=== PATIENT | female | born 1955 | race Caucasian/White ===

== ENCOUNTER 2016-12-29 20:52 | Inpatient (IN) | payer OTHER ==
[~2016-12-29] VITALS: Ht 160 cm; Wt 100.3 kg
[~2016-12-29 20:52] MED LIST: CALCTAB7 PO; CRG625 PO; DICY10CA55 PO; FAMO20TA12 PO; FLUO20CA36 PO; FLUT0.0529 NAE; FLUT220A INH; FLV1 PO; LCTL45 PO; LISI-461 PO; LSX40 PO; LVQ500 PO; MULTTAB58 PO; NCDT21 TD; OXYGEN; POTA10CA28 PO; PRED20TA2 PO; RISP3TAB3 PO; SPR25 PO; VNTHFA/IN INH; XFX550 PO
[2016-12-29] MEDS ORDERED: SODIUM CHLORIDE 0.9% 1000ML 1,000 ML IV STA (21:05)
[2016-12-29] MEDS ORDERED: PIPERACILLIN/TAZOBACTAM 4.5 GM/100ML D5W IV STA (21:05)
--- NOTE | 2016-12-29 21:38 | DIAGNOSTIC IMAGING REPORT ---
CHEST ONE VIEW PORTABLE CLINICAL HISTORY: Evaluate Fever/Sepsis dyspnea COMPARISON STUDY: 04/05/2016 FINDINGS: The bones soft tissues and hemidiaphragms are normal. The cardiomediastinal silhouette is normal. The lungs are clear. Prominence of the central pulmonary vasculature considered chronic.. IMPRESSION: No acute process. Electronically signed by: Dm Villarreal M.D. 12/29/2016 9:36 PM Dictated Date/Time: 12/29/2016 9:35 PM
[2016-12-29 21:43] LABS: BASO % 0.2 %; BASO ABS # 0.03 K/uL (0-0.2); COMPLETE YES; EOS % 0.4 %; HEMATOCRIT 37.7 % (37-47); IG% 0.5 %; LYMPH % 6.5 %; LYMPH ABS # 0.84 K/uL (1.2-3.4); MEAN CORPUSCULAR HEMOGLOBIN 33.6 pg (25-34); MEAN CORPUSCULAR HGB CONC 32.6 g/dl (32-36); MEAN PLATELET VOLUME 10.4 fL (7.4-10.4); MONO % 9.8 %; NEUT % 82.6 %; PLATELET COUNT 185 K/uL (130-400); RED BLOOD COUNT 3.66 M/uL (4.2-5.4)
[2016-12-29 21:57] LABS: INR 1.2 (0.9-1.1); PROTHROMBIN TIME (PATIENT) 12.9 SECONDS (9.0-12.0)
[2016-12-29] MEDS ORDERED: RISP4TAB2 PO (21:58)
[2016-12-29] MEDS ORDERED: PRZ/40 PO (21:58)
[2016-12-29] MEDS ORDERED: ATOR-26 PO (21:58)
[2016-12-29] MEDS ORDERED: ASPI81TA28 PO (22:00)
[2016-12-29] MEDS ORDERED: IMD/2 PO (22:00)
[2016-12-29] MEDS ORDERED: MULT-506 PO (22:00)
[2016-12-29] MEDS ORDERED: CALC-20 PO (22:00)
[2016-12-29 22:02] LABS: ALT/SGPT 118 U/L (12-78); BLOOD UREA NITROGEN 13 mg/dl (7-18); CALCIUM 8.2 mg/dl (8.5-10.1); CARBON DIOXIDE 29 mmol/L (21-32); CHLORIDE 98 mmol/L (98-107); CREATININE 0.66 mg/dl (0.60-1.20); GLUCOSE 170 mg/dl (70-99); POTASSIUM 3.9 mmol/L (3.5-5.1); SODIUM 138 mmol/L (136-145)
[2016-12-29 22:17] LABS: ALKALINE PHOSPHATASE 1075 U/L (45-117); AST/SGOT 329 U/L (15-37); CKMB/CK RATIO 1.5 (0-3.0)
--- NOTE | 2016-12-29 22:19 | DIAGNOSTIC IMAGING REPORT ---
HEAD CT NONCONTRAST CT DOSE: 537.48 mGy.cm HISTORY: Mental status change Evaluate Fever/Sepsis TECHNIQUE: Multiaxial CT images of the head were performed without the use of intravenous contrast. Comparison: 01/15/2015 Findings: The paranasal sinuses and mastoid air cells are clear. Subtle areas of scattered chronic small vessel change. No evidence for acute intracranial hemorrhage. No evidence for midline shift. Impression: Chronic small vessel change. No acute intracranial abnormality. Electronically signed by: Dm Villarreal M.D. 12/29/2016 10:17 PM Dictated Date/Time: 12/29/2016 10:15 PM
[2016-12-29] MEDS ORDERED: MULTI-VITAMIN INFUSION INJ 10 ML, FoLIC ACID INJ 1 MG, THIAMINE HCL INJ 100 MG in SODIU... IV STA (22:43)
[2016-12-29 22:44] LABS: URINE APPEARANCE CLEAR (CLEAR); URINE COLOR DK; URINE EPITHELIAL CELL AUTO >30 /lpf (0-5); URINE NITRITE POS (NEG); URINE SPECIFIC GRAVITY 1.025 (1.000-1.030); UROBILINOGEN NEG (NEG)
[2016-12-29 22:47] LABS: MANUAL MICROSCOPIC REQUIRED? NO; REVIEW REQ? YES; URINE BILIRUBIN NEG (NEG)
[2016-12-29 22:48] LABS: ZZURINE CULT IF INDIC CATH NO
[2016-12-29 22:48] LABS: VEN BLD GAS O2 SATURATION 79.5 %; VEN BLOOD GAS BASE EXCESS 4.7 mmol/L
[2016-12-29 22:57] LABS: URINE MUCUS PRESENT (NONE PRSENT)
[2016-12-29 23:07] LABS: BENZODIAZEPINE, URINE NEG (NEG); COCAINE,URINE NEG (NEG); PHENCYCLIDINE, URINE NEG (NEG)
[2016-12-29] MEDS ORDERED: LORAZEPAM 2 MG/ML 1 ML VIAL IV STA (23:21)
--- NOTE | 2016-12-29 23:21 | EMERGENCY ROOM VISIT NOTE ---
History Report prepared by Maryam: Linnea Mustafa Under the Supervision of: Dr. Juan Lepe D.O. First contact with patient: 21:01 Chief Complaint: BILATERAL LEG WEAKNESS Stated Complaint: BILAT LEG WEAKNESS, UNABLE TO AMBULATE History of Present Illness The patient is a 61 year old female who presents to the Emergency Room with complaints of worsening bilateral leg weakness for the past month. She notes that recently she has been unable to bear weight on her legs even when using her walker. She has difficulty ambulating. The patient was brought via EMS due to the fact she was not able to move around her house after a fall occurring this afternoon. Her is her main caregiver. The patient has not left her house in over a year. She also has a erythema to her abdomen and bilateral legs. Source of History: patient Onset: past month Position: leg (bilateral) Timing: worsening Associated Symptoms: + rash (erythema to abdomen and legs), + weakness Note: The patient has difficulty ambulating. Review of Systems See HPI for pertinent positives & negatives. A total of 10 systems reviewed and were otherwise negative. Past Medical & Surgical Medical Problems: (1) Alcohol abuse (2) Anxiety and depression (3) COPD (chronic obstructive pulmonary disease) (4) Dyslipidemia (5) High cholesterol (6) Osteoporosis (7) Schizoaffective disorder (8) Schizophrenia (9) Systolic CHF (10) Tobacco use disorder Surgical Problems: (1) Hx of colonoscopy with polypectomy (2) Hx of tonsillectomy Family History Cancer Heart disease FATHER (severe [place] age 40; lived to be 70; had several bypasses) Kidney disease Kidney stones Social History Smoking Status: Former Smoker Alcohol Use: heavy Drug Use: none Marital Status: Housing Status: lives with significant other Occupation Status: other Current/Historical Medications Scheduled Aspirin (Aspirin Ec), 81 MG PO DAILY Atorvastatin (Lipitor), 80 MG PO DAILY Calcium Carbonate-Vitamin D (Calcium 600 + D), 1 TAB PO DAILY Fluoxetine Hcl (Prozac), 40 MG PO DAILY Multivitamin (Multivitamin), 1 TAB PO DAILY Risperidone (Risperdal), 4 MG PO HS Scheduled PRN Loperamide Hcl (Imodium), 2 MG PO UD PRN for Diarrhea Allergies Coded Allergies: No Known Allergies (Unverified , nkda, 04/01/16) Physical Exam Vital Signs Date Time Temp Pulse Resp B/P Pulse Ox O2 Delivery O2 Flow Rate FiO2 12/29/16 22:47 95 Nasal Cannula 2.0 12/29/16 22:43 113 19 174/96 93 Room Air 12/29/16 22:30 37.4 12/29/16 21:53 123 12/29/16 20:54 36.4 115 20 156/72 92 Room Air Physical Exam CONSTITUTIONAL/VITAL SIGNS: Reviewed / noted above. GENERAL: Non-toxic in appearance. INTEGUMENTARY: Warm, dry, and [place]. HEAD: Normocephalic. EYES: without scleral icterus or trauma. ENT/OROPHARYNX: Smell of ketones on the breath. Dry mucous membranes. LYMPHADENOPATHY/NECK: Is supple without lymphadenopathy or meningismus. RESPIRATORY: Coarse breath sounds. CARDIOVASCULAR: Regular rate and rhythm. GI/ABDOMEN: Erythema to lower abdomen with increased warm. Abdomen is distended. Normal bowel sounds. EXTREMITIES: Lower extremity edema. Erythema to bilateral anterior legs with increased warmth. BACK: No CVA tenderness. NEUROLOGICAL: Intact without focal deficits. PSYCHIATRIC: normal affect. MUSCULOSKELETAL: Normally developed with good muscle tone. Medical Decision & Procedures ER Provider Diagnostic Interpretation: X ray results and stated below per my interpretation and radiologist interpretation. Other radiology results and stated below per my review and radiologist interpretation: HEAD CT NONCONTRAST CT DOSE: 537.48 mGy.cm HISTORY: Mental status change Evaluate Fever/Sepsis TECHNIQUE: Multiaxial CT images of the head were performed without the use of intravenous contrast. Comparison: 01/15/2015 Findings: The paranasal sinuses and mastoid air cells are clear. Subtle areas of scattered chronic small vessel change. No evidence for acute intracranial hemorrhage. No evidence for midline shift. Impression: Chronic small vessel change. No acute intracranial abnormality. Electronically signed by: Dm Villarreal M.D. 12/29/2016 10:17 PM Dictated Date/Time: 12/29/2016 10:15 PM CHEST ONE VIEW PORTABLE CLINICAL HISTORY: Evaluate Fever/Sepsis dyspnea COMPARISON STUDY: 04/05/2016 FINDINGS: The bones soft tissues and hemidiaphragms are normal. The cardiomediastinal silhouette is normal. The lungs are clear. Prominence of the central pulmonary vasculature considered chronic.. IMPRESSION: No acute process. Electronically signed by: Dm Villarreal M.D. 12/29/2016 9:36 PM Dictated Date/Time: 12/29/2016 9:35 PM Laboratory Results 12/29/16 21:29 Red Blood Count 3.66, Mean Corpuscular Volume 103.0, Mean Corpuscular Hemoglobin 33.6, Mean Corpuscular Hemoglobin Concent 32.6, Mean Platelet Volume 10.4, Neutrophils (%) (Auto) 82.6, Lymphocytes (%) (Auto) 6.5, Monocytes (%) ( Auto) 9.8, Eosinophils (%) (Auto) 0.4, Basophils (%) (Auto) 0.2, Neutrophils # ( Auto) 10.64, Lymphocytes # (Auto) 0.84, Monocytes # (Auto) 1.27, Eosinophils # ( Auto) 0.05, Basophils # (Auto) 0.03 12/29/16 21:29 Test 12/29/16 21:20 12/29/16 21:27 12/29/16 21:29 12/29/16 21:45 Influenza Type A Antigen Neg for Influ A (NEG) Influenza Type B Antigen Neg for Influ B (NEG) Bedside Glucose 172 mg/dl (70-90) White Blood Count 12.90 K/uL (4.8-10.8) Red Blood Count 3.66 M/uL (4.2-5.4) Hemoglobin 12.3 g/dL (12.0-16.0) Hematocrit 37.7 % (37-47) Mean Corpuscular Volume 103.0 fL (80-100) Mean Corpuscular Hemoglobin 33.6 pg (25-34) Mean Corpuscular Hemoglobin Concent 32.6 g/dl (32-36) Platelet Count 185 K/uL (130-400) Mean Platelet Volume 10.4 fL (7.4-10.4) Neutrophils (%) (Auto) 82.6 % Lymphocytes (%) (Auto) 6.5 % Monocytes (%) (Auto) 9.8 % Eosinophils (%) (Auto) 0.4 % Basophils (%) (Auto) 0.2 % Neutrophils # (Auto) 10.64 K/uL (1.4-6.5) Lymphocytes # (Auto) 0.84 K/uL (1.2-3.4) Monocytes # (Auto) 1.27 K/uL (0.11-0.59) Eosinophils # (Auto) 0.05 K/uL (0-0.5) Basophils # (Auto) 0.03 K/uL (0-0.2) RDW Standard Deviation 65.4 fL (36.4-46.3) RDW Coefficient of Variation 18.1 % (11.5-14.5) Immature Granulocyte % (Auto) 0.5 % Immature Granulocyte # (Auto) 0.07 K/uL (0.00-0.02) Nucleated RBC Absolute Count (auto) 0.09 K/uL (0-0) Nucleated Red Blood Cells % 0.7 % Prothrombin Time 12.9 SECONDS (9.0-12.0) Prothromb Time International Ratio 1.2 (0.9-1.1) Activated Partial Thromboplast Time 26.7 SECONDS (21.0-31.0) Partial Thromboplastin Ratio 1.0 Anion Gap 11.0 mmol/L (3-11) Est Creatinine Clear Calc Drug Dose 102.1 ml/min Estimated GFR () 109.0 Estimated GFR (Non- 94.0 BUN/Creatinine Ratio 20.0 (10-20) Lactic Acid Level 1.9 mmol/L (0.4-2.0) Calcium Level 8.2 mg/dl (8.5-10.1) Total Bilirubin 2.2 mg/dl (0.2-1) Direct Bilirubin 1.7 mg/dl (0-0.2) Aspartate Amino Transf (AST/SGOT) 329 U/L (15-37) Alanine Aminotransferase (ALT/SGPT) 118 U/L (12-78) Alkaline Phosphatase 1075 U/L (45-117) Ammonia 45.0 umol/L (11-32) Total Creatine Kinase 273 U/L (26-192) Creatine Kinase MB 4.1 ng/ml (0.5-3.6) Creatine Kinase MB Ratio 1.5 (0-3.0) Troponin I < 0.015 ng/ml (0-0.045) Total Protein 6.1 gm/dl (6.4-8.2) Albumin 2.2 gm/dl (3.4-5.0) Lipase 321 U/L (73-393) Thyroid Stimulating Hormone (TSH) 20.900 uIu/ml (0.300-4.500) Acetaminophen Level ug/ml (10-30) Ethyl Alcohol mg/dL < 3.0 mg/dl (0-3) Test 12/29/16 22:30 12/29/16 22:35 Urine Color DK Urine Appearance CLEAR (CLEAR) Urine pH 6.0 (4.5-7.5) Urine Specific [place] 1.025 (1.000-1.030) Urine Protein 2+ (NEG) Urine Glucose (UA) NEG (NEG) Urine Ketones 1+ (NEG) Urine Occult Blood 3+ (NEG) Urine Nitrite POS (NEG) Urine Bilirubin NEG (NEG) Urine Urobilinogen NEG (NEG) Urine Leukocyte Esterase TRACE (NEG) Urine WBC (Auto) 5-10 /hpf (0-5) Urine RBC (Auto) 0-4 /hpf (0-4) Urine Hyaline Casts (Auto) 5-10 /lpf (0-5) Urine Epithelial Cells (Auto) >30 /lpf (0-5) Urine Bacteria (Auto) NEG (NEG) Urine Renal Epithelial Cells /lpf (0-5) Urine Mucus PRESENT (NONE PRSENT) Venous Blood pH 7.49 (7.36-7.41) Venous Blood Partial Pressure CO2 38 mmHg (38.0-50.0) Venous Blood Partial Pressure O2 44 mmHg Venous Blood HCO3 28 mmol/L Venous Blood Oxygen Saturation 79.5 % Venous Blood Base Excess 4.7 mmol/L Laboratory results as stated above per my review. Medications Administered Medications (Trade) Dose Ordered Sig/Antonio Route Start Time Stop Time Status Last Admin Dose Admin Sodium Chloride (Nss 1000ml) 1,000 ml @ 999 mls/hr Q1H1M STAT IV 12/29/16 21:05 12/29/16 22:05 DC 12/29/16 22:46 999 MLS/HR Piperacillin Sod/ Tazobactam Sod (Zosyn Iv) 4.5 gm NOW STAT IV 12/29/16 21:05 12/29/16 21:08 DC 12/29/16 22:46 4.5 GM ECG Indication: weakness Rate (beats per minute): 120 Rhythm: sinus tachycardia Findings: no acute ischemic change, no ectopy ED Course 2101: Previous medical records were reviewed. The patient was evaluated in room B7. A complete history and physical examination was performed. 2104: Zosyn IV 4.5 gm IV, Sodium Chloride 1,000 ml @ 999 mls/hr IV. 2243: Multivitamins 10 ml/ Folic Acid 1 mg/ Thiamine HCl 100 mg/ Sodium Chloride 1,011.2ml @ 999 mls/hr IV. 225: Discussed the patient's case with Dr. Stephanie Dobbins. The patient will be evaluated for further treatment and disposition. Medical Decision The patient is a 61 year old female who presents to the ED with complaints of generalized weakness. The patient lives at home with her . The patient has not been able to get out of bed for the past several days per EMS. The patient is a known alcoholic. She is somewhat of a poor historian. The patient 's exam findings suggest erythema and warmth to the lower extremities as well as the anterior lower abdomen. This is concerning for cellulitis. The patient also reports that she thinks that her neighbors would like to kill her. She states that she hears a voice message as pure. She thinks that this voice is causing her abdomen to swell. The patient denies any chest pains or shortness of breath. Her white blood cell count is 12.9. Glucose is 170. Ammonia level is 45. Bilirubin is 2.2. AST and ALT is slightly elevated. Flu swab was negative. Lactate is 1.9. Albumin is slightly low at 2.2. Urine suggest infection. Alcohol level was 0. TSH is elevated at 20. INR is 1.2. A VBG did not show any significant abnormality. Tox screen is negative. The patient reports that she drinks about 1 glass of alcohol a day. Her significant other suggest otherwise but does not give any specific detail on how much she drinks. The patient states that her last drink was this afternoon some time. She was given Ativan IV. She was given a banana bag IV. She was also given IV antibiotics. She will be seen by the hospitalist for further inpatient care. Differential diagnosis: Etiologies such as metabolic, infection, hypoglycemia, electrolyte abnormalities , cardiac sources, intracerebral event, toxicologic, neurologic, as well as others were entertained. Consults Time Called: 2245 Consulting Physician: Dr. Stephanie Dobbins Returned Call: [phone] Discussed the patient's case. The patient will be evaluated for further treatment and disposition. Impression Primary Impression: UTI (urinary tract infection) Additional Impressions: Cellulitis, abdominal wall Alcohol withdrawal Alcoholic cirrhosis of liver Scribe Attestation The scribe's documentation has been prepared under my direction and personally reviewed by me in its entirety. I confirm that the note above accurately reflects all work, treatment, procedures, and medical decision making performed by me. Departure Information Dispostion Being Evaluated By Hospitalist Referrals Sultana Mcginnis M.D. (PCP) Problem Qualifiers
[2016-12-30] VITALS (8 sets, daily range): BP systolic 106–163; BP diastolic 66–84; PULSE 105–115; TEMP 37–37.7; O2SAT 81–96; Ht 160 cm; Wt 100.3 kg
[2016-12-30] MEDS ORDERED: FUROSEMIDE 40 MG/4 ML VIAL ONE (02:28)
[2016-12-30] MEDS ORDERED: FUROSEMIDE INJ 40 MG in SYRINGE 0 ML IV ONE ×2 (02:30→15:45)
[2016-12-30] MEDS ORDERED: DAPTOmycin IV 625 MG in SODIUM CHLORIDE 0.9% 50ML 50 ML IV STA (02:33)
--- NOTE | 2016-12-30 05:48 | History and Physical ---
History & Physical Date & Time of Service: Dec 30, 2016 at 05:48 Chief Complaint: weakness, confusion . Primary Care Physician: Sultana Mcginnis M.D. History of Present Illness Source: patient, clinic records, hospital records 61 YO female followed by Dr. Sultana Mcginnis. History of systolic CHF, cirrhosis (steatohepatitis, possible alcohol abuse), schizophrenia, and other problems noted below. Apparently she is not very mobile and needs her husbands assistance with ambulation and transfers. Patient reportedly has not been out of her home for several months. Brought to ED because of progressive generalized weakness that had been worsening gradually over several weeks. Patient offers no complaints. She states that she feels OK and denies fever, chest pain, cough, SOB, nausea, vomiting, rectal bleeding, urinary symptoms, or other problems. Records indicate concerns about excessive alcohol consumption. Patient states that she doesn't drink very much, just a few drinks a week. . Past Medical/Surgical History Chronic Medical Problems: (1) Alcohol abuse Status: Chronic (2) Anxiety and depression Status: Chronic (3) COPD (chronic obstructive pulmonary disease) Status: Chronic (4) Dyslipidemia Status: Chronic (5) High cholesterol Status: Chronic (6) Osteoporosis Status: Chronic (7) Schizoaffective disorder Status: Chronic (8) Schizophrenia Status: Chronic (9) Systolic CHF Permanent Comment: EF 30-35% on echo 01/12/2015 Status: Chronic (10) Tobacco use disorder Status: Chronic Surgical Problems: (1) Hx of colonoscopy with polypectomy Permanent Comment: 07/15/11 2 polyps--adenomatous tissue Status: Chronic (2) Hx of tonsillectomy Status: Chronic Family History Cancer Heart disease FATHER (severe [place] age 40; lived to be 70; had several bypasses) Kidney disease Kidney stones Social History Smoking Status: Former Smoker Alcohol Use: exact consumption habits unclear Drug Use: none Marital Status: Housing status: lives with significant other Occupational Status: other Immunizations History of Influenza Vaccine: Yes History of Pneumococcal: Yes Multi-Drug Resistant Organisms History of MDRO: No Allergies Coded Allergies: No Known Allergies (Unverified , nkda, 04/01/16) Home Medications Scheduled Aspirin (Aspirin Ec), 81 MG PO DAILY Atorvastatin (Lipitor), 80 MG PO DAILY Calcium Carbonate-Vitamin D (Calcium 600 + D), 1 TAB PO DAILY Fluoxetine Hcl (Prozac), 40 MG PO DAILY Multivitamin (Multivitamin), 1 TAB PO DAILY Risperidone (Risperdal), 4 MG PO HS Scheduled PRN Loperamide Hcl (Imodium), 2 MG PO UD PRN for Diarrhea Review of Systems 10 systems reviewed; pertinent positives and negatives noted above in HPI. However, responses of questionable validity due to patient's condition. . Physical Exam Vital Signs Date Time Temp Pulse Resp B/P Pulse Ox O2 Delivery O2 Flow Rate FiO2 12/30/16 03:00 37.2 115 18 163/82 93 Nasal Cannula 3.0 12/30/16 02:37 93 Nasal Cannula 3.0 12/30/16 02:36 121 26 162/74 91 Nasal Cannula 2.0 12/30/16 01:24 176/84 12/30/16 01:22 117 23 95 Nasal Cannula 12/30/16 01:06 118 12/30/16 00:52 118 20 90 Room Air 12/30/16 00:22 118 20 93 Nasal Cannula 2.0 12/30/16 00:18 115 19 137/106 94 Nasal Cannula 2.0 12/30/16 00:16 137/106 12/29/16 23:52 117 22 95 12/29/16 23:22 112 23 96 12/29/16 22:58 187/106 12/29/16 22:52 118 20 96 12/29/16 22:47 95 Nasal Cannula 2.0 12/29/16 22:43 113 19 174/96 93 Room Air 12/29/16 22:41 174/96 12/29/16 22:30 37.4 12/29/16 21:53 123 12/29/16 21:52 117 20 91 12/29/16 21:31 162/104 12/29/16 20:54 36.4 115 20 156/72 92 Room Air General Appearance: WD/WN, + mild distress, + obese Head: normocephalic, atraumatic Eyes: PERRL, EOMI, + abnormal sclerae exam (icteric), + pertinent finding ( exophthalmus bilat) ENT: normal ENT inspection Neck: supple, trachea midline, + pertinent finding (exam limited due to body habitus) Respiratory/Chest: no respiratory distress, + crackles, + rhonchi, + wheezing Cardiovascular: regular rate, rhythm, + systolic murmur (II/ systolic murmur at base), + pertinent finding (JVD assessement limited due to body habitus; auscultation limited; 3-4+ lower extr edema bilat) Abdomen/GI: + pertinent finding (obese, distended, nontender; no palpable masses or organomegaly (exam very limited)) Extremities/Musculoskelatal: + swelling (3-4+ lower extremity edema) Neurologic/Psych: + pertinent finding (somewhat confused (had to look at watch to recall date); moderate asterixis) Skin: warm/dry, + pertinent finding (erythema and warmth lower abdominal wall, LLL prox and dist, RLL dist; spider angiomata chest) Lymphatic: no adenopathy (exam limited) Diagnostics Laboratory Results Results Past 24 Hours Test 12/29/16 21:20 12/29/16 21:27 12/29/16 21:29 12/29/16 21:45 Range/Units Influenza Type A Antigen Neg for Influ A NEG Influenza Type B Antigen Neg for Influ B NEG Bedside Glucose 172 70-90 mg/dl White Blood Count 12.90 4.8-10.8 K/uL Red Blood Count 3.66 4.2-5.4 M/uL Hemoglobin 12.3 12.0-16.0 g/dL Hematocrit 37.7 37-47 % Mean Corpuscular Volume 103.0 80-100 fL Mean Corpuscular Hemoglobin 33.6 25-34 pg Mean Corpuscular Hemoglobin Concent 32.6 32-36 g/dl Platelet Count 185 130-400 K/uL Mean Platelet Volume 10.4 7.4-10.4 fL Neutrophils (%) (Auto) 82.6 % Lymphocytes (%) (Auto) 6.5 % Monocytes (%) (Auto) 9.8 % Eosinophils (%) (Auto) 0.4 % Basophils (%) (Auto) 0.2 % Neutrophils # (Auto) 10.64 1.4-6.5 K/uL Lymphocytes # (Auto) 0.84 1.2-3.4 K/uL Monocytes # (Auto) 1.27 0.11-0.59 K/uL Eosinophils # (Auto) 0.05 0-0.5 K/uL Basophils # (Auto) 0.03 0-0.2 K/uL RDW Standard Deviation 65.4 36.4-46.3 fL RDW Coefficient of Variation 18.1 11.5-14.5 % Immature Granulocyte % (Auto) 0.5 % Immature Granulocyte # (Auto) 0.07 0.00-0.02 K/uL Nucleated RBC Absolute Count (auto) 0.09 0-0 K/uL Nucleated Red Blood Cells % 0.7 % Prothrombin Time 12.9 9.0-12.0 SECONDS Prothromb Time International Ratio 1.2 0.9-1.1 Activated Partial Thromboplast Time 26.7 21.0-31.0 SECONDS Partial Thromboplastin Ratio 1.0 Sodium Level 138 136-145 mmol/L Potassium Level 3.9 3.5-5.1 mmol/L Chloride Level 98 98-107 mmol/L Carbon Dioxide Level 29 21-32 mmol/L Anion Gap 11.0 3-11 mmol/L Blood Urea Nitrogen 13 7-18 mg/dl Creatinine 0.66 0.60-1.20 mg/dl Est Creatinine Clear Calc Drug Dose 102.1 ml/min Estimated GFR () 109.0 Estimated GFR (Non- 94.0 BUN/Creatinine Ratio 20.0 10-20 Random Glucose 170 70-99 mg/dl Lactic Acid Level 1.9 0.4-2.0 mmol/L Calcium Level 8.2 8.5-10.1 mg/dl Total Bilirubin 2.2 0.2-1 mg/dl Direct Bilirubin 1.7 0-0.2 mg/dl Aspartate Amino Transf (AST/SGOT) 329 15-37 U/L Alanine Aminotransferase (ALT/SGPT) 118 12-78 U/L Alkaline Phosphatase 1075 45-117 U/L Ammonia 45.0 11-32 umol/L Total Creatine Kinase 273 26-192 U/L Creatine Kinase MB 4.1 0.5-3.6 ng/ml Creatine Kinase MB Ratio 1.5 0-3.0 Troponin I < 0.015 0-0.045 ng/ml Total Protein 6.1 6.4-8.2 gm/dl Albumin 2.2 3.4-5.0 gm/dl Lipase 321 73-393 U/L Thyroid Stimulating Hormone (TSH) 20.900 0.300-4.500 uIu/ml Acetaminophen Level 10-30 ug/ml Ethyl Alcohol mg/dL < 3.0 0-3 mg/dl Test 12/29/16 22:30 12/29/16 22:35 12/30/16 04:44 Range/Units Urine Color DK Urine Appearance CLEAR CLEAR Urine pH 6.0 4.5-7.5 Urine Specific [place] 1.025 1.000-1.030 Urine Protein 2+ NEG Urine Glucose (UA) NEG NEG Urine Ketones 1+ NEG Urine Occult Blood 3+ NEG Urine Nitrite POS NEG Urine Bilirubin NEG NEG Urine Urobilinogen NEG NEG Urine Leukocyte Esterase TRACE NEG Urine WBC (Auto) 5-10 0-5 /hpf Urine RBC (Auto) 0-4 0-4 /hpf Urine Hyaline Casts (Auto) 5-10 0-5 /lpf Urine Epithelial Cells (Auto) >30 0-5 /lpf Urine Bacteria (Auto) NEG NEG Urine Renal Epithelial Cells 0-5 /lpf Urine Mucus PRESENT NONE PRSENT Urine Opiates Screen NEG NEG Urine Methadone, Qualitative NEG NEG Urine Barbiturates NEG NEG Urine Phencyclidine (PCP) Level NEG NEG Ur Amphetamine/Methamphetamine NEG NEG MDMA (Ecstasy) Screen NEG NEG Urine Benzodiazepines Screen NEG NEG Urine Cocaine Metabolite NEG NEG Urine Marijuana (THC) NEG NEG Venous Blood pH 7.49 7.36-7.41 Venous Blood Partial Pressure CO2 38 38.0-50.0 mmHg Venous Blood Partial Pressure O2 44 mmHg Venous Blood HCO3 28 mmol/L Venous Blood Oxygen Saturation 79.5 % Venous Blood Base Excess 4.7 mmol/L Microbiology Results 12/29/16 Blood Culture, Received Pending 12/29/16 Blood Culture, Received Pending Diagnostic Radiology CHEST ONE VIEW PORTABLE FINDINGS: The bones soft tissues and hemidiaphragms are normal. The cardiomediastinal silhouette is normal. The lungs are clear. Prominence of the central pulmonary vasculature considered chronic.. IMPRESSION: No acute process. Electronically signed by: Dm Villarreal M.D. 12/29/2016 9:[address] NONCONTRAST Findings: T he paranasal sinuses and mastoid air cells are clear. Subtle areas of scattered chronic small vessel change. No evidence for acute intracranial hemorrhage. No evidence for midline shift. Impression: Chronic small vessel change. No acute intracranial abnormality. Electronically signed by: Dm Villarreal M.D. 12/29/2016 10:17 PM . EKG EKG performed at 21:[address] at 120 / minute, baseline artifact, lateral T-wave inversions. . Impression Assessment and Plan CONFUSION Head CT negative for bleed or other acute event. Probably due to hepatic encephalopathy, perhaps precipitated by cellulitis. Start lactulose. CIRRHOSIS / HEPATIC ENCEPHALOPATHY Suspected cirrhosis noted on CT 2014. History fatty liver- could be combination of obesity and alcohol use. LFT's as noted. Abdomen noted- check US. Start lactulose for hepatic encephalopathy. Consult GI. SUSPECTED ALCOHOL USE Patient may be under-reporting her alcohol consumption. Received IV thiamin + MVI in ED. Monitor for alcohol withdrawal. Need to be careful with benzodiazepines and / or gabapentin in light of underlying hepatic disease. CELLULITIS ABDOMEN / LOWER EXTREMITIES Erythema and warmth lower abdominal wall and lower extremities. Afebrile. WBC slightly elevated. Lactate < 2. Blood cultures obtained in ED. Rx with daptomycin and piperacillin / tazobactam. SYSTOLIC CHF Compensated radiographically on admission chest x-ray, but seemed to be congested after receiving 2 L IV fluids in ED. Furosemide 40 mg IV ordered. Check f/u chest x-ray in a.m. DYSLIPIDEMIA Hold statin in light of elevate LFT's. THYROID DISEASE Bilat exophthalmos noted on exam- ? chronicity. TSH 21. ? burned-out Grave's disease. Start levothyroxine 25 mcg daily. SCHIZOPHRENIA Continue usual meds. VTE PROPHYLAXIS High risk for VTE. SQ heparin with caution. CODE STATUS Patient reports no living will. Need to clarify code status with family when they are available. DISPOSITION Admit to Telemetry Unit. Discharge disposition to be determined. Medical follow-up with Dr. Sultana Mcginnis. . Advanced Directives Existing Advance Directive: No Existing Living Will: No Existing Power of [employer] Supervisor: No VTE Prophylaxis VTE Risk Assessment Done? Y/N: Yes Risk Level: Moderate Given or contraindicated: Unfractionated heparin SQ
[2016-12-30 06:20] LABS: HEMATOCRIT 31.7 % (37-47); MEAN CELL VOLUME 104.6 fL (80-100); MEAN CORPUSCULAR HGB CONC 32.5 g/dl (32-36); MEAN PLATELET VOLUME 10.2 fL (7.4-10.4); PLATELET COUNT 163 K/uL (130-400); RED BLOOD COUNT 3.03 M/uL (4.2-5.4); WHITE BLOOD COUNT 11.99 K/uL (4.8-10.8)
[2016-12-30] MEDS ORDERED: PIPERACILL/TAZOBAC CONSULT ACTIVE PRN (07:00)
[2016-12-30 07:04] LABS: BUN/CREATININE RATIO 17.1 (10-20); CALCIUM 7.8 mg/dl (8.5-10.1); CREATININE 0.78 mg/dl (0.60-1.20); MAGNESIUM 1.8 mg/dl (1.8-2.4); POTASSIUM 3.2 mmol/L (3.5-5.1)
--- NOTE | 2016-12-30 07:46 | DIAGNOSTIC IMAGING REPORT ---
CHEST ONE VIEW PORTABLE CLINICAL HISTORY: SOB dyspnea COMPARISON STUDY: 12/29/2016 FINDINGS: Mild stable cardiomegaly. Diaphragms smooth. Slight blunting left lateral calcific angle. Mild pulmonary vascular congestion. IMPRESSION: Interval mild pulmonary vascular congestion. Trace pleural fluid left base laterally. Electronically signed by: Dm Villarreal M.D. 12/30/2016 7:44 AM Dictated Date/Time: 12/30/2016 7:44 AM
[2016-12-30] MEDS ORDERED: POTASSIUM CHLORIDE 20 MEQ TABCR PO ONE (08:00)
[2016-12-30] MEDS: PIPERACILL/TAZOBAC IV 4.5 GM in DEXTROSE 5% 100ML 100 ML IV SCH ×3 (08:22→21:32)
--- NOTE | 2016-12-30 08:24 | DIAGNOSTIC IMAGING REPORT ---
ABDOMINAL ULTRASOUND COMPLETE HISTORY: Hepatic cirrhosis cirrhosis. COMPARISON: None. FINDINGS: Pancreas: The pancreas demonstrates a normal echotexture. Liver: Mild hepatomegaly at 25 cm maximum linear dimension. Cirrhotic echotexture. Gallbladder: No gallbladder wall thickening. No gallstones. CBD: 7 mm Kidneys: No hydronephrosis. Spleen: Mild splenomegaly at 12 cm. Trace perisplenic ascites Aorta: Normal in caliber. IVC: Patent. IMPRESSION: 1. Hepatic cirrhosis. 2. Mild hepatosplenomegaly. 3. Trace upper abdominal ascites Electronically signed by: Dm Villarreal M.D. 12/30/2016 8:22 AM Dictated Date/Time: 12/30/2016 8:20 AM
[2016-12-30] MEDS: FLUOXETINE HCL 20 MG CAP PO SCH (08:26)
[2016-12-30] MEDS: ASPIRIN 81 MG ECTAB PO SCH (08:26)
[2016-12-30] MEDS ORDERED: LACTULOSE SYRUP 30 GM/45 ML UDP PO SCH (09:00)
[2016-12-30] MEDS ORDERED: ATORVASTATIN 40 MG TAB PO SCH (09:00)
[2016-12-30] MEDS: HEPARIN SOD 5000 UNIT/0.5 ML CARP SQ SCH ×2 (09:30→21:32)
[2016-12-30] MEDS ORDERED: POTASSIUM CHLORIDE 20 MEQ TABCR PO SCH (11:00)
[2016-12-30] MEDS ORDERED: LEVALBUTEROL/IPRATROPIUM NEB INH SCH (15:30)
[2016-12-30] MEDS ORDERED: THIAMINE HCL 100 MG TAB PO ONE (15:45)
[2016-12-30 15:50] LABS: ALLEN TEST POS (POS); ARTERIAL BLD GAS O2 SATURATION 91.4 % (90-95); ARTERIAL BLOOD GAS BASE EXCESS 5.3 mEq/L (-9-1.8); ARTERIAL BLOOD GAS HCO3 30 mmol/L (19-24); ARTERIAL BLOOD GAS PO2 66 mm/Hg (80-95); ARTERIAL BLOOD GAS pH 7.47 (7.35-7.45)
[2016-12-30] MEDS ORDERED: PANTOprazole SOD 40 MG TAB PO ONE (16:00)
[2016-12-30] MEDS ORDERED: LACTULOSE 200GM/700ML WTR ENEMA PR SCH (16:15)
--- NOTE | 2016-12-30 16:37 | Gastrointestinal Consultation ---
Gastrointestinal Consultation Date of Consultation: Dec 30, 2016 Attending Physician: Zara Maxwell Consulting Physician: Andrea Ag Reason for Consultation: Cirrhosis History of Present Illness Patient is a 61 year old female who was brought into hospital as family noticed her to be progressively weak in last several weeks, and not been able to ambulate w/o assistance. She is currently laying in bed, responds to name called by opening eyes but no verbal responses nor following simple commands. Pupils reactive to light. I am unable to obtain ROS or history from pt given altered mental status. HPI data mostly from admission H&P and outpt clinic notes. Pt had been seen by our service in the past for elevated LFTs - suspected to have ETOH cirrhosis. Current ETOH consumption amt unclear though previously she admits to taking 4 small cups of hanh per week to sleep. Previous autoimmune, viral, hepatitis, hereditary liver disease serologies are all unremarkable. In 2014, her LFTs showed transaminases of AST >1500, ALT 500s, Alk phos 900s which gradually improve. She never followed up in GI clinic since 08/2015. Currently LFT showed Tbili 2.2, Dbili 1.7, AST 329, ALT 118, Alk phos 1075. Ammonia level 45, CK 273. TSH 20. Head CT unremarkable. She had negative flu screen. Utox so far negative. APAP level pending. Abd u/s showed cirrhotic appearing liver, w trace upper abd ascites, CBD 7mm, no gallstones or gallbladder wall thickening. CXR showed mild pulmonary vascular congestion. Past Medical/Surgical History Medical Problems: (1) Cellulitis of leg, right Status: Acute (2) Cellulitis, abdominal wall Status: Acute Past Medical History: See above Depression/Anxiety COPD Dyslipidemia OP Schizoaffective disorder Systolic CHF Past Surgical History: Tonsillectomy Family History Cancer Heart disease FATHER (severe PR age 40; lived to be 70; had several bypasses) Kidney disease Kidney stones Social History Smoking Status: Former Smoker Alcohol Use: heavy Drug Use: none Marital Status: Housing Status: lives with significant other Occupation Status: other Allergies Coded Allergies: No Known Allergies (Unverified , nkda, 04/01/16) Current Medications Home Meds and Scripts Medications Dose Route/Sig Max Daily Dose Days Date Category Dose Instructions Imodium (Loperamide HCl) 2 Mg Cap 2 Mg PO UD PRN 12/29/16 Reported TAKE PER PACKAGE DIRECTIONS Aspirin Ec (Aspirin) 81 Mg Tab 81 Mg PO DAILY 12/29/16 Reported Calcium 600 + D (Calcium Carbonate-Vitamin D) 1 Tab Tab 1 Tab PO DAILY 12/29/16 Reported Multivitamin (Multivitamins) Tab 1 Tab PO DAILY 12/29/16 Reported Prozac (Fluoxetine Hcl) 40 Mg Cap 40 Mg PO DAILY 12/29/16 Reported Lipitor (Atorvastatin Calcium) 80 Mg Tab 80 Mg PO DAILY 12/29/16 Reported Risperdal (Risperidone) 4 Mg Tab 4 Mg PO HS 12/29/16 Reported Review of Systems Constitutional: + see HPI (Unable to obtain ROS given pt's AMS) Physical Exam Date Time Temp Pulse Resp B/P Pulse Ox O2 Delivery O2 Flow Rate FiO2 12/30/16 12:00 Nasal Cannula 3.0 12/30/16 11:32 37.6 106 22 106/66 93 Nasal Cannula 3.0 12/30/16 08:00 Nasal Cannula 3.0 12/30/16 07:00 37.2 113 20 112/73 92 Nasal Cannula 3.0 12/30/16 03:00 37.2 115 18 163/82 93 Nasal Cannula 3.0 12/30/16 02:37 93 Nasal Cannula 3.0 12/30/16 02:36 121 26 162/74 91 Nasal Cannula 2.0 12/30/16 01:24 176/84 12/30/16 01:22 117 23 95 Nasal Cannula 12/30/16 01:06 118 12/30/16 00:52 118 20 90 Room Air 12/30/16 00:22 118 20 93 Nasal Cannula 2.0 12/30/16 00:18 115 19 137/106 94 Nasal Cannula 2.0 12/30/16 00:16 137/106 12/29/16 23:52 117 22 95 12/29/16 23:22 112 23 96 12/29/16 22:58 187/106 12/29/16 22:52 118 20 96 12/29/16 22:47 95 Nasal Cannula 2.0 12/29/16 22:43 113 19 174/96 93 Room Air 12/29/16 22:41 174/96 12/29/16 22:30 37.4 12/29/16 21:53 123 12/29/16 21:52 117 20 91 12/29/16 21:31 162/104 12/29/16 20:54 36.4 115 20 156/72 92 Room Air General Appearance: + obese Respiratory/Chest: + crackles, + rhonchi Cardiovascular: regular rate, rhythm, no gallop, no murmur Abdomen: + abnormal bowel sounds (hypoactive), + distended Neurologic/Psych: + disoriented (resposive only by opening eyes slightly when name called. not following any commands) Skin: normal color, no jaundice, no rash Laboratory Results Last 24 Hours Test 12/29/16 21:20 12/29/16 21:27 12/29/16 21:29 12/29/16 21:45 Influenza Type A Antigen Neg for Influ A Influenza Type B Antigen Neg for Influ B Bedside Glucose 172 mg/dl White Blood Count 12.90 K/uL Red Blood Count 3.66 M/uL Hemoglobin 12.3 g/dL Hematocrit 37.7 % Mean Corpuscular Volume 103.0 fL Mean Corpuscular Hemoglobin 33.6 pg Mean Corpuscular Hemoglobin Concent 32.6 g/dl Platelet Count 185 K/uL Mean Platelet Volume 10.4 fL Neutrophils (%) (Auto) 82.6 % Lymphocytes (%) (Auto) 6.5 % Monocytes (%) (Auto) 9.8 % Eosinophils (%) (Auto) 0.4 % Basophils (%) (Auto) 0.2 % Neutrophils # (Auto) 10.64 K/uL Lymphocytes # (Auto) 0.84 K/uL Monocytes # (Auto) 1.27 K/uL Eosinophils # (Auto) 0.05 K/uL Basophils # (Auto) 0.03 K/uL RDW Standard Deviation 65.4 fL RDW Coefficient of Variation 18.1 % Immature Granulocyte % (Auto) 0.5 % Immature Granulocyte # (Auto) 0.07 K/uL Nucleated RBC Absolute Count (auto) 0.09 K/uL Nucleated Red Blood Cells % 0.7 % Prothrombin Time 12.9 SECONDS Prothromb Time International Ratio 1.2 Activated Partial Thromboplast Time 26.7 SECONDS Partial Thromboplastin Ratio 1.0 Sodium Level 138 mmol/L Potassium Level 3.9 mmol/L Chloride Level 98 mmol/L Carbon Dioxide Level 29 mmol/L Anion Gap 11.0 mmol/L Blood Urea Nitrogen 13 mg/dl Creatinine 0.66 mg/dl Est Creatinine Clear Calc Drug Dose 102.1 ml/min Estimated GFR () 109.0 Estimated GFR (Non- 94.0 BUN/Creatinine Ratio 20.0 Random Glucose 170 mg/dl Lactic Acid Level 1.9 mmol/L Calcium Level 8.2 mg/dl Total Bilirubin 2.2 mg/dl Direct Bilirubin 1.7 mg/dl Aspartate Amino Transf (AST/SGOT) 329 U/L Alanine Aminotransferase (ALT/SGPT) 118 U/L Alkaline Phosphatase 1075 U/L Ammonia 45.0 umol/L Total Creatine Kinase 273 U/L Creatine Kinase MB 4.1 ng/ml Creatine Kinase MB Ratio 1.5 Troponin I < 0.015 ng/ml Total Protein 6.1 gm/dl Albumin 2.2 gm/dl Lipase 321 U/L Thyroid Stimulating Hormone (TSH) 20.900 uIu/ml Acetaminophen Level ug/ml Ethyl Alcohol mg/dL < 3.0 mg/dl Test 12/29/16 22:30 12/29/16 22:35 12/30/16 06:00 12/30/16 15:20 Urine Color DK Urine Appearance CLEAR Urine pH 6.0 Urine Specific [place] 1.025 Urine Protein 2+ Urine Glucose (UA) NEG Urine Ketones 1+ Urine Occult Blood 3+ Urine Nitrite POS Urine Bilirubin NEG Urine Urobilinogen NEG Urine Leukocyte Esterase TRACE Urine WBC (Auto) 5-10 /hpf Urine RBC (Auto) 0-4 /hpf Urine Hyaline Casts (Auto) 5-10 /lpf Urine Epithelial Cells (Auto) >30 /lpf Urine Bacteria (Auto) NEG Urine Renal Epithelial Cells /lpf Urine Mucus PRESENT Urine Opiates Screen NEG Urine Methadone, Qualitative NEG Urine Barbiturates NEG Urine Phencyclidine (PCP) Level NEG Ur Amphetamine/Methamphetamine NEG MDMA (Ecstasy) Screen NEG Urine Benzodiazepines Screen NEG Urine Cocaine Metabolite NEG Urine Marijuana (THC) NEG Venous Blood pH 7.49 Venous Blood Partial Pressure CO2 38 mmHg Venous Blood Partial Pressure O2 44 mmHg Venous Blood HCO3 28 mmol/L Venous Blood Oxygen Saturation 79.5 % Venous Blood Base Excess 4.7 mmol/L White Blood Count 11.99 K/uL Red Blood Count 3.03 M/uL Hemoglobin 10.3 g/dL Hematocrit 31.7 % Mean Corpuscular Volume 104.6 fL Mean Corpuscular Hemoglobin 34.0 pg Mean Corpuscular Hemoglobin Concent 32.5 g/dl RDW Standard Deviation 68.1 fL RDW Coefficient of Variation 18.6 % Platelet Count 163 K/uL Mean Platelet Volume 10.2 fL Nucleated RBC Absolute Count (auto) 0.07 K/uL Nucleated Red Blood Cells % 0.6 % Sodium Level 141 mmol/L Potassium Level 3.2 mmol/L 3.5 mmol/L Chloride Level 100 mmol/L Carbon Dioxide Level 29 mmol/L Anion Gap 12.0 mmol/L Blood Urea Nitrogen 13 mg/dl Creatinine 0.78 mg/dl Est Creatinine Clear Calc Drug Dose 86.3 ml/min Estimated GFR () 93.8 Estimated GFR (Non- 80.9 BUN/Creatinine Ratio 17.1 Random Glucose 129 mg/dl Calcium Level 7.8 mg/dl Magnesium Level 1.8 mg/dl Test 12/30/16 15:40 12/30/16 16:03 Arterial Blood pH 7.47 Arterial Blood Partial Pressure CO2 41 mmHg Arterial Blood Partial Pressure O2 66 mm/Hg Arterial Blood HCO3 30 mmol/L Arterial Blood Oxygen Saturation 91.4 % Arterial Blood Base Excess 5.3 mEq/L Arterial Blood Gas Delivery 93% Ramakrishna Test POS Impression Patient is a 61 year old female w hx of suspected ETOH cirrhosis, admitted for progressive weakness. Labs showed some leukocytosis, LFTs elevated: Tbili 2, AST 300s, ALT 118, Alk phos 1079. She is currently only responding to name called by opening eyes, not following commands. Head CT unremarkable, ammonia level 45. Plan - Blood cx pending, would obtain Urine culture - Continue Lactulose 30g BID; but add Lactulose enema q8hrs as suspect given pt' s AMS she may not be able to take PO meds - F/U APAP level - Obtain KUB for abd distension - Consider MRCP given elevated alk phos and tbili to r/o biliary obstruction ( though less likely given only mild CBD dilation of 7mm and no signs of gallstones). - Will continue to follow; eventually she needs close GI follow up once discharged for EGD to r/o varices, diuretic and hepatic encephalopathy med management, HCC screens [id number], Hep A and B vaccinations if not immune. I have seen, examined and agree with the plan as outlined by ENOCH Scruggs as above. -exam reveals soft abd -MS has improved after initiation of bipap, continue po lactulose
[2016-12-30] MEDS ORDERED: OPTIRAY 320 IV PRN (17:30)
[2016-12-30] MEDS ORDERED: NURSING VERBAL MED ORDER ONE (19:00)
[2016-12-30] MEDS: LACTULOSE ENEMA COMPOUND PO SCH (19:26)
[2016-12-30] MEDS: LACTULOSE SYRUP 200 GM, WATER, STERILE IRRIG 700 ML, BARCODE IDENTIFIER 1 EA PR SCH ×2 (19:26)
[2016-12-30] MEDS: LACTULOSE SYRUP 30 GM/45 ML UDP PO SCH (20:43)
[2016-12-30] MEDS: RISPERIDONE 2 MG TAB PO SCH (20:43)
[2016-12-30] MEDS ORDERED: LEVALBUTEROL 1.25MG/0.5ML NEB INH SCH (21:00)
[2016-12-30] MEDS ORDERED: IPRATROPIUM BROMIDE NEB SOLN 0.02% 2.5 ML VIAL INH SCH (21:00)
--- NOTE | 2016-12-30 21:20 | Progress Note ---
Medicine Progress Note Date & Time of Visit: Dec 30, 2016 at 21:05. Subjective Patient seen and examined. Lethargic. Denies pain. Objective Last 8 Hrs Date Time Temp Pulse Resp B/P Pulse Ox O2 Delivery O2 Flow Rate FiO2 12/30/16 20:29 37.0 112 20 149/84 90 Nasal Cannula 3.0 12/30/16 19:38 113 20 85 Room Air 12/30/16 18:13 115 96 50 12/30/16 16:36 105 93 Nasal Cannula 3.0 12/30/16 16:35 37.7 106 20 118/71 81 Room Air 12/30/16 16:00 Nasal Cannula 3.0 Physical Exam: General-oriented x3; lethargic Eyes-apparent exophthalmos; muddy sclera Neck-no stridor; trachea midline Lungs-rhonchi throughout Heart-tachycardic but regular rhythm Abdomen-soft; NT; distended; tympanic; nBS Extremities-2+ pitting edema bilateral LE Neuro-no asterixis but hand tremors Laboratory Results: Last 24 Hours Test 12/29/16 21:20 12/29/16 21:27 12/29/16 21:29 12/29/16 21:45 Influenza Type A Antigen Neg for Influ A Influenza Type B Antigen Neg for Influ B Bedside Glucose 172 mg/dl White Blood Count 12.90 K/uL Red Blood Count 3.66 M/uL Hemoglobin 12.3 g/dL Hematocrit 37.7 % Mean Corpuscular Volume 103.0 fL Mean Corpuscular Hemoglobin 33.6 pg Mean Corpuscular Hemoglobin Concent 32.6 g/dl Platelet Count 185 K/uL Mean Platelet Volume 10.4 fL Neutrophils (%) (Auto) 82.6 % Lymphocytes (%) (Auto) 6.5 % Monocytes (%) (Auto) 9.8 % Eosinophils (%) (Auto) 0.4 % Basophils (%) (Auto) 0.2 % Neutrophils # (Auto) 10.64 K/uL Lymphocytes # (Auto) 0.84 K/uL Monocytes # (Auto) 1.27 K/uL Eosinophils # (Auto) 0.05 K/uL Basophils # (Auto) 0.03 K/uL RDW Standard Deviation 65.4 fL RDW Coefficient of Variation 18.1 % Immature Granulocyte % (Auto) 0.5 % Immature Granulocyte # (Auto) 0.07 K/uL Nucleated RBC Absolute Count (auto) 0.09 K/uL Nucleated Red Blood Cells % 0.7 % Prothrombin Time 12.9 SECONDS Prothromb Time International Ratio 1.2 Activated Partial Thromboplast Time 26.7 SECONDS Partial Thromboplastin Ratio 1.0 Sodium Level 138 mmol/L Potassium Level 3.9 mmol/L Chloride Level 98 mmol/L Carbon Dioxide Level 29 mmol/L Anion Gap 11.0 mmol/L Blood Urea Nitrogen 13 mg/dl Creatinine 0.66 mg/dl Est Creatinine Clear Calc Drug Dose 102.1 ml/min Estimated GFR () 109.0 Estimated GFR (Non- 94.0 BUN/Creatinine Ratio 20.0 Random Glucose 170 mg/dl Lactic Acid Level 1.9 mmol/L Calcium Level 8.2 mg/dl Total Bilirubin 2.2 mg/dl Direct Bilirubin 1.7 mg/dl Aspartate Amino Transf (AST/SGOT) 329 U/L Alanine Aminotransferase (ALT/SGPT) 118 U/L Alkaline Phosphatase 1075 U/L Ammonia 45.0 umol/L Total Creatine Kinase 273 U/L Creatine Kinase MB 4.1 ng/ml Creatine Kinase MB Ratio 1.5 Troponin I < 0.015 ng/ml Total Protein 6.1 gm/dl Albumin 2.2 gm/dl Lipase 321 U/L Thyroid Stimulating Hormone (TSH) 20.900 uIu/ml Acetaminophen Level ug/ml Ethyl Alcohol mg/dL < 3.0 mg/dl Test 12/29/16 22:30 12/29/16 22:35 12/30/16 06:00 12/30/16 15:20 Urine Color DK Urine Appearance CLEAR Urine pH 6.0 Urine Specific [place] 1.025 Urine Protein 2+ Urine Glucose (UA) NEG Urine Ketones 1+ Urine Occult Blood 3+ Urine Nitrite POS Urine Bilirubin NEG Urine Urobilinogen NEG Urine Leukocyte Esterase TRACE Urine WBC (Auto) 5-10 /hpf Urine RBC (Auto) 0-4 /hpf Urine Hyaline Casts (Auto) 5-10 /lpf Urine Epithelial Cells (Auto) >30 /lpf Urine Bacteria (Auto) NEG Urine Renal Epithelial Cells /lpf Urine Mucus PRESENT Urine Opiates Screen NEG Urine Methadone, Qualitative NEG Urine Barbiturates NEG Urine Phencyclidine (PCP) Level NEG Ur Amphetamine/Methamphetamine NEG MDMA (Ecstasy) Screen NEG Urine Benzodiazepines Screen NEG Urine Cocaine Metabolite NEG Urine Marijuana (THC) NEG Venous Blood pH 7.49 Venous Blood Partial Pressure CO2 38 mmHg Venous Blood Partial Pressure O2 44 mmHg Venous Blood HCO3 28 mmol/L Venous Blood Oxygen Saturation 79.5 % Venous Blood Base Excess 4.7 mmol/L White Blood Count 11.99 K/uL Red Blood Count 3.03 M/uL Hemoglobin 10.3 g/dL Hematocrit 31.7 % Mean Corpuscular Volume 104.6 fL Mean Corpuscular Hemoglobin 34.0 pg Mean Corpuscular Hemoglobin Concent 32.5 g/dl RDW Standard Deviation 68.1 fL RDW Coefficient of Variation 18.6 % Platelet Count 163 K/uL Mean Platelet Volume 10.2 fL Nucleated RBC Absolute Count (auto) 0.07 K/uL Nucleated Red Blood Cells % 0.6 % Sodium Level 141 mmol/L Potassium Level 3.2 mmol/L 3.5 mmol/L Chloride Level 100 mmol/L Carbon Dioxide Level 29 mmol/L Anion Gap 12.0 mmol/L Blood Urea Nitrogen 13 mg/dl Creatinine 0.78 mg/dl Est Creatinine Clear Calc Drug Dose 86.3 ml/min Estimated GFR () 93.8 Estimated GFR (Non- 80.9 BUN/Creatinine Ratio 17.1 Random Glucose 129 mg/dl Calcium Level 7.8 mg/dl Magnesium Level 1.8 mg/dl Test 12/30/16 15:40 12/30/16 16:03 Arterial Blood pH 7.47 Arterial Blood Partial Pressure CO2 41 mmHg Arterial Blood Partial Pressure O2 66 mm/Hg Arterial Blood HCO3 30 mmol/L Arterial Blood Oxygen Saturation 91.4 % Arterial Blood Base Excess 5.3 mEq/L Arterial Blood Gas Delivery 93% Ramakrishna Test POS Acetaminophen Level 4 ug/ml Date/Time Source Procedure Growth Status 12/29/16 21:45 Blood Blood Culture Pending Received 12/29/16 21:29 Blood Blood Culture Pending Received 12/30/16 19:15 Urine,Catheterized Urine Culture Pending Received Assessment & Plan CONFUSION Head CT negative for bleed or other acute event. Probably due to hepatic encephalopathy. Started lactulose PO and enema. CIRRHOSIS / HEPATIC ENCEPHALOPATHY Suspected cirrhosis noted on CT 2014. History fatty liver- could be combination of obesity and alcohol use. Transaminitis and elevated alkaline phosphatase. Abdominal ultrasound with small ascites Started lactulose for hepatic encephalopathy. Consulted GI. ALCOHOL USE Patient's notes daily alcohol use. Continue MVI, thiamine and folic acid. Monitor for alcohol withdrawal. Need to be careful with benzodiazepines and / or gabapentin in light of underlying hepatic disease. POSSIBLE CELLULITIS ABDOMEN / LOWER EXTREMITIES [place] discoloration of lower abdomen. Low grade temperature. WBC slightly elevated. Lactate < 2. Blood cultures pending. Continue daptomycin and piperacillin / tazobactam for now, but lower clinical suspicion of cellulitis. SYSTOLIC CHF Appears to be decompensated after IVF's received in ED. Continue diuresis with IV Lasix. TTE from 03/2016 with EF of 35%. Patient had been discharged on Lasix 40mg BID and Spironolactone 12.5mg daily ( not taking) from 03/2016 admission. Patient had also been discharged on Carvedilol 6.25mg BID and Lisinopril 5mg PO daily (not taking) from 03/2016 admission. DYSLIPIDEMIA Hold statin in light of transaminitis. THYROID DISEASE Bilat exophthalmos noted on exam- ? chronicity. TSH 21. ? burned-out Grave's disease. Started levothyroxine 25 mcg daily. SCHIZOPHRENIA Continue fluoxetine and risperidone. VTE PROPHYLAXIS High risk for VTE. SQ heparin with caution. CODE STATUS Full code per discussion with . DISPOSITION Medical follow-up with Dr. Sultana Mcginnis. Consultants: Gastroenterology Procedures: CT head Chronic small vessel change. No acute intracranial abnormality. Abdominal ultrasound 1. Hepatic cirrhosis. 2. Mild hepatosplenomegaly. 3. Trace upper abdominal ascites Current Inpatient Medications: Current Inpatient Medications Medications (Trade) Dose Ordered Sig/Antonio Route Start Time Stop Time Status Last Admin Dose Admin Heparin Sodium (Porcine) 5000 unit 5,000 unit Q12 SQ 12/30/16 09:00 01/29/17 08:59 12/30/16 09:30 5,000 UNIT Daptomycin/Sodium Chloride (Cubicin IV/Nss 50ml) 62.5 ml @ 120 mls/hr Q24H IV 12/31/16 04:30 01/08/17 05:02 Aspirin (Ecotrin Tab) 81 mg DAILY PO 12/30/16 09:00 01/29/17 08:59 12/30/16 08:26 81 MG Fluoxetine HCl (Prozac Cap) 40 mg DAILY PO 12/30/16 09:00 01/29/17 08:59 12/30/16 08:26 40 MG Risperidone 4 mg 4 mg HS PO 12/30/16 21:00 01/29/17 20:59 12/30/16 20:43 4 MG Piperacillin Sod/ Tazobactam Sod/ Dextrose (Zosyn Iv/D5 100ml) 120 ml @ 25 mls/hr Q8H IV 12/30/16 06:00 01/09/17 05:59 12/30/16 14:12 25 MLS/HR Piperacillin Sod/ Tazobactam Sod (Consult) 1 ea UD PRN N/A 12/30/16 07:00 01/29/17 06:59 Thiamine HCl (Vitamin B-1 Tab) 100 mg QAM PO 12/31/16 09:00 01/30/17 08:59 Folic Acid (Folvite Tab) 1 mg QAM PO 12/31/16 09:00 01/30/17 08:59 Pantoprazole Sodium (Protonix Tab) 40 mg QAM PO 12/31/16 09:00 01/30/17 08:59 Levothyroxine Sodium (Synthroid Tab) 25 mcg DAILYBB PO 12/31/16 06:00 01/30/17 05:59 Ipratropium [place] (Atrovent 0.02% 0.5MG/2.5ML Neb) 0.5 mg Q6R INH 12/30/16 21:00 01/29/17 20:59 12/30/16 19:38 0.5 MG Levalbuterol 1.25 mg Q6R INH 12/30/16 21:00 01/29/17 20:59 12/30/16 19:38 1.25 MG Lactulose/Sterile Water/Barcode (Chronulac Syrup/ Sterile Water Irrigation Bottle) Q8H [place] 12/30/16 18:00 01/29/17 17:59 Miscellaneous (Unit Dose Compound) 1 ea Q8H PO 12/30/16 18:00 01/29/17 17:59 Ioversol (Optiray 320) 100 ml UD PRN IV 12/30/16 17:30 01/03/17 17:29 Lactulose (Chronulac Syrup) 30 gm TID PO 12/30/16 21:00 01/29/17 20:59 12/30/16 20:43 30 GM
--- NOTE | 2016-12-30 21:58 | DIAGNOSTIC IMAGING REPORT ---
KUB CLINICAL HISTORY: abd distension COMPARISON STUDY: No previous studies for comparison. FINDINGS: The examination was performed in a portable fashion. The study is limited from a technical standpoint. There is no pathologic bowel dilatation. IMPRESSION: No pathologic bowel dilatation. Electronically signed by: Cm Hall M.D. 12/30/2016 9:57 PM Dictated Date/Time: 12/30/2016 9:56 PM
[2016-12-31] VITALS (11 sets, daily range): BP systolic 125–153; BP diastolic 62–79; PULSE 96–114; TEMP 36.8–37.1; O2SAT 89–97
[2016-12-31] MEDS ORDERED: LEVALBUTEROL 0.63MG/3 ML NEB INH PRN (00:30)
[2016-12-31 01:21] LABS: CREATININE 0.86 mg/dl (0.60-1.20)
[2016-12-31 01:22] LABS: BUN/CREATININE RATIO 13.1 (10-20); CALCIUM 7.6 mg/dl (8.5-10.1); POTASSIUM 3.1 mmol/L (3.5-5.1)
[2016-12-31] MEDS: LACTULOSE ENEMA COMPOUND PO SCH ×3 (02:00→18:00)
[2016-12-31] MEDS: LACTULOSE SYRUP 200 GM, WATER, STERILE IRRIG 700 ML, BARCODE IDENTIFIER 1 EA PR SCH ×6 (02:00→18:00)
[2016-12-31] MEDS ORDERED: POTASSIUM CHLORIDE 20 MEQ TABCR PO ONE (02:30)
[2016-12-31] MEDS: DAPTOmycin IV 625 MG in SODIUM CHLORIDE 0.9% 50ML 50 ML IV SCH (04:44)
[2016-12-31] MEDS: LEVOTHYROXINE 25 MCG TAB PO SCH (04:45)
[2016-12-31 04:53] LABS: HEMATOCRIT 31.3 % (37-47); MEAN CELL VOLUME 104.7 fL (80-100); MEAN CORPUSCULAR HEMOGLOBIN 33.4 pg (25-34); MEAN CORPUSCULAR HGB CONC 31.9 g/dl (32-36); MEAN PLATELET VOLUME 10.3 fL (7.4-10.4); PLATELET COUNT 138 K/uL (130-400); RED BLOOD COUNT 2.99 M/uL (4.2-5.4); WHITE BLOOD COUNT 11.56 K/uL (4.8-10.8)
[2016-12-31 05:10] LABS: BUN/CREATININE RATIO 15.2 (10-20); CALCIUM 7.7 mg/dl (8.5-10.1); CREATININE 0.74 mg/dl (0.60-1.20); POTASSIUM 3.3 mmol/L (3.5-5.1)
[2016-12-31 05:15] LABS: ALB/GLOB RATIO 0.6 (0.9-2)
[2016-12-31] MEDS: PIPERACILL/TAZOBAC IV 4.5 GM in DEXTROSE 5% 100ML 100 ML IV SCH ×3 (05:37→22:15)
--- NOTE | 2016-12-31 06:48 | Clinical Documentation Query ---
CLINICAL DOCUMENTATION QUERY Dr. TENA, In your clinical opinion is this patient being managed for: ( x ) Acute hepatic encephalopathy ( ) Other explanation of clinical findings (Please Explain) ( ) Unable to determine (Please Define) ( ) Need to Discuss ( ) Not Agree The medical record reflects the following clinical findings, treatment, and risk factors. Clinical Indicators: 61 yo female presenting with confusion from hepatic encephalopathy. No further documentation to indicate that pt has a history of chronic encephalopathy. Treatment: lactulose po tid Risk Factors:alcoholic cirrhosis, continued alcohol intake Please clarify and document your clinical opinion in the progress notes and discharge summary. Terms such as "probable", "suspected", "likely", "questionable", "possible", or "still to be ruled out" are acceptable. IF IN AGREEMENT, YOU MUST DOCUMENT ABOVE DIAGNOSTIC STATEMENT IN DAILY PROGRESS NOTES AND DISCHARGE SUMMARY. This document is not part of the patient's record. Thank You, Amparo Hull, RN [phone]
--- NOTE | 2016-12-31 06:57 | DIAGNOSTIC IMAGING REPORT ---
CHEST ONE VIEW PORTABLE CLINICAL HISTORY: hypoxia dyspnea COMPARISON STUDY: 12/30/2016 FINDINGS: Moderate persistent prominence of pulmonary vasculature. Heart is top limits normal terms of size. Diaphragms remain smooth. IMPRESSION: Pulmonary venous congestion. No change from the prior date. Electronically signed by: Dm Villarreal M.D. 12/31/2016 6:56 AM Dictated Date/Time: 12/31/2016 6:55 AM
[2016-12-31] MEDS: LEVALBUTEROL 1.25MG/0.5ML NEB INH SCH ×4 (07:28→19:36)
[2016-12-31] MEDS: IPRATROPIUM BROMIDE NEB SOLN 0.02% 2.5 ML VIAL INH SCH ×4 (07:28→19:36)
[2016-12-31] MEDS: MULTIVITAMIN TAB PO SCH (09:00)
[2016-12-31] MEDS: FUROSEMIDE INJ 40 MG in SYRINGE 0 ML IV SCH ×2 (09:00→20:17)
[2016-12-31] MEDS: LACTULOSE SYRUP 30 GM/45 ML UDP PO SCH ×3 (09:00→20:17)
[2016-12-31] MEDS: THIAMINE HCL 100 MG TAB PO SCH (09:00)
[2016-12-31] MEDS: FLUOXETINE HCL 20 MG CAP PO SCH (09:00)
[2016-12-31] MEDS: PANTOprazole SOD 40 MG TAB PO SCH (09:00)
[2016-12-31] MEDS: ASPIRIN 81 MG ECTAB PO SCH (09:00)
[2016-12-31] MEDS: HEPARIN SOD 5000 UNIT/0.5 ML CARP SQ SCH ×2 (09:30→21:47)
--- NOTE | 2016-12-31 11:12 | Gastroenterology Progress Note ---
Progress Note Date of Service: Dec 31, 2016 Subjective Pt evaluation today including: conversation w/ patient, physical exam, chart review, lab review, review of studies, review of inpatient medication list Pt more awake, able to converse. She admits being forgetful at times recently at home and feeling weak. Some SOB but improved breathing per pt, denies any CP , abd pain, n/v. Having BMs w lactulose PO. Review of Systems Constitutional: + fever (mild temp 37.7 overnight), No chills Respiratory: + cough, No shortness of breath Cardiac: No chest pain Abdomen: No nausea, No pain, No vomiting Psych: + substance abuse (3 "small cups of Francoise every night") Medications Current Inpatient Medications Medications (Trade) Dose Ordered Sig/Antonio Route Start Time Stop Time Status Last Admin Dose Admin Heparin Sodium (Porcine) 5000 unit 5,000 unit Q12 SQ 12/30/16 09:00 01/29/17 08:59 12/30/16 21:32 5,000 UNIT Daptomycin/Sodium Chloride (Cubicin IV/Nss 50ml) 62.5 ml @ 120 mls/hr Q24H IV 12/31/16 04:30 01/08/17 05:02 12/31/16 04:44 120 MLS/HR Aspirin (Ecotrin Tab) 81 mg DAILY PO 12/30/16 09:00 01/29/17 08:59 12/30/16 08:26 81 MG Fluoxetine HCl (Prozac Cap) 40 mg DAILY PO 12/30/16 09:00 01/29/17 08:59 12/30/16 08:26 40 MG Risperidone 4 mg 4 mg HS PO 12/30/16 21:00 01/29/17 20:59 12/30/16 20:43 4 MG Piperacillin Sod/ Tazobactam Sod/ Dextrose (Zosyn Iv/D5 100ml) 120 ml @ 25 mls/hr Q8H IV 12/30/16 06:00 01/09/17 05:59 12/31/16 05:37 25 MLS/HR Piperacillin Sod/ Tazobactam Sod (Consult) 1 ea UD PRN N/A 12/30/16 07:00 01/29/17 06:59 Thiamine HCl (Vitamin B-1 Tab) 100 mg QAM PO 12/31/16 09:00 01/30/17 08:59 Folic Acid (Folvite Tab) 1 mg QAM PO 12/31/16 09:00 01/30/17 08:59 Pantoprazole Sodium (Protonix Tab) 40 mg QAM PO 12/31/16 09:00 01/30/17 08:59 Levothyroxine Sodium (Synthroid Tab) 25 mcg DAILYBB PO 12/31/16 06:00 01/30/17 05:59 12/31/16 04:45 25 MCG Miscellaneous (Unit Dose Compound) 1 ea Q8H PO 12/30/16 18:00 01/29/17 17:59 Ioversol (Optiray 320) 100 ml UD PRN IV 12/30/16 17:30 01/03/17 17:29 Lactulose (Chronulac Syrup) 30 gm TID PO 12/30/16 21:00 01/29/17 20:59 12/30/16 20:43 30 GM Multivitamins 1 tab 1 tab QAM PO 12/31/16 09:00 01/30/17 08:59 Furosemide/Syringe (Lasix Inj/ Syringe) 4 ml @ 4 mls/min BID IV 12/31/16 09:00 01/30/17 08:59 Ipratropium [place] (Atrovent 0.02% 0.5MG/2.5ML Neb) 0.5 mg QIDR INH 12/31/16 08:00 01/30/17 07:59 12/31/16 07:28 0.5 MG Levalbuterol (Xopenex 1.25MG/ 0.5ML Neb) 1.25 mg QIDR INH 12/31/16 08:00 01/30/17 07:59 12/31/16 07:28 1.25 MG Levalbuterol 0.63 mg Q2H PRN INH 12/31/16 00:30 01/30/17 00:29 12/31/16 00:38 0.63 MG Lactulose/Sterile Water/Barcode (Chronulac Syrup/ Sterile Water Irrigation Bottle) Q8H CO 12/31/16 10:00 01/30/17 09:59 Objective Vital Signs Date Time Temp Pulse Resp B/P Pulse Ox O2 Delivery O2 Flow Rate FiO2 12/31/16 08:00 Nasal Cannula 4.0 12/31/16 07:31 37.1 96 20 125/73 89 2.0 12/31/16 07:28 99 20 93 Nasal Cannula 3.0 12/31/16 04:00 Nasal Cannula 3.0 12/31/16 04:00 36.8 98 22 126/77 93 Nasal Cannula 3.0 12/31/16 00:38 111 24 97 Nasal Cannula 4.0 12/31/16 00:00 37.0 102 18 133/79 94 Nasal Cannula 4.0 12/31/16 00:00 Nasal Cannula 4.0 12/30/16 20:29 37.0 112 20 149/84 90 Nasal Cannula 3.0 12/30/16 20:00 Nasal Cannula 4.0 12/30/16 19:38 113 20 85 Room Air 12/30/16 18:13 115 96 50 12/30/16 16:36 105 93 Nasal Cannula 3.0 12/30/16 16:35 37.7 106 20 118/71 81 Room Air 12/30/16 16:00 Nasal Cannula 3.0 12/30/16 12:00 Nasal Cannula 3.0 12/30/16 11:32 37.6 106 22 106/66 93 Nasal Cannula 3.0 Physical Exam General Appearance: + mild distress, + obese Eyes: normal inspection, PERRL, EOMI Neck: supple, thyroid normal, trachea midline Respiratory/Chest: no respiratory distress, no accessory muscle use, + crackles , + rhonchi Cardiovascular: regular rate, rhythm, no gallop, no murmur Abdomen: non tender, soft, + abnormal bowel sounds (hypoactive ) Extremities: + swelling (+1 pitting edema on bilateral LE) Neurologic/Psych: alert, oriented x 3, + depressed affect Skin: + pertinent finding (spider angiomatas on upper chest area) Laboratory Results Last 24 Hours Test 12/30/16 15:20 12/30/16 15:40 12/30/16 16:03 12/31/16 00:48 Potassium Level 3.5 mmol/L 3.1 mmol/L Arterial Blood pH 7.47 Arterial Blood Partial Pressure CO2 41 mmHg Arterial Blood Partial Pressure O2 66 mm/Hg Arterial Blood HCO3 30 mmol/L Arterial Blood Oxygen Saturation 91.4 % Arterial Blood Base Excess 5.3 mEq/L Arterial Blood Gas Delivery 93% Ramakrishna Test POS Acetaminophen Level 4 ug/ml Sodium Level 141 mmol/L Chloride Level 99 mmol/L Carbon Dioxide Level 31 mmol/L Anion Gap 11.0 mmol/L Blood Urea Nitrogen 11 mg/dl Creatinine 0.86 mg/dl Est Creatinine Clear Calc Drug Dose 78.2 ml/min Estimated GFR () 83.3 Estimated GFR (Non- 71.9 BUN/Creatinine Ratio 13.1 Random Glucose 114 mg/dl Calcium Level 7.6 mg/dl Test 12/31/16 04:40 White Blood Count 11.56 K/uL Red Blood Count 2.99 M/uL Hemoglobin 10.0 g/dL Hematocrit 31.3 % Mean Corpuscular Volume 104.7 fL Mean Corpuscular Hemoglobin 33.4 pg Mean Corpuscular Hemoglobin Concent 31.9 g/dl RDW Standard Deviation 68.9 fL RDW Coefficient of Variation 18.5 % Platelet Count 138 K/uL Mean Platelet Volume 10.3 fL Sodium Level 141 mmol/L Potassium Level 3.3 mmol/L Chloride Level 100 mmol/L Carbon Dioxide Level 32 mmol/L Anion Gap 9.0 mmol/L Blood Urea Nitrogen 11 mg/dl Creatinine 0.74 mg/dl Est Creatinine Clear Calc Drug Dose 90.9 ml/min Estimated GFR () 99.9 Estimated GFR (Non- 86.2 BUN/Creatinine Ratio 15.2 Random Glucose 104 mg/dl Calcium Level 7.7 mg/dl Total Bilirubin 1.2 mg/dl Aspartate Amino Transf (AST/SGOT) 205 U/L Alanine Aminotransferase (ALT/SGPT) 86 U/L Alkaline Phosphatase 825 U/L Total Protein 5.1 gm/dl Albumin 1.9 gm/dl Globulin 3.2 gm/dl Albumin/Globulin Ratio 0.6 Assessment and Plan Impression Patient is a 61 year old female w hx of suspected ETOH cirrhosis, admitted for progressive weakness. Labs showed some leukocytosis, LFTs elevated: Tbili 2, AST 300s, ALT 118, Alk phos 1079. She is currently only responding to name called by opening eyes, not following commands. Head CT unremarkable, ammonia level 45. More alert, oriented x 3 now after BiPAP use yesterday. Labs reviewed, WBC decreasing, LFTs improving, MELD 9 . She denies any abd pain, n/v. Having BMs w Lactulose PO Plan - Blood cx negative; F/U urine culture. - Continue Lactulose 30g TID. - Discussed strict ETOH cessation; offered counseling but pt refused at this time. - Advance diet as tolerated to 2g Na diet. - Continue current diuretics; will eventually change to Spironolactone 100mg daily and Lasix 40mg daily. - Will consider non emergent MRCP given elevated alk phos and tbili to r/o biliary obstruction (though less likely given only mild CBD dilation of 7mm and no signs of gallstones). - Will continue to follow; eventually she needs close GI follow up once discharged for EGD to r/o varices, diuretic and hepatic encephalopathy med management, HCC screens [id number], Hep A and B vaccinations if not immune. I have seen , examined and agree with the plan as outlined by ENOCH as above. -exam reveals soft abd
[2016-12-31] MEDS ORDERED: CHLORDIAZEPOXIDE 25 MG CAP PO SCH (12:30)
--- NOTE | 2016-12-31 12:54 | Progress Note ---
Internal Med Progress Note Date of Service: Dec 31, 2016. Provider Documentation: SUBJECTIVE: Patient is seen and examined at bedside. She is more alert, awake per family at bedside. Denies any chest pain, SOB. States having 2 BMs today. "I want to be able to get up and walk". OBJECTIVE: Vital Signs-as noted below Physical Exam: General Appearance:Moderately built and nourished, no apparent distress Head: normocephalic, Atraumatic Eyes: normal inspection, EOMI, PERRLA, +Exophthalmos Neck: supple, no JVD, Trachea midline Respiratory/Chest: Minimal Ronchi heard, No accessory muscle use Cardiovascular: S1, S2, NSR, Tachycardia, No murmur Abdomen/GI:Soft, Non tender, distended, Bowel sounds present Extremities/Musculoskelatal:normal inspection, 2+ edema b/l Neurologic/Psych:AAOX3, grossly no focal neurological deficits Skin: normal color, warm Lab data as noted below. ASSESSMENT & PLAN: ALTERED MENTAL STATUS: Likely secondary to hepatic encephalopathy Head CT: negative for acute pathology Continue lactulose PO and enema More alert, awake currently CIRRHOSIS / HEPATIC ENCEPHALOPATHY Suspected cirrhosis noted on CT 2014. H/O fatty liver- could be combination of obesity and alcohol use. Transaminitis and elevated alkaline phosphatase. Abdominal ultrasound with small ascites Continue lactulose GI on board Continue current diuretics: Will need to change to Spironolactone 100mg daily and Lasix 40mg daily prior to DC May need non emergent MRCP: per GI Needs outpatient:EGD, HCC screens every 6months HYPOKALEMIA: Will replace and monitor ALCOHOL USE DISORDER: Patient's notes daily alcohol use Continue MVI, thiamine and folic acid. Monitor for alcohol withdrawal. Will start Librium protocol per liver disease Patient not interested in alcohol rehab placement POSSIBLE CELLULITIS ABDOMEN / LOWER EXTREMITIES [place] discoloration of lower abdomen, non tender on exam Low grade temperature. WBC improving Blood cultures: no growth to date Continue daptomycin and piperacillin / tazobactam for now, but lower clinical suspicion. SYSTOLIC CHF Appears to be decompensated after IVF's received in ED. Continue diuresis with IV Lasix. TTE from 03/2016 with EF of 35%. Patient was discharged on Lasix 40mg BID and Spironolactone 12.5mg daily (not taking) from 03/2016 admission. Patient was discharged on Carvedilol 6.25mg BID and Lisinopril 5mg PO daily ( not taking) from 03/2016 admission. DYSLIPIDEMIA Hold statin as patient has transaminitis. THYROID DISEASE Bilat exophthalmos noted on exam- ? chronicity. TSH 20.9 ? burned-out Grave's disease. levothyroxine 25 mcg daily stated Needs repeat Thyroid function tests as outpatient SCHIZOPHRENIA Continue fluoxetine and risperidone. VTE PROPHYLAXIS High risk for VTE. SQ heparin GENERALIZED WEAKNESS: PT/OT CODE STATUS Full code per discussion with . DISPOSITION Medical follow-up with Dr. Sultana Mcginnis. Consultants: Gastroenterology Procedures: CT head Chronic small vessel change. No acute intracranial abnormality. Abdominal ultrasound 1. Hepatic cirrhosis. 2. Mild hepatosplenomegaly. 3. Trace upper abdominal ascites Vital Signs: Date Time Temp Pulse Resp B/P Pulse Ox O2 Delivery O2 Flow Rate FiO2 12/31/16 11:33 37.0 114 24 131/76 92 3.0 12/31/16 11:15 108 20 92 Nasal Cannula 3.0 12/31/16 08:00 Nasal Cannula 4.0 12/31/16 07:31 37.1 96 20 125/73 89 2.0 12/31/16 07:28 99 20 93 Nasal Cannula 3.0 12/31/16 04:00 Nasal Cannula 3.0 12/31/16 04:00 36.8 98 22 126/77 93 Nasal Cannula 3.0 12/31/16 00:38 111 24 97 Nasal Cannula 4.0 12/31/16 00:00 37.0 102 18 133/79 94 Nasal Cannula 4.0 12/31/16 00:00 Nasal Cannula 4.0 12/30/16 20:29 37.0 112 20 149/84 90 Nasal Cannula 3.0 12/30/16 20:00 Nasal Cannula 4.0 12/30/16 19:38 113 20 85 Room Air 12/30/16 18:13 115 96 50 12/30/16 16:36 105 93 Nasal Cannula 3.0 12/30/16 16:35 37.7 106 20 118/71 81 Room Air 12/30/16 16:00 Nasal Cannula 3.0 Lab Results: Results Past 24 Hours Test 12/30/16 15:20 12/30/16 15:40 12/30/16 16:03 12/31/16 00:48 Range/Units Potassium Level 3.5 3.1 3.5-5.1 mmol/L Arterial Blood pH 7.47 7.35-7.45 Arterial Blood Partial Pressure CO2 41 35-46 mmHg Arterial Blood Partial Pressure O2 66 80-95 mm/Hg Arterial Blood HCO3 30 19-24 mmol/L Arterial Blood Oxygen Saturation 91.4 90-95 % Arterial Blood Base Excess 5.3 -9-1.8 mEq/L Arterial Blood Gas Delivery 93% Ramakrishna Test POS POS Acetaminophen Level 4 10-30 ug/ml Sodium Level 141 136-145 mmol/L Chloride Level 99 98-107 mmol/L Carbon Dioxide Level 31 21-32 mmol/L Anion Gap 11.0 3-11 mmol/L Blood Urea Nitrogen 11 7-18 mg/dl Creatinine 0.86 0.60-1.20 mg/dl Est Creatinine Clear Calc Drug Dose 78.2 ml/min Estimated GFR () 83.3 Estimated GFR (Non- 71.9 BUN/Creatinine Ratio 13.1 10-20 Random Glucose 114 70-99 mg/dl Calcium Level 7.6 8.5-10.1 mg/dl Test 12/31/16 04:40 Range/Units White Blood Count 11.56 4.8-10.8 K/uL Red Blood Count 2.99 4.2-5.4 M/uL Hemoglobin 10.0 12.0-16.0 g/dL Hematocrit 31.3 37-47 % Mean Corpuscular Volume 104.7 80-100 fL Mean Corpuscular Hemoglobin 33.4 25-34 pg Mean Corpuscular Hemoglobin Concent 31.9 32-36 g/dl RDW Standard Deviation 68.9 36.4-46.3 fL RDW Coefficient of Variation 18.5 11.5-14.5 % Platelet Count 138 130-400 K/uL Mean Platelet Volume 10.3 7.4-10.4 fL Sodium Level 141 136-145 mmol/L Potassium Level 3.3 3.5-5.1 mmol/L Chloride Level 100 98-107 mmol/L Carbon Dioxide Level 32 21-32 mmol/L Anion Gap 9.0 3-11 mmol/L Blood Urea Nitrogen 11 7-18 mg/dl Creatinine 0.74 0.60-1.20 mg/dl Est Creatinine Clear Calc Drug Dose 90.9 ml/min Estimated GFR () 99.9 Estimated GFR (Non- 86.2 BUN/Creatinine Ratio 15.2 10-20 Random Glucose 104 70-99 mg/dl Calcium Level 7.7 8.5-10.1 mg/dl Total Bilirubin 1.2 0.2-1 mg/dl Aspartate Amino Transf (AST/SGOT) 205 15-37 U/L Alanine Aminotransferase (ALT/SGPT) 86 12-78 U/L Alkaline Phosphatase 825 45-117 U/L Total Protein 5.1 6.4-8.2 gm/dl Albumin 1.9 3.4-5.0 gm/dl Globulin 3.2 2.5-4.0 gm/dl Albumin/Globulin Ratio 0.6 0.9-2 Microbiology Results 12/30/16 Urine Culture - Preliminary, Resulted NO GROWTH - LESS THAN 1,000 COLONIES/...
[2016-12-31] MEDS ORDERED: POTASSIUM CHLORIDE 10 MEQ TABCR PO ONE (13:30)
[2016-12-31] MEDS: CHLORDIAZEPOXIDE 25MG 1ST DOSE PO SCH ×2 (15:43→20:16)
[2016-12-31] MEDS: RISPERIDONE 2 MG TAB PO SCH (20:17)
[2017-01-01] VITALS (10 sets, daily range): BP systolic 108–132; BP diastolic 66–79; PULSE 88–96; TEMP 36.7–37; O2SAT 93–96
[2017-01-01] MEDS: LACTULOSE ENEMA COMPOUND PO SCH ×3 (02:00→18:00)
[2017-01-01] MEDS: LACTULOSE SYRUP 200 GM, WATER, STERILE IRRIG 700 ML, BARCODE IDENTIFIER 1 EA PR SCH ×6 (02:00→18:00)
[2017-01-01] MEDS: CHLORDIAZEPOXIDE 25MG 1ST DOSE PO SCH ×2 (02:28→08:11)
[2017-01-01] MEDS: DAPTOmycin IV 625 MG in SODIUM CHLORIDE 0.9% 50ML 50 ML IV SCH (04:20)
--- NOTE | 2017-01-01 04:57 | Clinical Documentation Query ---
CLINICAL DOCUMENTATION QUERY In your clinical opinion is this patient being managed for: ( X ) Acute hepatic encephalopathy ( ) Other explanation of clinical findings (Please Explain) ( ) Unable to determine (Please Define) ( ) Need to Discuss ( ) Not Agree The medical record reflects the following clinical findings, treatment, and risk factors. Clinical Indicators:61 yo female presenting with confusion from hepatic encephalopathy. No further documentation to indicate that pt has a history of chronic encephalopathy. Treatment: lactulose po tid Risk Factors:alcoholic cirrhosis, continued alcohol intake Please clarify and document your clinical opinion in the progress notes and discharge summary. Terms such as "probable", "suspected", "likely", "questionable", "possible", or "still to be ruled out" are acceptable. IF IN AGREEMENT, YOU MUST DOCUMENT ABOVE DIAGNOSTIC STATEMENT IN DAILY PROGRESS NOTES AND DISCHARGE SUMMARY. This document is not part of the patient's record. Thank You, Amparo Hull RN [phone]
[2017-01-01] MEDS: LEVOTHYROXINE 25 MCG TAB PO SCH (05:07)
[2017-01-01] MEDS: PIPERACILL/TAZOBAC IV 4.5 GM in DEXTROSE 5% 100ML 100 ML IV SCH (05:07)
[2017-01-01] MEDS: IPRATROPIUM BROMIDE NEB SOLN 0.02% 2.5 ML VIAL INH SCH ×4 (06:10→19:35)
[2017-01-01] MEDS: LEVALBUTEROL 1.25MG/0.5ML NEB INH SCH ×4 (06:10→19:35)
[2017-01-01] MEDS ORDERED: LEVALBUTEROL/IPRATROPIUM NEB INH PRN (06:15)
[2017-01-01] MEDS: FUROSEMIDE INJ 40 MG in SYRINGE 0 ML IV SCH ×3 (06:15→21:36)
--- NOTE | 2017-01-01 07:13 | DIAGNOSTIC IMAGING REPORT ---
CHEST ONE VIEW PORTABLE CLINICAL HISTORY: sob dyspnea COMPARISON STUDY: 12/31/2016 FINDINGS: Mild stable cardia megaly. Diaphragms are smooth. Lungs are considered clear. IMPRESSION: Lungs remain clear. No acute process. Electronically signed by: Dm Villarreal M.D. 01/01/2017 7:12 AM Dictated Date/Time: 01/01/2017 7:11 AM
[2017-01-01 07:24] LABS: ARTERIAL BLD GAS O2 SATURATION 88.9 % (90-95); ARTERIAL BLOOD GAS BASE EXCESS 8.8 mEq/L (-9-1.8); ARTERIAL BLOOD GAS HCO3 33 mmol/L (19-24); ARTERIAL BLOOD GAS PO2 57 mm/Hg (80-95); ARTERIAL BLOOD GAS pH 7.49 (7.35-7.45); BASO % 0.4 %; BASO ABS # 0.05 K/uL (0-0.2); COMPLETE YES; EOS % 1.4 %; HEMATOCRIT 32.3 % (37-47); IG% 0.4 %; LYMPH % 10.9 %; LYMPH ABS # 1.25 K/uL (1.2-3.4); MEAN CELL VOLUME 104.9 fL (80-100); MEAN CORPUSCULAR HEMOGLOBIN 34.1 pg (25-34); MEAN CORPUSCULAR HGB CONC 32.5 g/dl (32-36); MEAN PLATELET VOLUME 10.5 fL (7.4-10.4); MONO % 9.1 %; NEUT % 77.8 %; PLATELET COUNT 129 K/uL (130-400); RED BLOOD COUNT 3.08 M/uL (4.2-5.4); WHITE BLOOD COUNT 11.46 K/uL (4.8-10.8)
[2017-01-01 07:25] LABS: ALLEN TEST POSITIVE (POS); O2 ADMINISTRATION 3 LITERS
[2017-01-01] MEDS ORDERED: IPRATROPIUM BROMIDE NEB SOLN 0.02% 2.5 ML VIAL INH PRN (07:30)
[2017-01-01 08:00] LABS: CALCIUM 7.5 mg/dl (8.5-10.1); CREATININE 0.69 mg/dl (0.60-1.20); POTASSIUM 2.6 mmol/L (3.5-5.1)
[2017-01-01] MEDS: THIAMINE HCL 100 MG TAB PO SCH (08:57)
[2017-01-01] MEDS: MULTIVITAMIN TAB PO SCH (08:57)
[2017-01-01] MEDS: ASPIRIN 81 MG ECTAB PO SCH (08:58)
[2017-01-01] MEDS: PANTOprazole SOD 40 MG TAB PO SCH (08:58)
[2017-01-01] MEDS: LACTULOSE SYRUP 30 GM/45 ML UDP PO SCH ×3 (08:59→21:36)
[2017-01-01] MEDS: FLUOXETINE HCL 20 MG CAP PO SCH (08:59)
[2017-01-01] MEDS: HEPARIN SOD 5000 UNIT/0.5 ML CARP SQ SCH ×2 (09:00→21:37)
--- NOTE | 2017-01-01 13:52 | Gastroenterology Progress Note ---
Progress Note Date of Service: Jan 01, 2017 Subjective Pt evaluation today including: conversation w/ patient, physical exam, chart review, lab review, review of studies, review of inpatient medication list Ms Tomlinson is a 61 yr old female admitted on 12/29/16 for weakness, confusion. She has ETOH cirrhosis and was continuing to drink until time of admission. Blood and urine cx negative. Liver US on 12/30/16: Hepatic cirrhosis. Mild hepatosplenomegaly. Trace upper abdominal ascites PT increasingly alert with improved respiratory status. Oriented to day of the month, year. Able to tell me her name, follow commands. Still some mild confusion (unable to tell me the day of the week). Review of Systems Constitutional: No fever ENT: No hearing loss Respiratory: No cough Cardiac: No chest pain Abdomen: No GI bleeding, No constipation, No diarrhea, No nausea, No pain, No vomiting Female : No dysuria Neuro: No memory loss Psych: No depression symptoms Heme: No abnormal bleeding/bruising Endo: No fatigue Skin: No itch, No rash Medications Current Inpatient Medications Medications (Trade) Dose Ordered Sig/Antonio Route Start Time Stop Time Status Last Admin Dose Admin Heparin Sodium (Porcine) 5000 unit 5,000 unit Q12 SQ 12/30/16 09:00 01/29/17 08:59 01/01/17 09:00 5,000 UNIT Daptomycin/Sodium Chloride (Cubicin IV/Nss 50ml) 62.5 ml @ 120 mls/hr Q24H IV 12/31/16 04:30 01/08/17 05:02 01/01/17 04:20 120 MLS/HR Aspirin (Ecotrin Tab) 81 mg DAILY PO 12/30/16 09:00 01/29/17 08:59 01/01/17 08:58 81 MG Fluoxetine HCl (Prozac Cap) 40 mg DAILY PO 12/30/16 09:00 01/29/17 08:59 01/01/17 08:59 40 MG Risperidone 4 mg 4 mg HS PO 12/30/16 21:00 01/29/17 20:59 12/31/16 20:17 4 MG Piperacillin Sod/ Tazobactam Sod/ Dextrose (Zosyn Iv/D5 100ml) 120 ml @ 25 mls/hr Q8H IV 12/30/16 06:00 01/09/17 05:59 01/01/17 05:07 25 MLS/HR Piperacillin Sod/ Tazobactam Sod (Consult) 1 ea UD PRN N/A 12/30/16 07:00 01/29/17 06:59 Thiamine HCl (Vitamin B-1 Tab) 100 mg QAM PO 12/31/16 09:00 01/30/17 08:59 01/01/17 08:57 100 MG Folic Acid (Folvite Tab) 1 mg QAM PO 12/31/16 09:00 01/30/17 08:59 01/01/17 08:59 1 MG Pantoprazole Sodium (Protonix Tab) 40 mg QAM PO 12/31/16 09:00 01/30/17 08:59 01/01/17 08:58 40 MG Levothyroxine Sodium (Synthroid Tab) 25 mcg DAILYBB PO 12/31/16 06:00 01/30/17 05:59 01/01/17 05:07 25 MCG Miscellaneous (Unit Dose Compound) 1 ea Q8H PO 12/30/16 18:00 01/29/17 17:59 Ioversol (Optiray 320) 100 ml UD PRN IV 12/30/16 17:30 01/03/17 17:29 Lactulose (Chronulac Syrup) 30 gm TID PO 12/30/16 21:00 01/29/17 20:59 01/01/17 08:59 30 GM Multivitamins 1 tab 1 tab QAM PO 12/31/16 09:00 01/30/17 08:59 01/01/17 08:57 1 TAB Furosemide/Syringe (Lasix Inj/ Syringe) 4 ml @ 4 mls/min BID IV 12/31/16 09:00 01/30/17 08:59 01/01/17 06:15 4 MLS/MIN Ipratropium [place] (Atrovent 0.02% 0.5MG/2.5ML Neb) 0.5 mg QIDR INH 12/31/16 08:00 01/30/17 07:59 01/01/17 06:10 0.5 MG Levalbuterol (Xopenex 1.25MG/ 0.5ML Neb) 1.25 mg QIDR INH 12/31/16 08:00 01/30/17 07:59 01/01/17 06:10 1.25 MG Levalbuterol 0.63 mg Q2H PRN INH 12/31/16 00:30 01/30/17 00:29 12/31/16 00:38 0.63 MG Lactulose/Sterile Water/Barcode (Chronulac Syrup/ Sterile Water Irrigation Bottle) Q8H [place] 12/31/16 10:00 01/30/17 09:59 Chlordiazepoxide (Librium Cap) 25 mg Q8H PO 01/01/17 14:00 01/02/17 06:01 Chlordiazepoxide (Librium Cap) 10 mg Q8H PO 01/02/17 14:00 01/03/17 06:01 Chlordiazepoxide (Librium Cap) 5 mg Q12H PO 01/02/17 18:00 01/03/17 06:01 Ipratropium [place] (Atrovent 0.02% 0.5MG/2.5ML Neb) 0.5 mg Q4H PRN INH 01/01/17 07:30 01/31/17 07:29 Levalbuterol (Xopenex 1.25MG/ 0.5ML Neb) 1.25 mg Q4H PRN INH 01/01/17 07:30 01/31/17 07:29 Objective Vital Signs Date Time Temp Pulse Resp B/P Pulse Ox O2 Delivery O2 Flow Rate FiO2 01/01/17 12:15 37.0 95 16 132/79 93 Nasal Cannula 3.0 01/01/17 08:02 93 Nasal Cannula 3.0 01/01/17 07:55 37.0 95 18 115/75 93 Nasal Cannula 3.0 01/01/17 06:11 92 20 94 Nasal Cannula 3.0 01/01/17 04:20 Nasal Cannula 3.0 01/01/17 04:00 36.7 88 20 108/66 94 Nasal Cannula 3.0 01/01/17 00:00 Nasal Cannula 3.0 01/01/17 00:00 36.7 90 20 109/67 94 Nasal Cannula 3.0 12/31/16 20:20 37.1 99 22 129/72 93 Nasal Cannula 3.0 12/31/16 20:00 Nasal Cannula 3.0 12/31/16 19:36 97 20 95 Nasal Cannula 3.0 12/31/16 16:00 Nasal Cannula 4.0 12/31/16 15:28 37.1 113 20 153/62 91 3.0 12/31/16 15:09 101 20 94 Nasal Cannula 3.0 Physical Exam General Appearance: no apparent distress Neck: no adenopathy, no JVD Respiratory/Chest: lungs clear Cardiovascular: regular rate, rhythm, no JVD, no murmur Abdomen: soft, + tenderness (Liver border tender and palpable about 2 fingers widths below the right costal border. ) Extremities: non-tender, + pedal edema (trace bilateral lower leg edema, non pitting) Neurologic/Psych: alert, normal mood/affect Skin: normal color, + pertinent finding (red palms; spider angiomata on the chest) Laboratory Results Last 24 Hours Test 01/01/17 07:10 White Blood Count 11.46 K/uL Red Blood Count 3.08 M/uL Hemoglobin 10.5 g/dL Hematocrit 32.3 % Mean Corpuscular Volume 104.9 fL Mean Corpuscular Hemoglobin 34.1 pg Mean Corpuscular Hemoglobin Concent 32.5 g/dl Platelet Count 129 K/uL Mean Platelet Volume 10.5 fL Neutrophils (%) (Auto) 77.8 % Lymphocytes (%) (Auto) 10.9 % Monocytes (%) (Auto) 9.1 % Eosinophils (%) (Auto) 1.4 % Basophils (%) (Auto) 0.4 % Neutrophils # (Auto) 8.91 K/uL Lymphocytes # (Auto) 1.25 K/uL Monocytes # (Auto) 1.04 K/uL Eosinophils # (Auto) 0.16 K/uL Basophils # (Auto) 0.05 K/uL RDW Standard Deviation 69.2 fL RDW Coefficient of Variation 18.6 % Immature Granulocyte % (Auto) 0.4 % Immature Granulocyte # (Auto) 0.05 K/uL Nucleated RBC Absolute Count (auto) 0.03 K/uL Nucleated Red Blood Cells % 0.3 % Arterial Blood pH 7.49 Arterial Blood Partial Pressure CO2 44 mmHg Arterial Blood Partial Pressure O2 57 mm/Hg Arterial Blood HCO3 33 mmol/L Arterial Blood Oxygen Saturation 88.9 % Arterial Blood Base Excess 8.8 mEq/L Arterial Blood Gas Delivery 3 LITERS Ramakrishna Test POSITIVE Sodium Level 140 mmol/L Potassium Level 2.6 mmol/L Chloride Level 98 mmol/L Carbon Dioxide Level 32 mmol/L Anion Gap 10.0 mmol/L Blood Urea Nitrogen 9 mg/dl Creatinine 0.69 mg/dl Est Creatinine Clear Calc Drug Dose 98.0 ml/min Estimated GFR () 107.4 Estimated GFR (Non- 92.6 BUN/Creatinine Ratio 13.0 Random Glucose 99 mg/dl Calcium Level 7.5 mg/dl Ammonia 45.0 umol/L Assessment and Plan Ms. Tomlinson is a 61 yr old female with ETOH cirrhosis. Confusion on admission consistent with either effect of alcohol or hepatic encephalopathy. Mental status much improved. Edema/ascites also decreasing on Lasix. Plan: 1. Eventually, after optimization of renal status: Lasix 40mg daily, Spironolactone 100mg daily. 2. Continue [id number] TID. 3. Add Xifaxin 550mg BID. 4. Low salt diet. 5. Consider non emergent MRCP given elevated alk phos and tbili to r/o biliary obstruction, though unlikely with no pain and US w/o obstruction. 6. After a period of sobriety, recommend: OP EGD, Q 6month screening for HCC and other issues related to cirrhosis. Would like to follow in GI clinic to minimize complications of cirrhosis. Counselled regarding need for complete sobriety. I have seen , examined and agree with the plan as outlined by ENOCH Arora as above. -exam reveals soft abd -Mild slow mentation-will start xifaxin to see if helps clear mentation
[2017-01-01] MEDS ORDERED: POTASSIUM CHLORIDE 20 MEQ TABCR PO ONE ×2 (14:30→15:15)
[2017-01-01] MEDS ORDERED: POTASSIUM CHLORIDE 10 MEQ TABCR PO ONE (14:45)
--- NOTE | 2017-01-01 15:05 | Progress Note ---
Internal Med Progress Note Date of Service: Jan 01, 2017. Provider Documentation: SUBJECTIVE: Patient is seen and examined at bedside. Family at bedside. Patient is alert, awake and oriented while encounter but intermittent confusion per staff. States she had 2 BMs today. Denies any chest pain, SOB. Patient had and her family has poor understanding of her condition. OBJECTIVE: Vital Signs-as noted below Physical Exam: General Appearance:Moderately built and nourished, no apparent distress Head: normocephalic, Atraumatic Eyes: normal inspection, EOMI, PERRLA, +Exophthalmos Neck: supple, no JVD, Trachea midline Respiratory/Chest: Coarse breath sounds. No accessory muscle use Cardiovascular: S1, S2, NSR, Tachycardia, No murmur Abdomen/GI:Soft, Non tender, distended, Bowel sounds present Extremities/Musculoskelatal:normal inspection, 2+ edema b/l Neurologic/Psych:AAOX3, grossly no focal neurological deficits Skin: normal color, warm Lab data as noted below. ASSESSMENT & PLAN: ALTERED MENTAL STATUS: Likely secondary to hepatic encephalopathy Head CT: negative for acute pathology Continue lactulose PO and enema More alert, awake currently CIRRHOSIS / ACUTE HEPATIC ENCEPHALOPATHY Suspected cirrhosis noted on CT 2014. H/O fatty liver- could be combination of obesity and alcohol use. Transaminitis and elevated alkaline phosphatase. Abdominal ultrasound with small ascites Continue lactulose, Rifaximin being planned to be added by GI GI on board Continue current diuretics: Will need to change to Spironolactone 100mg daily and Lasix 40mg daily prior to DC May need non emergent MRCP: per GI Needs outpatient:EGD, HCC screens every 6months HYPOKALEMIA: Secondary to diuretics Will replace and monitor Check Magnesium levels ALCOHOL USE DISORDER: Patient's notes daily alcohol use Continue MVI, thiamine and folic acid Monitor for alcohol withdrawal. Continue Librium protocol per liver disease Patient not interested in alcohol rehab placement POSSIBLE CELLULITIS ABDOMEN / LOWER EXTREMITIES-Less likely [place] discoloration of lower abdomen, non tender on exam-Resolved WBC stable Blood cultures: no growth to date S/P daptomycin and piperacillin / tazobactam Will DC antibiotics SYSTOLIC CHF Appears to be decompensated after IVF's received in ED. Continue diuresis with IV Lasix. TTE from 03/2016 with EF of 35%. Patient was discharged on Lasix 40mg BID and Spironolactone 12.5mg daily (not taking) from 03/2016 admission. Patient was discharged on Carvedilol 6.25mg BID and Lisinopril 5mg PO daily ( not taking) from 03/2016 admission. ? compliance CHRONIC HYPOXIC RESPIRATORY FAILURE: CHRONIC COPD Continue oxygen support CXR: No acute process DYSLIPIDEMIA Hold statin as patient has transaminitis. THYROID DISEASE Bilat exophthalmos noted on exam- ? chronicity. TSH 20.9 ? burned-out Grave's disease. levothyroxine 25 mcg daily stated Needs repeat Thyroid function tests as outpatient SCHIZOPHRENIA Continue fluoxetine and risperidone. VTE PROPHYLAXIS High risk for VTE. SQ heparin GENERALIZED WEAKNESS: PT/OT CODE STATUS Full code per discussion with . DISPOSITION Medical follow-up with Dr. Sultana Mcginnis. Consultants: Gastroenterology Procedures: CT head Chronic small vessel change. No acute intracranial abnormality. Abdominal ultrasound 1. Hepatic cirrhosis. 2. Mild hepatosplenomegaly. 3. Trace upper abdominal ascites CXR: No acute process Vital Signs: Date Time Temp Pulse Resp B/P Pulse Ox O2 Delivery O2 Flow Rate FiO2 01/01/17 12:15 37.0 95 16 132/79 93 Nasal Cannula 3.0 01/01/17 08:02 93 Nasal Cannula 3.0 01/01/17 07:55 37.0 95 18 115/75 93 Nasal Cannula 3.0 01/01/17 06:11 92 20 94 Nasal Cannula 3.0 01/01/17 04:20 Nasal Cannula 3.0 01/01/17 04:00 36.7 88 20 108/66 94 Nasal Cannula 3.0 01/01/17 00:00 Nasal Cannula 3.0 01/01/17 00:00 36.7 90 20 109/67 94 Nasal Cannula 3.0 12/31/16 20:20 37.1 99 22 129/72 93 Nasal Cannula 3.0 12/31/16 20:00 Nasal Cannula 3.0 12/31/16 19:36 97 20 95 Nasal Cannula 3.0 12/31/16 16:00 Nasal Cannula 4.0 12/31/16 15:28 37.1 113 20 153/62 91 3.0 12/31/16 15:09 101 20 94 Nasal Cannula 3.0 Lab Results: Results Past 24 Hours Test 01/01/17 07:10 Range/Units White Blood Count 11.46 4.8-10.8 K/uL Red Blood Count 3.08 4.2-5.4 M/uL Hemoglobin 10.5 12.0-16.0 g/dL Hematocrit 32.3 37-47 % Mean Corpuscular Volume 104.9 80-100 fL Mean Corpuscular Hemoglobin 34.1 25-34 pg Mean Corpuscular Hemoglobin Concent 32.5 32-36 g/dl Platelet Count 129 130-400 K/uL Mean Platelet Volume 10.5 7.4-10.4 fL Neutrophils (%) (Auto) 77.8 % Lymphocytes (%) (Auto) 10.9 % Monocytes (%) (Auto) 9.1 % Eosinophils (%) (Auto) 1.4 % Basophils (%) (Auto) 0.4 % Neutrophils # (Auto) 8.91 1.4-6.5 K/uL Lymphocytes # (Auto) 1.25 1.2-3.4 K/uL Monocytes # (Auto) 1.04 0.11-0.59 K/uL Eosinophils # (Auto) 0.16 0-0.5 K/uL Basophils # (Auto) 0.05 0-0.2 K/uL RDW Standard Deviation 69.2 36.4-46.3 fL RDW Coefficient of Variation 18.6 11.5-14.5 % Immature Granulocyte % (Auto) 0.4 % Immature Granulocyte # (Auto) 0.05 0.00-0.02 K/uL Nucleated RBC Absolute Count (auto) 0.03 0-0 K/uL Nucleated Red Blood Cells % 0.3 % Arterial Blood pH 7.49 7.35-7.45 Arterial Blood Partial Pressure CO2 44 35-46 mmHg Arterial Blood Partial Pressure O2 57 80-95 mm/Hg Arterial Blood HCO3 33 19-24 mmol/L Arterial Blood Oxygen Saturation 88.9 90-95 % Arterial Blood Base Excess 8.8 -9-1.8 mEq/L Arterial Blood Gas Delivery 3 LITERS Ramakrishna Test POSITIVE POS Sodium Level 140 136-145 mmol/L Potassium Level 2.6 3.5-5.1 mmol/L Chloride Level 98 98-107 mmol/L Carbon Dioxide Level 32 21-32 mmol/L Anion Gap 10.0 3-11 mmol/L Blood Urea Nitrogen 9 7-18 mg/dl Creatinine 0.69 0.60-1.20 mg/dl Est Creatinine Clear Calc Drug Dose 98.0 ml/min Estimated GFR () 107.4 Estimated GFR (Non- 92.6 BUN/Creatinine Ratio 13.0 10-20 Random Glucose 99 70-99 mg/dl Calcium Level 7.5 8.5-10.1 mg/dl Ammonia 45.0 11-32 umol/L
[2017-01-01] MEDS: CHLORDIAZEPOXIDE 25MG Q8H DOSE PO SCH ×2 (15:49→22:12)
[2017-01-01] MEDS: RISPERIDONE 2 MG TAB PO SCH (21:36)
[2017-01-01] MEDS: RIFAXIMIN TAB 550 MG TAB PO SCH (23:57)
[2017-01-02] VITALS (11 sets, daily range): BP systolic 108–132; BP diastolic 68–77; PULSE 80–101; TEMP 36.6–37.2; O2SAT 91–96
[2017-01-02] MEDS: LACTULOSE SYRUP 200 GM, WATER, STERILE IRRIG 700 ML, BARCODE IDENTIFIER 1 EA PR SCH ×4 (02:00→09:34)
[2017-01-02] MEDS: LACTULOSE ENEMA COMPOUND PO SCH ×2 (02:00→09:34)
[2017-01-02] MEDS: CHLORDIAZEPOXIDE 25MG Q8H DOSE PO SCH (06:22)
[2017-01-02] MEDS: LEVOTHYROXINE 25 MCG TAB PO SCH (06:23)
[2017-01-02 07:07] LABS: BASO % 0.4 %; BASO ABS # 0.04 K/uL (0-0.2); COMPLETE YES; EOS % 1.4 %; HEMATOCRIT 32.7 % (37-47); IG% 0.6 %; LYMPH % 11.3 %; LYMPH ABS # 1.19 K/uL (1.2-3.4); MEAN CELL VOLUME 105.1 fL (80-100); MEAN CORPUSCULAR HEMOGLOBIN 34.1 pg (25-34); MEAN CORPUSCULAR HGB CONC 32.4 g/dl (32-36); MEAN PLATELET VOLUME 10.3 fL (7.4-10.4); MONO % 11.9 %; NEUT % 74.4 %; PLATELET COUNT 127 K/uL (130-400); RED BLOOD COUNT 3.11 M/uL (4.2-5.4); WHITE BLOOD COUNT 10.49 K/uL (4.8-10.8)
[2017-01-02] MEDS: LEVALBUTEROL 1.25MG/0.5ML NEB INH SCH (07:29)
[2017-01-02] MEDS: IPRATROPIUM BROMIDE NEB SOLN 0.02% 2.5 ML VIAL INH SCH (07:29)
[2017-01-02 07:43] LABS: BUN/CREATININE RATIO 14.4 (10-20); CALCIUM 7.6 mg/dl (8.5-10.1); CREATININE 0.64 mg/dl (0.60-1.20); MAGNESIUM 1.6 mg/dl (1.8-2.4); POTASSIUM 2.7 mmol/L (3.5-5.1)
[2017-01-02] MEDS: FLUOXETINE HCL 20 MG CAP PO SCH (08:06)
[2017-01-02] MEDS: PANTOprazole SOD 40 MG TAB PO SCH (08:06)
[2017-01-02] MEDS: FUROSEMIDE INJ 40 MG in SYRINGE 0 ML IV SCH (08:06)
[2017-01-02] MEDS: POTASSIUM CHLORIDE 20 MEQ TABCR PO SCH ×2 (08:07→22:06)
[2017-01-02] MEDS: MULTIVITAMIN TAB PO SCH (08:07)
[2017-01-02] MEDS: RIFAXIMIN TAB 550 MG TAB PO SCH ×2 (08:07→22:05)
[2017-01-02] MEDS: ASPIRIN 81 MG ECTAB PO SCH (08:08)
[2017-01-02] MEDS: THIAMINE HCL 100 MG TAB PO SCH (08:08)
[2017-01-02] MEDS: HEPARIN SOD 5000 UNIT/0.5 ML CARP SQ SCH ×2 (08:15→22:08)
[2017-01-02] MEDS: LACTULOSE SYRUP 30 GM/45 ML UDP PO SCH ×3 (08:17→22:02)
[2017-01-02] MEDS: POTASSIUM CHLORIDE INJ 10 MEQ in SODIUM CHLORIDE 0.9% 100ML 100 ML IV SCH ×4 (08:18→11:33)
[2017-01-02] MEDS: MAGNESIUM SULFATE 1GM / D5W 1 GM in PREMIXED IN D5W 100 ML IV SCH ×2 (08:19→09:32)
--- NOTE | 2017-01-02 09:10 | Progress Note ---
Internal Med Progress Note Date of Service: Jan 02, 2017. Provider Documentation: SUBJECTIVE: Patient is seen and examined at bedside. She seemed to be much more alert, awake and oriented. States cough and SOB is improving. Denies any abd pain, chest pain. Patient had 1 BM this morning. OBJECTIVE: Vital Signs-as noted below Physical Exam: General Appearance:Moderately built and nourished, no apparent distress Head: normocephalic, Atraumatic Eyes: normal inspection, EOMI, PERRLA, +Exophthalmos Neck: supple, no JVD, Trachea midline Respiratory/Chest: Coarse breath sounds. No accessory muscle use Cardiovascular: S1, S2, NSR, Tachycardia, No murmur Abdomen/GI:Soft, Non tender, distended, Bowel sounds present Extremities/Musculoskelatal:normal inspection, 2+ edema b/l Neurologic/Psych:AAOX3, grossly no focal neurological deficits Skin: normal color, warm Lab data as noted below. ASSESSMENT & PLAN: ALTERED MENTAL STATUS: Likely secondary to hepatic encephalopathy Head CT: negative for acute pathology Continue lactulose PO, Rifaximin Improving CIRRHOSIS / ACUTE HEPATIC ENCEPHALOPATHY Suspected cirrhosis noted on CT 2014. H/O fatty liver- could be combination of obesity and alcohol use. Transaminitis and elevated alkaline phosphatase. Abdominal ultrasound with small ascites Continue lactulose, Rifaximin GI on board Continue current diuretics: Will need to change to Spironolactone 100mg daily and Lasix 40mg daily prior to DC May need non emergent MRCP: per GI Needs outpatient:EGD, HCC screens every 6months HYPOKALEMIA/HYPOMAGNESEMIA: Secondary to diuretics Will replace and monitor ALCOHOL USE DISORDER: Patient's notes daily alcohol use Continue MVI, thiamine and folic acid Monitor for alcohol withdrawal. Continue Librium protocol per liver disease Patient not interested in alcohol rehab placement POSSIBLE CELLULITIS ABDOMEN / LOWER EXTREMITIES-Less likely [place] discoloration of lower abdomen, non tender on exam-Resolved Blood cultures: no growth to date S/P daptomycin and piperacillin / tazobactam Afebrile, WBC:wnl SYSTOLIC CHF Appears to be decompensated after IVF's received in ED. Continue diuresis with IV Lasix, I/Os, Daily weight, Fluid restriction Carvedilol and Lisinopril added TTE from 03/2016 with EF of 35%. Patient was discharged on Lasix 40mg BID and Spironolactone 12.5mg daily (not taking) from 03/2016 admission. Patient was discharged on Carvedilol 6.25mg BID and Lisinopril 5mg PO daily ( not taking) from 03/2016 admission. ? compliance CHRONIC HYPOXIC RESPIRATORY FAILURE: CHRONIC COPD Continue oxygen support CXR: No acute process DYSLIPIDEMIA Hold statin as patient has transaminitis. THYROID DISEASE Bilat exophthalmos noted on exam- ? chronicity. TSH 20.9 ? burned-out Grave's disease. Continue levothyroxine 25 mcg daily Needs repeat Thyroid function tests as outpatient SCHIZOPHRENIA Continue fluoxetine and risperidone Medication dose adjusted secondary to lethargy VTE PROPHYLAXIS High risk for VTE. SQ heparin GENERALIZED WEAKNESS: PT/OT May need placement CODE STATUS Full code DISPOSITION Medical follow-up with Dr. Sultana Mcginnis. Gastroenterology Consultants: Gastroenterology Procedures: CT head Chronic small vessel change. No acute intracranial abnormality. Abdominal ultrasound 1. Hepatic cirrhosis. 2. Mild hepatosplenomegaly. 3. Trace upper abdominal ascites CXR: No acute process Vital Signs: Date Time Temp Pulse Resp B/P Pulse Ox O2 Delivery O2 Flow Rate FiO2 01/02/17 07:42 37.2 101 20 109/77 96 3.0 01/02/17 07:30 94 20 96 Nasal Cannula 3.0 01/02/17 05:00 Nasal Cannula 3.0 01/02/17 03:52 36.8 94 18 132/77 92 Nasal Cannula 3.0 01/02/17 00:01 36.7 96 20 121/73 93 Nasal Cannula 3.0 01/02/17 00:00 Nasal Cannula 3.0 01/01/17 20:00 37.0 92 22 126/75 96 Nasal Cannula 3.0 01/01/17 20:00 Nasal Cannula 3.0 01/01/17 19:35 96 20 96 Nasal Cannula 3.0 01/01/17 16:00 Nasal Cannula 3.0 01/01/17 15:33 92 20 95 Nasal Cannula 3.0 01/01/17 15:08 36.8 94 19 109/68 93 Nasal Cannula 4.0 01/01/17 12:15 37.0 95 16 132/79 93 Nasal Cannula 3.0 01/01/17 12:00 Nasal Cannula 3.0 Lab Results: Results Past 24 Hours Test 01/02/17 06:55 Range/Units White Blood Count 10.49 4.8-10.8 K/uL Red Blood Count 3.11 4.2-5.4 M/uL Hemoglobin 10.6 12.0-16.0 g/dL Hematocrit 32.7 37-47 % Mean Corpuscular Volume 105.1 80-100 fL Mean Corpuscular Hemoglobin 34.1 25-34 pg Mean Corpuscular Hemoglobin Concent 32.4 32-36 g/dl Platelet Count 127 130-400 K/uL Mean Platelet Volume 10.3 7.4-10.4 fL Neutrophils (%) (Auto) 74.4 % Lymphocytes (%) (Auto) 11.3 % Monocytes (%) (Auto) 11.9 % Eosinophils (%) (Auto) 1.4 % Basophils (%) (Auto) 0.4 % Neutrophils # (Auto) 7.80 1.4-6.5 K/uL Lymphocytes # (Auto) 1.19 1.2-3.4 K/uL Monocytes # (Auto) 1.25 0.11-0.59 K/uL Eosinophils # (Auto) 0.15 0-0.5 K/uL Basophils # (Auto) 0.04 0-0.2 K/uL RDW Standard Deviation 70.4 36.4-46.3 fL RDW Coefficient of Variation 18.6 11.5-14.5 % Immature Granulocyte % (Auto) 0.6 % Immature Granulocyte # (Auto) 0.06 0.00-0.02 K/uL Sodium Level 140 136-145 mmol/L Potassium Level 2.7 3.5-5.1 mmol/L Chloride Level 98 98-107 mmol/L Carbon Dioxide Level 32 21-32 mmol/L Anion Gap 10.0 3-11 mmol/L Blood Urea Nitrogen 9 7-18 mg/dl Creatinine 0.64 0.60-1.20 mg/dl Est Creatinine Clear Calc Drug Dose 105.7 ml/min Estimated GFR () 110.1 Estimated GFR (Non- 95.0 BUN/Creatinine Ratio 14.4 10-20 Random Glucose 91 70-99 mg/dl Calcium Level 7.6 8.5-10.1 mg/dl Magnesium Level 1.6 1.8-2.4 mg/dl
[2017-01-02] MEDS: CARVEDILOL 6.25 MG TAB PO SCH ×2 (09:33→22:05)
--- NOTE | 2017-01-02 10:55 | Gastroenterology Progress Note ---
Progress Note Date of Service: Jan 02, 2017 Subjective Pt evaluation today including: conversation w/ patient, physical exam, chart review, lab review, review of studies, review of inpatient medication list Ms Tomlinson is a 61 yr old female admitted on 12/29/16 for weakness, confusion. She has ETOH cirrhosis and was continuing to drink until time of admission. Blood and urine cx negative. Liver US on 12/30/16: Hepatic cirrhosis. Mild hepatosplenomegaly. Trace upper abdominal ascites Today, still slow affect and with mild hand tremors but when asked today's date , she is able to read her watch, telling me the date and time of day. Now sitting up in a chair, more alert than yesterday. Review of Systems Constitutional: + weakness (improving), No fever Respiratory: No cough Cardiac: No chest pain Abdomen: No GI bleeding, No constipation, No diarrhea, No nausea, No pain, No vomiting Female : No dysuria Neuro: No memory loss Psych: No depression symptoms Heme: No abnormal bleeding/bruising Endo: No fatigue Medications Current Inpatient Medications Medications (Trade) Dose Ordered Sig/Antonio Route Start Time Stop Time Status Last Admin Dose Admin Heparin Sodium (Porcine) (Heparin Sq 5000 Unit/0.5ml) 5,000 unit Q12 SQ 12/30/16 09:00 01/29/17 08:59 01/02/17 08:15 5,000 UNIT Aspirin (Ecotrin Tab) 81 mg DAILY PO 12/30/16 09:00 01/29/17 08:59 01/02/17 08:08 81 MG Thiamine HCl (Vitamin B-1 Tab) 100 mg QAM PO 12/31/16 09:00 01/30/17 08:59 01/02/17 08:08 100 MG Folic Acid (Folvite Tab) 1 mg QAM PO 12/31/16 09:00 01/30/17 08:59 01/02/17 08:08 1 MG Pantoprazole Sodium (Protonix Tab) 40 mg QAM PO 12/31/16 09:00 01/30/17 08:59 01/02/17 08:06 40 MG Levothyroxine Sodium (Synthroid Tab) 25 mcg DAILYBB PO 12/31/16 06:00 01/30/17 05:59 01/02/17 06:23 25 MCG Miscellaneous (Unit Dose Compound) 1 ea Q8H PO 12/30/16 18:00 01/29/17 17:59 Ioversol (Optiray 320) 100 ml UD PRN IV 12/30/16 17:30 01/03/17 17:29 Lactulose (Chronulac Syrup) 30 gm TID PO 12/30/16 21:00 01/29/17 20:59 01/01/17 21:36 30 GM Multivitamins 1 tab QAM PO 12/31/16 09:00 01/30/17 08:59 01/02/17 08:07 1 TAB Lactulose/Sterile Water/Barcode (Chronulac Syrup/ Sterile Water Irrigation Bottle) Q8H MT 12/31/16 10:00 01/30/17 09:59 Chlordiazepoxide (Librium Cap) 10 mg Q8H PO 01/02/17 14:00 01/03/17 06:01 Chlordiazepoxide (Librium Cap) 5 mg Q12H PO 01/02/17 18:00 01/03/17 06:01 Ipratropium [place] (Atrovent 0.02% 0.5MG/2.5ML Neb) 0.5 mg Q4H PRN INH 01/01/17 07:30 01/31/17 07:29 Levalbuterol (Xopenex 1.25MG/ 0.5ML Neb) 1.25 mg Q4H PRN INH 01/01/17 07:30 01/31/17 07:29 Potassium Chloride (Klor-Con Tab) 20 meq BID PO 01/02/17 09:00 02/01/17 08:59 01/02/17 08:07 20 MEQ Rifaximin 550 mg 550 mg BID PO 01/01/17 21:00 01/31/17 20:59 01/02/17 08:07 550 MG Potassium Chloride/Sodium Chloride (KCl Inj/Nss 100ml) 105 ml @ 100 mls/hr Q1H IV 01/02/17 08:00 01/02/17 11:59 01/02/17 09:31 100 MLS/HR Risperidone (Risperdal Tab) 3 mg HS PO 01/02/17 21:00 02/01/17 20:59 Fluoxetine HCl (Prozac Cap) 20 mg DAILY PO 01/03/17 09:00 02/02/17 08:59 Lisinopril (Zestril Tab) 5 mg QAM PO 01/03/17 09:00 02/02/17 08:59 Carvedilol 6.25 mg 6.25 mg BID PO 01/02/17 09:00 02/01/17 08:59 01/02/17 09:33 6.25 MG Furosemide/Syringe (Lasix Inj/ Syringe) 4 ml @ 4 mls/min DAILY IV 01/03/17 09:00 02/02/17 08:59 Objective Vital Signs Date Time Temp Pulse Resp B/P Pulse Ox O2 Delivery O2 Flow Rate FiO2 01/02/17 08:00 Nasal Cannula 3.0 01/02/17 07:42 37.2 101 20 109/77 96 3.0 01/02/17 07:30 94 20 96 Nasal Cannula 3.0 01/02/17 05:00 Nasal Cannula 3.0 01/02/17 03:52 36.8 94 18 132/77 92 Nasal Cannula 3.0 01/02/17 00:01 36.7 96 20 121/73 93 Nasal Cannula 3.0 01/02/17 00:00 Nasal Cannula 3.0 01/01/17 20:00 37.0 92 22 126/75 96 Nasal Cannula 3.0 01/01/17 20:00 Nasal Cannula 3.0 01/01/17 19:35 96 20 96 Nasal Cannula 3.0 01/01/17 16:00 Nasal Cannula 3.0 01/01/17 15:33 92 20 95 Nasal Cannula 3.0 01/01/17 15:08 36.8 94 19 109/68 93 Nasal Cannula 4.0 01/01/17 12:15 37.0 95 16 132/79 93 Nasal Cannula 3.0 01/01/17 12:00 Nasal Cannula 3.0 Physical Exam General Appearance: no apparent distress ENT: pharynx normal Neck: no adenopathy, no JVD Respiratory/Chest: lungs clear Cardiovascular: regular rate, rhythm, no murmur Abdomen: non tender, soft, + pertinent finding (mild to moderate ascites) Neurologic/Psych: alert, normal mood/affect, oriented x 3 Skin: no jaundice Laboratory Results Last 24 Hours Test 01/02/17 06:55 White Blood Count 10.49 K/uL Red Blood Count 3.11 M/uL Hemoglobin 10.6 g/dL Hematocrit 32.7 % Mean Corpuscular Volume 105.1 fL Mean Corpuscular Hemoglobin 34.1 pg Mean Corpuscular Hemoglobin Concent 32.4 g/dl Platelet Count 127 K/uL Mean Platelet Volume 10.3 fL Neutrophils (%) (Auto) 74.4 % Lymphocytes (%) (Auto) 11.3 % Monocytes (%) (Auto) 11.9 % Eosinophils (%) (Auto) 1.4 % Basophils (%) (Auto) 0.4 % Neutrophils # (Auto) 7.80 K/uL Lymphocytes # (Auto) 1.19 K/uL Monocytes # (Auto) 1.25 K/uL Eosinophils # (Auto) 0.15 K/uL Basophils # (Auto) 0.04 K/uL RDW Standard Deviation 70.4 fL RDW Coefficient of Variation 18.6 % Immature Granulocyte % (Auto) 0.6 % Immature Granulocyte # (Auto) 0.06 K/uL Sodium Level 140 mmol/L Potassium Level 2.7 mmol/L Chloride Level 98 mmol/L Carbon Dioxide Level 32 mmol/L Anion Gap 10.0 mmol/L Blood Urea Nitrogen 9 mg/dl Creatinine 0.64 mg/dl Est Creatinine Clear Calc Drug Dose 105.7 ml/min Estimated GFR () 110.1 Estimated GFR (Non- 95.0 BUN/Creatinine Ratio 14.4 Random Glucose 91 mg/dl Calcium Level 7.6 mg/dl Magnesium Level 1.6 mg/dl Assessment and Plan Ms. Tomlinson is a 61 yr old female with ETOH cirrhosis. Confusion on admission consistent with either effect of alcohol or hepatic encephalopathy. Mental status much improved. Edema/ascites also decreasing on Lasix. Now with hypokalemia. Plan: 1. Would ask primary services to replace potassium . 2. Would add Spironolactone 100mg daily. 3. Continue [id number] TID and Xifaxin 550mg BID. 4. Low salt diet. 5. Consider non emergent MRCP given elevated alk phos and tbili to r/o biliary obstruction, though unlikely with no pain and US w/o obstruction. 6. After a period of sobriety, recommend: OP EGD, Q 6month screening for HCC and other issues related to cirrhosis. Would like to follow in GI clinic to minimize complications of cirrhosis. Counselled regarding need for complete sobriety. I have seen , examined and agree with the plan as outlined by ENOCH Arora as above. -exam reveals soft abd -mental status clear
[2017-01-02] MEDS: CHLORDIAZEPOXIDE 10MG Q8H DOSE PO SCH ×3 (14:44→17:58)
[2017-01-02] MEDS: CHLORDIAZEPOXIDE 5MG Q12H DOSE PO SCH (18:02)
[2017-01-02] MEDS: RISPERIDONE 3 MG TAB PO SCH (22:04)
[2017-01-03] VITALS (15 sets, daily range): BP systolic 98–114; BP diastolic 57–74; PULSE 74–86; TEMP 36.5–37; O2SAT 72–97
[2017-01-03 00:53] LABS: BUN/CREATININE RATIO 16.8 (10-20); CALCIUM 7.4 mg/dl (8.5-10.1); CREATININE 0.59 mg/dl (0.60-1.20); MAGNESIUM 2.1 mg/dl (1.8-2.4); POTASSIUM 3.1 mmol/L (3.5-5.1)
[2017-01-03] MEDS ORDERED: POTASSIUM CHLORIDE 10 MEQ TABCR PO STA (01:52)
[2017-01-03] MEDS: LEVOTHYROXINE 25 MCG TAB PO SCH (05:58)
[2017-01-03] MEDS: CHLORDIAZEPOXIDE 5MG Q12H DOSE PO SCH (06:00)
[2017-01-03] MEDS: CHLORDIAZEPOXIDE 10MG Q8H DOSE PO SCH (06:00)
[2017-01-03] MEDS: MULTIVITAMIN TAB PO SCH (08:01)
[2017-01-03] MEDS: CARVEDILOL 6.25 MG TAB PO SCH ×2 (08:01→20:01)
[2017-01-03] MEDS: PANTOprazole SOD 40 MG TAB PO SCH (08:01)
[2017-01-03] MEDS: FLUOXETINE HCL 20 MG CAP PO SCH (08:01)
[2017-01-03] MEDS: SPIRONOLACTONE 100 MG TAB PO SCH (08:01)
[2017-01-03] MEDS: THIAMINE HCL 100 MG TAB PO SCH (08:01)
[2017-01-03] MEDS: RIFAXIMIN TAB 550 MG TAB PO SCH ×2 (08:02→20:01)
[2017-01-03] MEDS: LISINOPRIL 5 MG TAB PO SCH (08:02)
[2017-01-03] MEDS: FUROSEMIDE INJ 40 MG in SYRINGE 0 ML IV SCH (08:02)
[2017-01-03] MEDS: ASPIRIN 81 MG ECTAB PO SCH (08:02)
[2017-01-03] MEDS: LACTULOSE SYRUP 30 GM/45 ML UDP PO SCH ×3 (08:03→20:01)
[2017-01-03] MEDS: POTASSIUM CHLORIDE 20 MEQ TABCR PO SCH ×2 (08:03→20:01)
[2017-01-03] MEDS: HEPARIN SOD 5000 UNIT/0.5 ML CARP SQ SCH ×2 (08:06→19:58)
[2017-01-03 08:21] LABS: BASO % 0.5 %; BASO ABS # 0.05 K/uL (0-0.2); COMPLETE YES; EOS % 1.8 %; HEMATOCRIT 36.6 % (37-47); IG% 0.5 %; LYMPH % 10.5 %; LYMPH ABS # 1.12 K/uL (1.2-3.4); MEAN CELL VOLUME 108.3 fL (80-100); MEAN CORPUSCULAR HEMOGLOBIN 34.3 pg (25-34); MEAN CORPUSCULAR HGB CONC 31.7 g/dl (32-36); MEAN PLATELET VOLUME 10.9 fL (7.4-10.4); MONO % 12.1 %; NEUT % 74.6 %; PLATELET COUNT 150 K/uL (130-400); RED BLOOD COUNT 3.38 M/uL (4.2-5.4)
[2017-01-03 08:47] LABS: CALCIUM 7.6 mg/dl (8.5-10.1); CREATININE 0.6 mg/dl (0.60-1.20); POTASSIUM 3.3 mmol/L (3.5-5.1)
--- NOTE | 2017-01-03 09:27 | Progress Note ---
Internal Med Progress Note Date of Service: Jan 03, 2017. Provider Documentation: SUBJECTIVE: Patient is seen and examined at bedside. Mental status improved. Intermittently lethargic per staff. She is eager to go home. Denies chest pain. Ammonia level slightly elevated. Still requiring 3.5 L NC to maintain sats above 92% OBJECTIVE: Vital Signs-as noted below Physical Exam: General Appearance:Moderately built and nourished, no apparent distress Head: normocephalic, Atraumatic Eyes: normal inspection, EOMI, PERRLA, +Exophthalmos Neck: supple, no JVD, Trachea midline Respiratory/Chest: B/L ronchi, Coarse breath sounds. Cardiovascular: S1, S2, NSR, No murmur Abdomen/GI:Soft, Non tender, distended, Bowel sounds present Extremities/Musculoskelatal:normal inspection, 1-2+ edema b/l Neurologic/Psych:AAOX3, grossly no focal neurological deficits Skin: normal color, warm Lab data as noted below. ASSESSMENT & PLAN: ALTERED MENTAL STATUS: Likely secondary to hepatic encephalopathy Head CT: negative for acute pathology Continue lactulose PO, Rifaximin Improving CIRRHOSIS / ACUTE HEPATIC ENCEPHALOPATHY Suspected cirrhosis noted on CT 2014. H/O fatty liver- could be combination of obesity and alcohol use. Transaminitis and elevated alkaline phosphatase. Abdominal ultrasound with small ascites Continue lactulose, Rifaximin GI on board Continue current diuretics: Will need to change to Spironolactone 100mg daily and Lasix 40mg daily prior to DC May need non emergent MRCP: per GI Needs outpatient:EGD, HCC screens every 6months HYPOKALEMIA/HYPOMAGNESEMIA: Secondary to diuretics Continue potassium supplements Also on spironolactone Hypomagnesemia resolved ALCOHOL USE DISORDER: Patient's notes daily alcohol use Continue MVI, thiamine and folic acid Monitor for alcohol withdrawal. Continue Librium protocol per liver disease Patient not interested in alcohol rehab placement POSSIBLE CELLULITIS ABDOMEN / LOWER EXTREMITIES-Less likely [place] discoloration of lower abdomen, non tender on exam-Resolved Blood cultures: no growth to date S/P daptomycin and piperacillin / tazobactam Afebrile, WBC:wnl SYSTOLIC CHF Appears to be decompensated after IVF's received in ED. Continue diuresis with IV Lasix, I/Os, Daily weight, Fluid restriction Will change to PO lasix tomorrow Continue Carvedilol and Lisinopril TTE from 03/2016 with EF of 35%. Patient was discharged on Lasix 40mg BID and Spironolactone 12.5mg daily (not taking) from 03/2016 admission. Patient was discharged on Carvedilol 6.25mg BID and Lisinopril 5mg PO daily ( not taking) from 03/2016 admission. ? compliance CHRONIC HYPOXIC RESPIRATORY FAILURE: CHRONIC COPD B/L ronchi heard on exam Continue oxygen support CXR: No acute process Continue duonebs Will consult pulmonary DYSLIPIDEMIA Hold statin as patient has transaminitis. THYROID DISEASE Bilat exophthalmos noted on exam- ? chronicity. TSH 20.9 ? burned-out Grave's disease. Continue levothyroxine 25 mcg daily Needs repeat Thyroid function tests as outpatient SCHIZOPHRENIA Continue fluoxetine and risperidone Medication dose adjusted secondary to lethargy VTE PROPHYLAXIS High risk for VTE. SQ heparin GENERALIZED WEAKNESS: PT/OT May need placement CODE STATUS Full code DISPOSITION Medical follow-up with Dr. Sultana Mcginnis. Gastroenterology Consultants: Gastroenterology Procedures: CT head Chronic small vessel change. No acute intracranial abnormality. Abdominal ultrasound 1. Hepatic cirrhosis. 2. Mild hepatosplenomegaly. 3. Trace upper abdominal ascites CXR: No acute process Vital Signs: Date Time Temp Pulse Resp B/P Pulse Ox O2 Delivery O2 Flow Rate FiO2 01/03/17 07:00 36.5 84 22 107/58 92 Nasal Cannula 3.5 01/03/17 04:00 95 Nasal Cannula 3.5 01/03/17 03:42 36.6 86 22 112/74 92 Nasal Cannula 3.5 01/02/17 23:59 95 Nasal Cannula 3.5 01/02/17 23:22 36.9 80 22 114/68 95 Nasal Cannula 3.5 01/02/17 20:00 96 Room Air 01/02/17 20:00 96 Room Air 01/02/17 19:48 36.9 86 19 124/72 94 Nasal Cannula 4.0 01/02/17 16:00 96 Room Air 01/02/17 15:45 36.9 85 20 123/77 96 Nasal Cannula 4.0 01/02/17 12:00 Nasal Cannula 3.0 01/02/17 11:23 36.6 100 20 108/69 91 3.0 Lab Results: Results Past 24 Hours Test 01/03/17 00:05 01/03/17 08:03 Range/Units Sodium Level 141 141 136-145 mmol/L Potassium Level 3.1 3.3 3.5-5.1 mmol/L Chloride Level 100 100 98-107 mmol/L Carbon Dioxide Level 34 32 21-32 mmol/L Anion Gap 7.0 9.0 3-11 mmol/L Blood Urea Nitrogen 10 10 7-18 mg/dl Creatinine 0.59 0.60 0.60-1.20 mg/dl Est Creatinine Clear Calc Drug Dose 114.7 110.7 ml/min Estimated GFR () 113.1 112.4 Estimated GFR (Non- 97.5 97.0 BUN/Creatinine Ratio 16.8 16.0 10-20 Random Glucose 92 112 70-99 mg/dl Calcium Level 7.4 7.6 8.5-10.1 mg/dl Magnesium Level 2.1 2.0 1.8-2.4 mg/dl White Blood Count 10.70 4.8-10.8 K/uL Red Blood Count 3.38 4.2-5.4 M/uL Hemoglobin 11.6 12.0-16.0 g/dL Hematocrit 36.6 37-47 % Mean Corpuscular Volume 108.3 80-100 fL Mean Corpuscular Hemoglobin 34.3 25-34 pg Mean Corpuscular Hemoglobin Concent 31.7 32-36 g/dl Platelet Count 150 130-400 K/uL Mean Platelet Volume 10.9 7.4-10.4 fL Neutrophils (%) (Auto) 74.6 % Lymphocytes (%) (Auto) 10.5 % Monocytes (%) (Auto) 12.1 % Eosinophils (%) (Auto) 1.8 % Basophils (%) (Auto) 0.5 % Neutrophils # (Auto) 8.00 1.4-6.5 K/uL Lymphocytes # (Auto) 1.12 1.2-3.4 K/uL Monocytes # (Auto) 1.29 0.11-0.59 K/uL Eosinophils # (Auto) 0.19 0-0.5 K/uL Basophils # (Auto) 0.05 0-0.2 K/uL RDW Standard Deviation 70.7 36.4-46.3 fL RDW Coefficient of Variation 18.0 11.5-14.5 % Immature Granulocyte % (Auto) 0.5 % Immature Granulocyte # (Auto) 0.05 0.00-0.02 K/uL Ammonia 62.0 11-32 umol/L
[2017-01-03] MEDS: IPRATROPIUM BROMIDE NEB SOLN 0.02% 2.5 ML VIAL INH SCH ×4 (11:14→23:04)
[2017-01-03] MEDS: LEVALBUTEROL 1.25MG/0.5ML NEB INH PRN ×4 (11:15→23:04)
[2017-01-03] MEDS: RISPERIDONE 3 MG TAB PO SCH (20:01)
[2017-01-03 23:00] LABS: BUN/CREATININE RATIO 15.3 (10-20); CALCIUM 7.9 mg/dl (8.5-10.1); CREATININE 0.65 mg/dl (0.60-1.20); POTASSIUM 3.4 mmol/L (3.5-5.1)
[2017-01-04] VITALS (14 sets, daily range): BP systolic 101–115; BP diastolic 59–70; PULSE 72–92; TEMP 36.4–37; O2SAT 88–97
[2017-01-04] MEDS ORDERED: POTASSIUM CHLORIDE 10 MEQ TABCR PO STA (00:04)
[2017-01-04] MEDS: IPRATROPIUM BROMIDE NEB SOLN 0.02% 2.5 ML VIAL INH SCH ×6 (03:26→23:15)
[2017-01-04] MEDS: LEVALBUTEROL 1.25MG/0.5ML NEB INH PRN ×6 (03:26→23:15)
[2017-01-04] MEDS: LEVOTHYROXINE 25 MCG TAB PO SCH (05:18)
[2017-01-04 07:30] LABS: BASO % 0.6 %; BASO ABS # 0.06 K/uL (0-0.2); COMPLETE YES; EOS % 1.5 %; HEMATOCRIT 33.1 % (37-47); IG% 0.3 %; LYMPH % 12.8 %; MEAN CELL VOLUME 105.8 fL (80-100); MEAN CORPUSCULAR HEMOGLOBIN 33.9 pg (25-34); MEAN PLATELET VOLUME 10.8 fL (7.4-10.4); MONO % 11.7 %; NEUT % 73.1 %; PLATELET COUNT 164 K/uL (130-400); RED BLOOD COUNT 3.13 M/uL (4.2-5.4); WHITE BLOOD COUNT 9.39 K/uL (4.8-10.8)
[2017-01-04 08:12] LABS: BUN/CREATININE RATIO 16.6 (10-20); CREATININE 0.58 mg/dl (0.60-1.20); POTASSIUM 3.6 mmol/L (3.5-5.1)
[2017-01-04] MEDS: CARVEDILOL 6.25 MG TAB PO SCH ×2 (10:16→20:03)
[2017-01-04] MEDS: FUROSEMIDE INJ 40 MG in SYRINGE 0 ML IV SCH (10:16)
[2017-01-04] MEDS: LACTULOSE SYRUP 30 GM/45 ML UDP PO SCH ×4 (10:19→20:05)
[2017-01-04] MEDS: PANTOprazole SOD 40 MG TAB PO SCH (10:19)
[2017-01-04] MEDS: FLUOXETINE HCL 20 MG CAP PO SCH (10:19)
[2017-01-04] MEDS: THIAMINE HCL 100 MG TAB PO SCH (10:20)
[2017-01-04] MEDS: ASPIRIN 81 MG ECTAB PO SCH (10:20)
[2017-01-04] MEDS: MULTIVITAMIN TAB PO SCH (10:20)
[2017-01-04] MEDS: SPIRONOLACTONE 100 MG TAB PO SCH (10:20)
[2017-01-04] MEDS: RIFAXIMIN TAB 550 MG TAB PO SCH ×2 (10:21→20:03)
[2017-01-04] MEDS: POTASSIUM CHLORIDE 20 MEQ TABCR PO SCH ×2 (10:21→20:04)
[2017-01-04] MEDS: LISINOPRIL 5 MG TAB PO SCH (10:22)
[2017-01-04] MEDS: HEPARIN SOD 5000 UNIT/0.5 ML CARP SQ SCH ×2 (10:23→20:14)
--- NOTE | 2017-01-04 12:09 | Pulmonary Consultation ---
History General Date of Service: Jan 04, 2017. Stated Complaint: Cellulitis, Abd. Wall; Encephalopathy, Hepatic HPI The patient is a 61 year old female who presents to [facility] with complaints of Cellulitis, Abd. Wall; Encephalopathy, Hepatic. The patient's primary care provider is Sultana Mcginnis M.D.. 61y/o female admitted to [facility] on 12/30/16 for progressive failure to thrive. She has a significant PmHx: systolic CHF( EF=30%) , cirrhosis (steatohepatitis vs. possible alcohol abuse) and history of COPD . Patient has been treated for liver disease and initiated on lactulose for altered mental status but often refuses. She's continued to be altered and requiring oxygen support for hypoxemia. The patient is altered during our interview and all the reports have been obtained through EMS at this time. Workup to date: ABG 1.(12/30/16) 7.47/% delivery 2.(01/01/17) 7.49/44/57/333Lnc A-a: 118-with age expected: 14 VB.(12/29/16) 7.49/38/44 TSH: 20.9 UA (12/29/16) positive for signs of infection CXR: 01/01/17 compared to 12/31/16 -hilar fullness with vascular congestion , donte-bronchial cuffing - no infiltrate CT head non-contrast: chronic small vessel changes with on acute changes Serum BicarbonateL -rising 2935--31 Historian: EMS Review of Systems Patient obtunded and unable to obtain review of systems Past Medical History Past Medical History: (1) Alcohol abuse (2) Anxiety and depression (3) COPD ( (4) Dyslipidemia (5) High cholesterol (6) Osteoporosis (7) Schizoaffective disorder (8) Schizophrenia (9) Systolic CHF (EF 30-35% on echo 01/12/2015) - Nuclear Stress Study (01/17/15): suggesting basilar and lateral ischemia (10) Tobacco use disorder Past Surgical History: (1) Colonoscopy with polypectomy 07/15/11 2 polyps--adenomatous tissue (2) Tonsillectomy Family History Cancer Heart disease FATHER (severe HI age 40; lived to be 70; had several bypasses) Kidney disease Kidney stones Cancer Heart disease FATHER (severe HI age 40; lived to be 70; had several bypasses) Kidney disease Kidney stones Social History Smoking Status: Former Smoker Alcohol Use: exact consumption habits unclear Drug Use: none Marital Status: Housing status: lives with significant other Occupational Status: other Hx Tobacco Use In Past Year?: Yes (..) Smoking Status: Former Smoker Marital status: Housing status: lives with significant other Occupational Status: other Immunizations History of Influenza Vaccine: Yes History of Pneumococcal: Yes History of MDRO History of MDRO: No Allergies Coded Allergies: No Known Allergies (Unverified , nkda, 04/01/16) Current Medications Reported Home Medications Medications Dose Route/Sig Max Daily Dose Days Date Category Dose Instructions Imodium (Loperamide HCl) 2 Mg Cap 2 Mg PO UD PRN 12/29/16 Reported TAKE PER PACKAGE DIRECTIONS Aspirin Ec (Aspirin) 81 Mg Tab 81 Mg PO DAILY 12/29/16 Reported Calcium 600 + D (Calcium Carbonate-Vitamin D) 1 Tab Tab 1 Tab PO DAILY 12/29/16 Reported Multivitamin (Multivitamins) Tab 1 Tab PO DAILY 12/29/16 Reported Prozac (Fluoxetine Hcl) 40 Mg Cap 40 Mg PO DAILY 12/29/16 Reported Lipitor (Atorvastatin Calcium) 80 Mg Tab 80 Mg PO DAILY 12/29/16 Reported Risperdal (Risperidone) 4 Mg Tab 4 Mg PO HS 12/29/16 Reported Physical Physical Exam Vital Signs: Date Time Temp Pulse Resp B/P Pulse Ox O2 Delivery O2 Flow Rate FiO2 01/04/17 11:26 36.4 92 20 115/70 91 3.0 01/04/17 11:04 85 16 95 Nasal Cannula 3.0 01/04/17 08:00 Nasal Cannula 3.0 01/04/17 07:50 37.0 83 18 102/59 90 3.0 01/04/17 06:59 83 16 94 Nasal Cannula 3.0 01/04/17 04:00 97 Nasal Cannula 3.0 01/04/17 03:52 36.9 72 16 102/62 97 3.0 01/04/17 03:26 76 16 93 Nasal Cannula 4.0 01/04/17 00:01 93 Nasal Cannula 4.0 01/03/17 23:04 74 16 93 Nasal Cannula 4.0 01/03/17 22:59 37.0 82 20 114/71 93 4.0 01/03/17 20:00 97 Nasal Cannula 3.0 01/03/17 19:13 78 16 97 Nasal Cannula 4.0 01/03/17 19:10 36.6 77 20 105/67 92 Nasal Cannula 4.0 01/03/17 16:00 94 Nasal Cannula 3.5 01/03/17 15:43 77 20 90 Nasal Cannula 3.0 01/03/17 15:20 36.7 75 20 98/67 93 Nasal Cannula 3.0 01/03/17 12:00 94 Nasal Cannula 3.5 General Appearance: other (obtunded but arousable) Head: NORMOCEPHALIC Eyes: PERRLA, NO DISCHARGE, EOMI (mildly yellow sclera bilaterally), other ENT: NORMAL EAR EXAM, NORMAL NASAL EXAM, NORMAL MOUTH EXAM, NORMAL THROAT EXAM Neck: NORMAL RANGE OF MOTION, NO TENDERNESS, TRACHEA MIDLINE, NO STRIDOR Respiratory: BREATH SOUNDS NORMAL, CLEAR TO AUSCULTATION, CLEAR TO PERCUSSION, other (anterior thoracic wall notable spider angioma) Cardiovasular: REGULAR RATE/RHYTHM, NORMAL S1S2, NO M/G/R, NO MURMUR, NO GALLOP Abdomen: other (distended with fluid shift notable spider angioma) Genitourinary - Female: EXTERNAL GENITALIA NORMAL Back: NORMAL INSPECTION, NO MIDLINE TENDERNESS, NO CVA TENDERNESS, NO PARAVERTEBRAL TTP Upper Extremities: NO EDEMA, NO DEFORMITY, NORMAL ROM Lower Extremities: edema Edema: Bilateral LE (1+) Pulses: carotid (R) (2+), carotid (L) (2+), dorsalis pedis (R) (2+), dorsalis pedis (L) (2+) Neuro: other (arousable but not orientated to person place or time) Reflexes: biceps (R) (3+), bicpes (L) (3+) Babinski Testing: right (equivocal), left (equivocal) Psychiatric: other (altered) Diagnostics Labs Results Past 24 Hours Test 01/03/17 22:28 01/04/17 07:11 Range/Units Sodium Level 142 142 136-145 mmol/L Potassium Level 3.4 3.6 3.5-5.1 mmol/L Chloride Level 101 103 98-107 mmol/L Carbon Dioxide Level 35 31 21-32 mmol/L Anion Gap 6.0 8.0 3-11 mmol/L Blood Urea Nitrogen 10 10 7-18 mg/dl Creatinine 0.65 0.58 0.60-1.20 mg/dl Est Creatinine Clear Calc Drug Dose 102.2 113.0 ml/min Estimated GFR () 109.5 113.7 Estimated GFR (Non- 94.5 98.1 BUN/Creatinine Ratio 15.3 16.6 10-20 Random Glucose 96 83 70-99 mg/dl Calcium Level 7.9 8.0 8.5-10.1 mg/dl White Blood Count 9.39 4.8-10.8 K/uL Red Blood Count 3.13 4.2-5.4 M/uL Hemoglobin 10.6 12.0-16.0 g/dL Hematocrit 33.1 37-47 % Mean Corpuscular Volume 105.8 80-100 fL Mean Corpuscular Hemoglobin 33.9 25-34 pg Mean Corpuscular Hemoglobin Concent 32.0 32-36 g/dl Platelet Count 164 130-400 K/uL Mean Platelet Volume 10.8 7.4-10.4 fL Neutrophils (%) (Auto) 73.1 % Lymphocytes (%) (Auto) 12.8 % Monocytes (%) (Auto) 11.7 % Eosinophils (%) (Auto) 1.5 % Basophils (%) (Auto) 0.6 % Neutrophils # (Auto) 6.86 1.4-6.5 K/uL Lymphocytes # (Auto) 1.20 1.2-3.4 K/uL Monocytes # (Auto) 1.10 0.11-0.59 K/uL Eosinophils # (Auto) 0.14 0-0.5 K/uL Basophils # (Auto) 0.06 0-0.2 K/uL RDW Standard Deviation 68.3 36.4-46.3 fL RDW Coefficient of Variation 17.9 11.5-14.5 % Immature Granulocyte % (Auto) 0.3 % Immature Granulocyte # (Auto) 0.03 0.00-0.02 K/uL Nucleated RBC Absolute Count (auto) 0.02 0-0 K/uL Nucleated Red Blood Cells % 0.2 % Diagnostic Radiology CXR: 01/01/17 compared to 12/31/16 -hilar fullness with vascular congestion , donte-bronchial cuffing - no infiltrate CT head non-contrast: chronic small vessel changes with on acute changes EKG Sinus tachycardia, nonspecific ST abnormalities Impression Assessment and Plan 61-year-old female admitted for failure to thrive with altered mental status now prolonged hypoxemia: #1 Hypoxemia: Patient's a gradient is 118 notably refractory to oxygen supplementation. Her clinical history as well as physical exam and presentation are consistent with hepatopulmonary syndrome. As this is a diagnosis of exclusion I suggest we obtain a echocardiogram/bubble study for further evaluation. #2 COPD: I cannot find in the chart to define history of COPD reportedly ABGs show severe CO2 retention. At this time I would not initiate any treatment specifically for COPD. #3 obtunded: Would monitor closely and place patient on aspiration precautions
[2017-01-04] MEDS ORDERED: PERFLUTREN LIPID MICROSPHERE (DEFINITY) IV ONE (13:49)
--- NOTE | 2017-01-04 16:58 | Progress Note ---
Internal Med Progress Note Date of Service: Jan 04, 2017. Provider Documentation: SUBJECTIVE: Patient is seen and examined at bedside. Lethargic today. Refusing lactulose per staff. Denies chest pain, SOB or any other complaints. OBJECTIVE: Vital Signs-as noted below Physical Exam: General Appearance:Moderately built and nourished, no apparent distress Head: normocephalic, Atraumatic Eyes: normal inspection, EOMI, PERRLA, +Exophthalmos Neck: supple, no JVD, Trachea midline Respiratory/Chest: B/L rhonchi, Coarse breath sounds. Cardiovascular: S1, S2, NSR, No murmur Abdomen/GI:Soft, Non tender, distended, Bowel sounds present Extremities/Musculoskelatal:normal inspection, 1-2+ edema b/l Neurologic/Psych:AAOX3, grossly no focal neurological deficits Skin: normal color, warm Lab data as noted below. ASSESSMENT & PLAN: ALTERED MENTAL STATUS: Likely secondary to hepatic encephalopathy Head CT: negative for acute pathology Continue lactulose PO, Rifaximin More lethargic today, refusing lactulose Neuro check CIRRHOSIS / ACUTE HEPATIC ENCEPHALOPATHY Suspected cirrhosis noted on CT 2014. H/O fatty liver- could be combination of obesity and alcohol use. Transaminitis and elevated alkaline phosphatase. Abdominal ultrasound with small ascites Continue lactulose, Rifaximin GI on board Continue current diuretics: Spironolactone 100mg daily and Lasix 40mg daily May need non emergent MRCP: per GI Needs outpatient:EGD, HCC screens every 6months Recheck ammonia levels in AM ACUTE ON CHRONIC HYPOXIC RESPIRATORY FAILURE: R/O Hepatopulmonary syndrome h/o COPD Refractory to oxygen support CXR: No acute process Continue duonebs Will get ECHO/Bubble study Appreciate pulmonary input ABG: consistent with CO2 retention Aspiration precautions HYPOKALEMIA/HYPOMAGNESEMIA: Secondary to diuretics Continue potassium supplements Also on spironolactone Continue to monitor ALCOHOL USE DISORDER: Patient's notes daily alcohol use Continue MVI, thiamine and folic acid Monitor for alcohol withdrawal. S/P Librium protocol per liver disease Patient not interested in alcohol rehab placement POSSIBLE CELLULITIS ABDOMEN / LOWER EXTREMITIES-Less likely Tyrone discoloration of lower abdomen, non tender on exam-Resolved Blood cultures: no growth to date S/P daptomycin and piperacillin / tazobactam Afebrile, WBC:wnl: off antibiotics SYSTOLIC CHF Appears to be decompensated after IVF's received in ED. Continue diuresis with IV Lasix, I/Os, Daily weight, Fluid restriction Continue Carvedilol and Lisinopril TTE from 03/2016 with EF of 35%. Patient was discharged on Lasix 40mg BID and Spironolactone 12.5mg daily (not taking) from 03/2016 admission. Patient was discharged on Carvedilol 6.25mg BID and Lisinopril 5mg PO daily ( not taking) from 03/2016 admission. ? compliance DYSLIPIDEMIA Hold statin as patient has transaminitis. THYROID DISEASE Bilat exophthalmos noted on exam- ? chronicity. TSH 20.9 ? burned-out Grave's disease. Continue levothyroxine 25 mcg daily Needs repeat Thyroid function tests as outpatient SCHIZOPHRENIA Continue fluoxetine and risperidone Medication dose adjusted secondary to lethargy VTE PROPHYLAXIS High risk for VTE. SQ heparin GENERALIZED WEAKNESS: PT/OT May need placement CODE STATUS Full code DISPOSITION Medical follow-up with Dr. Sultana Mcginnis. Gastroenterology Consultants: Gastroenterology Procedures: CT head Chronic small vessel change. No acute intracranial abnormality. Abdominal ultrasound 1. Hepatic cirrhosis. 2. Mild hepatosplenomegaly. 3. Trace upper abdominal ascites CXR: No acute process Vital Signs: Date Time Temp Pulse Resp B/P Pulse Ox O2 Delivery O2 Flow Rate FiO2 01/04/17 16:00 Nasal Cannula 3.0 01/04/17 15:19 81 20 94 Nasal Cannula 3.0 01/04/17 15:15 36.8 82 18 105/66 92 Nasal Cannula 3.0 01/04/17 12:00 Nasal Cannula 3.0 01/04/17 11:26 36.4 92 20 115/70 91 3.0 01/04/17 11:04 85 16 95 Nasal Cannula 3.0 01/04/17 08:00 Nasal Cannula 3.0 01/04/17 07:50 37.0 83 18 102/59 90 3.0 01/04/17 06:59 83 16 94 Nasal Cannula 3.0 01/04/17 04:00 97 Nasal Cannula 3.0 01/04/17 03:52 36.9 72 16 102/62 97 3.0 01/04/17 03:26 76 16 93 Nasal Cannula 4.0 01/04/17 00:01 93 Nasal Cannula 4.0 01/03/17 23:04 74 16 93 Nasal Cannula 4.0 01/03/17 22:59 37.0 82 20 114/71 93 4.0 01/03/17 20:00 97 Nasal Cannula 3.0 01/03/17 19:13 78 16 97 Nasal Cannula 4.0 01/03/17 19:10 36.6 77 20 105/67 92 Nasal Cannula 4.0 Lab Results: Results Past 24 Hours Test 01/03/17 22:28 01/04/17 07:11 Range/Units Sodium Level 142 142 136-145 mmol/L Potassium Level 3.4 3.6 3.5-5.1 mmol/L Chloride Level 101 103 98-107 mmol/L Carbon Dioxide Level 35 31 21-32 mmol/L Anion Gap 6.0 8.0 3-11 mmol/L Blood Urea Nitrogen 10 10 7-18 mg/dl Creatinine 0.65 0.58 0.60-1.20 mg/dl Est Creatinine Clear Calc Drug Dose 102.2 113.0 ml/min Estimated GFR () 109.5 113.7 Estimated GFR (Non- 94.5 98.1 BUN/Creatinine Ratio 15.3 16.6 10-20 Random Glucose 96 83 70-99 mg/dl Calcium Level 7.9 8.0 8.5-10.1 mg/dl White Blood Count 9.39 4.8-10.8 K/uL Red Blood Count 3.13 4.2-5.4 M/uL Hemoglobin 10.6 12.0-16.0 g/dL Hematocrit 33.1 37-47 % Mean Corpuscular Volume 105.8 80-100 fL Mean Corpuscular Hemoglobin 33.9 25-34 pg Mean Corpuscular Hemoglobin Concent 32.0 32-36 g/dl Platelet Count 164 130-400 K/uL Mean Platelet Volume 10.8 7.4-10.4 fL Neutrophils (%) (Auto) 73.1 % Lymphocytes (%) (Auto) 12.8 % Monocytes (%) (Auto) 11.7 % Eosinophils (%) (Auto) 1.5 % Basophils (%) (Auto) 0.6 % Neutrophils # (Auto) 6.86 1.4-6.5 K/uL Lymphocytes # (Auto) 1.20 1.2-3.4 K/uL Monocytes # (Auto) 1.10 0.11-0.59 K/uL Eosinophils # (Auto) 0.14 0-0.5 K/uL Basophils # (Auto) 0.06 0-0.2 K/uL RDW Standard Deviation 68.3 36.4-46.3 fL RDW Coefficient of Variation 17.9 11.5-14.5 % Immature Granulocyte % (Auto) 0.3 % Immature Granulocyte # (Auto) 0.03 0.00-0.02 K/uL Nucleated RBC Absolute Count (auto) 0.02 0-0 K/uL Nucleated Red Blood Cells % 0.2 %
[2017-01-04] MEDS: RISPERIDONE 3 MG TAB PO SCH (20:03)
[2017-01-05] VITALS (14 sets, daily range): BP systolic 99–110; BP diastolic 64–67; PULSE 78–90; TEMP 36.4–37; O2SAT 88–99
[2017-01-05] MEDS: LEVALBUTEROL 1.25MG/0.5ML NEB INH PRN ×6 (03:37→22:58)
[2017-01-05] MEDS: IPRATROPIUM BROMIDE NEB SOLN 0.02% 2.5 ML VIAL INH SCH ×6 (03:37→22:58)
[2017-01-05] MEDS: LEVOTHYROXINE 25 MCG TAB PO SCH (06:08)
[2017-01-05 07:51] LABS: BUN/CREATININE RATIO 13.3 (10-20); CREATININE 0.55 mg/dl (0.60-1.20); POTASSIUM 3.9 mmol/L (3.5-5.1)
[2017-01-05] MEDS: SPIRONOLACTONE 100 MG TAB PO SCH (07:54)
[2017-01-05] MEDS: LACTULOSE SYRUP 30 GM/45 ML UDP PO SCH ×3 (07:55→22:00)
[2017-01-05] MEDS: ASPIRIN 81 MG ECTAB PO SCH (07:56)
[2017-01-05] MEDS: CARVEDILOL 6.25 MG TAB PO SCH ×2 (07:56→21:16)
[2017-01-05] MEDS: POTASSIUM CHLORIDE 20 MEQ TABCR PO SCH ×2 (07:57→21:16)
[2017-01-05] MEDS: MULTIVITAMIN TAB PO SCH (07:57)
[2017-01-05] MEDS: FUROSEMIDE 40 MG TAB PO SCH (07:57)
[2017-01-05] MEDS: THIAMINE HCL 100 MG TAB PO SCH (07:58)
[2017-01-05] MEDS: PANTOprazole SOD 40 MG TAB PO SCH (07:58)
[2017-01-05] MEDS: FLUOXETINE HCL 20 MG CAP PO SCH (07:58)
[2017-01-05] MEDS: RIFAXIMIN TAB 550 MG TAB PO SCH ×2 (07:58→21:15)
[2017-01-05] MEDS: LISINOPRIL 5 MG TAB PO SCH (07:59)
[2017-01-05] MEDS: HEPARIN SOD 5000 UNIT/0.5 ML CARP SQ SCH ×2 (08:01→21:30)
--- NOTE | 2017-01-05 09:36 | ECHOCARDIOGRAM REPORT ---
*NOTICE TO RECEIVING [employer] This information is strictly Confidential and protected under [place] law. [place] law prohibits you from making any further disclosure of this information unless further disclosure is expressly permitted by the written consent of the person to whom it pertains or is authorized by law. A general authorization for the release of medical or other information is not sufficient for this purpose. Hospital accepts no responsibility if the information is made available to any other person, INCLUDING THE PATIENT. Interpretation Summary * Conclusions -- * Normal LV chamber size with moderate concentric LVH. * Normal LV systolic function, EF 50-55%. * Borderline global hypokinesis. * Grade II diastolic dysfunction. * The right ventricular cavity size is normal (basal dimension <4.2 cm in right ventricular apical 4-chamber view). Reduced RV systolic function by TAPSE. * Aortic valve sclerosis mild, without significant aortic valvular stenosis. * Trace tricuspid regurgitation. * PASP of 33 mmHg assuming a RA pressure of 3 mmHg. Procedure Details * A complete two-dimensional transthoracic echocardiogram was performed (2D, M-mode, Doppler and color flow Doppler). * The study was technically difficult. * A contrast injection of Definity was performed to improve assessment of LV function. * Contrast was injected into an intravenous site in the right arm. * One vial of Definity ultrasound contrast was diluted in normal saline to a total volume of 10 ml. A total of '2' ml of solution was administered during imaging. * Lot # [id number] of Definity utilized for procedure. * Expiration date DEC 18. * The attending nurse who injected the contrast agent was PHANI BOWMAN, RN. Left Ventricle * The left ventricle is normal in size. * There is moderate concentric left ventricular hypertrophy. * Ejection Fraction = 50-55%. * Left ventricular systolic function is normal. * No segmental left ventricular wall motion abnormalities are noted. * The left ventricular wall motion is normal. Right Ventricle * The right ventricular cavity size is normal (basal dimension <4.2 cm in right ventricular apical 4-chamber view). * The right ventricular systolic function is reduced as assessed by tricuspid annular plane systolic excursion (TAPSE) (TAPSE <1.6 cm). Atria * The left atrial size is normal. * Right atrial size is normal. * No ASD detected; PFO is not assessed. Mitral Valve * The mitral valve is normal in structure and function. Tricuspid Valve * The tricuspid valve anatomy is normal. * There is no tricuspid stenosis. * There is trace tricuspid regurgitation. Aortic Valve * The aortic valve is trileaflet. * Aortic valve sclerosis mild, without significant aortic valvular stenosis. * There is no significant aortic regurgitation. Pulmonic Valve * The pulmonary valve is not well seen, but the Doppler examination is normal without significant regurgitation or stenosis. Great Vessels * The aortic root is normal size. Pericardium/Pleural * There is no pericardial effusion. Left Ventricular Diastolic Function * Diastolic dysfunction, Grade II (pseudonormalization pattern). MMode 2D Measurements and Calculations IVSd 1.4 cm IVSs 1.8 cm LVIDd 5.5 cm LVIDs 3.7 cm LVPWd 1.3 cm LVPWs 1.6 cm IVS/LVPW 1.1 FS 33.1 % EDV(Teich) 145.5 ml ESV(Teich) 56.6 ml EF(Teich) 61.1 % EDV(cubed) 163.6 ml ESV(cubed) 48.9 ml EF(cubed) 70.1 % % IVS thick 28.9 % % LVPW thick 27.5 % LV mass(C)d 311.7 grams LV mass(C)dI 153.6 grams/m\S\2 LV mass(C)s 254.0 grams LV mass(C)sI 125.2 grams/m\S\2 SV(Teich) 89.0 ml SI(Teich) 43.9 ml/m\S\2 SV(cubed) 114.7 ml SI(cubed) 56.5 ml/m\S\2 Ao root diam 3.8 cm Ao root area 11.1 cm\S\2 LA dimension 3.4 cm LA/Ao 0.90 LVOT diam 1.9 cm LVOT area 2.9 cm\S\2 LVAd ap4 33.6 cm\S\2 LVLd ap4 8.1 cm EDV(MOD-sp4) 114.2 ml EDV(sp4-el) 118.5 ml LVAs ap4 19.8 cm\S\2 LVLs ap4 6.3 cm ESV(MOD-sp4) 50.7 ml ESV(sp4-el) 52.6 ml EF(MOD-sp4) 55.6 % EF(sp4-el) 55.6 % LVAd ap2 35.0 cm\S\2 LVLd ap2 8.1 cm EDV(MOD-sp2) 125.4 ml EDV(sp2-el) 129.3 ml LVAs ap2 17.1 cm\S\2 LVLs ap2 5.8 cm ESV(MOD-sp2) 46.6 ml ESV(sp2-el) 43.0 ml EF(MOD-sp2) 62.9 % EF(sp2-el) 66.7 % LVLd %diff -0.52 % EDV(MOD-bp) 120.6 ml LVLs %diff -9.20 % ESV(MOD-bp) 49.9 ml EF(MOD-bp) 58.6 % SV(MOD-sp4) 63.5 ml SI(MOD-sp4) 31.3 ml/m\S\2 SV(MOD-sp2) 78.8 ml SI(MOD-sp2) 38.8 ml/m\S\2 SV(MOD-bp) 70.7 ml SI(MOD-bp) 34.8 ml/m\S\2 SV(sp4-el) 65.9 ml SI(sp4-el) 32.5 ml/m\S\2 SV(sp2-el) 86.3 ml SI(sp2-el) 42.5 ml/m\S\2 Doppler Measurements and Calculations MV E max mague 103.4 cm/sec MV A max mague 85.9 cm/sec MV E/A 1.2 MV P1/2t max mague 117.7 cm/sec MV P1/2t 67.1 msec MVA(P1/2t) 3.3 cm\S\2 MV dec slope 513.8 cm/sec\S\2 MV dec time 0.17 sec Ao V2 max 146.0 cm/sec Ao max PG 8.5 mmHg Ao max PG (full) 5.7 mmHg SHAHLA(V,A) 1.7 cm\S\2 SHAHLA(V,D) 1.7 cm\S\2 AI dec slope 101.2 cm/sec\S\2 LV V1 max PG 2.8 mmHg LV V1 max 84.3 cm/sec PA V2 max 100.0 cm/sec PA max PG 4.0 mmHg TR max mague 275.4 cm/sec
--- NOTE | 2017-01-05 13:27 | Progress Note ---
Internal Med Progress Note Date of Service: Jan 05, 2017. Provider Documentation: SUBJECTIVE: Patient is seen and examined at bedside. More alert, awake today but still slow to respond. Had one BM today. Denies chest pain, SOB or any other complaints. OBJECTIVE: Vital Signs-as noted below Physical Exam: General Appearance:Moderately built and nourished, no apparent distress Head: normocephalic, Atraumatic Eyes: normal inspection, EOMI, PERRLA, +Exophthalmos Neck: supple, no JVD, Trachea midline Respiratory/Chest: B/L creps, Coarse breath sounds. Cardiovascular: S1, S2, NSR, No murmur Abdomen/GI:Soft, Non tender, distended, Bowel sounds present Extremities/Musculoskelatal:normal inspection, 1-2+ edema b/l Neurologic/Psych:AAOX3, grossly no focal neurological deficits Skin: normal color, warm Lab data as noted below. ASSESSMENT & PLAN: ALTERED MENTAL STATUS: Likely secondary to hepatic encephalopathy Head CT: negative for acute pathology Continue lactulose PO, Rifaximin More alert, awake today but still slow to respond. Continue Neuro check CIRRHOSIS / ACUTE HEPATIC ENCEPHALOPATHY Suspected cirrhosis noted on CT 2014. H/O fatty liver- could be combination of obesity and alcohol use. Transaminitis and elevated alkaline phosphatase. Abdominal ultrasound with small ascites Continue lactulose, Rifaximin GI on board Continue current diuretics: Spironolactone 100mg daily and Lasix 40mg daily May need non emergent MRCP: per GI Needs outpatient:EGD, HCC screens every 6months ammonia levels:53 today ACUTE ON CHRONIC HYPOXIC RESPIRATORY FAILURE: H/O COPD Refractory to oxygen support CXR: No acute process Continue jason ECHO/Bubble study to r/o hepatopulmonary syndrome: Grade II diastolic dysfunction, EF:50-55%, PASP:33mmHg Bubble study not performed. Will repeat ECHO with bubble study. Appreciate pulmonary input ABG: consistent with CO2 retention Aspiration precautions HYPOKALEMIA/HYPOMAGNESEMIA: Secondary to diuretics Continue potassium supplements Also on spironolactone Continue to monitor ALCOHOL USE DISORDER: Patient's notes daily alcohol use Continue MVI, thiamine and folic acid Monitor for alcohol withdrawal. S/P Librium protocol per liver disease Patient not interested in alcohol rehab placement POSSIBLE CELLULITIS ABDOMEN / LOWER EXTREMITIES-Less likely [place] discoloration of lower abdomen, non tender on exam-Resolved Blood cultures: no growth to date S/P daptomycin and piperacillin / tazobactam Afebrile, WBC:wnl: off antibiotics SYSTOLIC CHF Appears to be decompensated after IVF's received in ED. Continue diuresis with IV Lasix, I/Os, Daily weight, Fluid restriction Continue Carvedilol and Lisinopril TTE from 03/2016 with EF of 35%: now at 50-55% Patient was discharged on Lasix 40mg BID and Spironolactone 12.5mg daily (not taking) from 03/2016 admission. Patient was discharged on Carvedilol 6.25mg BID and Lisinopril 5mg PO daily ( not taking) from 03/2016 admission. ? compliance DYSLIPIDEMIA Hold statin as patient has transaminitis. THYROID DISEASE Bilat exophthalmos noted on exam- ? chronicity. TSH 20.9 ? burned-out Grave's disease. Continue levothyroxine 25 mcg daily Needs repeat Thyroid function tests as outpatient SCHIZOPHRENIA Continue fluoxetine and risperidone Medication dose adjusted secondary to lethargy VTE PROPHYLAXIS High risk for VTE. SQ heparin GENERALIZED WEAKNESS: PT/OT May need placement CODE STATUS Full code DISPOSITION Medical follow-up with Dr. Sultana Mcginnis. Gastroenterology Consultants: Gastroenterology Procedures: CT head Chronic small vessel change. No acute intracranial abnormality. Abdominal ultrasound 1. Hepatic cirrhosis. 2. Mild hepatosplenomegaly. 3. Trace upper abdominal ascites CXR: No acute process ECHO: Interpretation Summary * Conclusions -- * Normal LV chamber size with moderate concentric LVH. * Normal LV systolic function, EF 50-55%. * Borderline global hypokinesis. * Grade II diastolic dysfunction. * The right ventricular cavity size is normal (basal dimension <4.2 cm in right ventricular apical 4-chamber view). Reduced RV systolic function by TAPSE. * Aortic valve sclerosis mild, without significant aortic valvular stenosis. * Trace tricuspid regurgitation. * PASP of 33 mmHg assuming a RA pressure of 3 mmHg. Vital Signs: Date Time Temp Pulse Resp B/P Pulse Ox O2 Delivery O2 Flow Rate FiO2 01/05/17 12:00 95 Nasal Cannula 3.0 01/05/17 11:26 36.6 83 18 99/64 99 3.0 01/05/17 11:05 90 16 96 Nasal Cannula 3.0 01/05/17 08:00 95 Nasal Cannula 3.0 01/05/17 07:17 36.8 85 20 110/66 88 Nasal Cannula 2.0 01/05/17 07:00 83 16 88 Nasal Cannula 2.0 01/05/17 05:00 37.0 90 18 102/64 93 2.0 01/05/17 04:00 Nasal Cannula 3.0 01/05/17 03:37 79 16 88 Room Air 01/05/17 00:00 Nasal Cannula 3.0 01/04/17 23:15 78 18 94 Nasal Cannula 2.0 01/04/17 23:12 36.7 77 18 101/64 96 Nasal Cannula 2.0 01/04/17 20:00 Nasal Cannula 3.0 01/04/17 19:15 36.9 85 18 105/67 90 Nasal Cannula 2.0 01/04/17 18:50 87 20 88 Room Air 01/04/17 16:00 Nasal Cannula 3.0 01/04/17 15:19 81 20 94 Nasal Cannula 3.0 01/04/17 15:15 36.8 82 18 105/66 92 Nasal Cannula 3.0 Lab Results: Results Past 24 Hours Test 01/05/17 06:52 Range/Units Sodium Level 141 136-145 mmol/L Potassium Level 3.9 3.5-5.1 mmol/L Chloride Level 103 98-107 mmol/L Carbon Dioxide Level 31 21-32 mmol/L Anion Gap 7.0 3-11 mmol/L Blood Urea Nitrogen 7 7-18 mg/dl Creatinine 0.55 0.60-1.20 mg/dl Est Creatinine Clear Calc Drug Dose 119.0 ml/min Estimated GFR () 115.7 Estimated GFR (Non- 99.8 BUN/Creatinine Ratio 13.3 10-20 Random Glucose 97 70-99 mg/dl Calcium Level 8.0 8.5-10.1 mg/dl Ammonia 53.0 11-32 umol/L
[2017-01-05] MEDS: RISPERIDONE 3 MG TAB PO SCH (21:15)
[2017-01-06] VITALS (15 sets, daily range): BP systolic 94–126; BP diastolic 58–77; PULSE 72–87; TEMP 36.5–36.7; O2SAT 80–96
[2017-01-06] MEDS: IPRATROPIUM BROMIDE NEB SOLN 0.02% 2.5 ML VIAL INH SCH ×6 (04:04→23:12)
[2017-01-06] MEDS: LEVALBUTEROL 1.25MG/0.5ML NEB INH PRN ×5 (04:04→18:24)
[2017-01-06] MEDS: LEVOTHYROXINE 25 MCG TAB PO SCH ×2 (06:25→06:26)
[2017-01-06 07:03] LABS: CALCIUM 8.3 mg/dl (8.5-10.1); CREATININE 0.61 mg/dl (0.60-1.20); POTASSIUM 4.4 mmol/L (3.5-5.1)
[2017-01-06] MEDS: ASPIRIN 81 MG ECTAB PO SCH (08:27)
[2017-01-06] MEDS: THIAMINE HCL 100 MG TAB PO SCH (08:31)
[2017-01-06] MEDS: PANTOprazole SOD 40 MG TAB PO SCH (08:31)
[2017-01-06] MEDS: FUROSEMIDE 40 MG TAB PO SCH (08:31)
[2017-01-06] MEDS: MULTIVITAMIN TAB PO SCH (08:32)
[2017-01-06] MEDS: FLUOXETINE HCL 20 MG CAP PO SCH (08:32)
[2017-01-06] MEDS: SPIRONOLACTONE 100 MG TAB PO SCH (08:32)
[2017-01-06] MEDS: CARVEDILOL 6.25 MG TAB PO SCH ×2 (08:33→19:25)
[2017-01-06] MEDS: POTASSIUM CHLORIDE 20 MEQ TABCR PO SCH (08:33)
[2017-01-06] MEDS: RIFAXIMIN TAB 550 MG TAB PO SCH ×2 (08:33→19:26)
--- NOTE | 2017-01-06 08:50 | ECHOCARDIOGRAM REPORT ---
*NOTICE TO RECEIVING DEMOCRAT AGENCY This information is strictly Confidential and protected under [place] law. [place] law prohibits you from making any further disclosure of this information unless further disclosure is expressly permitted by the written consent of the person to whom it pertains or is authorized by law. A general authorization for the release of medical or other information is not sufficient for this purpose. Hospital accepts no responsibility if the information is made available to any other person, INCLUDING THE PATIENT. Interpretation Summary * Name: VENESSA SEAMAN Study Date: 01/05/2017 04:43 PM BP: 99/64 mmHg * Patient Location: C.2T\S\E222\S\1 HR: 95 * : 1955 (M/d/yyyy) Gender: Female Height: 63 in * Age: 61 yrs Ethnicity: [place] Weight: 223 lb * Ordering Physician: Cristian Francois * Referring Physician: Self, Referred * Performed By: Catie Be [facility] * * Reason For Study: R/O HEPATOPULMONARY SYNDROME * BSA: 2.0 m2 * -- Conclusions -- * The interatrial septum is intact with no evidence for an atrial septal defect. * Injection of contrast documented no interatrial shunt. Procedure Details * A saline contrast injection was performed to assess for cardiac shunting. * The injection was performed through an intravenous line in the right arm. * The attending nurse who injected the saline contrast was PHANI HUBBARD RN. * A total of 20 cc of agitated saline was given. Atria * The interatrial septum is intact with no evidence for an atrial septal defect. * Injection of contrast documented no interatrial shunt.
[2017-01-06] MEDS: LACTULOSE SYRUP 30 GM/45 ML UDP PO SCH ×3 (09:00→19:24)
[2017-01-06] MEDS: LISINOPRIL 5 MG TAB PO SCH (09:14)
[2017-01-06] MEDS: HEPARIN SOD 5000 UNIT/0.5 ML CARP SQ SCH ×2 (09:18→21:02)
--- NOTE | 2017-01-06 11:51 | Progress Note ---
Internal Med Progress Note Date of Service: Jan 06, 2017. Provider Documentation: SUBJECTIVE: Patient is seen and examined at bedside. Refuses lactulose and states being tired of having multiple BMs. Offers no new complaints. Couldn't work with PT today OBJECTIVE: Vital Signs-as noted below Physical Exam: General Appearance:Moderately built and nourished, no apparent distress Head: normocephalic, Atraumatic Eyes: normal inspection, EOMI, PERRLA, +Exophthalmos Neck: supple, no JVD, Trachea midline Respiratory/Chest: B/L creps, Coarse breath sounds. Cardiovascular: S1, S2, NSR, No murmur Abdomen/GI:Soft, Non tender, distended, Bowel sounds present Extremities/Musculoskelatal:normal inspection, 1-2+ edema b/l Neurologic/Psych:AAOX3, grossly no focal neurological deficits Skin: normal color, warm Lab data as noted below. ASSESSMENT & PLAN: ALTERED MENTAL STATUS: secondary to hepatic encephalopathy Head CT: negative for acute pathology Continue lactulose PO, Rifaximin Still slow to respond Refuses lactulose today CIRRHOSIS / ACUTE HEPATIC ENCEPHALOPATHY Suspected cirrhosis noted on CT 2014. H/O fatty liver- could be combination of obesity and alcohol use. Transaminitis and elevated alkaline phosphatase. Abdominal ultrasound with small ascites Continue lactulose, Rifaximin GI on board Continue current diuretics: Spironolactone 100mg daily and Lasix 40mg daily May need non emergent MRCP: per GI Needs outpatient:EGD, HCC screens every 6months ammonia levels:53 on 01/05/17 ACUTE ON CHRONIC HYPOXIC RESPIRATORY FAILURE: H/O COPD Refractory to oxygen support CXR: No acute process Continue cristinabs ECHO/Bubble study to r/o hepatopulmonary syndrome: Grade II diastolic dysfunction, EF:50-55%, PASP:33mmHg Bubble study not performed on previous ECHO ECHO with bubble study:pending Appreciate pulmonary input ABG: consistent with CO2 retention Aspiration precautions HYPOKALEMIA/HYPOMAGNESEMIA: Secondary to diuretics Continue potassium supplements Also on spironolactone Continue to monitor ALCOHOL USE DISORDER: Patient's notes daily alcohol use Continue MVI, thiamine and folic acid Monitor for alcohol withdrawal. S/P Librium protocol per liver disease Patient not interested in alcohol rehab placement POSSIBLE CELLULITIS ABDOMEN / LOWER EXTREMITIES-Less likely [place] discoloration of lower abdomen, non tender on exam-Resolved Blood cultures: no growth to date S/P daptomycin and piperacillin / tazobactam Afebrile, WBC:wnl: off antibiotics SYSTOLIC CHF Appears to be decompensated after IVF's received in ED. Continue diuresis with lasix, I/Os, Daily weight, Fluid restriction Continue Carvedilol and Lisinopril TTE from 03/2016 with EF of 35%: now at 50-55% Patient was discharged on Lasix 40mg BID and Spironolactone 12.5mg daily (not taking) from 03/2016 admission. Patient was discharged on Carvedilol 6.25mg BID and Lisinopril 5mg PO daily ( not taking) from 03/2016 admission. ? compliance DYSLIPIDEMIA Hold statin as patient has transaminitis. THYROID DISEASE Bilat exophthalmos noted on exam- ? chronicity. TSH 20.9 ? burned-out Grave's disease. Continue levothyroxine 25 mcg daily Needs repeat Thyroid function tests as outpatient SCHIZOPHRENIA Continue fluoxetine and risperidone Medication dose adjusted secondary to lethargy VTE PROPHYLAXIS High risk for VTE. SQ heparin GENERALIZED WEAKNESS: PT/OT May need placement CODE STATUS Full code DISPOSITION Will transfer to medical floor Medical follow-up with Dr. Sultana Mcginnis. Gastroenterology Consultants: Gastroenterology Procedures: CT head Chronic small vessel change. No acute intracranial abnormality. Abdominal ultrasound 1. Hepatic cirrhosis. 2. Mild hepatosplenomegaly. 3. Trace upper abdominal ascites CXR: No acute process ECHO: Interpretation Summary * Conclusions -- * Normal LV chamber size with moderate concentric LVH. * Normal LV systolic function, EF 50-55%. * Borderline global hypokinesis. * Grade II diastolic dysfunction. * The right ventricular cavity size is normal (basal dimension <4.2 cm in right ventricular apical 4-chamber view). Reduced RV systolic function by TAPSE. * Aortic valve sclerosis mild, without significant aortic valvular stenosis. * Trace tricuspid regurgitation. * PASP of 33 mmHg assuming a RA pressure of 3 mmHg. Vital Signs: Date Time Temp Pulse Resp B/P Pulse Ox O2 Delivery O2 Flow Rate FiO2 01/06/17 11:21 77 16 93 Nasal Cannula 3.0 01/06/17 08:30 78 101/63 01/06/17 07:32 36.5 75 18 94/58 91 Nasal Cannula 3.0 01/06/17 07:15 75 16 96 Nasal Cannula 3.0 01/06/17 04:04 79 16 95 Nasal Cannula 3.0 01/06/17 04:00 36.7 78 22 124/76 92 Nasal Cannula 3.0 01/06/17 04:00 Nasal Cannula 3.0 01/06/17 00:01 Nasal Cannula 3.0 01/06/17 00:00 36.6 75 20 122/77 93 Nasal Cannula 3.0 01/05/17 22:59 81 16 94 Nasal Cannula 3.0 01/05/17 20:00 Nasal Cannula 3.0 01/05/17 19:15 36.5 78 20 104/67 93 Nasal Cannula 3.0 01/05/17 18:51 79 16 94 Nasal Cannula 3.0 01/05/17 16:18 36.4 81 16 100/64 93 3.0 01/05/17 16:00 95 Nasal Cannula 3.0 01/05/17 15:25 81 16 94 Nasal Cannula 3.0 01/05/17 12:00 95 Nasal Cannula 3.0 Lab Results: Results Past 24 Hours Test 01/06/17 06:18 Range/Units Sodium Level 142 136-145 mmol/L Potassium Level 4.4 3.5-5.1 mmol/L Chloride Level 104 98-107 mmol/L Carbon Dioxide Level 31 21-32 mmol/L Anion Gap 7.0 3-11 mmol/L Blood Urea Nitrogen 7 7-18 mg/dl Creatinine 0.61 0.60-1.20 mg/dl Est Creatinine Clear Calc Drug Dose 106.6 ml/min Estimated GFR () 111.8 Estimated GFR (Non- 96.5 BUN/Creatinine Ratio 12.0 10-20 Random Glucose 93 70-99 mg/dl Calcium Level 8.3 8.5-10.1 mg/dl
[2017-01-06] MEDS: RISPERIDONE 3 MG TAB PO SCH (21:02)
[2017-01-07] VITALS (10 sets, daily range): BP systolic 90–114; BP diastolic 59–70; PULSE 79–92; TEMP 36.4–36.7; O2SAT 80–97
[2017-01-07] MEDS: IPRATROPIUM BROMIDE NEB SOLN 0.02% 2.5 ML VIAL INH SCH ×4 (03:50→16:00)
[2017-01-07] MEDS: LEVOTHYROXINE 25 MCG TAB PO SCH (06:10)
[2017-01-07] MEDS: LACTULOSE SYRUP 30 GM/45 ML UDP PO SCH ×2 (08:00→19:43)
[2017-01-07] MEDS: THIAMINE HCL 100 MG TAB PO SCH (08:03)
[2017-01-07] MEDS: ASPIRIN 81 MG ECTAB PO SCH (08:03)
[2017-01-07] MEDS: MULTIVITAMIN TAB PO SCH (08:03)
[2017-01-07] MEDS: LISINOPRIL 5 MG TAB PO SCH (08:03)
[2017-01-07] MEDS: SPIRONOLACTONE 100 MG TAB PO SCH (08:04)
[2017-01-07] MEDS: POTASSIUM CHLORIDE 10 MEQ TABCR PO SCH (08:04)
[2017-01-07] MEDS: FLUOXETINE HCL 20 MG CAP PO SCH (08:04)
[2017-01-07] MEDS: CARVEDILOL 6.25 MG TAB PO SCH ×2 (08:04→19:43)
[2017-01-07] MEDS: PANTOprazole SOD 40 MG TAB PO SCH (08:04)
[2017-01-07] MEDS: RIFAXIMIN TAB 550 MG TAB PO SCH ×2 (08:05→19:43)
[2017-01-07] MEDS: FUROSEMIDE 40 MG TAB PO SCH (08:05)
[2017-01-07] MEDS: HEPARIN SOD 5000 UNIT/0.5 ML CARP SQ SCH ×2 (08:10→19:46)
[2017-01-07] MEDS ORDERED: POTASSIUM CHLORIDE 20 MEQ TABCR PO SCH (09:00)
--- NOTE | 2017-01-07 18:53 | Progress Note ---
Medicine Progress Note Date & Time of Visit: Jan 07, 2017 at 18:43. Subjective Patient seen and examined. Adamantly refusing to take lactulose. States that it gives her diarrhea and that is making her weak. Refusing to go to rehab. Only wants to return home. Minimizes alcohol intake. Objective Last 8 Hrs Date Time Temp Pulse Resp B/P Pulse Ox O2 Delivery O2 Flow Rate FiO2 01/07/17 16:39 80 Room Air 01/07/17 16:39 92 Nasal Cannula 3.0 01/07/17 16:00 Nasal Cannula 3.0 01/07/17 15:41 36.4 84 20 109/68 94 Room Air 01/07/17 15:18 82 16 94 Nasal Cannula 2.0 01/07/17 12:03 82 16 91 Nasal Cannula 2.0 01/07/17 11:59 36.4 81 18 90/59 92 Nasal Cannula 3.0 Physical Exam: General-oriented x3; lethargic Eyes-apparent exophthalmos; muddy sclera Neck-no stridor; trachea midline Lungs-grossly CTA bilaterally Heart-RRR Abdomen-soft; NT; distended; tympanic; nBS Extremities-trace edema bilateral LE Neuro-no asterixis Assessment & Plan CIRRHOSIS / HEPATIC ENCEPHALOPATHY Head CT negative for bleed or other acute event. Suspected cirrhosis noted on CT 2014. History fatty liver- could be combination of obesity and alcohol use. Transaminitis and elevated alkaline phosphatase. Abdominal ultrasound with small ascites Consulted GI. Continue rifaximin. Refusing lactulose. Started on Lasix and spironolactone. ALCOHOL USE Patient's noted daily alcohol use. Continue MVI, thiamine and folic acid. Received Librium per protocol. ACUTE ON CHRONIC HYPOXIC RESPIRATORY FAILURE: H/O COPD Refractory to oxygen support CXR: No acute process Continue duonebs PRN ECHO/Bubble study to r/o hepatopulmonary syndrome: Grade II diastolic dysfunction, EF:50-55%, PASP:33mmHg; no e/o shunting Pulmonary consulted Aspiration precautions POSSIBLE CELLULITIS ABDOMEN / LOWER EXTREMITIES [place] discoloration of lower abdomen on admission. Blood cultures negative. Received daptomycin and piperacillin / tazobactam. SYSTOLIC CHF Appeared to be decompensated after IVF's received in ED. Continue diuresis with Lasix and spironolactone. TTE from 03/2016 with EF of 35%. Restarted on Carvedilol and Lisinopril. Repeat TTE with improved EF and no e/o shunting. DYSLIPIDEMIA Hold statin in light of transaminitis. THYROID DISEASE Bilat exophthalmos noted on exam- ? chronicity. TSH 21 on admission. ? burned-out Grave's disease. Started levothyroxine 25 mcg daily. SCHIZOPHRENIA Continue fluoxetine and risperidone. VTE PROPHYLAXIS High risk for VTE. SQ heparin with caution. CODE STATUS Full code per discussion with . DISPOSITION Medical follow-up with Dr. Sultana Mcginnis. Consultants: Gastroenterology Pulmonary Procedures: CT head Chronic small vessel change. No acute intracranial abnormality. Abdominal ultrasound 1. Hepatic cirrhosis. 2. Mild hepatosplenomegaly. 3. Trace upper abdominal ascites TTE * Normal LV chamber size with moderate concentric LVH. * Normal LV systolic function, EF 50-55%. * Borderline global hypokinesis. * Grade II diastolic dysfunction. * The right ventricular cavity size is normal (basal dimension <4.2 cm in right ventricular apical 4-chamber view). Reduced RV systolic function by TAPSE. * Aortic valve sclerosis mild, without significant aortic valvular stenosis. * Trace tricuspid regurgitation. * PASP of 33 mmHg assuming a RA pressure of 3 mmHg. * The interatrial septum is intact with no evidence for an atrial septal defect. * Injection of contrast documented no interatrial shunt. Current Inpatient Medications: Current Inpatient Medications Medications (Trade) Dose Ordered Sig/Antonio Route Start Time Stop Time Status Last Admin Dose Admin Heparin Sodium (Porcine) (Heparin Sq 5000 Unit/0.5ml) 5,000 unit Q12 SQ 12/30/16 09:00 01/29/17 08:59 01/07/17 08:10 5,000 UNIT Aspirin (Ecotrin Tab) 81 mg DAILY PO 12/30/16 09:00 01/29/17 08:59 01/07/17 08:03 81 MG Thiamine HCl (Vitamin B-1 Tab) 100 mg QAM PO 12/31/16 09:00 01/30/17 08:59 01/07/17 08:03 100 MG Folic Acid (Folvite Tab) 1 mg QAM PO 12/31/16 09:00 01/30/17 08:59 01/07/17 08:04 1 MG Pantoprazole Sodium (Protonix Tab) 40 mg QAM PO 12/31/16 09:00 01/30/17 08:59 01/07/17 08:04 40 MG Levothyroxine Sodium (Synthroid Tab) 25 mcg DAILYBB PO 12/31/16 06:00 01/30/17 05:59 01/07/17 06:10 25 MCG Multivitamins (Multivitamin Tab) 1 tab QAM PO 12/31/16 09:00 01/30/17 08:59 01/07/17 08:03 1 TAB Levalbuterol (Xopenex 1.25MG/ 0.5ML Neb) 1.25 mg Q4H PRN INH 01/01/17 07:30 01/31/17 07:29 01/06/17 18:24 1.25 MG Rifaximin (Xifaxan Tab) 550 mg BID PO 01/01/17 21:00 01/31/17 20:59 01/07/17 08:05 550 MG Risperidone (Risperdal Tab) 3 mg HS PO 01/02/17 21:00 02/01/17 20:59 01/06/17 21:02 3 MG Fluoxetine HCl (Prozac Cap) 20 mg DAILY PO 01/03/17 09:00 02/02/17 08:59 01/07/17 08:04 20 MG Lisinopril (Zestril Tab) 5 mg QAM PO 01/03/17 09:00 02/02/17 08:59 01/07/17 08:03 5 MG Carvedilol (Coreg Tab) 6.25 mg BID PO 01/02/17 09:00 02/01/17 08:59 01/07/17 08:04 6.25 MG Spironolactone (Aldactone Tab) 100 mg QAM PO 01/03/17 09:00 02/02/17 08:59 01/07/17 08:04 100 MG Ipratropium [place] (Atrovent 0.02% 0.5MG/2.5ML Neb) 0.5 mg Q4R INH 01/03/17 12:00 02/02/17 11:59 01/07/17 12:03 0.5 MG Furosemide (Lasix Tab) 40 mg QAM PO 01/05/17 09:00 02/04/17 08:59 01/07/17 08:05 40 MG Potassium Chloride (Klor-Con M10) 10 meq DAILY PO 01/07/17 08:00 02/06/17 08:59 01/07/17 08:04 10 MEQ Lactulose (Chronulac Syrup) 30 gm BID PO 01/07/17 20:00 02/06/17 19:59
[2017-01-07] MEDS: RISPERIDONE 3 MG TAB PO SCH (19:44)
[2017-01-07] MEDS: IPRATROPIUM BROMIDE HFA INHALER INH SCH (23:47)
[2017-01-08] MEDS: IPRATROPIUM BROMIDE HFA INHALER INH SCH ×6 (05:39→23:48)
[2017-01-08] MEDS: LEVOTHYROXINE 25 MCG TAB PO SCH (05:45)
[2017-01-08 06:32] LABS: HEMATOCRIT 34.5 % (37-47); MEAN CELL VOLUME 107.8 fL (80-100); MEAN CORPUSCULAR HEMOGLOBIN 33.8 pg (25-34); MEAN CORPUSCULAR HGB CONC 31.3 g/dl (32-36); MEAN PLATELET VOLUME 10.7 fL (7.4-10.4); PLATELET COUNT 229 K/uL (130-400); WHITE BLOOD COUNT 10.44 K/uL (4.8-10.8)
[2017-01-08 06:57] LABS: BUN/CREATININE RATIO 14.6 (10-20); CALCIUM 8.6 mg/dl (8.5-10.1); CREATININE 0.65 mg/dl (0.60-1.20); POTASSIUM 4.3 mmol/L (3.5-5.1)
[2017-01-08 07:00] LABS: ALB/GLOB RATIO 0.6 (0.9-2)
[2017-01-08 08:01] VITALS: BP 117/71; PULSE 80; TEMP 36.5; O2SAT 95
[2017-01-08] MEDS: SPIRONOLACTONE 100 MG TAB PO SCH (08:31)
[2017-01-08] MEDS: LISINOPRIL 5 MG TAB PO SCH (08:31)
[2017-01-08] MEDS: FUROSEMIDE 40 MG TAB PO SCH (08:31)
[2017-01-08] MEDS: FLUOXETINE HCL 20 MG CAP PO SCH (08:31)
[2017-01-08] MEDS: THIAMINE HCL 100 MG TAB PO SCH (08:31)
[2017-01-08] MEDS: CARVEDILOL 6.25 MG TAB PO SCH ×2 (08:31→20:14)
[2017-01-08] MEDS: PANTOprazole SOD 40 MG TAB PO SCH (08:31)
[2017-01-08] MEDS: LACTULOSE SYRUP 30 GM/45 ML UDP PO SCH ×2 (08:32→20:00)
[2017-01-08] MEDS: POTASSIUM CHLORIDE 10 MEQ TABCR PO SCH (08:32)
[2017-01-08] MEDS: ASPIRIN 81 MG ECTAB PO SCH (08:32)
[2017-01-08] MEDS: RIFAXIMIN TAB 550 MG TAB PO SCH ×2 (08:32→20:14)
[2017-01-08] MEDS: MULTIVITAMIN TAB PO SCH (08:32)
[2017-01-08] MEDS: HEPARIN SOD 5000 UNIT/0.5 ML CARP SQ SCH ×2 (08:37→20:12)
[2017-01-08 14:27] VITALS: BP 101/68; PULSE 77; TEMP 36.8; O2SAT 91
[2017-01-08 16:05] VITALS: O2SAT 91
--- NOTE | 2017-01-08 17:58 | Progress Note ---
Medicine Progress Note Date & Time of Visit: Jan 08, 2017 at 17:53. Subjective Patient seen and examined. present at bedside. Admits to buying alcohol. States that she drinks 2L per day. Admits that she smokes $300 worth of cigarettes per week. Objective Last 8 Hrs Date Time Temp Pulse Resp B/P Pulse Ox O2 Delivery O2 Flow Rate FiO2 01/08/17 14:27 36.8 77 22 101/68 91 Physical Exam: General-sleeping but arousable Eyes-apparent exophthalmos; muddy sclera Neck-no stridor; trachea midline Lungs-grossly CTA bilaterally; no wheezes/crackles Heart-RRR Abdomen-soft; NT; distended; nBS Extremities-trace edema bilateral LE Laboratory Results: Last 24 Hours Test 01/08/17 06:16 White Blood Count 10.44 K/uL Red Blood Count 3.20 M/uL Hemoglobin 10.8 g/dL Hematocrit 34.5 % Mean Corpuscular Volume 107.8 fL Mean Corpuscular Hemoglobin 33.8 pg Mean Corpuscular Hemoglobin Concent 31.3 g/dl RDW Standard Deviation 68.1 fL RDW Coefficient of Variation 17.4 % Platelet Count 229 K/uL Mean Platelet Volume 10.7 fL Sodium Level 143 mmol/L Potassium Level 4.3 mmol/L Chloride Level 104 mmol/L Carbon Dioxide Level 32 mmol/L Anion Gap 7.0 mmol/L Blood Urea Nitrogen 10 mg/dl Creatinine 0.65 mg/dl Est Creatinine Clear Calc Drug Dose 100.1 ml/min Estimated GFR () 109.5 Estimated GFR (Non- 94.5 BUN/Creatinine Ratio 14.6 Random Glucose 83 mg/dl Calcium Level 8.6 mg/dl Total Bilirubin 0.6 mg/dl Aspartate Amino Transf (AST/SGOT) 76 U/L Alanine Aminotransferase (ALT/SGPT) 31 U/L Alkaline Phosphatase 391 U/L Total Protein 5.2 gm/dl Albumin 1.9 gm/dl Globulin 3.3 gm/dl Albumin/Globulin Ratio 0.6 Assessment & Plan CIRRHOSIS / HEPATIC ENCEPHALOPATHY Head CT negative for bleed or other acute event. Suspected cirrhosis noted on CT 2014. History fatty liver- could be combination of obesity and alcohol use. Transaminitis and elevated alkaline phosphatase have improved since admission. Abdominal ultrasound with small ascites Consulted GI. Continue rifaximin. Refusing lactulose. Started on Lasix and spironolactone. ALCOHOL USE Patient's notes daily alcohol use. Continue MVI, thiamine and folic acid. Received Librium per protocol. ACUTE ON CHRONIC HYPOXIC RESPIRATORY FAILURE: H/O COPD CXR: No acute process Continue duonebs PRN ECHO/Bubble study to r/o hepatopulmonary syndrome: Grade II diastolic dysfunction, EF:50-55%, PASP:33mmHg; no e/o shunting Pulmonary consulted Aspiration precautions Continue supplemental oxygen POSSIBLE CELLULITIS ABDOMEN / LOWER EXTREMITIES [place] discoloration of lower abdomen on admission. Blood cultures negative. Received daptomycin and piperacillin / tazobactam. SYSTOLIC CHF Appeared to be decompensated after IVF's received in ED. Continue Lasix and spironolactone. TTE from 03/2016 with EF of 35%. Restarted on Carvedilol and Lisinopril. Repeat TTE with improved EF and no e/o shunting. DYSLIPIDEMIA Hold statin in light of transaminitis and ongoing alcohol use at home. THYROID DISEASE Bilat exophthalmos noted on exam- ? chronicity. TSH 21 on admission. ? burned-out Grave's disease. Started levothyroxine 25 mcg daily. Repeat TSH in one month. SCHIZOPHRENIA Continue fluoxetine and risperidone. VTE PROPHYLAXIS High risk for VTE. SQ heparin. CODE STATUS Full code per discussion with . DISPOSITION Medical follow-up with Dr. Sultana Mcginnis. [facility] Consultants: Gastroenterology Pulmonary Procedures: CT head Chronic small vessel change. No acute intracranial abnormality. Abdominal ultrasound 1. Hepatic cirrhosis. 2. Mild hepatosplenomegaly. 3. Trace upper abdominal ascites TTE * Normal LV chamber size with moderate concentric LVH. * Normal LV systolic function, EF 50-55%. * Borderline global hypokinesis. * Grade II diastolic dysfunction. * The right ventricular cavity size is normal (basal dimension <4.2 cm in right ventricular apical 4-chamber view). Reduced RV systolic function by TAPSE. * Aortic valve sclerosis mild, without significant aortic valvular stenosis. * Trace tricuspid regurgitation. * PASP of 33 mmHg assuming a RA pressure of 3 mmHg. * The interatrial septum is intact with no evidence for an atrial septal defect. * Injection of contrast documented no interatrial shunt. Current Inpatient Medications: Current Inpatient Medications Medications (Trade) Dose Ordered Sig/Antonio Route Start Time Stop Time Status Last Admin Dose Admin Heparin Sodium (Porcine) (Heparin Sq 5000 Unit/0.5ml) 5,000 unit Q12 SQ 12/30/16 09:00 01/29/17 08:59 01/08/17 08:37 5,000 UNIT Aspirin (Ecotrin Tab) 81 mg DAILY PO 12/30/16 09:00 01/29/17 08:59 01/08/17 08:32 81 MG Thiamine HCl (Vitamin B-1 Tab) 100 mg QAM PO 12/31/16 09:00 01/30/17 08:59 01/08/17 08:31 100 MG Folic Acid (Folvite Tab) 1 mg QAM PO 12/31/16 09:00 01/30/17 08:59 01/08/17 08:32 1 MG Pantoprazole Sodium (Protonix Tab) 40 mg QAM PO 12/31/16 09:00 01/30/17 08:59 01/08/17 08:31 40 MG Levothyroxine Sodium (Synthroid Tab) 25 mcg DAILYBB PO 12/31/16 06:00 01/30/17 05:59 01/08/17 05:45 25 MCG Multivitamins (Multivitamin Tab) 1 tab QAM PO 12/31/16 09:00 01/30/17 08:59 01/08/17 08:32 1 TAB Rifaximin (Xifaxan Tab) 550 mg BID PO 01/01/17 21:00 01/31/17 20:59 01/08/17 08:32 550 MG Risperidone (Risperdal Tab) 3 mg HS PO 01/02/17 21:00 02/01/17 20:59 01/07/17 19:44 3 MG Fluoxetine HCl (Prozac Cap) 20 mg DAILY PO 01/03/17 09:00 02/02/17 08:59 01/08/17 08:31 20 MG Lisinopril (Zestril Tab) 5 mg QAM PO 01/03/17 09:00 02/02/17 08:59 01/08/17 08:31 5 MG Carvedilol (Coreg Tab) 6.25 mg BID PO 01/02/17 09:00 02/01/17 08:59 01/08/17 08:31 6.25 MG Spironolactone (Aldactone Tab) 100 mg QAM PO 01/03/17 09:00 02/02/17 08:59 01/08/17 08:31 100 MG Furosemide (Lasix Tab) 40 mg QAM PO 01/05/17 09:00 02/04/17 08:59 01/08/17 08:31 40 MG Potassium Chloride (Klor-Con M10) 10 meq DAILY PO 01/07/17 08:00 02/06/17 08:59 01/08/17 08:32 10 MEQ Lactulose (Chronulac Syrup) 30 gm BID PO 01/07/17 20:00 02/06/17 19:59 Ipratropium [place] (Atrovent Hfa Inhaler) 2 puffs Q4 INH 01/08/17 00:00 02/07/17 00:00 01/08/17 16:44 2 PUFFS
[2017-01-08 20:11] VITALS: BP 101/67; PULSE 78
[2017-01-08] MEDS: RISPERIDONE 3 MG TAB PO SCH (20:14)
[2017-01-09 00:14] VITALS: BP 129/74; PULSE 78; TEMP 36.6; O2SAT 94
[2017-01-09] MEDS: IPRATROPIUM BROMIDE HFA INHALER INH SCH ×3 (04:27→12:00)
[2017-01-09] MEDS: LEVOTHYROXINE 25 MCG TAB PO SCH (05:42)
[2017-01-09 07:32] VITALS: BP 112/59; PULSE 78; TEMP 36.9; O2SAT 94
[2017-01-09] MEDS: LACTULOSE SYRUP 30 GM/45 ML UDP PO SCH (09:02)
[2017-01-09] MEDS: SPIRONOLACTONE 100 MG TAB PO SCH (09:04)
[2017-01-09] MEDS: CARVEDILOL 6.25 MG TAB PO SCH (09:05)
[2017-01-09] MEDS: ASPIRIN 81 MG ECTAB PO SCH (09:05)
[2017-01-09] MEDS: POTASSIUM CHLORIDE 10 MEQ TABCR PO SCH (09:06)
[2017-01-09] MEDS: MULTIVITAMIN TAB PO SCH (09:06)
[2017-01-09] MEDS: FUROSEMIDE 40 MG TAB PO SCH (09:06)
[2017-01-09] MEDS: RIFAXIMIN TAB 550 MG TAB PO SCH (09:07)
[2017-01-09] MEDS: FLUOXETINE HCL 20 MG CAP PO SCH (09:07)
[2017-01-09] MEDS: THIAMINE HCL 100 MG TAB PO SCH (09:07)
[2017-01-09] MEDS: PANTOprazole SOD 40 MG TAB PO SCH (09:07)
[2017-01-09] MEDS: LISINOPRIL 5 MG TAB PO SCH (09:08)
[2017-01-09] MEDS: HEPARIN SOD 5000 UNIT/0.5 ML CARP SQ SCH (09:37)
[2017-01-09] MEDS ORDERED: LCTL45 PO (11:16)
[2017-01-09] MEDS ORDERED: HPRIS5M SQ (11:16)
[2017-01-09] MEDS ORDERED: THM100 PO (11:16)
[2017-01-09] MEDS ORDERED: CRG625 PO (11:16)
[2017-01-09] MEDS ORDERED: XFX550 PO (11:16)
[2017-01-09] MEDS ORDERED: RSP3 PO (11:16)
[2017-01-09] MEDS ORDERED: SYN25 PO (11:16)
[2017-01-09] MEDS ORDERED: FLV1 PO (11:16)
[2017-01-09] MEDS ORDERED: LSX40 PO (11:16)
[2017-01-09] MEDS ORDERED: FLUO20CA36 PO (11:16)
[2017-01-09] MEDS ORDERED: PRT40 PO (11:16)
[2017-01-09] MEDS ORDERED: ATRIN INH (11:16)
[2017-01-09] MEDS ORDERED: POTA10CA28 PO (11:16)
[2017-01-09] MEDS ORDERED: LSN5 PO (11:16)
[2017-01-09] MEDS ORDERED: SPRN100 PO (11:16)
[2017-01-09] MEDS ORDERED: OXGN (11:17)
--- NOTE | 2017-01-09 11:22 | Discharge Instructions ---
Discharge Instructions Admission Reason for Admission: Cellulitis, Abd. Wall; Encephalopathy, Hepatic Discharge Discharge Diagnosis / Problem: Hepatic encephalopathy. Alcoholic cirrhosis. Discharge Goals Goal(s): Improve function, Increase independence, Improve disease control Activity Recommendations Activity Limitations: resume your previous activity . Instructions / Follow-Up Instructions / Follow-Up Please follow up with Family Medicine Dr. Sultana Mcginnis within one week of discharge from [facility]. Please follow up with Gastroenterology Grace Hughes within 1-2 weeks of discharge from [facility]. Current Hospital Diet Patient's current hospital diet: Low Sodium Diet (2gm Na), AHA Diet (Heart Healthy) Discharge Diet Recommended Diet: AHA Diet (Heart Healthy), Low Sodium Diet (2gm Na) Fluid Restriction: 1500 ml (6 cups) Pending Studies Studies pending at discharge: no Medical Emergencies . Who to Call and When: Medical Emergencies: If at any time you feel your situation is an emergency, please call 911 immediately. . Non-Emergent Contact Non-Emergency issues call your: Primary Care Provider . . "Provider Documentation" section prepared by Zara Maddox. VTE Core Measure Inpt VTE Proph given/why not?: Unfractionated heparin SQ
[2017-01-09 13:48] VITALS: BP 112/59; PULSE 78; TEMP 36.9; O2SAT 94
[2017-01-09] MEDS ORDERED: HEPARIN SOD 5000 UNIT/0.5 ML CARP SQ SCH (14:00)
--- NOTE | 2017-01-09 18:59 | Discharge Summary ---
Discharge Summary Admission Date: Dec 30, 2016 at 02:27 Discharge Date: Jan 09, 2017 Discharge Disposition: Rehab Principal Diagnosis: Hepatic encephalopathy Secondary Diagnoses/Problems: Alcoholic cirrhosis Procedures: CT head Chronic small vessel change. No acute intracranial abnormality. Abdominal ultrasound 1. Hepatic cirrhosis. 2. Mild hepatosplenomegaly. 3. Trace upper abdominal ascites TTE * Normal LV chamber size with moderate concentric LVH. * Normal LV systolic function, EF 50-55%. * Borderline global hypokinesis. * Grade II diastolic dysfunction. * The right ventricular cavity size is normal (basal dimension <4.2 cm in right ventricular apical 4-chamber view). Reduced RV systolic function by TAPSE. * Aortic valve sclerosis mild, without significant aortic valvular stenosis. * Trace tricuspid regurgitation. * PASP of 33 mmHg assuming a RA pressure of 3 mmHg. * The interatrial septum is intact with no evidence for an atrial septal defect. * Injection of contrast documented no interatrial shunt. Consultations: Gastroenterology Pulmonary Medication Reconciliation New Medications: Oxygen (Oxygen) Gas 2-3 LITERS NA CONTINOUS for 30 Days Carvedilol (Carvedilol) 6.25 Mg Tab 6.25 MG PO BID for 30 Days, TAB Fluoxetine HCl (Fluoxetine HCl) 20 Mg Cap 20 MG PO DAILY for 30 Days, CAP Folic Acid (Folic Acid) 1 Mg Tab 1 MG PO QAM for 30 Days, TAB Furosemide (Furosemide) 40 Mg Tab 40 MG PO QAM for 30 Days, TAB Heparin Sod (Porcine) (Heparin Sodium) 5,000 Unit/0.5 Ml Inj 5000 UNIT SQ Q8 for 30 Days Ipratropium [place] (Atrovent Hfa) 200 Puffs/3400 Mcg Aers 2 PUFFS INH Q4 PRN for SOB/Wheezing for 30 Days Lactulose (Lactulose) 30 Gm/45 Ml Syrp 30 GM PO BID for 30 Days Levothyroxine Sodium (Synthroid) 25 Mcg Tab 25 MCG PO DAILYBB for 30 Days, TAB Lisinopril (Lisinopril) 5 Mg Tab 5 MG PO QAM for 30 Days, TAB Pantoprazole (Pantoprazole Sodium) 40 Mg Tab 40 MG PO QAM for 30 Days, TAB Potassium Chloride (Micro-K Ext Rel) 10 Meq Capcr 10 MEQ PO DAILY for 30 Days Rifaximin (Xifaxan) 550 Mg Tab 550 MG PO BID for 30 Days, TAB Risperidone (Risperidone) 3 Mg Tab 3 MG PO HS for 30 Days, TAB Spironolactone (Spironolactone) 100 Mg Tab 100 MG PO QAM for 30 Days, TAB Thiamine HCl (Vitamin B-1) 100 Mg Tab 100 MG PO QAM for 30 Days, TAB Continued Medications: Aspirin (Aspirin Ec) 81 Mg Tab 81 MG PO DAILY Calcium Carbonate-Vitamin D (Calcium 600 + D) 1 Tab Tab 1 TAB PO DAILY Multivitamin (Multivitamin) Tab 1 TAB PO DAILY, TAB Discontinued Medications: Atorvastatin (Lipitor) 80 Mg Tab 80 MG PO DAILY Fluoxetine Hcl (Prozac) 40 Mg Cap 40 MG PO DAILY Loperamide Hcl (Imodium) 2 Mg Cap 2 MG PO UD PRN for Diarrhea, CAP TAKE PER PACKAGE DIRECTIONS Risperidone (Risperdal) 4 Mg Tab 4 MG PO HS Admission Information HPI (per Admitting provider): 61 YO female followed by Dr. Sultana Mcginnis. History of systolic CHF, cirrhosis (steatohepatitis, possible alcohol abuse), schizophrenia, and other problems noted below. Apparently she is not very mobile and needs her husbands assistance with ambulation and transfers. Patient reportedly has not been out of her home for several months. Brought to ED because of progressive generalized weakness that had been worsening gradually over several weeks. Patient offers no complaints. She states that she feels OK and denies fever, chest pain, cough, SOB, nausea, vomiting, rectal bleeding, urinary symptoms, or other problems. Records indicate concerns about excessive alcohol consumption. Patient states that she doesn't drink very much, just a few drinks a week. . Physical Exam (per Admitting): General Appearance: WD/WN, + mild distress, + obese Head: normocephalic, atraumatic Eyes: PERRL, EOMI, + abnormal sclerae exam (icteric), + pertinent finding ( exophthalmus bilat) ENT: normal ENT inspection Neck: supple, trachea midline, + pertinent finding (exam limited due to body habitus) Respiratory/Chest: no respiratory distress, + crackles, + rhonchi, + wheezing Cardiovascular: regular rate, rhythm, + systolic murmur (II/ systolic murmur at base), + pertinent finding (JVD assessement limited due to body habitus; auscultation limited; 3-4+ lower extr edema bilat) Abdomen/GI: + pertinent finding (obese, distended, nontender; no palpable masses or organomegaly (exam very limited)) Extremities/Musculoskelatal: + swelling (3-4+ lower extremity edema) Neurologic/Psych: + pertinent finding (somewhat confused (had to look at watch to recall date); moderate asterixis) Skin: warm/dry, + pertinent finding (erythema and warmth lower abdominal wall, LLL prox and dist, RLL dist; spider angiomata chest) Lymphatic: no adenopathy (exam limited) Hospital Course CIRRHOSIS / HEPATIC ENCEPHALOPATHY Head CT negative for bleed or other acute event. Transaminitis and elevated alkaline phosphatase have improved since admission. Abdominal ultrasound with small ascites Consulted GI. Continue rifaximin. Refusing lactulose. Continue Lasix and spironolactone. ALCOHOL USE Patient's notes daily alcohol use, about 2L per day. Continue MVI, thiamine and folic acid. Received Librium per protocol. No e/o withdrawal. ACUTE ON CHRONIC HYPOXIC RESPIRATORY FAILURE: H/O COPD CXR: No acute process Continue duonebs PRN ECHO/Bubble study to r/o hepatopulmonary syndrome: Grade II diastolic dysfunction, EF:50-55%, PASP:33mmHg; no e/o shunting Pulmonary consulted Aspiration precautions Continue supplemental oxygen notes that patient smokes ~6packs of cigarettes per day POSSIBLE CELLULITIS ABDOMEN / LOWER EXTREMITIES [place] discoloration of lower abdomen on admission. Blood cultures negative. Received daptomycin and piperacillin / tazobactam. SYSTOLIC CHF Appeared to be decompensated after IVF's received in ED. Resolved with diuresis Continue Lasix and spironolactone. TTE from 03/2016 with EF of 35%. Continue Carvedilol and Lisinopril. Repeat TTE this hospitalization with improved EF and no e/o shunting. DYSLIPIDEMIA Hold statin in light of transaminitis and ongoing alcohol use at home. THYROID DISEASE Bilat exophthalmos noted on exam- ? chronicity. TSH 21 on admission. ? burned-out Grave's disease. Started levothyroxine 25 mcg daily. Repeat TSH in one month. SCHIZOPHRENIA Continue fluoxetine and risperidone (dose changed this hospitalization). VTE PROPHYLAXIS High risk for VTE. SQ heparin. CODE STATUS Full code per discussion with . Stable for discharge to [facility]. PE on discharge: General- awake; alert; NAD Eyes- EOMI; muddy sclera Neck- no stridor; trachea midline Lungs- CTA bilaterally; no wheezes/crackles Heart- RRR; no m/r/g Abdomen- soft; distended; nBS; NT Back- no gross abnormalities Extremities- 1+ pitting edema of bilateral LE; no deformity Neuro- no gross focal deficits; able to ambulate independently with walker Skin- no appreciable rash or bruise . Total time spent on discharge = This includes examination of the patient, discharge planning, medication reconciliation, and communication with other providers. Discharge Instructions Discharge Instructions Admission Reason for Admission: Cellulitis, Abd. Wall; Encephalopathy, Hepatic Discharge Discharge Diagnosis / Problem: Hepatic encephalopathy. Alcoholic cirrhosis. Discharge Goals Goal(s): Improve function, Increase independence, Improve disease control Activity Recommendations Activity Limitations: resume your previous activity . Instructions / Follow-Up Instructions / Follow-Up Please follow up with Family Medicine Dr. Sultana Mcginnis within one week of discharge from [facility]. Please follow up with Gastroenterology Grace Hughes within 1-2 weeks of discharge from [facility]. Current Hospital Diet Patient's current hospital diet: Low Sodium Diet (2gm Na), AHA Diet (Heart Healthy) Discharge Diet Recommended Diet: AHA Diet (Heart Healthy), Low Sodium Diet (2gm Na) Fluid Restriction: 1500 ml (6 cups) Pending Studies Studies pending at discharge: no Medical Emergencies . Who to Call and When: Medical Emergencies: If at any time you feel your situation is an emergency, please call 911 immediately. . Non-Emergent Contact Non-Emergency issues call your: Primary Care Provider . . "Provider Documentation" section prepared by Zara Maddox. VTE Core Measure Inpt VTE Proph given/why not?: Unfractionated heparin SQ Additional Copies To Sultana Mcginnis M.D.
[2017-07-18] MEDS ORDERED: LSX40 PO (11:29)
[2017-07-18] MEDS ORDERED: THM100 PO (11:29)
[2017-07-18] MEDS ORDERED: SPRN100 PO (11:29)
[2017-07-18] MEDS ORDERED: MCRK20 PO (11:29)
[2017-07-18] MEDS ORDERED: FLV1 PO (11:29)
[2017-07-18] MEDS ORDERED: XFX550 PO (11:29)
== END 2017-01-09 15:00 | DRG 441 ==
LOC: ENRESERVTM → ENRESERVDT → EDBD 20:52 → C.EDB 20:53 → C.2T 12-30 02:27 → C.4E 01-06 15:32
PROVIDERS: ADMIT Hospitalist; ATTEND Internal Medicine
DX: K72.00 Acute and subacute hepatic failure without coma (principal); J96.21 Acute and chronic respiratory failure with hypoxia; I50.23 Acute on chronic systolic (congestive) heart failure; L03.311 Cellulitis of abdominal wall; L03.115 Cellulitis of right lower limb; L03.116 Cellulitis of left lower limb; J96.11 Chronic respiratory failure with hypoxia; F41.9 Anxiety disorder, unspecified; J44.9 Chronic obstructive pulmonary disease, unspecified; E78.5 Hyperlipidemia, unspecified; E78.00 Pure hypercholesterolemia, unspecified; M81.0 Age-related osteoporosis without current pathological fracture; Z90.49 Acquired absence of other specified parts of digestive tract; Z86.010 Personal history of colon polyps; Z87.891 Personal history of nicotine dependence; Z82.49 Family history of ischemic heart disease and other diseases of the circulatory system; Z80.9 Family history of malignant neoplasm, unspecified; Z84.1 Family history of disorders of kidney and ureter; Z79.82 Long term (current) use of aspirin; Z79.899 Other long term (current) drug therapy; E66.9 Obesity, unspecified; Z68.39 Body mass index [BMI] 39.0-39.9, adult; F25.9 Schizoaffective disorder, unspecified; D72.829 Elevated white blood cell count, unspecified; R62.7 Adult failure to thrive; H05.20 Unspecified exophthalmos; E87.6 Hypokalemia; E83.42 Hypomagnesemia; Z91.14 Patient's other noncompliance with medication regimen; K70.31 Alcoholic cirrhosis of liver with ascites; E05.00 Thyrotoxicosis with diffuse goiter without thyrotoxic crisis or storm; F10.10 Alcohol abuse, uncomplicated

== ENCOUNTER 2017-07-04 09:47 | Inpatient (IN) | payer OTHER ==
[2017-07-04] VITALS (10 sets, daily range): BP systolic 119–138; BP diastolic 64–65; PULSE 83–100; TEMP 36.8–37; O2SAT 88–99; Ht 162.6 cm; Wt 79.0 kg
[~2017-07-04] VITALS: Ht 162.6 cm; Wt 79.0 kg
[~2017-07-04 09:47] MED LIST changes: +ASPI81TA28 PO; +ATRIN INH; +CALC-20 PO; -CALCTAB7 PO; -DICY10CA55 PO; -FAMO20TA12 PO; -FLUT0.0529 NAE; -FLUT220A INH; +HPRIS5M SQ; -LISI-461 PO; +LSN5 PO; -LVQ500 PO; +MULT-506 PO; -MULTTAB58 PO; -NCDT21 TD; +OXGN; -OXYGEN; -PRED20TA2 PO; +PRT40 PO; -RISP3TAB3 PO; +RSP3 PO; -SPR25 PO; +SPRN100 PO; +SYN25 PO; +THM100 PO; -VNTHFA/IN INH
[2017-07-04] MEDS ORDERED: FLAX12003 PO (10:07)
[2017-07-04] MEDS ORDERED: MULT-506 PO (10:07)
[2017-07-04] MEDS ORDERED: FLUO40CA8 PO (10:07)
[2017-07-04] MEDS ORDERED: CALCTAB5 PO (10:07)
[2017-07-04] MEDS ORDERED: ATOR-26 PO (10:07)
[2017-07-04] MEDS ORDERED: RISP4TAB7 PO (10:07)
[2017-07-04] MEDS ORDERED: CEFTRIAXONE SOD INJ 1 GM ADDVIAL IV STA (10:13)
--- NOTE | 2017-07-04 10:54 | DIAGNOSTIC IMAGING REPORT ---
CHEST ONE VIEW PORTABLE CLINICAL HISTORY: Evaluate Fever/Sepsis dyspnea COMPARISON STUDY: 01/01/2017 FINDINGS: Chronic fullness right hilum. Cardiomediastinal silhouette is otherwise unremarkable. Diaphragms smooth. Lungs are clear. IMPRESSION: Negative chest. The above report was generated using voice recognition software. It may contain grammatical, syntax or spelling errors. Electronically signed by: Dm Villarreal M.D. 07/04/2017 10:53 AM Dictated Date/Time: 07/04/2017 10:52 AM
[2017-07-04 11:02] LABS: BASO % 0.4 %; BASO ABS # 0.03 K/uL (0-0.2); COMPLETE YES; EOS % 1.1 %; IG% 0.3 %; LYMPH % 13.5 %; LYMPH ABS # 1.01 K/uL (1.2-3.4); MEAN CELL VOLUME 87.6 fL (80-100); MEAN CORPUSCULAR HEMOGLOBIN 26.8 pg (25-34); MEAN CORPUSCULAR HGB CONC 30.6 g/dl (32-36); MEAN PLATELET VOLUME 8.9 fL (7.4-10.4); NEUT % 69.7 %; PLATELET COUNT 180 K/uL (130-400); RED BLOOD COUNT 3.54 M/uL (4.2-5.4); WHITE BLOOD COUNT 7.49 K/uL (4.8-10.8)
[2017-07-04 11:13] LABS: INR 1.2 (0.9-1.1); PARTIAL THROMBOPLASTIN RATIO 1.1; PROTHROMBIN TIME (PATIENT) 12.6 SECONDS (9.0-12.0)
[2017-07-04 11:19] LABS: ALT/SGPT 38 U/L (12-78); BLOOD UREA NITROGEN 8 mg/dl (7-18); BUN/CREATININE RATIO 11.5 (10-20); CALCIUM 7.9 mg/dl (8.5-10.1); CARBON DIOXIDE 32 mmol/L (21-32); CHLORIDE 97 mmol/L (98-107); CREATININE 0.65 mg/dl (0.60-1.20); GLUCOSE 112 mg/dl (70-99); MAGNESIUM 1.8 mg/dl (1.8-2.4); POTASSIUM 2.7 mmol/L (3.5-5.1); SODIUM 138 mmol/L (136-145)
[2017-07-04 11:23] LABS: URINE APPEARANCE CLOUDY (CLEAR); URINE COLOR DK YELLOW; URINE EPITHELIAL CELL AUTO >30 /lpf (0-5); URINE NITRITE POS (NEG); URINE PH 5.5 (4.5-7.5); URINE SPECIFIC GRAVITY 1.022 (1.000-1.030); UROBILINOGEN NEG (NEG); ZZURINE CULT IF INDIC CATH YES
[2017-07-04 11:25] LABS: MANUAL MICROSCOPIC REQUIRED? NO; REVIEW REQ? NO; URINE BILIRUBIN 1+ (NEG)
[2017-07-04 11:27] LABS: ALKALINE PHOSPHATASE 729 U/L (45-117); AST/SGOT 82 U/L (15-37); CKMB/CK RATIO 3.6 (0-3.0)
[2017-07-04 11:38] LABS: BENZODIAZEPINE, URINE NEG (NEG); COCAINE,URINE NEG (NEG); PHENCYCLIDINE, URINE NEG (NEG)
[2017-07-04] MEDS ORDERED: POTASSIUM CHLORIDE 10 MEQ TABCR PO STA (13:58)
[2017-07-04] MEDS ORDERED: FUROSEMIDE 40 MG/4 ML VIAL ONE (14:55)
[2017-07-04] MEDS ORDERED: FUROSEMIDE INJ 40 MG in SYRINGE 0 ML IV ONE (15:00)
[2017-07-04] MEDS ORDERED: THIAMINE HCL 100 MG TAB PO ONE (15:00)
[2017-07-04] MEDS ORDERED: ONDANSETRON INJ 2 MG/ML 2 ML VIAL IV PRN (15:00)
[2017-07-04] MEDS ORDERED: LORAZEPAM 2 MG/ML 1 ML VIAL IV PRN (15:00)
[2017-07-04] MEDS ORDERED: GABAPENTIN 600 MG TAB PO SCH (15:00)
[2017-07-04] MEDS: ALBUT/IPRATROP 3MG/0.5MG NEB 3 ML VIAL INH SCH ×3 (15:16→21:26)
--- NOTE | 2017-07-04 16:08 | Gastrointestinal Consultation ---
Gastrointestinal Consultation Date of Consultation: Jul 04, 2017 Attending Physician: Laurie KENDALL Consulting Physician: Paco Boateng Reason for Consultation: Cirrhosis, ascites History of Present Illness Patient is a 62 year old female who presents to the ER for generalized weakness and a fall this morning. She has hx of ETOH cirrhosis, reports continued intake of 3-4 drinks of [place] daily. Last drink was before admission to ED, ETOH level was 165 on admission. She also is non compliant of her medications, admits she hasn't been taking her diuretics for "quite a while". She is having SOB, severe abd distension, leg swelling. She does have clear sputum during coughing as well. VS stable but slight tachycardic HR 99, afebrile. CBC w/o leukocytosis, Hgb 9, UA concerning for UTI. CMP showed K 2.7, Cl 97, Lactic acid 3.4, LFTs: Tbili 0.6, AST 82, ALT 38, AP 729. TSH 7. Blood and urine culture pending. CXR clear. She hasn't been seen in GI clinic since last appt w pr 10/2015 Past Medical/Surgical History Medical Problems: (1) Cellulitis of leg, right Status: Acute (2) Cellulitis, abdominal wall Status: Acute Past Medical History: Schizoaffective disorder COPD Dyslipidemia Osteoporosis Colon polyps As above Past Surgical History: Tonsillectomy Family History Heart disease FATHER (severe [place] age 40; lived to be 70; had several bypasses) Social History Smoking Status: Former Smoker Alcohol Use: heavy Drug Use: none Marital Status: Housing Status: lives with significant other Occupation Status: other Allergies Coded Allergies: No Known Allergies (Unverified , nkda, 04/01/16) Current Medications Home Meds and Scripts Medications Dose Route/Sig Max Daily Dose Days Date Category Multivitamin (Multivitamins) Tab 1 Tab PO DAILY 07/04/17 Reported Caltrate 600 (Calcium Carbonate) Unknown Strength Tab 1 Tab PO DAILY 07/04/17 Reported Risperdal (Risperidone) 4 Mg Tab 4 Mg PO QPM 07/04/17 Reported Prozac (Fluoxetine HCl) 40 Mg Cap 40 Mg PO QAM 07/04/17 Reported Lipitor (Atorvastatin Calcium) 80 Mg Tab 80 Mg PO DAILY 07/04/17 Reported Review of Systems Constitutional: + weakness, No fever, No chills Respiratory: + cough, + sputum, + wheezing, + shortness of breath, + dyspnea at rest Cardiac: + edema, No chest pain Abdomen: + pain, No nausea, No vomiting, No diarrhea, No constipation Skin: + rash (lower legs ), No itch, No jaundice Physical Exam Date Time Temp Pulse Resp B/P (MAP) Pulse Ox O2 Delivery O2 Flow Rate FiO2 07/04/17 15:42 102 20 141/83 94 Nasal Cannula 2.0 07/04/17 14:19 103 17 119/71 91 Nasal Cannula 2.0 07/04/17 14:08 93 Nasal Cannula 2.0 07/04/17 13:34 130/78 07/04/17 13:32 96 15 93 Room Air 07/04/17 13:17 99 15 93 Room Air 07/04/17 13:06 98 07/04/17 13:02 100 19 93 Room Air 07/04/17 13:00 120/79 07/04/17 12:47 94 19 93 07/04/17 12:32 97 18 94 07/04/17 12:32 97 15 134/79 94 Room Air 07/04/17 12:17 97 22 92 07/04/17 12:02 97 13 94 07/04/17 12:00 134/79 07/04/17 11:47 95 16 93 07/04/17 11:32 100 21 93 07/04/17 11:17 97 18 94 07/04/17 11:04 107/74 07/04/17 11:04 98 18 107/74 94 Nasal Cannula 2.0 07/04/17 11:02 98 16 93 07/04/17 10:47 98 24 94 07/04/17 10:32 99 19 94 07/04/17 10:25 36.9 07/04/17 10:17 95 16 95 07/04/17 10:14 94 Nasal Cannula 2.0 07/04/17 10:09 36.6 99 16 155/69 94 Nasal Cannula 2.0 07/04/17 10:07 88 Room Air 07/04/17 10:02 97 17 94 07/04/17 10:00 114/68 07/04/17 09:59 97 07/04/17 09:55 115/69 General Appearance: + mild distress, + obese Eyes: normal inspection, PERRL, EOMI Neck: supple, no JVD, trachea midline Respiratory/Chest: + crackles, + rhonchi, + wheezing Cardiovascular: regular rate, rhythm, no gallop, no murmur Abdomen: normal bowel sounds, non tender, + distended Extremities: + swelling (+3 pitting edema on legs) Neurologic/Psych: oriented x 3, + depressed affect Skin: normal color, no jaundice, no rash Laboratory Results Last 24 Hours Test 07/04/17 10:28 07/04/17 10:55 07/04/17 11:02 07/04/17 15:44 White Blood Count 7.49 K/uL Red Blood Count 3.54 M/uL Hemoglobin 9.5 g/dL Hematocrit 31.0 % Mean Corpuscular Volume 87.6 fL Mean Corpuscular Hemoglobin 26.8 pg Mean Corpuscular Hemoglobin Concent 30.6 g/dl Platelet Count 180 K/uL Mean Platelet Volume 8.9 fL Neutrophils (%) (Auto) 69.7 % Lymphocytes (%) (Auto) 13.5 % Monocytes (%) (Auto) 15.0 % Eosinophils (%) (Auto) 1.1 % Basophils (%) (Auto) 0.4 % Neutrophils # (Auto) 5.23 K/uL Lymphocytes # (Auto) 1.01 K/uL Monocytes # (Auto) 1.12 K/uL Eosinophils # (Auto) 0.08 K/uL Basophils # (Auto) 0.03 K/uL RDW Standard Deviation 59.6 fL RDW Coefficient of Variation 18.6 % Immature Granulocyte % (Auto) 0.3 % Immature Granulocyte # (Auto) 0.02 K/uL Erythrocyte Sedimentation Rate 19 mm/hr Prothrombin Time 12.6 SECONDS Prothromb Time International Ratio 1.2 Activated Partial Thromboplast Time 29.5 SECONDS Partial Thromboplastin Ratio 1.1 Sodium Level 138 mmol/L Potassium Level 2.7 mmol/L Chloride Level 97 mmol/L Carbon Dioxide Level 32 mmol/L Anion Gap 9.0 mmol/L Blood Urea Nitrogen 8 mg/dl Creatinine 0.65 mg/dl Est Creatinine Clear Calc Drug Dose 105.5 ml/min Estimated GFR () 108.7 Estimated GFR (Non- 93.8 BUN/Creatinine Ratio 11.5 Random Glucose 112 mg/dl Lactic Acid Level 3.4 mmol/L Calcium Level 7.9 mg/dl Magnesium Level 1.8 mg/dl Total Bilirubin 0.6 mg/dl Direct Bilirubin 0.4 mg/dl Aspartate Amino Transf (AST/SGOT) 82 U/L Alanine Aminotransferase (ALT/SGPT) 38 U/L Alkaline Phosphatase 729 U/L Ammonia 30.0 umol/L Total Creatine Kinase 33 U/L Creatine Kinase MB 1.2 ng/ml Creatine Kinase MB Ratio 3.6 Troponin I < 0.015 ng/ml Total Protein 6.0 gm/dl Albumin 2.0 gm/dl Lipase 117 U/L Thyroid Stimulating Hormone (TSH) 7.060 uIu/ml Free Thyroxine 1.17 ng/dl Ethyl Alcohol mg/dL 165.0 mg/dl Urine Color DK YELLOW Urine Appearance CLOUDY Urine pH 5.5 Urine Specific [place] 1.022 Urine Protein 1+ Urine Glucose (UA) NEG Urine Ketones TRACE Urine Occult Blood NEG Urine Nitrite POS Urine Bilirubin 1+ Urine Urobilinogen NEG Urine Leukocyte Esterase TRACE Urine WBC (Auto) 1-5 /hpf Urine RBC (Auto) 0-4 /hpf Urine Hyaline Casts (Auto) 5-10 /lpf Urine Epithelial Cells (Auto) >30 /lpf Urine Bacteria (Auto) 4+ Urine Opiates Screen NEG Urine Methadone, Qualitative NEG Urine Barbiturates NEG Urine Phencyclidine (PCP) Level NEG Ur Amphetamine/Methamphetamine NEG MDMA (Ecstasy) Screen NEG Urine Benzodiazepines Screen NEG Urine Cocaine Metabolite NEG Urine Marijuana (THC) NEG Impression Patient is a 62 year old female w hx of ETOH cirrhosis w s/s of weakness and fall, appears to be SOB and having tense ascites on abd, edema on legs. Continues to drink ETOH, and also non compliant with meds. She hasn't been seen in GI clinic since 2014 though we've seen her during her previous admissions. Plan - DT protocol - Ammonia level 30, would hold off restart of Lactulose and Xifaxan at this time. - U/S paracentesis w cell ct, cx. - Restart diuretic Lasix 40mg daily, Spironolactone 100mg daily - Low salt diet. - Advised ETOH abstinence; would benefit from ETOH cessation program. Other outpt workup: - Need EGD for varices eval, repeat colonoscopy for hx of polyps - HCC screening [id number] - Hep A and B immunity checks I saw and evaluated the patient. She presented with worsening abdominal distention, lower 70 edema and shortness of breath. She has been seen during a prior evaluation is felt to have alcoholic liver disease resulting in cirrhosis. Of note she is intoxicated at the time of her admission today. Physical examination No obvious distress Significant abdominal distention and a fluid wave 2-3+ pitting edema Impression: Patient presenting with signs most consistent with alcoholic liver disease. I would suggest further evaluation with a large-volume paracentesis with pre-and post albumin. This can be ordered by the internal medicine service. Studies to consider would be albumin, protein, cell count, cytology, and differential Recommendations Consider a paracentesis with albumin prior to and post -- cell count + diff, culture, albumin, total protein, cytology Low-sodium diet Patient should cease alcohol use Consider addition of Lasix 40 mg per day and Aldactone 100 mg per day Daily CMP Please call with any questions or concerns over the weekend coverage to resume on Friday with Dr. Mathis -
--- NOTE | 2017-07-04 16:18 | EMERGENCY ROOM VISIT NOTE ---
History Report prepared by Maryam: Gissel Claudio Under the Supervision of: Dr. Juan Lepe D.O. First contact with patient: 10:07 Chief Complaint: SWELLING TO EXTREMITY Stated Complaint: EDEMA/RESPIRATORY History of Present Illness The patient is a 62 year old female who presents to the Emergency Room with complaints of worsening weakness starting PLASTICS PROCESS HAND. The patient presents to the ED by EMS. The patient was found by her on the floor of her room surrounded by hanh bottles. She had urinated on herself. She reports that she fell off her bed and was unable to get up. She is usually able to ambulate with a walker. She states that she was on the floor for about 20 minutes. The patient 's abdomen is swollen which she reports is chronic. She states that her cough is chronic. She is unsure why she has redness of her abdomen and legs. She admits to drinking daily and did drink today. She drinks around 4 glasses of hanh a day. She has a history of smoking. She has a history of breathing problems and is on oxygen which she only uses sometimes. She states that she is not taking her lactulose. Source of History: patient, nursing staff Onset: PLASTICS PROCESS HAND Position: other (global) Quality: other (weakness) Timing: worsening Associated Symptoms: + cough Note: Pt reports redness of legs and abdomen, swollen abdomen. Review of Systems See HPI for pertinent positives & negatives. A total of 10 systems reviewed and were otherwise negative. Past Medical & Surgical Medical Problems: (1) Alcohol abuse (2) Anxiety and depression (3) Cirrhosis (4) COPD (chronic obstructive pulmonary disease) (5) Dyslipidemia (6) High cholesterol (7) Osteoporosis (8) Schizoaffective disorder (9) Schizophrenia (10) Systolic CHF (11) Tobacco use disorder Surgical Problems: (1) Hx of colonoscopy with polypectomy (2) Hx of tonsillectomy Family History Cancer Heart disease FATHER (severe [place] age 40; lived to be 70; had several bypasses) Kidney disease Kidney stones Social History Smoking Status: Former Smoker Alcohol Use: heavy Drug Use: none Marital Status: Housing Status: lives with significant other Occupation Status: other Current/Historical Medications Scheduled Atorvastatin (Lipitor), 80 MG PO DAILY Calcium Carbonate (Caltrate 600), 1 TAB PO DAILY Fluoxetine (Prozac), 40 MG PO QAM Multivitamin (Multivitamin), 1 TAB PO DAILY Risperidone (Risperdal), 4 MG PO QPM Allergies Coded Allergies: No Known Allergies (Unverified , nkda, 04/01/16) Physical Exam Vital Signs Date Time Temp Pulse Resp B/P (MAP) Pulse Ox O2 Delivery O2 Flow Rate FiO2 07/04/17 14:19 103 17 119/71 91 Nasal Cannula 2.0 07/04/17 14:08 93 Nasal Cannula 2.0 07/04/17 13:34 130/78 07/04/17 13:32 96 15 93 Room Air 07/04/17 13:17 99 15 93 Room Air 07/04/17 13:06 98 07/04/17 13:02 100 19 93 Room Air 07/04/17 13:00 120/79 07/04/17 12:47 94 19 93 07/04/17 12:32 97 18 94 07/04/17 12:32 97 15 134/79 94 Room Air 07/04/17 12:17 97 22 92 07/04/17 12:02 97 13 94 07/04/17 12:00 134/79 07/04/17 11:47 95 16 93 07/04/17 11:32 100 21 93 07/04/17 11:17 97 18 94 07/04/17 11:04 107/74 07/04/17 11:04 98 18 107/74 94 Nasal Cannula 2.0 07/04/17 11:02 98 16 93 07/04/17 10:47 98 24 94 07/04/17 10:32 99 19 94 07/04/17 10:25 36.9 07/04/17 10:17 95 16 95 07/04/17 10:14 94 Nasal Cannula 2.0 07/04/17 10:09 36.6 99 16 155/69 94 Nasal Cannula 2.0 07/04/17 10:07 88 Room Air 07/04/17 10:02 97 17 94 07/04/17 10:00 114/68 07/04/17 09:59 97 07/04/17 09:55 115/69 Physical Exam CONSTITUTIONAL/VITAL SIGNS: Reviewed / noted above. GENERAL: Non-toxic in appearance. INTEGUMENTARY: Warm, dry, and [place]. HEAD: Normocephalic. EYES: without scleral icterus or trauma. ENT/OROPHARYNX: clear and moist. LYMPHADENOPATHY/NECK: Is supple without lymphadenopathy or meningismus. RESPIRATORY: Frequent cough which she reports is chronic. Slightly coarse with scattered wheezes bilaterally. CARDIOVASCULAR: Regular rate and rhythm. GI/ABDOMEN: Very large distended abdomen with superficial vasculature which she report is chronic, some erythema noted to the lower abdominal wall. EXTREMITIES: Lower extremity edema with erythema to the lower half of the bilateral lower legs. BACK: No CVA tenderness. NEUROLOGICAL: Intact without focal deficits. PSYCHIATRIC: normal affect. MUSCULOSKELETAL: Normally developed with good muscle tone. Medical Decision & Procedures ER Provider Diagnostic Interpretation: X ray results and stated below per my interpretation and radiology interpretation. CHEST ONE VIEW PORTABLE CLINICAL HISTORY: Evaluate Fever/Sepsis dyspnea COMPARISON STUDY: 01/01/2017 FINDINGS: Chronic fullness right hilum. Cardiomediastinal silhouette is otherwise unremarkable. Diaphragms smooth. Lungs are clear. IMPRESSION: Negative chest. The above report was generated using voice recognition software. It may contain grammatical, syntax or spelling errors. Electronically signed by: Dm Villarreal M.D. 07/04/2017 10:53 AM Dictated Date/Time: 07/04/2017 10:52 AM Laboratory Results 07/04/17 10:28 Red Blood Count 3.54, Mean Corpuscular Volume 87.6, Mean Corpuscular Hemoglobin 26.8, Mean Corpuscular Hemoglobin Concent 30.6, Mean Platelet Volume 8.9, Neutrophils (%) (Auto) 69.7, Lymphocytes (%) (Auto) 13.5, Monocytes (%) (Auto) 15.0, Eosinophils (%) (Auto) 1.1, Basophils (%) (Auto) 0.4, Neutrophils # (Auto ) 5.23, Lymphocytes # (Auto) 1.01, Monocytes # (Auto) 1.12, Eosinophils # (Auto ) 0.08, Basophils # (Auto) 0.03 07/04/17 10:28 Test 07/04/17 10:28 07/04/17 10:55 07/04/17 11:02 White Blood Count 7.49 K/uL (4.8-10.8) Red Blood Count 3.54 M/uL (4.2-5.4) Hemoglobin 9.5 g/dL (12.0-16.0) Hematocrit 31.0 % (37-47) Mean Corpuscular Volume 87.6 fL (80-100) Mean Corpuscular Hemoglobin 26.8 pg (25-34) Mean Corpuscular Hemoglobin Concent 30.6 g/dl (32-36) Platelet Count 180 K/uL (130-400) Mean Platelet Volume 8.9 fL (7.4-10.4) Neutrophils (%) (Auto) 69.7 % Lymphocytes (%) (Auto) 13.5 % Monocytes (%) (Auto) 15.0 % Eosinophils (%) (Auto) 1.1 % Basophils (%) (Auto) 0.4 % Neutrophils # (Auto) 5.23 K/uL (1.4-6.5) Lymphocytes # (Auto) 1.01 K/uL (1.2-3.4) Monocytes # (Auto) 1.12 K/uL (0.11-0.59) Eosinophils # (Auto) 0.08 K/uL (0-0.5) Basophils # (Auto) 0.03 K/uL (0-0.2) RDW Standard Deviation 59.6 fL (36.4-46.3) RDW Coefficient of Variation 18.6 % (11.5-14.5) Immature Granulocyte % (Auto) 0.3 % Immature Granulocyte # (Auto) 0.02 K/uL (0.00-0.02) Erythrocyte Sedimentation Rate 19 mm/hr (0-21) Prothrombin Time 12.6 SECONDS (9.0-12.0) Prothromb Time International Ratio 1.2 (0.9-1.1) Activated Partial Thromboplast Time 29.5 SECONDS (21.0-31.0) Partial Thromboplastin Ratio 1.1 Anion Gap 9.0 mmol/L (3-11) Est Creatinine Clear Calc Drug Dose 105.5 ml/min Estimated GFR () 108.7 Estimated GFR (Non- 93.8 BUN/Creatinine Ratio 11.5 (10-20) Calcium Level 7.9 mg/dl (8.5-10.1) Magnesium Level 1.8 mg/dl (1.8-2.4) Total Bilirubin 0.6 mg/dl (0.2-1) Direct Bilirubin 0.4 mg/dl (0-0.2) Aspartate Amino Transf (AST/SGOT) 82 U/L (15-37) Alanine Aminotransferase (ALT/SGPT) 38 U/L (12-78) Alkaline Phosphatase 729 U/L (45-117) Ammonia 30.0 umol/L (11-32) Total Creatine Kinase 33 U/L (26-192) Creatine Kinase MB 1.2 ng/ml (0.5-3.6) Creatine Kinase MB Ratio 3.6 (0-3.0) Troponin I < 0.015 ng/ml (0-0.045) Total Protein 6.0 gm/dl (6.4-8.2) Albumin 2.0 gm/dl (3.4-5.0) Lipase 117 U/L (73-393) Thyroid Stimulating Hormone (TSH) 7.060 uIu/ml (0.300-4.500) Free Thyroxine 1.17 ng/dl (0.80-1.60) Hepatitis C Antibody Screen NEG (NEG) Ethyl Alcohol mg/dL 165.0 mg/dl (0-3) Urine Color DK YELLOW Urine Appearance CLOUDY (CLEAR) Urine pH 5.5 (4.5-7.5) Urine Specific [place] 1.022 (1.000-1.030) Urine Protein 1+ (NEG) Urine Glucose (UA) NEG (NEG) Urine Ketones TRACE (NEG) Urine Occult Blood NEG (NEG) Urine Nitrite POS (NEG) Urine Bilirubin 1+ (NEG) Urine Urobilinogen NEG (NEG) Urine Leukocyte Esterase TRACE (NEG) Urine WBC (Auto) 1-5 /hpf (0-5) Urine RBC (Auto) 0-4 /hpf (0-4) Urine Hyaline Casts (Auto) 5-10 /lpf (0-5) Urine Epithelial Cells (Auto) >30 /lpf (0-5) Urine Bacteria (Auto) 4+ (NEG) Urine Opiates Screen NEG (NEG) Urine Methadone, Qualitative NEG (NEG) Urine Barbiturates NEG (NEG) Urine Phencyclidine (PCP) Level NEG (NEG) Ur Amphetamine/Methamphetamine NEG (NEG) MDMA (Ecstasy) Screen NEG (NEG) Urine Benzodiazepines Screen NEG (NEG) Urine Cocaine Metabolite NEG (NEG) Urine Marijuana (THC) NEG (NEG) Laboratory results as stated above per my review. Medications Administered Medications (Trade) Dose Ordered Sig/Antonio Route Start Time Stop Time Status Last Admin Dose Admin Ceftriaxone Sodium (Rocephin Inj) 1 gm NOW STAT IV 07/04/17 10:13 07/04/17 10:17 DC 07/04/17 11:04 1 GM Potassium Chloride (Klor-Con M10) 60 meq NOW STAT PO 07/04/17 13:58 07/04/17 13:59 DC 07/04/17 14:18 60 MEQ ECG Indication: weakness Rate (beats per minute): 97 Rhythm: normal sinus Findings: no ectopy, other (low voltage, no acute injury) ED Course 1009: Previous medical records were reviewed. The patient was evaluated in room A9B. A complete history and physical examination was performed. 1013: Rocephin Inj 1 gm IV. 1358: Potassium Chloride 60 meq PO. 1403: I discussed the patient's case [facility] The patient will be evaluated for further treatment and disposition. 1408: On reevaluation, the patient is stable. I discussed the results and findings with her. She verbalized agreement of the treatment plan. The patient will be evaluated for further management and care. Medical Decision Differential includes acute coronary syndrome, myocardial infarction, CVA, TIA, anemia, infection, pneumonia, UTI, pyelonephritis, poor nutrition, dehydration, electrolyte disturbance,hypoglycemia. This is a 62-year-old female who presents to the ED with a chief complaint of lower extremity edema as well as some shortness of breath. The patient apparently fell off her bed today and could not get up. She summoned EMS. EMS found her to be surrounded by some bottles of hanh. The patient is to drinking hanh regularly. The patient had oxygen saturations of 88% and is supposed to be wearing oxygen, although EMS stated that they did not believe she was using a. The patient on exam has scattered wheezes and some crackles, significant only distended abdomen as well as some erythema to the lower abdominal wall. There is also bilateral lower extremities edema and some erythema to the lower halves of the bilateral lower extremities. The patient states that her abdomen is normally distended as it is today. She was unsure of the erythema. An EKG shows a normal sinus rhythm. There is low voltage. Sedimentation rate was normal. Complete metabolic panel revealed a potassium of 2.7 and a calcium was 7.9. CBC was unremarkable. Urine is suggesting a UTI. The patient was treated with IV Rocephin. She was also given with by mouth potassium. Because of the patient's weakness, left-sided abnormality as well as infection, the patient be seen by the hospitalist for further inpatient evaluation and care. Medication Reconcilliation Current Medication List: was personally reviewed by me Blood Pressure Screening Patient's blood pressure: Normal blood pressure Blood pressure disposition: Did not require urgent referral Consults Time Called: 1357 Consulting Physician: Dr. Vogel [facility] hospitalist Returned Call: 1403 Discussed the patient's case. The patient will be evaluated for further treatment and disposition. Impression Primary Impression: UTI (urinary tract infection) Additional Impressions: Hypokalemia Alcohol intoxication Weakness Lower extremity cellulitis Scribe Attestation The scribe's documentation has been prepared under my direction and personally reviewed by me in its entirety. I confirm that the note above accurately reflects all work, treatment, procedures, and medical decision making performed by me. Departure Information Dispostion Being Evaluated By Hospitalist Referrals Sultana Mcginnis M.D. (PCP) Patient Instructions My [facility] Problem Qualifiers
--- NOTE | 2017-07-04 16:42 | History and Physical ---
History & Physical Date & Time of Service: Jul 04, 2017 at 15:17 Chief Complaint: Weakness, Fall Primary Care Physician: Sultana Mcginnis M.D. History of Present Illness 62 year old female who presents to the ER for generalized weakness and a fall this morning. Patient is a poor historian. She reports she started to feel weak yesterday to the point where she could barely walk. This morning while trying to get out of bed with help from her she fell to the ground and could not get up. EMS was then called. Patient drinks alcohol daily - she reports 3-4 drinks of [place] per day. Last drink was this morning. She is non compliant with most of her medicines. She reports she has been unable to leave the house to get refills. She reports worsening lower extremity edema and increasing abdominal distention. She reports the edema is mostly chronic but she is unsure when it started to get worse. Patient also has history of COPD and is to be wearing oxygen but is non compliant with that as well. She reports chronic intermittent shortness of breath which is unchanged. She has an occasional cough productive for clear sputum. She denies fever and chills. She reports urinary frequency but denies dysuria. She denies chest pain, lightheadedness, dizziness, or syncopal events. She reports chronic diarrhea which she takes over the counter antidiarrheals for. No abdominal pain, nausea, or vomiting. Upon arrival to the ER, patient was found to be hypoxic at 88% which improved with oxygen 2L via NC. K+ was found to be 2.7 which was replaced. U/A is suggestive of UTI and patient was given IV Rocephin. Lactic acid is 3.5. Past Medical/Surgical History Medical Problems: (1) Alcohol abuse Status: Chronic (2) Anxiety and depression Status: Chronic (3) Cirrhosis Permanent Comment: CT 11/28/15- suspected cirrhosis, underlying fatty liver Status: Chronic (4) COPD (chronic obstructive pulmonary disease) Status: Chronic (5) Dyslipidemia Status: Chronic (6) High cholesterol Status: Chronic (7) Osteoporosis Status: Chronic (8) Schizoaffective disorder Status: Chronic (9) Schizophrenia Status: Chronic (10) Systolic CHF Permanent Comment: EF 30-35% on echo 01/12/2015 EF 50-55% on echo 01/2017 ischemic vs alcoholic Status: Chronic (11) Tobacco use disorder Status: Chronic Surgical Problems: (1) Hx of colonoscopy with polypectomy Permanent Comment: 07/15/11 2 polyps--adenomatous tissue Status: Chronic (2) Hx of tonsillectomy Status: Chronic Family History Heart disease FATHER (severe HI age 40; lived to be 70; had several bypasses) Social History Smoking Status: Current Every Day Smoker Alcohol Use: heavy Marital Status: Immunizations History of Influenza Vaccine: Yes Influenza Vaccine Date: Aug 01, 2015 History of Pneumococcal: Yes Pneumococcal Date: Oct 11, 2015 Multi-Drug Resistant Organisms History of MDRO: No Allergies Coded Allergies: No Known Allergies (Unverified , nkda, 04/01/16) Home Medications Scheduled Atorvastatin (Lipitor), 80 MG PO DAILY Calcium Carbonate (Caltrate 600), 1 TAB PO DAILY Fluoxetine (Prozac), 40 MG PO QAM Multivitamin (Multivitamin), 1 TAB PO DAILY Risperidone (Risperdal), 4 MG PO QPM Review of Systems ROS per HPI, all other systems reviewed and negative Physical Exam Vital Signs Date Time Temp Pulse Resp B/P (MAP) Pulse Ox O2 Delivery O2 Flow Rate FiO2 07/04/17 14:19 103 17 119/71 91 Nasal Cannula 2.0 07/04/17 14:08 93 Nasal Cannula 2.0 07/04/17 13:34 130/78 07/04/17 13:32 96 15 93 Room Air 07/04/17 13:17 99 15 93 Room Air 07/04/17 13:06 98 07/04/17 13:02 100 19 93 Room Air 07/04/17 13:00 120/79 07/04/17 12:47 94 19 93 07/04/17 12:32 97 18 94 07/04/17 12:32 97 15 134/79 94 Room Air 07/04/17 12:17 97 22 92 07/04/17 12:02 97 13 94 07/04/17 12:00 134/79 07/04/17 11:47 95 16 93 07/04/17 11:32 100 21 93 07/04/17 11:17 97 18 94 07/04/17 11:04 107/74 07/04/17 11:04 98 18 107/74 94 Nasal Cannula 2.0 07/04/17 11:02 98 16 93 07/04/17 10:47 98 24 94 07/04/17 10:32 99 19 94 07/04/17 10:25 36.9 07/04/17 10:17 95 16 95 07/04/17 10:14 94 Nasal Cannula 2.0 07/04/17 10:09 36.6 99 16 155/69 94 Nasal Cannula 2.0 07/04/17 10:07 88 Room Air 07/04/17 10:02 97 17 94 07/04/17 10:00 114/68 07/04/17 09:59 97 07/04/17 09:55 115/69 General Appearance: no apparent distress Head: normocephalic Eyes: normal inspection ENT: hearing grossly normal Neck: supple, no JVD Respiratory/Chest: no respiratory distress, + rhonchi (BL), + wheezing ( expiratory thoughout all lung fitch) Cardiovascular: + tachycardia (HR in the low 100s, regular rhythm), + pertinent finding (+3 pitting edema BLLE) Abdomen/GI: normal bowel sounds, non tender, + distended (significantly, firm) Extremities/Musculoskelatal: normal inspection, no calf tenderness Neurologic/Psych: no motor/sensory deficits, alert, + pertinent finding (slow to respond; aware of place, month, and year, unsure of day of the week or President ) Skin: normal color, warm/dry Diagnostics Laboratory Results Results Past 24 Hours Test 07/04/17 10:28 07/04/17 10:55 07/04/17 11:02 07/04/17 14:52 Range/Units White Blood Count 7.49 4.8-10.8 K/uL Red Blood Count 3.54 4.2-5.4 M/uL Hemoglobin 9.5 12.0-16.0 g/dL Hematocrit 31.0 37-47 % Mean Corpuscular Volume 87.6 80-100 fL Mean Corpuscular Hemoglobin 26.8 25-34 pg Mean Corpuscular Hemoglobin Concent 30.6 32-36 g/dl Platelet Count 180 130-400 K/uL Mean Platelet Volume 8.9 7.4-10.4 fL Neutrophils (%) (Auto) 69.7 % Lymphocytes (%) (Auto) 13.5 % Monocytes (%) (Auto) 15.0 % Eosinophils (%) (Auto) 1.1 % Basophils (%) (Auto) 0.4 % Neutrophils # (Auto) 5.23 1.4-6.5 K/uL Lymphocytes # (Auto) 1.01 1.2-3.4 K/uL Monocytes # (Auto) 1.12 0.11-0.59 K/uL Eosinophils # (Auto) 0.08 0-0.5 K/uL Basophils # (Auto) 0.03 0-0.2 K/uL RDW Standard Deviation 59.6 36.4-46.3 fL RDW Coefficient of Variation 18.6 11.5-14.5 % Immature Granulocyte % (Auto) 0.3 % Immature Granulocyte # (Auto) 0.02 0.00-0.02 K/uL Erythrocyte Sedimentation Rate 19 0-21 mm/hr Prothrombin Time 12.6 9.0-12.0 SECONDS Prothromb Time International Ratio 1.2 0.9-1.1 Activated Partial Thromboplast Time 29.5 21.0-31.0 SECONDS Partial Thromboplastin Ratio 1.1 Sodium Level 138 136-145 mmol/L Potassium Level 2.7 3.5-5.1 mmol/L Chloride Level 97 98-107 mmol/L Carbon Dioxide Level 32 21-32 mmol/L Anion Gap 9.0 3-11 mmol/L Blood Urea Nitrogen 8 7-18 mg/dl Creatinine 0.65 0.60-1.20 mg/dl Est Creatinine Clear Calc Drug Dose 105.5 ml/min Estimated GFR () 108.7 Estimated GFR (Non- 93.8 BUN/Creatinine Ratio 11.5 10-20 Random Glucose 112 70-99 mg/dl Lactic Acid Level 3.4 0.4-2.0 mmol/L Calcium Level 7.9 8.5-10.1 mg/dl Magnesium Level 1.8 1.8-2.4 mg/dl Total Bilirubin 0.6 0.2-1 mg/dl Direct Bilirubin 0.4 0-0.2 mg/dl Aspartate Amino Transf (AST/SGOT) 82 15-37 U/L Alanine Aminotransferase (ALT/SGPT) 38 12-78 U/L Alkaline Phosphatase 729 45-117 U/L Ammonia 30.0 11-32 umol/L Total Creatine Kinase 33 26-192 U/L Creatine Kinase MB 1.2 0.5-3.6 ng/ml Creatine Kinase MB Ratio 3.6 0-3.0 Troponin I < 0.015 0-0.045 ng/ml Total Protein 6.0 6.4-8.2 gm/dl Albumin 2.0 3.4-5.0 gm/dl Lipase 117 73-393 U/L Thyroid Stimulating Hormone (TSH) 7.060 0.300-4.500 uIu/ml Ethyl Alcohol mg/dL 165.0 0-3 mg/dl Urine Color DK YELLOW Urine Appearance CLOUDY CLEAR Urine pH 5.5 4.5-7.5 Urine Specific [place] 1.022 1.000-1.030 Urine Protein 1+ NEG Urine Glucose (UA) NEG NEG Urine Ketones TRACE NEG Urine Occult Blood NEG NEG Urine Nitrite POS NEG Urine Bilirubin 1+ NEG Urine Urobilinogen NEG NEG Urine Leukocyte Esterase TRACE NEG Urine WBC (Auto) 1-5 0-5 /hpf Urine RBC (Auto) 0-4 0-4 /hpf Urine Hyaline Casts (Auto) 5-10 0-5 /lpf Urine Epithelial Cells (Auto) >30 0-5 /lpf Urine Bacteria (Auto) 4+ NEG Urine Opiates Screen NEG NEG Urine Methadone, Qualitative NEG NEG Urine Barbiturates NEG NEG Urine Phencyclidine (PCP) Level NEG NEG Ur Amphetamine/Methamphetamine NEG NEG MDMA (Ecstasy) Screen NEG NEG Urine Benzodiazepines Screen NEG NEG Urine Cocaine Metabolite NEG NEG Urine Marijuana (THC) NEG NEG Microbiology Results 07/04/17 Blood Culture, Received Pending 07/04/17 Blood Culture, Received Pending 07/04/17 Urine Culture, Received Pending Diagnostic Radiology CXR IMPRESSION: Negative chest. Impression Assessment and Plan GENERALIZED WEAKNESS, FALL - likely multifactorial due to problems discussed below VOLUME OVERLOAD HX OF CIRRHOSIS, SYSTOLIC CHF - admit to tele - patient presenting with generalized weakness and fall this morning while trying to get out of bed - patient with history of alcoholic cirrhosis and systolic CHF (ischemic vs. alcoholic) - has been non compliant with diuretics and outpatient follow up appointments - echo 01/2017 - EF 50-55% - check liver US and US for ascites - ammonia level WNL, t bili 0.6, ST 82, ALT 38, Alk Phos 729 - will start Lasix 40mg IV BID - update echo; has been non compliant with CHF medications, consider resumption of beta loni COPD EXACERBATION - patient was hypoxic on arrival at 88% on room air, however is to be wearing 4L of oxygen which she is non compliant with - likely due to volume overload, do not suspect infection (clear sputum, afebrile, no leukocytosis) - Prednisone 40mg PO daily - around the clock nebs - on Rocephin for urine coverage UTI - U/A suggestive of UTI and patient reports urinary frequency - do not suspect sepsis - s/p Rocephin in ED, will continue with - blood and urine cultures LACTIC ACIDOSIS - likely due to hypoxia - do not suspect sepsis - afebrile, normal WBC - unable t give IVF due to volume overload - lactic acid 3.4 -> 2.4; continue to monitor ALCOHOL ABUSE - 3-4 drinks of [place] / day - withdrawal protocol with Gabapentin initiated - PO multivitamin, folic acid, and thiamine HYPOKALEMIA - K+ 2.7, replace in ED - follow up K+ later today - Mg+ WNL DEPRESSION, ANXIETY, SCHIZOPHRENIA - continue fluoxetine and Risperdal HLD - continue statin DVT PROPHYLAXIS - SQ Lovenox CODE STATUS - Patient is a full code as per my discussion with her. DISPO - In my clinical judgment this beneficiary meets acute admission criteria, established by [facility], that includes being hospitalized through two midnights. - PT/OT consults placed; expect possible short term placement - noted ED nursing notes that patient was covered in feces and incontinent of urine with soaked brief upon arrival ATTENDING ADDENDUM: Agree with the above H&P; please refer to above for more detail. Patient is a poor historian, therefore information was obtained mostly from the medical records and personnel. Patient was brought to ER after falling at home and her was unable to pull her off the floor. She reports her legs feel weak and are sore. She reports having some back pain as well. She denies drinking excessively and says "I wasn't drunk when I fell" repeatedly. Her spouse was not at the bedside at the time of evaluation. Denies any CP, SOB, palpitations. Denies any urinary symptoms. Cardiac: RR, S1 and S2 auscultated Respiratory: + expiratory wheezes bilaterally GI: distended, protuberant abdomen, NT, +BS WEAKNESS/FALL: -patient has multiple reasons why she may have fallen, including electrolyte derangements, possible UTI, and alcohol use -patient to be observed in tele due to hypokalemia -PT/OT consult VOLUME OVERLOAD: Cirrhosis -diuresis as tolerated -US abdomen and paracentesis -GI consulted; patient has not followed up with her PCP or GI in years, has been largely noncompliant with meds and continues to drink alcohol and smoke heavily ALCOHOLISM: likely with alcoholic cirrhosis -DT precautions and withdrawal protocol ordered -last drink was this morning -blood alcohol 0.165 -continue with folate, thiamine, MV tabs COPD EXACERBATION: -does not use oxygen at home despite being advised to use it -will treat with nebs and steroids -on ceftriaxone for possible UTI Advanced Directives Existing Living Will: No Existing Power of [place] Round [place]: No VTE Prophylaxis VTE Risk Assessment Done? Y/N: Yes Risk Level: Moderate
--- NOTE | 2017-07-04 17:50 | DIAGNOSTIC IMAGING REPORT ---
ASCITES-ABDOMEN LIMITED ULTRASOUND CLINICAL HISTORY: abdominal distention COMPARISON STUDY: Abdominal ultrasound 12/30/2016. FINDINGS: Large amount of abdominal ascites. No dilated loops of small bowel. IMPRESSION: Large amount of ascites. Electronically signed by: Jmaal Bond M.D. 07/04/2017 5:49 PM Dictated Date/Time: 07/04/2017 5:48 PM
--- NOTE | 2017-07-04 17:52 | DIAGNOSTIC IMAGING REPORT ---
ABDOMINAL ULTRASOUND, RIGHT UPPER QUADRANT HISTORY: ascites. COMPARISON: Abdominal ultrasound 12/30/2016. FINDINGS: Pancreas: Obscured by overlying bowel gas. Liver: Enlarged measuring 24 cm in length. Nodular contour to the liver consistent with cirrhosis. No hepatic masses. The liver is echogenic. Gallbladder: No gallbladder wall thickening. No gallstones. CBD: 5 mm. Right kidney: No hydronephrosis. Miscellaneous: Small amount of ascites present. IMPRESSION: 1. Small amount of ascites status post paracentesis. 2. Cirrhotic and enlarged liver. 3. Normal gallbladder. No gallstones. Electronically signed by: Jamal Bond M.D. 07/04/2017 5:51 PM Dictated Date/Time: 07/04/2017 5:49 PM
[2017-07-04] MEDS: ALBUMIN HUMAN 25% 12.5 GM/50 ML VIAL IV SCH ×4 (17:57→20:44)
[2017-07-04] MEDS ORDERED: GABAPENTIN 1200MG LOADING DOSE PO SCH (18:00)
--- NOTE | 2017-07-04 18:28 | DIAGNOSTIC IMAGING REPORT ---
PARACENTESIS UNDER ULTRASOUND GUIDANCE CLINICAL HISTORY: ascites COMPARISON STUDY: No previous studies for comparison. FINDINGS: The risks, benefits, and alternatives to the procedure were discussed with the patient. Written informed consent was obtained. Following real-time ultrasound localization, the skin was prepped and draped. Following local anesthesia with Xylocaine, the sheath paracentesis needle was inserted and approximately 5 liters of straw-colored fluid was removed by vacuum suction. A right lower quadrant approach was utilized. 1 L the fluid was sent to the laboratory for analysis. The patient tolerated the procedure well and left the department in satisfactory condition. IMPRESSION: Successful ultrasound-guided paracentesis with removal of approximately 5 liters of ascitic fluid. Electronically signed by: Cm Hall M.D. 07/04/2017 6:27 PM Dictated Date/Time: 07/04/2017 6:26 PM
[2017-07-04 19:09] LABS: POTASSIUM 2.8 mmol/L (3.5-5.1)
[2017-07-04 19:16] LABS: PERIT FL WBC 69 /uL (0-300); PERITONEAL FLUID RBC < 3000 /uL
[2017-07-04] MEDS: RISPERIDONE 2 MG TAB PO SCH (20:23)
[2017-07-04] MEDS: ENOXAPARIN 40 MG/0.4 ML SYR SQ SCH (20:23)
[2017-07-04] MEDS ORDERED: ALBUT/IPRATROP 3MG/0.5MG NEB 3 ML VIAL INH PRN (21:00)
[2017-07-04 21:23] LABS: HEMATOCRIT 28.6 % (37-47)
[2017-07-04 21:25] LABS: ARTERIAL BLD GAS O2 SATURATION 83.1 % (90-95); ARTERIAL BLOOD GAS BASE EXCESS 9.1 mEq/L (-9-1.8); ARTERIAL BLOOD GAS HCO3 34 mmol/L (19-24); ARTERIAL BLOOD GAS PO2 49 mm/Hg (80-95); ARTERIAL BLOOD GAS pH 7.45 (7.35-7.45)
[2017-07-04 21:26] LABS: ALLEN TEST POS (POS); O2 ADMINISTRATION 25% FIO2
[2017-07-04 21:35] LABS: PARTIAL THROMBOPLASTIN RATIO 1.3
--- NOTE | 2017-07-04 21:42 | DIAGNOSTIC IMAGING REPORT ---
CHEST ONE VIEW PORTABLE HISTORY: Hypoxia. COMPARISON: Chest 07/04/2017. FINDINGS: No pneumothorax. No pleural effusions. The heart is stable in size. Old, healed left-sided rib fractures. Progressive patchy airspace opacities within the left lower lobe. IMPRESSION: Patchy airspace opacities within the left lower lobe. This likely represents a pneumonia possibly secondary to aspiration. Electronically signed by: Jamal Bond M.D. 07/04/2017 9:41 PM Dictated Date/Time: 07/04/2017 9:40 PM
[2017-07-04] MEDS: GABAPENTIN 600MG Q6H DOSE PO SCH (21:44)
[2017-07-04 21:48] LABS: BUN/CREATININE RATIO 12.8 (10-20); CALCIUM 7.7 mg/dl (8.5-10.1); CREATININE 0.6 mg/dl (0.60-1.20); MAGNESIUM 1.6 mg/dl (1.8-2.4); POTASSIUM 3.1 mmol/L (3.5-5.1)
[2017-07-04 21:54] LABS: ALB/GLOB RATIO 0.7 (0.9-2)
[2017-07-04] MEDS ORDERED: PIPERACILLIN/TAZOBACTAM 4.5 GM/100ML D5W IV STA (22:23)
[2017-07-04] MEDS ORDERED: ALBUT/IPRATROP 3MG/0.5MG NEB 3 ML VIAL INH STA (22:27)
[2017-07-04] MEDS ORDERED: PIPERACILL/TAZOBAC CONSULT ACTIVE PRN (22:30)
[2017-07-04] MEDS ORDERED: LACTULOSE 200GM/700ML WTR ENEMA PR ONE (22:30)
[2017-07-04] MEDS ORDERED: PIPERACILL/TAZOBAC IV 4.5 GM in DEXTROSE 5% 100ML IV ONE (22:30)
--- NOTE | 2017-07-04 22:39 | Progress Note ---
Internal Med Progress Note Date of Service: Jul 04, 2017. Provider Documentation: Made aware by RN of decreased responsiveness, hypoxemia. Patient received gabapentin and Risperdal earlier. Chest x-ray showed possible aspiration pneumonitis. Cough symptoms on admission as per history of present illness. AP Encephalopathy Multifactorial : COPD exacerbation, possible aspiration pneumonia Gabapentin contributory Baseline ABG BiPAP Nebs IV steroids for now Change ceftriaxone initiated for UTI to Zosyn to cover for aspiration pneumonia. May need pulmonary evaluation re: resp failure. Patient known to Dr. Harvey from previous admissions as per records. Hold gabapentin for sedation/confusion. Will relay to AM provider. Vital Signs: Date Time Temp Pulse Resp B/P (MAP) Pulse Ox O2 Delivery O2 Flow Rate FiO2 07/05/17 07:45 98 BiPAP 65 07/05/17 07:27 36.6 96 28 109/63 (78) 90 BiPAP 07/05/17 07:18 100 91 65 07/05/17 07:18 100 16 91 BiPAP/CPAP 65 07/05/17 06:30 100 90 65 07/05/17 05:15 99 85 40 07/05/17 04:00 92 BiPAP 55 07/05/17 03:55 36.7 73 20 126/65 (85) 94 BiPAP 07/05/17 02:20 76 92 40 07/05/17 00:00 37.0 88 20 105/61 (76) 94 CPAP 07/04/17 23:59 94 BiPAP 50 07/04/17 22:37 100 99 40 07/04/17 22:37 100 16 99 BiPAP/CPAP 50 07/04/17 21:33 96 50 07/04/17 21:28 100 16 96 BiPAP/CPAP 50 07/04/17 21:00 91 88 50 07/04/17 20:00 91 Oxymask 4.0 07/04/17 19:44 37.0 89 20 138/64 (88) 95 Room Air 07/04/17 16:15 Nasal Cannula 2.0 07/04/17 16:15 36.8 83 20 119/65 (83) 94 Nasal Cannula 2.0 07/04/17 15:42 102 20 141/83 94 Nasal Cannula 2.0 07/04/17 14:19 103 17 119/71 91 Nasal Cannula 2.0 07/04/17 14:08 93 Nasal Cannula 2.0 07/04/17 13:34 130/78 07/04/17 13:32 96 15 93 Room Air 07/04/17 13:17 99 15 93 Room Air 07/04/17 13:06 98 07/04/17 13:02 100 19 93 Room Air 07/04/17 13:00 120/79 07/04/17 12:47 94 19 93 07/04/17 12:32 97 18 94 07/04/17 12:32 97 15 134/79 94 Room Air 07/04/17 12:17 97 22 92 07/04/17 12:02 97 13 94 07/04/17 12:00 134/79 07/04/17 11:47 95 16 93 07/04/17 11:32 100 21 93 07/04/17 11:17 97 18 94 07/04/17 11:04 107/74 07/04/17 11:04 98 18 107/74 94 Nasal Cannula 2.0 07/04/17 11:02 98 16 93 07/04/17 10:47 98 24 94 07/04/17 10:32 99 19 94 07/04/17 10:25 36.9 07/04/17 10:17 95 16 95 07/04/17 10:14 94 Nasal Cannula 2.0 07/04/17 10:09 36.6 99 16 155/69 94 Nasal Cannula 2.0 07/04/17 10:07 88 Room Air 07/04/17 10:02 97 17 94 07/04/17 10:00 114/68 07/04/17 09:59 97 07/04/17 09:55 115/69 Lab Results: Results Past 24 Hours Test 07/04/17 10:28 07/04/17 10:55 07/04/17 11:02 07/04/17 15:44 Range/Units White Blood Count 7.49 4.8-10.8 K/uL Red Blood Count 3.54 4.2-5.4 M/uL Hemoglobin 9.5 12.0-16.0 g/dL Hematocrit 31.0 37-47 % Mean Corpuscular Volume 87.6 80-100 fL Mean Corpuscular Hemoglobin 26.8 25-34 pg Mean Corpuscular Hemoglobin Concent 30.6 32-36 g/dl Platelet Count 180 130-400 K/uL Mean Platelet Volume 8.9 7.4-10.4 fL Neutrophils (%) (Auto) 69.7 % Lymphocytes (%) (Auto) 13.5 % Monocytes (%) (Auto) 15.0 % Eosinophils (%) (Auto) 1.1 % Basophils (%) (Auto) 0.4 % Neutrophils # (Auto) 5.23 1.4-6.5 K/uL Lymphocytes # (Auto) 1.01 1.2-3.4 K/uL Monocytes # (Auto) 1.12 0.11-0.59 K/uL Eosinophils # (Auto) 0.08 0-0.5 K/uL Basophils # (Auto) 0.03 0-0.2 K/uL RDW Standard Deviation 59.6 36.4-46.3 fL RDW Coefficient of Variation 18.6 11.5-14.5 % Immature Granulocyte % (Auto) 0.3 % Immature Granulocyte # (Auto) 0.02 0.00-0.02 K/uL Erythrocyte Sedimentation Rate 19 0-21 mm/hr Prothrombin Time 12.6 9.0-12.0 SECONDS Prothromb Time International Ratio 1.2 0.9-1.1 Activated Partial Thromboplast Time 29.5 21.0-31.0 SECONDS Partial Thromboplastin Ratio 1.1 Sodium Level 138 136-145 mmol/L Potassium Level 2.7 3.5-5.1 mmol/L Chloride Level 97 98-107 mmol/L Carbon Dioxide Level 32 21-32 mmol/L Anion Gap 9.0 3-11 mmol/L Blood Urea Nitrogen 8 7-18 mg/dl Creatinine 0.65 0.60-1.20 mg/dl Est Creatinine Clear Calc Drug Dose 105.5 ml/min Estimated GFR () 108.7 Estimated GFR (Non- 93.8 BUN/Creatinine Ratio 11.5 10-20 Random Glucose 112 70-99 mg/dl Lactic Acid Level 3.4 2.4 0.4-2.0 mmol/L Calcium Level 7.9 8.5-10.1 mg/dl Magnesium Level 1.8 1.8-2.4 mg/dl Total Bilirubin 0.6 0.2-1 mg/dl Direct Bilirubin 0.4 0-0.2 mg/dl Aspartate Amino Transf (AST/SGOT) 82 15-37 U/L Alanine Aminotransferase (ALT/SGPT) 38 12-78 U/L Alkaline Phosphatase 729 45-117 U/L Ammonia 30.0 11-32 umol/L Total Creatine Kinase 33 26-192 U/L Creatine Kinase MB 1.2 0.5-3.6 ng/ml Creatine Kinase MB Ratio 3.6 0-3.0 Troponin I < 0.015 0-0.045 ng/ml Total Protein 6.0 6.4-8.2 gm/dl Albumin 2.0 3.4-5.0 gm/dl Lipase 117 73-393 U/L Thyroid Stimulating Hormone (TSH) 7.060 0.300-4.500 uIu/ml Free Thyroxine 1.17 0.80-1.60 ng/dl Hepatitis C Antibody Screen NEG NEG Ethyl Alcohol mg/dL 165.0 0-3 mg/dl Urine Color DK YELLOW Urine Appearance CLOUDY CLEAR Urine pH 5.5 4.5-7.5 Urine Specific [place] 1.022 1.000-1.030 Urine Protein 1+ NEG Urine Glucose (UA) NEG NEG Urine Ketones TRACE NEG Urine Occult Blood NEG NEG Urine Nitrite POS NEG Urine Bilirubin 1+ NEG Urine Urobilinogen NEG NEG Urine Leukocyte Esterase TRACE NEG Urine WBC (Auto) 1-5 0-5 /hpf Urine RBC (Auto) 0-4 0-4 /hpf Urine Hyaline Casts (Auto) 5-10 0-5 /lpf Urine Epithelial Cells (Auto) >30 0-5 /lpf Urine Bacteria (Auto) 4+ NEG Urine Opiates Screen NEG NEG Urine Methadone, Qualitative NEG NEG Urine Barbiturates NEG NEG Urine Phencyclidine (PCP) Level NEG NEG Ur Amphetamine/Methamphetamine NEG NEG MDMA (Ecstasy) Screen NEG NEG Urine Benzodiazepines Screen NEG NEG Urine Cocaine Metabolite NEG NEG Urine Marijuana (THC) NEG NEG Test 07/04/17 18:35 07/04/17 21:12 07/05/17 05:41 07/05/17 05:49 Range/Units Potassium Level 2.8 3.1 4.1 3.5-5.1 mmol/L Pro-B-Type Natriuretic Peptide 173 0-900 pg/ml Hemoglobin 8.8 9.4 12.0-16.0 g/dL Hematocrit 28.6 31.1 37-47 % Activated Partial Thromboplast Time 33.4 21.0-31.0 SECONDS Partial Thromboplastin Ratio 1.3 Arterial Blood pH 7.45 7.35-7.45 Arterial Blood Partial Pressure CO2 50 35-46 mmHg Arterial Blood Partial Pressure O2 49 80-95 mm/Hg Arterial Blood HCO3 34 19-24 mmol/L Arterial Blood Oxygen Saturation 83.1 90-95 % Arterial Blood Base Excess 9.1 -9-1.8 mEq/L Arterial Blood Gas Delivery 25% FIO2 Ramakrishna Test POS POS Sodium Level 139 139 136-145 mmol/L Chloride Level 97 100 98-107 mmol/L Carbon Dioxide Level 34 35 21-32 mmol/L Anion Gap 8.0 4.0 3-11 mmol/L Blood Urea Nitrogen 8 8 7-18 mg/dl Creatinine 0.60 0.68 0.60-1.20 mg/dl Est Creatinine Clear Calc Drug Dose 114.3 89.6 ml/min Estimated GFR () 111.6 107.1 Estimated GFR (Non- 96.3 92.4 BUN/Creatinine Ratio 12.8 12.4 10-20 Random Glucose 117 148 70-99 mg/dl Lactic Acid Level 2.7 2.2 0.4-2.0 mmol/L Calcium Level 7.7 7.8 8.5-10.1 mg/dl Magnesium Level 1.6 1.8-2.4 mg/dl Total Bilirubin 0.7 0.7 0.2-1 mg/dl Aspartate Amino Transf (AST/SGOT) 78 72 15-37 U/L Alanine Aminotransferase (ALT/SGPT) 34 34 12-78 U/L Alkaline Phosphatase 673 727 45-117 U/L Ammonia 39.0 39.0 11-32 umol/L Total Protein 5.9 5.6 6.4-8.2 gm/dl Albumin 2.4 2.3 3.4-5.0 gm/dl Globulin 3.5 3.3 2.5-4.0 gm/dl Albumin/Globulin Ratio 0.7 0.7 0.9-2 White Blood Count 4.82 4.8-10.8 K/uL Red Blood Count 3.50 4.2-5.4 M/uL Mean Corpuscular Volume 88.9 80-100 fL Mean Corpuscular Hemoglobin 26.9 25-34 pg Mean Corpuscular Hemoglobin Concent 30.2 32-36 g/dl RDW Standard Deviation 60.9 36.4-46.3 fL RDW Coefficient of Variation 18.9 11.5-14.5 % Platelet Count 151 130-400 K/uL Mean Platelet Volume 9.2 7.4-10.4 fL Test 07/05/17 05:59 07/05/17 07:41 Range/Units Arterial Blood pH 7.39 7.49 7.35-7.45 Arterial Blood Partial Pressure CO2 60 44 35-46 mmHg Arterial Blood Partial Pressure O2 57 53 80-95 mm/Hg Arterial Blood HCO3 35 32 19-24 mmol/L Arterial Blood Oxygen Saturation 86.0 86.0 90-95 % Arterial Blood Base Excess 9.1 7.9 -9-1.8 mEq/L Arterial Blood Gas Delivery 55% 65% Ramakrishna Test POS POS POS Microbiology Results 07/04/17 Blood Culture, Received Pending 07/04/17 Blood Culture, Received Pending 07/04/17 Urine Culture - Preliminary, Resulted Escherichia Coli
[2017-07-04] MEDS ORDERED: METHYLPREDNISOLONE IV 20 MG in SYRINGE 0 ML IV ONE (22:45)
[2017-07-04] MEDS ORDERED: LACTULOSE SYRUP 200 GM, WATER, STERILE IRRIG 700 ML, BARCODE IDENTIFIER 1 EA PR SCH ×2 (23:00)
[2017-07-04] MEDS: POTASSIUM CHLR 10 MEQ / WTR 10 MEQ in PREMIXED WATER 100 ML IV SCH (23:16)
[2017-07-05] VITALS (20 sets, daily range): BP systolic 97–126; BP diastolic 58–74; PULSE 73–100; TEMP 36.6–37.4; O2SAT 85–99
[2017-07-05] MEDS: POTASSIUM CHLR 10 MEQ / WTR 10 MEQ in PREMIXED WATER 100 ML IV SCH ×3 (00:26→02:24)
[2017-07-05] MEDS: PIPERACILL/TAZOBAC IV 4.5 GM in DEXTROSE 5% 100ML IV SCH ×3 (03:36→20:27)
[2017-07-05 06:10] LABS: HEMATOCRIT 31.1 % (37-47); MEAN CELL VOLUME 88.9 fL (80-100); MEAN CORPUSCULAR HEMOGLOBIN 26.9 pg (25-34); MEAN CORPUSCULAR HGB CONC 30.2 g/dl (32-36); MEAN PLATELET VOLUME 9.2 fL (7.4-10.4); PLATELET COUNT 151 K/uL (130-400); WHITE BLOOD COUNT 4.82 K/uL (4.8-10.8)
[2017-07-05 06:12] LABS: ARTERIAL BLOOD GAS BASE EXCESS 9.1 mEq/L (-9-1.8); ARTERIAL BLOOD GAS HCO3 35 mmol/L (19-24); ARTERIAL BLOOD GAS PO2 57 mm/Hg (80-95); ARTERIAL BLOOD GAS pH 7.39 (7.35-7.45)
[2017-07-05 06:14] LABS: ALLEN TEST POS (POS)
[2017-07-05] MEDS ORDERED: METHYLPREDNISOLONE IV 40 MG in SYRINGE 0 ML IV ONE (06:30)
[2017-07-05 06:47] LABS: ALB/GLOB RATIO 0.7 (0.9-2); BUN/CREATININE RATIO 12.4 (10-20); CALCIUM 7.8 mg/dl (8.5-10.1); CREATININE 0.68 mg/dl (0.60-1.20); POTASSIUM 4.1 mmol/L (3.5-5.1)
[2017-07-05] MEDS: IPRATROPIUM BROMIDE NEB SOLN 0.02% 2.5 ML VIAL INH SCH ×3 (07:17→19:05)
[2017-07-05] MEDS: LEVALBUTEROL 1.25MG/0.5ML NEB INH SCH ×3 (07:17→19:05)
[2017-07-05 07:56] LABS: ALLEN TEST POS (POS); ARTERIAL BLOOD GAS BASE EXCESS 7.9 mEq/L (-9-1.8); ARTERIAL BLOOD GAS HCO3 32 mmol/L (19-24); ARTERIAL BLOOD GAS PO2 53 mm/Hg (80-95); ARTERIAL BLOOD GAS pH 7.49 (7.35-7.45); O2 ADMINISTRATION 65%
[2017-07-05] MEDS: FLUOXETINE HCL 20 MG CAP PO SCH (08:08)
[2017-07-05] MEDS: SPIRONOLACTONE 100 MG TAB PO SCH (08:09)
[2017-07-05] MEDS: POTASSIUM CHLORIDE 20 MEQ TABCR PO SCH (08:16)
[2017-07-05] MEDS: CALCIUM 600MG + VIT D 400 IU TAB PO SCH (08:16)
[2017-07-05] MEDS: ATORVASTATIN 40 MG TAB PO SCH (08:17)
[2017-07-05] MEDS: MULTIVITAMIN TAB PO SCH (08:18)
[2017-07-05] MEDS: THIAMINE HCL 100 MG TAB PO SCH (08:18)
[2017-07-05] MEDS: FUROSEMIDE INJ 40 MG in SYRINGE 0 ML IV SCH ×2 (08:29→17:03)
--- NOTE | 2017-07-05 08:47 | Progress Note ---
Internal Med Progress Note Date of Service: Jul 05, 2017. Provider Documentation: SUBJECTIVE: Seen and examined at bedside. Currently on BiPAP Denies any chest pain, Abd pain, nausea. More alert, awake. Has intermittent cough OBJECTIVE: Vital Signs-as noted below Physical Exam: General Appearance:Moderately built and nourished, no apparent distress Head: normocephalic, Atraumatic Eyes: normal inspection, EOMI, PERRL Neck: supple, Trachea midline Respiratory/Chest: Decreased breath sounds, B/L ronchi Cardiovascular: S1, S2, +Tachycardia, No murmur Abdomen/GI:Soft, Non tender, +Distended, Bowel sounds present Extremities/Musculoskelatal:normal inspection, B/L 2+ LE edema Neurologic/Psych:grossly no focal neurological deficits Skin: normal color, warm Lab data as noted below. ASSESSMENT & PLAN: GENERALIZED WEAKNESS, FALL likely multifactorial due to comorbidities, alcohol abuse, Hypercapnia, Infection Denies head trauma, LOC PT/OT VOLUME OVERLOAD H/O CIRRHOSIS, SYSTOLIC CHF Non compliance to medications Patient presented with generalized weakness and fall while trying to get out of bed Last ECHO:01/2017 - EF 50-55% S/P paracentesis on 07/04: no signs of SBP Continue diuretics, lactulose GI consulted Monitor LFTs ACUTE ON CHRONIC HYPOXIC/HYPERCARBIC RESPIRATORY FAILURE H/O COPD: Unlikely COPD exacerbation:large AA gradient CHRONIC OXYGEN DEPENDENCY:4L of oxygen, Non compliance POSSIBLE ASPIRATION PNEUMONIA Likely contributors:Obesity Hypoventilation syndrome, DEBORAH Continue IV Zosyn, bronchodilators S/P IV Solu-Medrol. will discontinue per Pulmonary recommendations Oxygen support Appreciate Pulmonology input Bubble Study in no shunt. ruled out Hepatopulmonary syndrome Incentive Spirometry UTI UA suggestive of UTI and patient reports urinary frequency Continue IV Zosyn Follow up blood/urine cultures METABOLIC/TOXIC ENCEPHALOPATHY: Likely multifactorial alcohol abuse, hypercardia, infection Improving LACTIC ACIDOSIS Multifactorial: hypoxia, liver disease, ? infectious lactic acid 3.4 >>> 2.4>>>2.2 monitor ALCOHOL ABUSE 3-4 drinks of Francoise / day withdrawal protocol with Gabapentin Continue multivitamin, folic acid, thiamine supplements HYPOKALEMIA Resolved Mg:normal Monitor DEPRESSION, ANXIETY, SCHIZOPHRENIA continue fluoxetine and Risperdal HLD continue statin DVT Px: SQ Lovenox CODE STATUS full code DISPOSITION: Monitor in Tele director of medical staff services consulted Vital Signs: Date Time Temp Pulse Resp B/P (MAP) Pulse Ox O2 Delivery O2 Flow Rate FiO2 07/05/17 12:54 95 BiPAP 65 07/05/17 11:41 36.9 91 26 121/74 (90) 99 BiPAP 07/05/17 07:45 98 BiPAP 65 07/05/17 07:27 36.6 96 28 109/63 (78) 90 BiPAP 07/05/17 07:18 100 91 65 07/05/17 07:18 100 16 91 BiPAP/CPAP 65 07/05/17 06:30 100 90 65 07/05/17 05:15 99 85 40 07/05/17 04:00 92 BiPAP 55 07/05/17 03:55 36.7 73 20 126/65 (85) 94 BiPAP 07/05/17 02:20 76 92 40 07/05/17 00:00 37.0 88 20 105/61 (76) 94 CPAP 07/04/17 23:59 94 BiPAP 50 07/04/17 22:37 100 99 40 07/04/17 22:37 100 16 99 BiPAP/CPAP 50 07/04/17 21:33 96 50 07/04/17 21:28 100 16 96 BiPAP/CPAP 50 07/04/17 21:00 91 88 50 07/04/17 20:00 91 Oxymask 4.0 07/04/17 19:44 37.0 89 20 138/64 (88) 95 Room Air 07/04/17 16:15 Nasal Cannula 2.0 07/04/17 16:15 36.8 83 20 119/65 (83) 94 Nasal Cannula 2.0 07/04/17 15:42 102 20 141/83 94 Nasal Cannula 2.0 07/04/17 14:19 103 17 119/71 91 Nasal Cannula 2.0 07/04/17 14:08 93 Nasal Cannula 2.0 07/04/17 13:34 130/78 07/04/17 13:32 96 15 93 Room Air 07/04/17 13:17 99 15 93 Room Air Lab Results: Results Past 24 Hours Test 07/04/17 15:44 07/04/17 18:35 07/04/17 21:12 07/05/17 05:41 Range/Units Lactic Acid Level 2.4 2.7 0.4-2.0 mmol/L Potassium Level 2.8 3.1 4.1 3.5-5.1 mmol/L Pro-B-Type Natriuretic Peptide 173 0-900 pg/ml Hemoglobin 8.8 9.4 12.0-16.0 g/dL Hematocrit 28.6 31.1 37-47 % Activated Partial Thromboplast Time 33.4 21.0-31.0 SECONDS Partial Thromboplastin Ratio 1.3 Arterial Blood pH 7.45 7.35-7.45 Arterial Blood Partial Pressure CO2 50 35-46 mmHg Arterial Blood Partial Pressure O2 49 80-95 mm/Hg Arterial Blood HCO3 34 19-24 mmol/L Arterial Blood Oxygen Saturation 83.1 90-95 % Arterial Blood Base Excess 9.1 -9-1.8 mEq/L Arterial Blood Gas Delivery 25% FIO2 Ramakrishna Test POS POS Sodium Level 139 139 136-145 mmol/L Chloride Level 97 100 98-107 mmol/L Carbon Dioxide Level 34 35 21-32 mmol/L Anion Gap 8.0 4.0 3-11 mmol/L Blood Urea Nitrogen 8 8 7-18 mg/dl Creatinine 0.60 0.68 0.60-1.20 mg/dl Est Creatinine Clear Calc Drug Dose 114.3 89.6 ml/min Estimated GFR () 111.6 107.1 Estimated GFR (Non- 96.3 92.4 BUN/Creatinine Ratio 12.8 12.4 10-20 Random Glucose 117 148 70-99 mg/dl Calcium Level 7.7 7.8 8.5-10.1 mg/dl Magnesium Level 1.6 1.8-2.4 mg/dl Total Bilirubin 0.7 0.7 0.2-1 mg/dl Aspartate Amino Transf (AST/SGOT) 78 72 15-37 U/L Alanine Aminotransferase (ALT/SGPT) 34 34 12-78 U/L Alkaline Phosphatase 673 727 45-117 U/L Ammonia 39.0 39.0 11-32 umol/L Total Protein 5.9 5.6 6.4-8.2 gm/dl Albumin 2.4 2.3 3.4-5.0 gm/dl Globulin 3.5 3.3 2.5-4.0 gm/dl Albumin/Globulin Ratio 0.7 0.7 0.9-2 White Blood Count 4.82 4.8-10.8 K/uL Red Blood Count 3.50 4.2-5.4 M/uL Mean Corpuscular Volume 88.9 80-100 fL Mean Corpuscular Hemoglobin 26.9 25-34 pg Mean Corpuscular Hemoglobin Concent 30.2 32-36 g/dl RDW Standard Deviation 60.9 36.4-46.3 fL RDW Coefficient of Variation 18.9 11.5-14.5 % Platelet Count 151 130-400 K/uL Mean Platelet Volume 9.2 7.4-10.4 fL Test 07/05/17 05:49 07/05/17 05:59 07/05/17 07:41 Range/Units Lactic Acid Level 2.2 0.4-2.0 mmol/L Arterial Blood pH 7.39 7.49 7.35-7.45 Arterial Blood Partial Pressure CO2 60 44 35-46 mmHg Arterial Blood Partial Pressure O2 57 53 80-95 mm/Hg Arterial Blood HCO3 35 32 19-24 mmol/L Arterial Blood Oxygen Saturation 86.0 86.0 90-95 % Arterial Blood Base Excess 9.1 7.9 -9-1.8 mEq/L Arterial Blood Gas Delivery 55% 65% Ramakrishna Test POS POS POS
[2017-07-05] MEDS ORDERED: MULTIVITAMIN TAB PO SCH (09:00)
[2017-07-05] MEDS ORDERED: FUROSEMIDE 40 MG TAB PO SCH (09:00)
[2017-07-05] MEDS ORDERED: LEVALBUTEROL/IPRATROPIUM NEB INH SCH (09:00)
[2017-07-05] MEDS ORDERED: CEFTRIAXONE SOD INJ 1 GM in DEXTROSE 5% ADD-VANTAGE 50ML 50 ML IV SCH (10:00)
--- NOTE | 2017-07-05 10:23 | Pulmonary Consultation ---
History General Date of Service: Jul 05, 2017. Stated Complaint: Volume Overload HPI The patient is a 62 year old female who presents to [facility] with complaints of Volume Overload. The patient's primary care provider is Sultana Mcginnis M.D.. Ms. Tomlinson is a 62-year-old female with history of alcohol use and dependence complicated by a hepatic encephalopathy who was admitted on 07/04/2017 for acute alcoholic intoxication. Per EMR, she was she was found intoxicated by her incontinent of stool and urine. No witnessed seizures were noted. Patient was noted to have increased lower extremity swelling and edema and increased abdominal girth. She denies any increased shortness of breath, fevers , chills, cough or chest tightness. Patient does have a history of COPD on home oxygen also no official PFTs are on record. Upon arrival to the ER she was noted to be hypoxic at 88% on room air which improved on 2 L initially. Chest x-ray was done and showed no acute cardiopulmonary process. Abdominal ultrasound was done which showed a large amount of ascites. She underwent large volume paracentesis with removal of 5 L of fluid. Patient was admitted to medical floor for acute alcohol intoxication, hypokalemia. During the course of the night patient had increasing oxygen requirements after desaturating into the 80s. She was placed on oxygen mask with minimal improvement. She was admitted to be increasingly more lethargic and eventually switched over to BiPAP of 12.5% FiO2 of 55%. Initial ABG on BiPAP showed 7.39/60/57/35/86% on BiPAP 12/55%. FiO2 was increased to 65% and repeat ABG was 7.49/44/53/32/86%. Repeat chest x-ray shows patchy airspace opacity in the lower lobe suggestive of pneumonia. This morning she is more awake and speaking appropriately. Patient is seen on last admission January 2017 also for hypoxia. At that time she has an elevated AA gradient. She was thought to have hepatorenal syndrome however this was ruled out as patient did not have an chemist intern atrial shunt seen on bubble study. At the time of my evaluation, she denies any complaints. She would like to be taken off the BIPAP so that she can eat. Historian: other (chart review) Review of Systems Constitutional: reports: as stated in HPI Eyes: reports: as stated in HPI ENT: reports: as stated in HPI Cardiovascular: reports: as stated in HPI Respiratory: reports: as stated in HPI Gastrointestinal: reports: as stated in HPI Genitourinary - Female: reports: as stated in HPI Musculoskeletal: reports: as stated in HPI Integumentary: reports: as stated in HPI Neurologic: reports: as stated in HPI Psychiatric: reports: as stated in HPI Endocrine: as stated in HPI Hematologic / Lymphatic: as stated in HPI Allergic / Immunologic: as stated in HPI All Other Symptoms All Other Systems: Reviewed and Negative Past Medical History Past Medical History: She has past medical history of alcohol abuse and dependence, alcoholic cirrhosis, nonischemic cardiomyopathy chronic hypercapnia and hypoxia on long- term oxygen therapy, previous tobacco use disorder, dyslipidemia, osteoporosis, schizoaffective disorder with schizophrenia, systolic CHF with an EF 30-35% seen on echocardiography in March 2016. Bubble study was also done to evaluate for intra-atrial shunt and was negative. A nuclear stress test done on 2014 showed basilar and lateral ischemia Past Surgical History: She has past surgical history of colonoscopy with polypectomy in July 2011 which was adenomatous tissue and as well as tonsillectomy. Family History Heart disease FATHER (severe [place] age 40; lived to be 70; had several bypasses) Family history significant for heart disease. Her father had a [place] at age 40 lived to be 70 and had several bypass surgeries. She also has family history of kidney disease and kidney stones as well as cancer. Social History She is a former smoker. She is an active alcohol user. Denies any illicit drugs. Hx Tobacco Use In Past Year?: Yes (..) Smoking Status: Current Every Day Smoker Marital status: Immunizations History of Influenza Vaccine: Yes Influenza Vaccine Date: Aug 01, 2015 History of Pneumococcal: Yes Pneumococcal Date: Oct 11, 2015 History of MDRO History of MDRO: No Allergies Coded Allergies: No Known Allergies (Unverified , nkda, 04/01/16) Current Medications Reported Home Medications Medications Dose Route/Sig Max Daily Dose Days Date Category Multivitamin (Multivitamins) Tab 1 Tab PO DAILY 07/04/17 Reported Caltrate 600 (Calcium Carbonate) Unknown Strength Tab 1 Tab PO DAILY 07/04/17 Reported Risperdal (Risperidone) 4 Mg Tab 4 Mg PO QPM 07/04/17 Reported Prozac (Fluoxetine HCl) 40 Mg Cap 40 Mg PO QAM 07/04/17 Reported Lipitor (Atorvastatin Calcium) 80 Mg Tab 80 Mg PO DAILY 07/04/17 Reported Physical Physical Exam Vital Signs: Date Time Temp Pulse Resp B/P (MAP) Pulse Ox O2 Delivery O2 Flow Rate FiO2 07/05/17 07:45 98 BiPAP 65 07/05/17 07:27 36.6 96 28 109/63 (78) 90 BiPAP 07/05/17 07:18 100 91 65 07/05/17 07:18 100 16 91 BiPAP/CPAP 65 07/05/17 06:30 100 90 65 07/05/17 05:15 99 85 40 07/05/17 04:00 92 BiPAP 55 07/05/17 03:55 36.7 73 20 126/65 (85) 94 BiPAP 07/05/17 02:20 76 92 40 07/05/17 00:00 37.0 88 20 105/61 (76) 94 CPAP 07/04/17 23:59 94 BiPAP 50 07/04/17 22:37 100 99 40 07/04/17 22:37 100 16 99 BiPAP/CPAP 50 07/04/17 21:33 96 50 07/04/17 21:28 100 16 96 BiPAP/CPAP 50 07/04/17 21:00 91 88 50 07/04/17 20:00 91 Oxymask 4.0 07/04/17 19:44 37.0 89 20 138/64 (88) 95 Room Air 07/04/17 16:15 Nasal Cannula 2.0 07/04/17 16:15 36.8 83 20 119/65 (83) 94 Nasal Cannula 2.0 07/04/17 15:42 102 20 141/83 94 Nasal Cannula 2.0 07/04/17 14:19 103 17 119/71 91 Nasal Cannula 2.0 07/04/17 14:08 93 Nasal Cannula 2.0 07/04/17 13:34 130/78 07/04/17 13:32 96 15 93 Room Air 07/04/17 13:17 99 15 93 Room Air 07/04/17 13:06 98 07/04/17 13:02 100 19 93 Room Air 07/04/17 13:00 120/79 07/04/17 12:47 94 19 93 07/04/17 12:32 97 18 94 07/04/17 12:32 97 15 134/79 94 Room Air 07/04/17 12:17 97 22 92 07/04/17 12:02 97 13 94 07/04/17 12:00 134/79 07/04/17 11:47 95 16 93 07/04/17 11:32 100 21 93 07/04/17 11:17 97 18 94 07/04/17 11:04 107/74 07/04/17 11:04 98 18 107/74 94 Nasal Cannula 2.0 07/04/17 11:02 98 16 93 07/04/17 10:47 98 24 94 07/04/17 10:32 99 19 94 07/04/17 10:25 36.9 07/04/17 10:17 95 16 95 07/04/17 10:14 94 Nasal Cannula 2.0 07/04/17 10:09 36.6 99 16 155/69 94 Nasal Cannula 2.0 07/04/17 10:07 88 Room Air 07/04/17 10:02 97 17 94 General Appearance: Awake, alert and orientated x3, NAD, on BIPAP Head: NORMOCEPHALIC Eyes: PERRLA, NO DISCHARGE, EOMI (mildly yellow sclera bilaterally), other ENT: NORMAL EAR EXAM, NORMAL NASAL EXAM, NORMAL MOUTH EXAM, NORMAL THROAT EXAM Neck: NORMAL RANGE OF MOTION, NO TENDERNESS, TRACHEA MIDLINE, NO STRIDOR Respiratory: BREATH SOUNDS NORMAL, CLEAR TO AUSCULTATION, CLEAR TO PERCUSSION, other (anterior thoracic wall notable spider angioma) Cardiovasular: REGULAR RATE/RHYTHM, NORMAL S1S2, NO M/G/R, NO MURMUR, NO GALLOP Abdomen: other (distended with fluid shift notable spider angioma) Genitourinary - Female: EXTERNAL GENITALIA NORMAL Back: NORMAL INSPECTION, NO MIDLINE TENDERNESS, NO CVA TENDERNESS, NO PARAVERTEBRAL TTP Upper Extremities: NO EDEMA, NO DEFORMITY, NORMAL ROM, no cyanosis, no clubbing Lower Extremities: edema Edema: Bilateral LE (1+) Pulses: carotid (R) (2+), carotid (L) (2+), dorsalis pedis (R) (2+), dorsalis pedis (L) (2+) Neuro: other (arousable but not orientated to person place or time) Reflexes: biceps (R) (3+), bicpes (L) (3+) Babinski Testing: right (equivocal), left (equivocal) Psychiatric: other (altered) Diagnostics Labs Results Past 24 Hours Test 07/04/17 10:28 07/04/17 10:55 07/04/17 11:02 07/04/17 15:44 Range/Units White Blood Count 7.49 4.8-10.8 K/uL Red Blood Count 3.54 4.2-5.4 M/uL Hemoglobin 9.5 12.0-16.0 g/dL Hematocrit 31.0 37-47 % Mean Corpuscular Volume 87.6 80-100 fL Mean Corpuscular Hemoglobin 26.8 25-34 pg Mean Corpuscular Hemoglobin Concent 30.6 32-36 g/dl Platelet Count 180 130-400 K/uL Mean Platelet Volume 8.9 7.4-10.4 fL Neutrophils (%) (Auto) 69.7 % Lymphocytes (%) (Auto) 13.5 % Monocytes (%) (Auto) 15.0 % Eosinophils (%) (Auto) 1.1 % Basophils (%) (Auto) 0.4 % Neutrophils # (Auto) 5.23 1.4-6.5 K/uL Lymphocytes # (Auto) 1.01 1.2-3.4 K/uL Monocytes # (Auto) 1.12 0.11-0.59 K/uL Eosinophils # (Auto) 0.08 0-0.5 K/uL Basophils # (Auto) 0.03 0-0.2 K/uL RDW Standard Deviation 59.6 36.4-46.3 fL RDW Coefficient of Variation 18.6 11.5-14.5 % Immature Granulocyte % (Auto) 0.3 % Immature Granulocyte # (Auto) 0.02 0.00-0.02 K/uL Erythrocyte Sedimentation Rate 19 0-21 mm/hr Prothrombin Time 12.6 9.0-12.0 SECONDS Prothromb Time International Ratio 1.2 0.9-1.1 Activated Partial Thromboplast Time 29.5 21.0-31.0 SECONDS Partial Thromboplastin Ratio 1.1 Sodium Level 138 136-145 mmol/L Potassium Level 2.7 3.5-5.1 mmol/L Chloride Level 97 98-107 mmol/L Carbon Dioxide Level 32 21-32 mmol/L Anion Gap 9.0 3-11 mmol/L Blood Urea Nitrogen 8 7-18 mg/dl Creatinine 0.65 0.60-1.20 mg/dl Est Creatinine Clear Calc Drug Dose 105.5 ml/min Estimated GFR () 108.7 Estimated GFR (Non- 93.8 BUN/Creatinine Ratio 11.5 10-20 Random Glucose 112 70-99 mg/dl Lactic Acid Level 3.4 2.4 0.4-2.0 mmol/L Calcium Level 7.9 8.5-10.1 mg/dl Magnesium Level 1.8 1.8-2.4 mg/dl Total Bilirubin 0.6 0.2-1 mg/dl Direct Bilirubin 0.4 0-0.2 mg/dl Aspartate Amino Transf (AST/SGOT) 82 15-37 U/L Alanine Aminotransferase (ALT/SGPT) 38 12-78 U/L Alkaline Phosphatase 729 45-117 U/L Ammonia 30.0 11-32 umol/L Total Creatine Kinase 33 26-192 U/L Creatine Kinase MB 1.2 0.5-3.6 ng/ml Creatine Kinase MB Ratio 3.6 0-3.0 Troponin I < 0.015 0-0.045 ng/ml Total Protein 6.0 6.4-8.2 gm/dl Albumin 2.0 3.4-5.0 gm/dl Lipase 117 73-393 U/L Thyroid Stimulating Hormone (TSH) 7.060 0.300-4.500 uIu/ml Free Thyroxine 1.17 0.80-1.60 ng/dl Hepatitis C Antibody Screen NEG NEG Ethyl Alcohol mg/dL 165.0 0-3 mg/dl Urine Color DK YELLOW Urine Appearance CLOUDY CLEAR Urine pH 5.5 4.5-7.5 Urine Specific Thorp 1.022 1.000-1.030 Urine Protein 1+ NEG Urine Glucose (UA) NEG NEG Urine Ketones TRACE NEG Urine Occult Blood NEG NEG Urine Nitrite POS NEG Urine Bilirubin 1+ NEG Urine Urobilinogen NEG NEG Urine Leukocyte Esterase TRACE NEG Urine WBC (Auto) 1-5 0-5 /hpf Urine RBC (Auto) 0-4 0-4 /hpf Urine Hyaline Casts (Auto) 5-10 0-5 /lpf Urine Epithelial Cells (Auto) >30 0-5 /lpf Urine Bacteria (Auto) 4+ NEG Urine Opiates Screen NEG NEG Urine Methadone, Qualitative NEG NEG Urine Barbiturates NEG NEG Urine Phencyclidine (PCP) Level NEG NEG Ur Amphetamine/Methamphetamine NEG NEG MDMA (Ecstasy) Screen NEG NEG Urine Benzodiazepines Screen NEG NEG Urine Cocaine Metabolite NEG NEG Urine Marijuana (THC) NEG NEG Test 07/04/17 18:35 07/04/17 21:12 07/05/17 05:41 07/05/17 05:49 Range/Units Potassium Level 2.8 3.1 4.1 3.5-5.1 mmol/L Pro-B-Type Natriuretic Peptide 173 0-900 pg/ml Hemoglobin 8.8 9.4 12.0-16.0 g/dL Hematocrit 28.6 31.1 37-47 % Activated Partial Thromboplast Time 33.4 21.0-31.0 SECONDS Partial Thromboplastin Ratio 1.3 Arterial Blood pH 7.45 7.35-7.45 Arterial Blood Partial Pressure CO2 50 35-46 mmHg Arterial Blood Partial Pressure O2 49 80-95 mm/Hg Arterial Blood HCO3 34 19-24 mmol/L Arterial Blood Oxygen Saturation 83.1 90-95 % Arterial Blood Base Excess 9.1 -9-1.8 mEq/L Arterial Blood Gas Delivery 25% FIO2 Ramakrishna Test POS POS Sodium Level 139 139 136-145 mmol/L Chloride Level 97 100 98-107 mmol/L Carbon Dioxide Level 34 35 21-32 mmol/L Anion Gap 8.0 4.0 3-11 mmol/L Blood Urea Nitrogen 8 8 7-18 mg/dl Creatinine 0.60 0.68 0.60-1.20 mg/dl Est Creatinine Clear Calc Drug Dose 114.3 89.6 ml/min Estimated GFR () 111.6 107.1 Estimated GFR (Non- 96.3 92.4 BUN/Creatinine Ratio 12.8 12.4 10-20 Random Glucose 117 148 70-99 mg/dl Lactic Acid Level 2.7 2.2 0.4-2.0 mmol/L Calcium Level 7.7 7.8 8.5-10.1 mg/dl Magnesium Level 1.6 1.8-2.4 mg/dl Total Bilirubin 0.7 0.7 0.2-1 mg/dl Aspartate Amino Transf (AST/SGOT) 78 72 15-37 U/L Alanine Aminotransferase (ALT/SGPT) 34 34 12-78 U/L Alkaline Phosphatase 673 727 45-117 U/L Ammonia 39.0 39.0 11-32 umol/L Total Protein 5.9 5.6 6.4-8.2 gm/dl Albumin 2.4 2.3 3.4-5.0 gm/dl Globulin 3.5 3.3 2.5-4.0 gm/dl Albumin/Globulin Ratio 0.7 0.7 0.9-2 White Blood Count 4.82 4.8-10.8 K/uL Red Blood Count 3.50 4.2-5.4 M/uL Mean Corpuscular Volume 88.9 80-100 fL Mean Corpuscular Hemoglobin 26.9 25-34 pg Mean Corpuscular Hemoglobin Concent 30.2 32-36 g/dl RDW Standard Deviation 60.9 36.4-46.3 fL RDW Coefficient of Variation 18.9 11.5-14.5 % Platelet Count 151 130-400 K/uL Mean Platelet Volume 9.2 7.4-10.4 fL Test 07/05/17 05:59 07/05/17 07:41 Range/Units Arterial Blood pH 7.39 7.49 7.35-7.45 Arterial Blood Partial Pressure CO2 60 44 35-46 mmHg Arterial Blood Partial Pressure O2 57 53 80-95 mm/Hg Arterial Blood HCO3 35 32 19-24 mmol/L Arterial Blood Oxygen Saturation 86.0 86.0 90-95 % Arterial Blood Base Excess 9.1 7.9 -9-1.8 mEq/L Arterial Blood Gas Delivery 55% 65% Ramakrishna Test POS POS POS Microbiology Results 07/04/17 Blood Culture, Received Pending 07/04/17 Blood Culture, Received Pending 07/04/17 Urine Culture - Preliminary, Resulted Escherichia Coli Diagnostic Radiology Chest x-ray 07/04/2017 IMPRESSION: Patchy airspace opacities within the left lower lobe. This likely represents a pneumonia possibly secondary to aspiration. Liver ultrasound 07/04/2017 IMPRESSION: 1. Small amount of ascites status post paracentesis. 2. Cirrhotic and enlarged liver. 3. Normal gallbladder. No gallstones. TTE 04/01/2016 The left ventricle is normal in size. Left ventricular systolic function is moderately reduced. Ejection Fraction = 30-35%. The right ventricular systolic function is normal. No significant valvular pathology CT thorax 01/09/2015 No pulmonary emboli noted Moderate cardiomegaly is pericardial effusion Bilateral lower lobe opacity suggestive of atelectasis No focal areas of consolidation Impression Assessment and Plan Alcohol intoxication Metabolic encephalopathy Acute on chronic hypercapnic and hypoxic respiratory insufficiency Liver cirrhosis and ascites Patient appears to have acute respiratory decompensation. This appears to multifactorial in nature. She does have questionable history of COPD and is on long-term oxygen therapy however appears to be noncompliant. Upon arrival to ER she was hypoxic which responded slightly to supplemental oxygen however required BiPAP for increasing hypercapnia and hypoxia on ABG. Patient does still have a large AA gradient dyspneic despite oxygen therapy suggestive of a shunt. On previous admission patient did have a of ascites to rule out hepatorenal syndrome which was negative. Patient's distended abdomen most likely predisposes her to atelectasis and contributing to worsening hypoxia. She has some increased opacifications in the left lower lobe not seen on previous x-ray the chest suggestive of a possible pneumonic process. Her mental status waxes and wanes so she is at high risk for aspiration. She denies any changes in fever, chills, cough, exercise tolerance or sputum production. I doubt this is a pneumonia. She also has accompanying hypercapnia which is may suggest element of obstructive sleep apnea and obesity hypoventilation syndrome, which are worsened by sedatives and alcohol use. At the current time I recommend continue BiPAP. However, at current settings of 14/8. Titrate FiO2 as tolerated It's been seen in SaO2 between 88-92%. I do not feel this is a COPD exacerbation and would discontinue corticosteroids Continue with empiric antibiotics for now. Repeat CXR to evaluate for interval resolution. Continue with bronchodilators when necessary Avoid sedatives if at all possible as this does worsen hypercapnia. Monitor for alcohol withdrawal. Incentive spirometry. She should have full PFT done as an outpatient. I appreciate the consult and will continue to follow with you.
[2017-07-05] MEDS: GABAPENTIN 600MG Q8H DOSE PO SCH ×2 (12:30→21:18)
--- NOTE | 2017-07-05 12:30 | ECHOCARDIOGRAM REPORT ---
*NOTICE TO RECEIVING DEMOCRAT AGENCY This information is strictly Confidential and protected under [place] law. [place] law prohibits you from making any further disclosure of this information unless further disclosure is expressly permitted by the written consent of the person to whom it pertains or is authorized by law. A general authorization for the release of medical or other information is not sufficient for this purpose. Hospital accepts no responsibility if the information is made available to any other person, INCLUDING THE PATIENT. Interpretation Summary * Name: VENESSA SEAMAN Study Date: 07/05/2017 09:29 AM BP: 126/65 mmHg * Patient Location: C.2T\S\S238\S\1 HR: 95 * : 1955 (M/d/yyyy) Gender: Female Height: 64 in * Age: 62 yrs Ethnicity: CA Weight: 240 lb * Ordering Physician: Laurie Powell * Referring Physician: Self, Referred * Performed By: Rachel Gifford RCS * * Reason For Study: CHF * BSA: 2.1 m2 * Grossly normal valvular structure and function. * The study was technically limited. * -- Conclusions -- * The left ventricle is normal in size. * Ejection Fraction = 55-60%. * The right ventricular systolic function is normal. * The left atrial size is normal. * Right atrial size is normal. * Grossly normal valvular structure and function. * The study was technically limited. Procedure Details * A contrast injection of Definity was performed to improve assessment of LV function. * Contrast was injected into an intravenous site in the left arm. * One vial of Definity ultrasound contrast was diluted in normal saline to a total volume of 10 ml. A total of '4' ml of solution was administered during imaging. * Lot # [id number] of Definity utilized for procedure. * Expiration date . Left Ventricle * The left ventricle is normal in size. * There is normal left ventricular wall thickness. * Ejection Fraction = 55-60%. Right Ventricle * The right ventricle is grossly normal size. * The right ventricular systolic function is normal. Atria * The left atrial size is normal. * Right atrial size is normal. * There is no evidence of atrial septal defect, but resolution does not allow assessment for a patent foramen ovale. Mitral Valve * The mitral valve is grossly normal. * Significant mitral regurgitation is absent. Tricuspid Valve * The tricuspid valve is not well visualized. * Significant tricuspid regurgitation is absent. Aortic Valve * The aortic valve is tricuspid. The leaflet thickness if normal. There is no aortic stenosis, and no significant insufficiency. * No hemodynamically significant valvular aortic stenosis. * There is no significant aortic regurgitation. Pulmonic Valve * The pulmonic valve is not well visualized. Great Vessels * The aortic root and proximal ascending aorta are normal sized. Pericardium/Pleural * There is no pericardial effusion. MMode 2D Measurements and Calculations IVSd 0.87 cm LVIDd 5.5 cm LVIDs 3.8 cm LVPWd 1.0 cm IVS/LVPW 0.85 FS 31.5 % EDV(Teich) 146.5 ml ESV(Teich) 60.3 ml EF(Teich) 58.8 % EDV(cubed) 165.1 ml ESV(cubed) 53.1 ml EF(cubed) 67.8 % LV mass(C)d 196.8 grams LV mass(C)dI 93.1 grams/m\S\2 SV(Teich) 86.2 ml SI(Teich) 40.8 ml/m\S\2 SV(cubed) 112.0 ml SI(cubed) 53.0 ml/m\S\2 Ao root diam 2.4 cm Ao root area 4.5 cm\S\2 LVOT diam 2.0 cm LVOT area 3.1 cm\S\2 LVAd ap4 29.9 cm\S\2 LVLd ap4 8.7 cm EDV(MOD-sp4) 86.6 ml EDV(sp4-el) 87.5 ml LVAs ap4 20.2 cm\S\2 LVLs ap4 8.1 cm ESV(MOD-sp4) 40.4 ml ESV(sp4-el) 42.3 ml EF(MOD-sp4) 53.4 % EF(sp4-el) 51.6 % LVAd ap2 29.8 cm\S\2 LVLd ap2 8.1 cm EDV(MOD-sp2) 86.9 ml EDV(sp2-el) 93.5 ml LVAs ap2 16.8 cm\S\2 LVLs ap2 7.3 cm ESV(MOD-sp2) 31.3 ml ESV(sp2-el) 33.0 ml EF(MOD-sp2) 63.9 % EF(sp2-el) 64.8 % LVLd %diff -7.57 % EDV(MOD-bp) 87.1 ml LVLs %diff -12.21 % ESV(MOD-bp) 37.9 ml EF(MOD-bp) 56.5 % SV(MOD-sp4) 46.3 ml SI(MOD-sp4) 21.9 ml/m\S\2 SV(MOD-sp2) 55.5 ml SI(MOD-sp2) 26.3 ml/m\S\2 SV(MOD-bp) 49.2 ml SI(MOD-bp) 23.3 ml/m\S\2 SV(sp4-el) 45.2 ml SI(sp4-el) 21.4 ml/m\S\2 SV(sp2-el) 60.6 ml SI(sp2-el) 28.7 ml/m\S\2 Doppler Measurements and Calculations MV E max mague 117.5 cm/sec MV A max mague 121.0 cm/sec MV E/A 0.97 MV dec time 0.14 sec LV V1 max PG 4.0 mmHg LV V1 max 80.5 cm/sec
[2017-07-05] MEDS: RISPERIDONE 2 MG TAB PO SCH (21:00)
[2017-07-05] MEDS: ENOXAPARIN 40 MG/0.4 ML SYR SQ SCH (21:19)
[2017-07-05 21:22] LABS: ARTERIAL BLD GAS O2 SATURATION 90.5 % (90-95); ARTERIAL BLOOD GAS BASE EXCESS 10.3 mEq/L (-9-1.8); ARTERIAL BLOOD GAS HCO3 36 mmol/L (19-24); ARTERIAL BLOOD GAS PO2 68 mm/Hg (80-95); ARTERIAL BLOOD GAS pH 7.44 (7.35-7.45)
[2017-07-05 21:24] LABS: ALLEN TEST POS (POS); O2 ADMINISTRATION 65%
[2017-07-05] MEDS ORDERED: LACTULOSE 200GM/700ML WTR ENEMA PR ONE (22:00)
[2017-07-05] MEDS ORDERED: THIAMINE HCL INJ 100 MG in SYRINGE 9 ML IV ONE (22:30)
[2017-07-05] MEDS ORDERED: LACTULOSE SYRUP 200 GM, WATER, STERILE IRRIG 700 ML, BARCODE IDENTIFIER 1 EA PR ONE ×2 (22:30)
[2017-07-06] VITALS (16 sets, daily range): BP systolic 100–113; BP diastolic 60–72; PULSE 81–102; TEMP 36.7–37.4; O2SAT 92–95
[2017-07-06] MEDS: IPRATROPIUM BROMIDE NEB SOLN 0.02% 2.5 ML VIAL INH SCH ×3 (01:45→19:34)
[2017-07-06] MEDS: LEVALBUTEROL 1.25MG/0.5ML NEB INH SCH ×3 (01:45→19:34)
[2017-07-06] MEDS: PIPERACILL/TAZOBAC IV 4.5 GM in DEXTROSE 5% 100ML IV SCH ×3 (04:25→20:12)
[2017-07-06 06:04] LABS: BASO % 0.1 %; BASO ABS # 0.01 K/uL (0-0.2); EOS % 0.5 %; HEMATOCRIT 29.5 % (37-47); IG% 0.3 %; LYMPH % 15.2 %; LYMPH ABS # 1.12 K/uL (1.2-3.4); MEAN CELL VOLUME 88.6 fL (80-100); MEAN CORPUSCULAR HEMOGLOBIN 26.7 pg (25-34); MEAN CORPUSCULAR HGB CONC 30.2 g/dl (32-36); MEAN PLATELET VOLUME 9.1 fL (7.4-10.4); MONO % 13.7 %; NEUT % 70.2 %; PLATELET COUNT 150 K/uL (130-400); RED BLOOD COUNT 3.33 M/uL (4.2-5.4); WHITE BLOOD COUNT 7.37 K/uL (4.8-10.8)
[2017-07-06 06:06] LABS: ARTERIAL BLOOD GAS BASE EXCESS 10.8 mEq/L (-9-1.8); ARTERIAL BLOOD GAS HCO3 36 mmol/L (19-24); ARTERIAL BLOOD GAS PO2 58 mm/Hg (80-95); ARTERIAL BLOOD GAS pH 7.47 (7.35-7.45)
[2017-07-06 06:07] LABS: ALLEN TEST POS (POS); O2 ADMINISTRATION 65%
[2017-07-06 06:31] LABS: COMPLETE YES; STOMATOCYTE 1+
[2017-07-06 06:38] LABS: ALB/GLOB RATIO 0.6 (0.9-2); BUN/CREATININE RATIO 14.1 (10-20); CALCIUM 7.7 mg/dl (8.5-10.1); CREATININE 0.75 mg/dl (0.60-1.20); POTASSIUM 3.4 mmol/L (3.5-5.1)
[2017-07-06] MEDS: FUROSEMIDE INJ 40 MG in SYRINGE 0 ML IV SCH (07:40)
[2017-07-06] MEDS: FLUOXETINE HCL 20 MG CAP PO SCH (07:42)
[2017-07-06] MEDS: SPIRONOLACTONE 100 MG TAB PO SCH (07:44)
[2017-07-06] MEDS: GABAPENTIN 600MG Q8H DOSE PO SCH (07:44)
[2017-07-06] MEDS: POTASSIUM CHLORIDE 20 MEQ TABCR PO SCH (07:45)
[2017-07-06] MEDS: THIAMINE HCL 100 MG TAB PO SCH (07:46)
[2017-07-06] MEDS: MULTIVITAMIN TAB PO SCH (07:48)
[2017-07-06] MEDS: CALCIUM 600MG + VIT D 400 IU TAB PO SCH (07:49)
[2017-07-06] MEDS: ATORVASTATIN 40 MG TAB PO SCH (07:49)
[2017-07-06] MEDS ORDERED: METHYLPREDNISOLONE IV 40 MG in SYRINGE 0 ML IV SCH (09:00)
--- NOTE | 2017-07-06 09:29 | Pulmonology Progress Note ---
Pulmonary Progress Note Date of Service Jul 06, 2017. Attending Dr. Baer Subjective Patient seen examined overnight. She continues to have episodes of increased somnolence over night despite BIPAP. Ammonia and repeat ABG done. Patient more responsive this morning. She has no complaints at this time. Objective VS reviewed. Tmax 36.7, BP 107/69-108/64, P 81-96, RR 16-22, 93% on 6L NC, cummulative balance 680 ml-. General Appearance: Awake, alert and orientated x3, NAD Head: NORMOCEPHALIC Eyes: PERRLA, NO DISCHARGE, EOMI (mildly yellow sclera bilaterally), other ENT: NORMAL EAR EXAM, NORMAL NASAL EXAM, NORMAL MOUTH EXAM, NORMAL THROAT EXAM Neck: NORMAL RANGE OF MOTION, NO TENDERNESS, TRACHEA MIDLINE, NO STRIDOR Respiratory: BREATH SOUNDS NORMAL, CLEAR TO AUSCULTATION, CLEAR TO PERCUSSION, other (anterior thoracic wall notable spider angioma) Cardiovasular: REGULAR RATE/RHYTHM, NORMAL S1S2, NO M/G/R, NO MURMUR, NO GALLOP Abdomen: other (distended with fluid shift notable spider angioma) Genitourinary - Female: EXTERNAL GENITALIA NORMAL Back: NORMAL INSPECTION, NO MIDLINE TENDERNESS, NO CVA TENDERNESS, NO PARAVERTEBRAL TTP Upper Extremities: NO EDEMA, NO DEFORMITY, NORMAL ROM, no cyanosis, no clubbing Lower Extremities: edema Edema: Bilateral LE (1+) Pulses: carotid (R) (2+), carotid (L) (2+), dorsalis pedis (R) (2+), dorsalis pedis (L) (2+) Neuro: other (arousable but not orientated to person place or time) From a respiratory standpoint she is only on albuterol and xopenex. Laboratory data reviewed. Significant for K 3.4, CO2 38, Ammonia 43 WBC 7.3, Hemoglobin 8.9, Platelet 150, ABG 7.47/51/58/36/88% on BIPAP /, 65%. TTE 07/05/2017 EF 55-60%, improved from previous TTE done on March 2016. Normal RV systolic function RA and LA normal size. Assessment & Plan Alcohol intoxication Metabolic encephalopathy Acute on chronic hypercapnic and hypoxic respiratory insufficiency Liver cirrhosis and ascites Patient appears to have acute respiratory decompensation. This appears to multifactorial in nature. She does have questionable history of COPD and is on long-term oxygen therapy however appears to be noncompliant. Upon arrival to ER she was hypoxic which responded slightly to supplemental oxygen however required BiPAP for increasing hypercapnia and hypoxia on ABG. Patient does still have a large AA gradient dyspneic despite oxygen therapy suggestive of a shunt. On previous admission patient did have a of ascites to rule out hepatorenal syndrome which was negative. Patient's distended abdomen most likely predisposes her to atelectasis and contributing to worsening hypoxia. She has some increased opacifications in the left lower lobe not seen on previous x-ray the chest suggestive of a possible pneumonic process. Her mental status waxes and wanes so she is at high risk for aspiration. She denies any changes in fever, chills, cough, exercise tolerance or sputum production. I doubt this is a pneumonia. She also has accompanying hypercapnia which is may suggest element of obstructive sleep apnea and obesity hypoventilation syndrome, which are worsened by sedatives and alcohol use. At the current time I recommend continue BiPAP. However, I've increased EPAP to 8 and continued to IPAP of 18. Titrate FiO2 as tolerated It's been seen in SaO2 between 88-92%. I do not feel this is a COPD exacerbation and would discontinue corticosteroids Continue with empiric antibiotics for now. Repeat CXR to evaluate for interval resolution. Continue with bronchodilators when necessary Avoid sedatives if at all possible as this does worsen hypercapnia. Monitor for alcohol withdrawal. Incentive spirometry, flutter valve and chest PT. She should have full PFT done as an outpatient. Dr. Ribeiro will be taking over service tomorrow and will continue to follow with you. Data Medications: Current Inpatient Medications Medications (Trade) Dose Ordered Sig/Antonio Route Start Time Stop Time Status Last Admin Dose Admin Acetaminophen (Tylenol Tab) 650 mg Q4H PRN PO 07/04/17 15:00 08/03/17 14:59 Ondansetron HCl (Zofran Inj) 4 mg Q6H PRN IV 07/04/17 15:00 08/03/17 14:59 Enoxaparin Sodium (Lovenox Inj) 40 mg Q24H SQ 07/04/17 21:00 08/03/17 14:59 07/05/17 21:19 40 MG Thiamine HCl (Vitamin B-1 Tab) 100 mg DAILY PO 07/05/17 09:00 08/04/17 08:59 07/06/17 07:46 100 MG Lorazepam (Ativan Inj) 1 mg ONE PRN IV 07/04/17 15:00 Atorvastatin Calcium (Lipitor Tab) 80 mg DAILY PO 07/05/17 09:00 08/04/17 08:59 07/06/17 07:49 80 MG Fluoxetine HCl (Prozac Cap) 40 mg QAM PO 07/05/17 09:00 08/04/17 08:59 07/06/17 07:42 40 MG Risperidone (Risperdal Tab) 4 mg QPM PO 07/04/17 21:00 08/03/17 20:59 07/04/17 20:23 4 MG Calcium/Vitamin D (Caltrate Plus Tab) 1 tab DAILY PO 07/05/17 09:00 08/04/17 08:59 07/06/17 07:49 1 TAB Furosemide 40 mg/ Syringe 4 ml @ 4 mls/min BID17 IV 07/05/17 09:00 08/04/17 08:59 07/06/17 07:40 4 MLS/MIN Multivitamins (Multivitamin Tab) 1 tab DAILY PO 07/05/17 09:00 08/04/17 08:59 07/06/17 07:48 1 TAB Folic Acid (Folvite Tab) 1 mg QAM PO 07/04/17 16:00 08/03/17 15:59 07/06/17 07:47 1 MG Spironolactone (Aldactone Tab) 100 mg QAM PO 07/05/17 09:00 08/04/17 08:59 07/06/17 07:44 100 MG Gabapentin (Neurontin Tab) 600 mg Q12H PO 07/06/17 18:00 07/07/17 06:01 Gabapentin (Neurontin Tab) 600 mg Q24H PO 07/08/17 06:00 07/08/17 06:01 Albuterol/ Ipratropium (Duoneb) 3 ml Q2H PRN INH 07/04/17 21:00 08/03/17 20:59 Piperacillin Sod/ Tazobactam Sod (Consult) 1 ea UD PRN N/A 07/04/17 22:30 08/03/17 22:29 Piperacillin Sod/ Tazobactam Sod 4.5 gm/Dextrose 120 ml @ 30 mls/hr Q8H IV 07/05/17 04:00 07/12/17 03:59 07/06/17 04:25 30 MLS/HR Potassium Chloride (Klor-Con Tab) 20 meq QAM PO 07/05/17 09:00 08/04/17 08:59 07/06/17 07:45 20 MEQ Ipratropium [place] (Atrovent 0.02% 0.5MG/2.5ML Neb) 0.5 mg Q6R INH 07/05/17 09:00 08/04/17 08:59 07/06/17 07:10 0.5 MG Levalbuterol (Xopenex 1.25MG/ 0.5ML Neb) 1.25 mg Q6R INH 07/05/17 09:00 08/04/17 08:59 07/06/17 07:10 1.25 MG Vital Signs: Date Time Temp Pulse Resp B/P (MAP) Pulse Ox O2 Delivery O2 Flow Rate FiO2 07/06/17 07:30 Nasal Cannula 6.0 07/06/17 07:15 36.7 82 22 107/69 (82) 93 BiPAP 07/06/17 07:10 83 18 93 BiPAP/CPAP 65 07/06/17 07:10 83 93 65 07/06/17 05:44 81 93 65 07/06/17 04:00 92 BiPAP 65 07/06/17 03:37 36.7 96 20 108/64 (79) 93 BiPAP 07/06/17 01:45 88 16 92 BiPAP/CPAP 65 07/06/17 01:40 88 92 65 07/05/17 23:59 92 BiPAP 65 07/05/17 23:28 36.6 90 20 102/66 (78) 94 BiPAP 07/05/17 22:18 91 94 65 07/05/17 20:00 92 BiPAP 65 07/05/17 19:24 36.7 88 20 106/67 (80) 95 BiPAP 07/05/17 19:05 89 91 65 07/05/17 19:05 91 20 93 BiPAP/CPAP 65 07/05/17 16:00 93 Nasal Cannula 6.0 07/05/17 15:21 37.4 91 18 97/58 (71) 88 6.0 07/05/17 13:59 91 16 93 Nasal Cannula 6.0 07/05/17 12:54 95 BiPAP 65 07/05/17 11:41 36.9 91 26 121/74 (90) 99 BiPAP Laboratory Results: Last 24 Hours Test 07/05/17 16:00 07/05/17 21:11 07/06/17 05:49 07/06/17 05:51 Lactic Acid Level 2.6 mmol/L 1.1 mmol/L Arterial Blood pH 7.44 7.47 Arterial Blood Partial Pressure CO2 54 mmHg 51 mmHg Arterial Blood Partial Pressure O2 68 mm/Hg 58 mm/Hg Arterial Blood HCO3 36 mmol/L 36 mmol/L Arterial Blood Oxygen Saturation 90.5 % 88.0 % Arterial Blood Base Excess 10.3 mEq/L 10.8 mEq/L Arterial Blood Gas Delivery 65% 65% Ramakrishna Test POS POS Ammonia 46.0 umol/L 43.0 umol/L White Blood Count 7.37 K/uL Red Blood Count 3.33 M/uL Hemoglobin 8.9 g/dL Hematocrit 29.5 % Mean Corpuscular Volume 88.6 fL Mean Corpuscular Hemoglobin 26.7 pg Mean Corpuscular Hemoglobin Concent 30.2 g/dl Platelet Count 150 K/uL Mean Platelet Volume 9.1 fL Neutrophils (%) (Auto) 70.2 % Lymphocytes (%) (Auto) 15.2 % Monocytes (%) (Auto) 13.7 % Eosinophils (%) (Auto) 0.5 % Basophils (%) (Auto) 0.1 % Neutrophils # (Auto) 5.17 K/uL Lymphocytes # (Auto) 1.12 K/uL Monocytes # (Auto) 1.01 K/uL Eosinophils # (Auto) 0.04 K/uL Basophils # (Auto) 0.01 K/uL RDW Standard Deviation 59.9 fL RDW Coefficient of Variation 18.8 % Immature Granulocyte % (Auto) 0.3 % Immature Granulocyte # (Auto) 0.02 K/uL Stomatocytes 1+ Sodium Level 141 mmol/L Potassium Level 3.4 mmol/L Chloride Level 100 mmol/L Carbon Dioxide Level 38 mmol/L Anion Gap 3.0 mmol/L Blood Urea Nitrogen 11 mg/dl Creatinine 0.75 mg/dl Est Creatinine Clear Calc Drug Dose 81.1 ml/min Estimated GFR () 97.6 Estimated GFR (Non- 84.2 BUN/Creatinine Ratio 14.1 Random Glucose 88 mg/dl Calcium Level 7.7 mg/dl Total Bilirubin 0.7 mg/dl Aspartate Amino Transf (AST/SGOT) 56 U/L Alanine Aminotransferase (ALT/SGPT) 31 U/L Alkaline Phosphatase 625 U/L Total Protein 5.3 gm/dl Albumin 2.0 gm/dl Globulin 3.3 gm/dl Albumin/Globulin Ratio 0.6
--- NOTE | 2017-07-06 11:14 | Progress Note ---
Internal Med Progress Note Date of Service: Jul 06, 2017. Provider Documentation: SUBJECTIVE: Seen and examined at bedside. Currently on BiPAP States feeling better today Has intermittent cough and some pleuritic pain with cough Denies any Abd pain, nausea. More alert, awake today OBJECTIVE: Vital Signs-as noted below Physical Exam: General Appearance:Moderately built and nourished, no apparent distress Head: normocephalic, Atraumatic Eyes: normal inspection, EOMI, PERRL Neck: supple, Trachea midline Respiratory/Chest: Decreased breath sounds, CTA Cardiovascular: S1, S2, +Tachycardia, No murmur Abdomen/GI:Soft, Non tender, +Distended, Bowel sounds present Extremities/Musculoskelatal:normal inspection, B/L 2+ LE edema Neurologic/Psych:grossly no focal neurological deficits Skin: normal color, warm Lab data as noted below. ASSESSMENT & PLAN: ACUTE ON CHRONIC HYPOXIC/HYPERCARBIC RESPIRATORY FAILURE H/O COPD: Unlikely COPD exacerbation:large AA gradient CHRONIC OXYGEN DEPENDENCY:4L of oxygen, Non compliance POSSIBLE ASPIRATION PNEUMONIA Likely contributors:Obesity Hypoventilation syndrome, DEBORAH Continue IV Zosyn, bronchodilators S/P IV Solu-Medrol discontinued per Pulmonary recommendations Oxygen support Appreciate Pulmonology input Bubble Study in no shunt. ruled out Hepatopulmonary syndrome Incentive Spirometry GENERALIZED WEAKNESS, FALL likely multifactorial due to comorbidities, alcohol abuse, Hypercapnia, Infection Denies head trauma, LOC PT/OT VOLUME OVERLOAD H/O CIRRHOSIS, SYSTOLIC CHF Non compliance to medications Patient presented with generalized weakness and fall while trying to get out of bed Last ECHO:01/2017 - EF 50-55% S/P paracentesis on 07/04: no signs of SBP Continue diuretics, lactulose Appreciate GI Input Monitor LFTs Needs Outpatient work up: EGD for varices eval, repeat colonoscopy for hx of polyps HCC screening every months Monitoring for Hep A and B immunity UTI UA suggestive of UTI and patient reports urinary frequency Continue IV Zosyn Urine culture:E.coli Blood culture: No growth to date METABOLIC/TOXIC ENCEPHALOPATHY: Likely multifactorial alcohol abuse, hypercardia, infection Improving LACTIC ACIDOSIS Multifactorial: hypoxia, liver disease, ? infectious lactic acid 3.4 >>> 2.4>>>2.2>>1.1 monitor ALCOHOL ABUSE 3-4 drinks of Francoise / day withdrawal protocol with Gabapentin Continue multivitamin, folic acid, thiamine supplements HYPOKALEMIA Secondary to diuretics Replace and Monitor Check Mag levels AM DEPRESSION, ANXIETY, SCHIZOPHRENIA continue fluoxetine and Risperdal HLD continue statin DVT Px: SQ Lovenox CODE STATUS full code DISPOSITION: Monitor in Tele child and family services worker consulted PROCEDURES: ECHO: * The left ventricle is normal in size. * Ejection Fraction = 55-60%. * The right ventricular systolic function is normal. * The left atrial size is normal. * Right atrial size is normal. * Grossly normal valvular structure and function. * The study was technically limited. Vital Signs: Date Time Temp Pulse Resp B/P (MAP) Pulse Ox O2 Delivery O2 Flow Rate FiO2 07/06/17 07:30 Nasal Cannula 6.0 07/06/17 07:15 36.7 82 22 107/69 (82) 93 BiPAP 07/06/17 07:10 83 18 93 BiPAP/CPAP 65 07/06/17 07:10 83 93 65 07/06/17 05:44 81 93 65 07/06/17 04:00 92 BiPAP 65 07/06/17 03:37 36.7 96 20 108/64 (79) 93 BiPAP 07/06/17 01:45 88 16 92 BiPAP/CPAP 65 07/06/17 01:40 88 92 65 07/05/17 23:59 92 BiPAP 65 07/05/17 23:28 36.6 90 20 102/66 (78) 94 BiPAP 07/05/17 22:18 91 94 65 07/05/17 20:00 92 BiPAP 65 07/05/17 19:24 36.7 88 20 106/67 (80) 95 BiPAP 07/05/17 19:05 89 91 65 07/05/17 19:05 91 20 93 BiPAP/CPAP 65 07/05/17 16:00 93 Nasal Cannula 6.0 07/05/17 15:21 37.4 91 18 97/58 (71) 88 6.0 07/05/17 13:59 91 16 93 Nasal Cannula 6.0 07/05/17 12:54 95 BiPAP 65 07/05/17 11:41 36.9 91 26 121/74 (90) 99 BiPAP Lab Results: Results Past 24 Hours Test 07/05/17 16:00 07/05/17 21:11 07/06/17 05:49 07/06/17 05:51 Range/Units Lactic Acid Level 2.6 1.1 0.4-2.0 mmol/L Arterial Blood pH 7.44 7.47 7.35-7.45 Arterial Blood Partial Pressure CO2 54 51 35-46 mmHg Arterial Blood Partial Pressure O2 68 58 80-95 mm/Hg Arterial Blood HCO3 36 36 19-24 mmol/L Arterial Blood Oxygen Saturation 90.5 88.0 90-95 % Arterial Blood Base Excess 10.3 10.8 -9-1.8 mEq/L Arterial Blood Gas Delivery 65% 65% Ramakrishna Test POS POS POS Ammonia 46.0 43.0 11-32 umol/L White Blood Count 7.37 4.8-10.8 K/uL Red Blood Count 3.33 4.2-5.4 M/uL Hemoglobin 8.9 12.0-16.0 g/dL Hematocrit 29.5 37-47 % Mean Corpuscular Volume 88.6 80-100 fL Mean Corpuscular Hemoglobin 26.7 25-34 pg Mean Corpuscular Hemoglobin Concent 30.2 32-36 g/dl Platelet Count 150 130-400 K/uL Mean Platelet Volume 9.1 7.4-10.4 fL Neutrophils (%) (Auto) 70.2 % Lymphocytes (%) (Auto) 15.2 % Monocytes (%) (Auto) 13.7 % Eosinophils (%) (Auto) 0.5 % Basophils (%) (Auto) 0.1 % Neutrophils # (Auto) 5.17 1.4-6.5 K/uL Lymphocytes # (Auto) 1.12 1.2-3.4 K/uL Monocytes # (Auto) 1.01 0.11-0.59 K/uL Eosinophils # (Auto) 0.04 0-0.5 K/uL Basophils # (Auto) 0.01 0-0.2 K/uL RDW Standard Deviation 59.9 36.4-46.3 fL RDW Coefficient of Variation 18.8 11.5-14.5 % Immature Granulocyte % (Auto) 0.3 % Immature Granulocyte # (Auto) 0.02 0.00-0.02 K/uL Stomatocytes 1+ Sodium Level 141 136-145 mmol/L Potassium Level 3.4 3.5-5.1 mmol/L Chloride Level 100 98-107 mmol/L Carbon Dioxide Level 38 21-32 mmol/L Anion Gap 3.0 3-11 mmol/L Blood Urea Nitrogen 11 7-18 mg/dl Creatinine 0.75 0.60-1.20 mg/dl Est Creatinine Clear Calc Drug Dose 81.1 ml/min Estimated GFR () 97.6 Estimated GFR (Non- 84.2 BUN/Creatinine Ratio 14.1 10-20 Random Glucose 88 70-99 mg/dl Calcium Level 7.7 8.5-10.1 mg/dl Total Bilirubin 0.7 0.2-1 mg/dl Aspartate Amino Transf (AST/SGOT) 56 15-37 U/L Alanine Aminotransferase (ALT/SGPT) 31 12-78 U/L Alkaline Phosphatase 625 45-117 U/L Total Protein 5.3 6.4-8.2 gm/dl Albumin 2.0 3.4-5.0 gm/dl Globulin 3.3 2.5-4.0 gm/dl Albumin/Globulin Ratio 0.6 0.9-2
[2017-07-06] MEDS ORDERED: LACTULOSE SYRUP 20 GM/30 ML UDC PO SCH (11:15)
[2017-07-06] MEDS: LACTULOSE SYRUP 30 GM/45 ML UDP PO SCH ×2 (16:24→21:17)
[2017-07-06] MEDS: GABAPENTIN 600MG Q12H DOSE PO SCH (16:25)
[2017-07-06] MEDS: ENOXAPARIN 40 MG/0.4 ML SYR SQ SCH (21:17)
[2017-07-06] MEDS: RISPERIDONE 2 MG TAB PO SCH (21:17)
[2017-07-07] VITALS (19 sets, daily range): BP systolic 88–118; BP diastolic 54–72; PULSE 72–99; TEMP 36.5–37.3; O2SAT 90–97
[2017-07-07] MEDS: IPRATROPIUM BROMIDE NEB SOLN 0.02% 2.5 ML VIAL INH SCH ×4 (01:45→19:28)
[2017-07-07] MEDS: LEVALBUTEROL 1.25MG/0.5ML NEB INH SCH ×4 (01:46→19:28)
[2017-07-07] MEDS: PIPERACILL/TAZOBAC IV 4.5 GM in DEXTROSE 5% 100ML IV SCH ×2 (04:32→11:42)
[2017-07-07] MEDS: GABAPENTIN 600MG Q12H DOSE PO SCH (06:02)
[2017-07-07] MEDS: ACETAMINOPHEN 325 MG TAB PO PRN (06:03)
[2017-07-07 07:05] LABS: HEMATOCRIT 29.9 % (37-47); MEAN CELL VOLUME 88.7 fL (80-100); MEAN CORPUSCULAR HEMOGLOBIN 26.4 pg (25-34); MEAN CORPUSCULAR HGB CONC 29.8 g/dl (32-36); MEAN PLATELET VOLUME 9.5 fL (7.4-10.4); PLATELET COUNT 144 K/uL (130-400); RED BLOOD COUNT 3.37 M/uL (4.2-5.4); WHITE BLOOD COUNT 6.87 K/uL (4.8-10.8)
[2017-07-07 07:32] LABS: BUN/CREATININE RATIO 13.1 (10-20); CALCIUM 7.9 mg/dl (8.5-10.1); CREATININE 0.85 mg/dl (0.60-1.20); MAGNESIUM 1.4 mg/dl (1.8-2.4); POTASSIUM 3.5 mmol/L (3.5-5.1)
[2017-07-07 07:35] LABS: ALB/GLOB RATIO 0.5 (0.9-2)
--- NOTE | 2017-07-07 08:29 | Clinical Documentation Query ---
CLINICAL DOCUMENTATION QUERY 62-y/o alcoholic female presents s/p fall with weakness. Patient is noted to be volume overloaded and IV diuretic were prescribed. In your clinical opinion is this patient being managed for: ( X ) Acute diastolic (preserved EF) CHF in setting of obesity hypoventilation syndrome, DEBORAH, alcohol intoxication, & possible aspiration pneumonia treated with IV Lasix ( ) Other explanation of clinical findings (Please Explain) ( ) Unable to determine (Please Define) ( ) Need to Discuss ( ) Not Agree The medical record reflects the following clinical findings, treatment, and risk factors. Clinical Indicators: As above. "Volume overloaded" per progress notes. +3 edema to B/L LE. Echo showed EF of 55-60%. Treatment: Telemetry, I/O's, daily weights, IV Lasix, Risk Factors: Age, alcohol consumption with other [employer] depressant medications, Please clarify and document your clinical opinion in the progress notes and discharge summary. Terms such as "probable", "suspected", "likely", "questionable", "possible", or "still to be ruled out" are acceptable. IF IN AGREEMENT, YOU MUST DOCUMENT ABOVE DIAGNOSTIC STATEMENT IN DAILY PROGRESS NOTES AND DISCHARGE SUMMARY. This document is not part of the patient's record. Thank You, Abelino Nelson, RN [phone]
[2017-07-07] MEDS ORDERED: FUROSEMIDE INJ 40 MG in SYRINGE 0 ML IV SCH (09:00)
--- NOTE | 2017-07-07 09:06 | Progress Note ---
Internal Med Progress Note Date of Service: Jul 07, 2017. Provider Documentation: SUBJECTIVE: Seen and examined at bedside. Currently on BiPAP "I am resting". Still has confusion Denies cough, chest pain Denies any Abd pain, nausea. OBJECTIVE: Vital Signs-as noted below Physical Exam: General Appearance:Moderately built and nourished, no apparent distress Head: normocephalic, Atraumatic Eyes: normal inspection, EOMI, PERRL Neck: supple, Trachea midline Respiratory/Chest: Decreased breath sounds, coarse breath sounds Cardiovascular: S1, S2, No murmur Abdomen/GI:Soft, Non tender, +Distended, Bowel sounds present Extremities/Musculoskelatal:normal inspection, B/L 1+ LE edema Neurologic/Psych:grossly no focal neurological deficits Skin: normal color, warm Lab data as noted below. ASSESSMENT & PLAN: ACUTE ON CHRONIC HYPOXIC/HYPERCARBIC RESPIRATORY FAILURE H/O COPD: Unlikely COPD exacerbation:large AA gradient CHRONIC OXYGEN DEPENDENCY:4L of oxygen, Non compliance POSSIBLE ASPIRATION PNEUMONIA Likely contributors:Obesity Hypoventilation syndrome, DEBORAH S/P IV Zosyn Day # 3>>. will switch to Augmentin Bronchodilators discontinued Oxygen support: on BiPAP Appreciate Pulmonology input Bubble Study in no shunt. ruled out Hepatopulmonary syndrome Incentive Spirometry Needs PFTs as outpatient GENERALIZED WEAKNESS, FALL likely multifactorial due to comorbidities, alcohol abuse, Hypercapnia, Infection Denies head trauma, LOC PT/OT VOLUME OVERLOAD H/O CIRRHOSIS, ACUTE ON CHRONIC DIASTOLIC CHF Non compliance to medications Patient presented with generalized weakness and fall while trying to get out of bed Last ECHO:01/2017 - EF 50-55% S/P paracentesis on 07/04: no signs of SBP Continue Lasix, Aldactone, lactulose, rifaximin Appreciate GI Input Monitor LFTs Needs Outpatient work up: EGD for varices eval, repeat colonoscopy for hx of polyps HCC screening every months Monitoring for Hep A and B immunity UTI UA suggestive of UTI and patient reports urinary frequency S/P IV Zosyn for 3 days Urine culture:E.coli Blood culture: No growth to date METABOLIC/TOXIC ENCEPHALOPATHY: Likely multifactorial alcohol abuse, hypercardia, infection, elevated ammonia Continue Lactulose, rifaximin LACTIC ACIDOSIS Multifactorial: hypoxia, liver disease, ? infectious lactic acid 3.4 >>> 2.4>>>2.2>>1.1 monitor ALCOHOL ABUSE 3-4 drinks of Francoise / day withdrawal protocol with Gabapentin Continue multivitamin, folic acid, thiamine supplements HYPOKALEMIA/HYPOMAGNESEMIA Secondary to diuretics Replace and Monitor DEPRESSION, ANXIETY, SCHIZOPHRENIA continue fluoxetine and Risperdal HLD continue statin DVT Px: SQ Lovenox CODE STATUS full code DISPOSITION: Monitor in [employer] tech consulted PROCEDURES: ECHO: * The left ventricle is normal in size. * Ejection Fraction = 55-60%. * The right ventricular systolic function is normal. * The left atrial size is normal. * Right atrial size is normal. * Grossly normal valvular structure and function. * The study was technically limited. Vital Signs: Date Time Temp Pulse Resp B/P (MAP) Pulse Ox O2 Delivery O2 Flow Rate FiO2 07/07/17 11:33 36.5 96 20 104/62 (76) 94 BiPAP 07/07/17 08:00 90 BiPAP 07/07/17 07:48 37.3 85 18 88/54 (65) 90 BiPAP 07/07/17 06:59 85 90 65 07/07/17 06:58 85 14 90 BiPAP/CPAP 65 07/07/17 04:39 36.9 90 20 107/66 (80) 91 BiPAP 07/07/17 04:00 95 BiPAP 65 07/07/17 01:46 90 91 65 07/07/17 01:46 90 16 91 BiPAP/CPAP 65 07/06/17 23:59 95 BiPAP 65 07/06/17 23:50 37.3 92 18 101/66 (78) 94 BiPAP 07/06/17 20:23 37.3 102 23 113/72 (86) 94 BiPAP 07/06/17 20:00 95 BiPAP 65 07/06/17 19:34 92 94 65 07/06/17 19:34 92 26 94 BiPAP/CPAP 65 07/06/17 15:44 37.4 91 23 100/60 (73) 94 BiPAP 07/06/17 15:30 95 BiPAP 65 07/06/17 14:16 93 92 65 Lab Results: Results Past 24 Hours Test 07/06/17 16:13 07/06/17 20:38 07/07/17 06:45 07/07/17 06:50 Range/Units Bedside Glucose 122 124 139 70-90 mg/dl White Blood Count 6.87 4.8-10.8 K/uL Red Blood Count 3.37 4.2-5.4 M/uL Hemoglobin 8.9 12.0-16.0 g/dL Hematocrit 29.9 37-47 % Mean Corpuscular Volume 88.7 80-100 fL Mean Corpuscular Hemoglobin 26.4 25-34 pg Mean Corpuscular Hemoglobin Concent 29.8 32-36 g/dl RDW Standard Deviation 60.9 36.4-46.3 fL RDW Coefficient of Variation 18.8 11.5-14.5 % Platelet Count 144 130-400 K/uL Mean Platelet Volume 9.5 7.4-10.4 fL Sodium Level 142 136-145 mmol/L Potassium Level 3.5 3.5-5.1 mmol/L Chloride Level 101 98-107 mmol/L Carbon Dioxide Level 38 21-32 mmol/L Anion Gap 3.0 3-11 mmol/L Blood Urea Nitrogen 11 7-18 mg/dl Creatinine 0.85 0.60-1.20 mg/dl Est Creatinine Clear Calc Drug Dose 71.4 ml/min Estimated GFR () 83.9 Estimated GFR (Non- 72.4 BUN/Creatinine Ratio 13.1 10-20 Random Glucose 111 70-99 mg/dl Calcium Level 7.9 8.5-10.1 mg/dl Magnesium Level 1.4 1.8-2.4 mg/dl Total Bilirubin 0.6 0.2-1 mg/dl Aspartate Amino Transf (AST/SGOT) 66 15-37 U/L Alanine Aminotransferase (ALT/SGPT) 29 12-78 U/L Alkaline Phosphatase 528 45-117 U/L Ammonia 34.0 11-32 umol/L Total Protein 5.1 6.4-8.2 gm/dl Albumin 1.8 3.4-5.0 gm/dl Globulin 3.3 2.5-4.0 gm/dl Albumin/Globulin Ratio 0.5 0.9-2 Microbiology Results 07/06/17 C.difficile Toxin B Gene (PCR) - Final, Complete No C. difficile toxin B gene detected 07/06/17 Shiga Toxin Test, Received Pending 07/06/17 Stool Culture, Received Pending
--- NOTE | 2017-07-07 09:22 | Gastroenterology Progress Note ---
Progress Note Date of Service: Jul 07, 2017 Subjective Pt evaluation today including: conversation w/ patient, conversation w/ family , physical exam, chart review, lab review Pt was seen and evaluated. No acute events overnight. Paracentesis without evidence of SBP. She was noted to have some confusion over the weekend --> ammonia checked --> elevated and started on lactulose. Mentation was slightly improved, however, still confused at times. She tells me she is very embarrassed at how much fluid is on her body. She does not want to take the lactulose again due to the severe diarrhea and abdominal cramping it caused. No fever, chills, CP, abdominal pain. Review of Systems Constitutional: No fever, No chills Respiratory: No cough Cardiac: No chest pain Abdomen: + diarrhea, No pain, No nausea, No vomiting, No constipation Medications Current Inpatient Medications Medications (Trade) Dose Ordered Sig/Antonio Route Start Time Stop Time Status Last Admin Dose Admin Acetaminophen (Tylenol Tab) 650 mg Q4H PRN PO 07/04/17 15:00 08/03/17 14:59 07/07/17 06:03 650 MG Ondansetron HCl (Zofran Inj) 4 mg Q6H PRN IV 07/04/17 15:00 08/03/17 14:59 Enoxaparin Sodium (Lovenox Inj) 40 mg Q24H SQ 07/04/17 21:00 08/03/17 14:59 07/06/17 21:17 40 MG Thiamine HCl (Vitamin B-1 Tab) 100 mg DAILY PO 07/05/17 09:00 08/04/17 08:59 07/06/17 07:46 100 MG Lorazepam (Ativan Inj) 1 mg ONE PRN IV 07/04/17 15:00 Atorvastatin Calcium (Lipitor Tab) 80 mg DAILY PO 07/05/17 09:00 08/04/17 08:59 07/06/17 07:49 80 MG Fluoxetine HCl (Prozac Cap) 40 mg QAM PO 07/05/17 09:00 08/04/17 08:59 07/06/17 07:42 40 MG Risperidone (Risperdal Tab) 4 mg QPM PO 07/04/17 21:00 08/03/17 20:59 07/06/17 21:17 4 MG Calcium/Vitamin D (Caltrate Plus Tab) 1 tab DAILY PO 07/05/17 09:00 08/04/17 08:59 07/06/17 07:49 1 TAB Multivitamins (Multivitamin Tab) 1 tab DAILY PO 07/05/17 09:00 08/04/17 08:59 07/06/17 07:48 1 TAB Folic Acid (Folvite Tab) 1 mg QAM PO 07/04/17 16:00 08/03/17 15:59 07/06/17 07:47 1 MG Spironolactone (Aldactone Tab) 100 mg QAM PO 07/05/17 09:00 08/04/17 08:59 07/06/17 07:44 100 MG Gabapentin (Neurontin Tab) 600 mg Q24H PO 07/08/17 06:00 07/08/17 06:01 Albuterol/ Ipratropium (Duoneb) 3 ml Q2H PRN INH 07/04/17 21:00 08/03/17 20:59 Piperacillin Sod/ Tazobactam Sod (Consult) 1 ea UD PRN N/A 07/04/17 22:30 08/03/17 22:29 Piperacillin Sod/ Tazobactam Sod 4.5 gm/Dextrose 120 ml @ 30 mls/hr Q8H IV 07/05/17 04:00 07/12/17 03:59 07/07/17 04:32 30 MLS/HR Potassium Chloride (Klor-Con Tab) 20 meq QAM PO 07/05/17 09:00 08/04/17 08:59 07/06/17 07:45 20 MEQ Ipratropium [place] (Atrovent 0.02% 0.5MG/2.5ML Neb) 0.5 mg Q6R INH 07/05/17 09:00 08/04/17 08:59 07/07/17 06:56 0.5 MG Levalbuterol (Xopenex 1.25MG/ 0.5ML Neb) 1.25 mg Q6R INH 07/05/17 09:00 08/04/17 08:59 07/07/17 06:56 1.25 MG Lactulose (Chronulac Syrup) 30 gm BID PO 07/06/17 11:30 08/05/17 11:29 07/06/17 21:17 30 GM Magnesium Sulfate 1 gm/Prmx 100 ml @ 100 mls/hr Q1H IV 07/07/17 08:15 07/07/17 10:14 Furosemide (Lasix Tab) 40 mg QAM PO 07/08/17 09:00 08/07/17 08:59 Objective Vital Signs Date Time Temp Pulse Resp B/P (MAP) Pulse Ox O2 Delivery O2 Flow Rate FiO2 07/07/17 07:48 37.3 85 18 88/54 (65) 90 BiPAP 07/07/17 06:59 85 90 65 07/07/17 06:58 85 14 90 BiPAP/CPAP 65 07/07/17 04:39 36.9 90 20 107/66 (80) 91 BiPAP 07/07/17 04:00 95 BiPAP 65 07/07/17 01:46 90 91 65 07/07/17 01:46 90 16 91 BiPAP/CPAP 65 07/06/17 23:59 95 BiPAP 65 07/06/17 23:50 37.3 92 18 101/66 (78) 94 BiPAP 07/06/17 20:23 37.3 102 23 113/72 (86) 94 BiPAP 07/06/17 20:00 95 BiPAP 65 07/06/17 19:34 92 94 65 07/06/17 19:34 92 26 94 BiPAP/CPAP 65 07/06/17 15:44 37.4 91 23 100/60 (73) 94 BiPAP 07/06/17 15:30 95 BiPAP 65 07/06/17 14:16 93 92 65 07/06/17 11:30 93 BiPAP 6.0 Physical Exam General Appearance: + mild distress (pt appears uncomfortbale wearing bipap in bed) Eyes: PERRL Neck: supple Respiratory/Chest: normal breath sounds Cardiovascular: regular rate, rhythm Abdomen: normal bowel sounds, non tender, soft, + distended Neurologic/Psych: alert, normal mood/affect, + pertinent finding (not oriented to time) Skin: normal color Laboratory Results Last 24 Hours Test 07/06/17 16:13 07/06/17 20:38 07/07/17 06:45 07/07/17 06:50 Bedside Glucose 122 mg/dl 124 mg/dl 139 mg/dl White Blood Count 6.87 K/uL Red Blood Count 3.37 M/uL Hemoglobin 8.9 g/dL Hematocrit 29.9 % Mean Corpuscular Volume 88.7 fL Mean Corpuscular Hemoglobin 26.4 pg Mean Corpuscular Hemoglobin Concent 29.8 g/dl RDW Standard Deviation 60.9 fL RDW Coefficient of Variation 18.8 % Platelet Count 144 K/uL Mean Platelet Volume 9.5 fL Sodium Level 142 mmol/L Potassium Level 3.5 mmol/L Chloride Level 101 mmol/L Carbon Dioxide Level 38 mmol/L Anion Gap 3.0 mmol/L Blood Urea Nitrogen 11 mg/dl Creatinine 0.85 mg/dl Est Creatinine Clear Calc Drug Dose 71.4 ml/min Estimated GFR () 83.9 Estimated GFR (Non- 72.4 BUN/Creatinine Ratio 13.1 Random Glucose 111 mg/dl Calcium Level 7.9 mg/dl Magnesium Level 1.4 mg/dl Total Bilirubin 0.6 mg/dl Aspartate Amino Transf (AST/SGOT) 66 U/L Alanine Aminotransferase (ALT/SGPT) 29 U/L Alkaline Phosphatase 528 U/L Ammonia 34.0 umol/L Total Protein 5.1 gm/dl Albumin 1.8 gm/dl Globulin 3.3 gm/dl Albumin/Globulin Ratio 0.5 Assessment and Plan Patient is a 62 year old female w hx of ETOH cirrhosis w s/s of weakness and fall, appears to be SOB and having tense ascites on abd, edema on legs. Continues to drink ETOH, and also non compliant with meds. She hasn't been seen in GI clinic since 2014 though we've seen her during her previous admissions. AMS over weekend with elevated ammonia and lactulose was started. She did not tolerate this medication well. On exam this AM she is alert to person and place , not time. - DT protocol - Elevated ammonia - decreased lactulose to once daily, D/C lactulose if not tolerated - Xifaxan 550 BID - Lasix 40mg daily, Spironolactone 100mg daily - Low salt diet - Advised ETOH abstinence; would benefit from ETOH cessation program. - Daily CMP - Paracentesis w/ 25G 25% before and after Other outpt workup: - Need EGD for varices eval, repeat colonoscopy for hx of polyps - HCC screening [id number] - Hep A and B immunity checks ATTESTATION: I have performed a history and physical examination of this patient and reviewed the electronic record. Specifically, on physical examination she remains modestly confused. I have discussed the case with ENOCH Weaver. The above note reflects my findings, conclusions, and recommendations. Perfecto Mathis MD
[2017-07-07] MEDS: ATORVASTATIN 40 MG TAB PO SCH (09:42)
[2017-07-07] MEDS: SPIRONOLACTONE 100 MG TAB PO SCH (09:44)
[2017-07-07] MEDS: CALCIUM 600MG + VIT D 400 IU TAB PO SCH (09:44)
[2017-07-07] MEDS: THIAMINE HCL 100 MG TAB PO SCH (09:44)
[2017-07-07] MEDS: MULTIVITAMIN TAB PO SCH (09:44)
[2017-07-07] MEDS: POTASSIUM CHLORIDE 20 MEQ TABCR PO SCH (09:45)
[2017-07-07] MEDS: FLUOXETINE HCL 20 MG CAP PO SCH (09:45)
[2017-07-07] MEDS: MAGNESIUM SULFATE 1GM / D5W 1 GM in PREMIXED IN D5W 100 ML IV SCH ×2 (09:46→10:57)
[2017-07-07] MEDS: RIFAXIMIN TAB 550 MG TAB PO SCH ×2 (10:57→21:30)
[2017-07-07] MEDS ORDERED: METHYLPREDNISOLONE IV 40 MG in SYRINGE 0 ML IV ONE (11:15)
--- NOTE | 2017-07-07 11:57 | PULMONARY PROGRESS NOTE ---
DATE: 07/07/2017 TIME: 10:35 a.m. SUBJECTIVE: The patient denies shortness of breath. She is not, however, a good historian. She has had BiPAP on the entire time today except for eating. Nursing reports that even on 6 liters nasal cannula, in just a few minutes, her saturations are down into the 70s. She has been very congested in the chest. She states she is coughing up a little phlegm, but nursing has not seen any. She denies any chest pains. Her was with her during this evaluation. He states that she has not seen her primary physician for over a year because she has been too weak to get out. He states that she has been smoking about 2 packs per day based upon what she has been buying for her. He also brought up the issue of her drinking hanh. He does not believe she has any respiratory medicines at home. He has never seen her use an inhaler, although the patient mentions an inhaler. He is not aware of any nebulizer. She does have oxygen at home, suggesting the hypoxia has been chronic. OBJECTIVE: GENERAL: The patient has a BiPAP in place. VITAL SIGNS: Temperature is slightly elevated at 37.3. I could not examine the nasal passages or oropharynx due to the BiPAP being in place. The patient's heart rate is 99 per minute. The rhythm is regular and appears to be normal sinus when reviewing telemetry. Her blood pressure is 88/54. This is lower than earlier this morning when it was 107/66. Respiratory rate currently is 18 breaths per minute. LUNGS: Lung fitch revealed diffuse rhonchi in the upper lung fitch bilaterally. This was heard both anteriorly and posteriorly. Her oxygen saturation is 90% on the BiPAP, which is set at 65% oxygen. ABDOMEN: Distended. She does have active bowel sounds. There was a dressing covering the site of her prior paracentesis, which had removed 5 liters of fluid. There was no tenderness to palpation. EXTREMITIES: Revealed marked edema of the left foot and leg compared with the right. Her states this has been this way. LABORATORY DATA: Today's white blood cell count is 6.87. Hemoglobin is 8.9. Platelets are 144,000. Most recent blood gas was done yesterday morning and showed a pH of 7.47 with a pCO2 of 51 and a pO2 of 58. This is reflected a respiratory acidosis plus metabolic alkalosis. This was done on BiPAP with 65%. Electrolytes today show sodium 142, potassium 3.5, chloride 101, and bicarbonate 38. BUN was 11 with a creatinine of 0.85. Calcium is 7.9. AST is elevated at 66. ALT was normal at 29. Alkaline phosphatase was elevated at 528. Ammonia level today is 34. The albumin was only 1.8. TSH done on the was mildly elevated at 7.06. The patient's most recent chest x-ray was done on July 04 and suggested patchy airspace opacities in the left lower lobe. Aspiration was considered by the radiologist. The patient's tells me that she was having vomiting almost daily. The vomiting would occur if she was eating food that was more solid, but was not occurring with liquids. IMPRESSIONS: 1. Acute respiratory failure with hypoxia and hypercarbia. 2. Probable chronic obstructive pulmonary disease. 3. Cirrhosis with ascites. 4. Pneumonia. COMMENTS AND RECOMMENDATIONS: The patient does not seem to be turning the corner quickly. She has had the BiPAP on almost continuously. I would like to repeat a chest x-ray, which has not been done in 3 days to see if her infiltrates are worsening. She initially had been on some steroids, which were then stopped. I will order at least a one-time dose of steroids for today and then we can reassess tomorrow where that is going. She does have profound hypoxia. The possibility of DVT or pulmonary emboli with it could not be excluded. For now, we will check a venous Doppler of the lower extremities. With her history of the vomiting previously, she certainly could have had some reflux as well. We would consider giving pantoprazole and see if this offers her any benefit.
--- NOTE | 2017-07-07 12:22 | DIAGNOSTIC IMAGING REPORT ---
CHEST ONE VIEW PORTABLE CLINICAL HISTORY: Hypoxia. Pulmonary infiltrates. COMPARISON STUDY: 07/04/2017 FINDINGS: The heart is enlarged. There are bilateral pulmonary airspace opacities with a lower lung zone predominance. Evaluation of the lung bases is somewhat difficult due to overlying soft tissue.[There is equivocal small left pleural effusion. IMPRESSION: Cardiomegaly and slight progression in the bilateral pulmonary airspace opacities Electronically signed by: Cm Hall M.D. 07/07/2017 12:21 PM Dictated Date/Time: 07/07/2017 12:19 PM
--- NOTE | 2017-07-07 13:30 | DIAGNOSTIC IMAGING REPORT ---
ULTRASOUND VENOUS DOPPLER LWR EXT BILA CLINICAL HISTORY: leg swelling COMPARISON STUDY: April 01, 2016 FINDINGS: Real-time and color flow Doppler imaging were performed. Flow was seen within the femoral, popliteal and calf veins with no intraluminal thrombus demonstrated. The saphenous vein is patent. IMPRESSION: No evidence of lower extremity DVT Electronically signed by: Cm Hall M.D. 07/07/2017 1:29 PM Dictated Date/Time: 07/07/2017 1:28 PM
[2017-07-07] MEDS: AMOXICILLIN/CLAVULANATE TAB 875 MG TAB PO SCH (16:43)
[2017-07-07] MEDS: RISPERIDONE 2 MG TAB PO SCH (21:30)
[2017-07-07] MEDS: ENOXAPARIN 40 MG/0.4 ML SYR SQ SCH (21:30)
[2017-07-08] VITALS (16 sets, daily range): BP systolic 105–132; BP diastolic 63–75; PULSE 87–105; TEMP 36.6–37.3; O2SAT 89–96
[2017-07-08] MEDS: LEVALBUTEROL 1.25MG/0.5ML NEB INH SCH ×4 (02:04→19:57)
[2017-07-08] MEDS: IPRATROPIUM BROMIDE NEB SOLN 0.02% 2.5 ML VIAL INH SCH ×4 (02:04→19:57)
[2017-07-08] MEDS ORDERED: GABAPENTIN 600MG X1 DOSE PO SCH (06:00)
[2017-07-08 07:01] LABS: CALCIUM 8.7 mg/dl (8.5-10.1); CREATININE 0.69 mg/dl (0.60-1.20); MAGNESIUM 1.8 mg/dl (1.8-2.4); POTASSIUM 3.9 mmol/L (3.5-5.1)
[2017-07-08 07:04] LABS: ALB/GLOB RATIO 0.5 (0.9-2)
[2017-07-08] MEDS: ACETAMINOPHEN 325 MG TAB PO PRN (07:21)
[2017-07-08] MEDS: THIAMINE HCL 100 MG TAB PO SCH (07:21)
[2017-07-08] MEDS: ATORVASTATIN 40 MG TAB PO SCH (07:21)
[2017-07-08] MEDS: AMOXICILLIN/CLAVULANATE TAB 875 MG TAB PO SCH ×2 (07:21→17:33)
[2017-07-08] MEDS: SPIRONOLACTONE 100 MG TAB PO SCH (07:21)
[2017-07-08] MEDS: RIFAXIMIN TAB 550 MG TAB PO SCH ×2 (07:21→22:04)
[2017-07-08] MEDS: MULTIVITAMIN TAB PO SCH (07:22)
[2017-07-08] MEDS: FLUOXETINE HCL 20 MG CAP PO SCH (07:22)
[2017-07-08] MEDS: POTASSIUM CHLORIDE 20 MEQ TABCR PO SCH (07:22)
[2017-07-08] MEDS: CALCIUM 600MG + VIT D 400 IU TAB PO SCH (07:22)
[2017-07-08] MEDS: LACTULOSE SYRUP 30 GM/45 ML UDP PO SCH (07:23)
[2017-07-08] MEDS ORDERED: FUROSEMIDE 40 MG TAB PO SCH (09:00)
--- NOTE | 2017-07-08 10:16 | Gastroenterology Progress Note ---
Progress Note Date of Service: Jul 08, 2017 Subjective Pt evaluation today including: conversation w/ patient, physical exam, chart review, lab review Pt was seen and evaluated this AM. She tells me her abdomen feels more distended this AM. Nurse notes that paracentesis site was leaking, and they had to use an ostomy bag to collect this. Fluid has been clear yellow. No abdominal pain. No fever, chills, chest pain, SOB, black/bloody stools. Review of Systems Constitutional: No fever, No chills Respiratory: No cough, No shortness of breath Cardiac: No chest pain, No edema Abdomen: No pain, No nausea, No vomiting, No diarrhea, No constipation Medications Current Inpatient Medications Medications (Trade) Dose Ordered Sig/Antonio Route Start Time Stop Time Status Last Admin Dose Admin Acetaminophen (Tylenol Tab) 650 mg Q4H PRN PO 07/04/17 15:00 08/03/17 14:59 07/08/17 07:21 650 MG Ondansetron HCl (Zofran Inj) 4 mg Q6H PRN IV 07/04/17 15:00 08/03/17 14:59 Enoxaparin Sodium (Lovenox Inj) 40 mg Q24H SQ 07/04/17 21:00 08/03/17 14:59 07/07/17 21:30 40 MG Thiamine HCl (Vitamin B-1 Tab) 100 mg DAILY PO 07/05/17 09:00 08/04/17 08:59 07/08/17 07:21 100 MG Atorvastatin Calcium (Lipitor Tab) 80 mg DAILY PO 07/05/17 09:00 08/04/17 08:59 07/08/17 07:21 80 MG Fluoxetine HCl (Prozac Cap) 40 mg QAM PO 07/05/17 09:00 08/04/17 08:59 07/08/17 07:22 40 MG Risperidone (Risperdal Tab) 4 mg QPM PO 07/04/17 21:00 08/03/17 20:59 07/07/17 21:30 4 MG Calcium/Vitamin D (Caltrate Plus Tab) 1 tab DAILY PO 07/05/17 09:00 08/04/17 08:59 07/08/17 07:22 1 TAB Multivitamins (Multivitamin Tab) 1 tab DAILY PO 07/05/17 09:00 08/04/17 08:59 07/08/17 07:22 1 TAB Folic Acid (Folvite Tab) 1 mg QAM PO 07/04/17 16:00 08/03/17 15:59 07/08/17 07:22 1 MG Spironolactone (Aldactone Tab) 100 mg QAM PO 07/05/17 09:00 08/04/17 08:59 07/08/17 07:21 100 MG Albuterol/ Ipratropium (Duoneb) 3 ml Q2H PRN INH 07/04/17 21:00 08/03/17 20:59 Potassium Chloride (Klor-Con Tab) 20 meq QAM PO 07/05/17 09:00 08/04/17 08:59 07/08/17 07:22 20 MEQ Ipratropium [place] (Atrovent 0.02% 0.5MG/2.5ML Neb) 0.5 mg Q6R INH 07/05/17 09:00 08/04/17 08:59 07/08/17 07:22 0.5 MG Levalbuterol (Xopenex 1.25MG/ 0.5ML Neb) 1.25 mg Q6R INH 07/05/17 09:00 08/04/17 08:59 07/08/17 07:22 1.25 MG Furosemide (Lasix Tab) 40 mg QAM PO 07/08/17 09:00 08/07/17 08:59 07/08/17 07:21 40 MG Lactulose (Chronulac Syrup) 30 gm DAILY PO 07/08/17 09:00 08/05/17 11:29 07/08/17 07:23 30 GM Rifaximin (Xifaxan Tab) 550 mg BID PO 07/07/17 09:15 08/06/17 09:14 07/08/17 07:21 550 MG Amoxicillin/ Clavulanate Potassium (Augmentin Tab) 875 mg BIDM PO 07/07/17 16:45 07/11/17 23:59 07/08/17 07:21 875 MG Objective Vital Signs Date Time Temp Pulse Resp B/P (MAP) Pulse Ox O2 Delivery O2 Flow Rate FiO2 07/08/17 08:01 89 Nasal Cannula 9.0 07/08/17 07:37 36.9 93 22 114/71 (85) 92 BiPAP 07/08/17 07:32 97 16 96 BiPAP/CPAP 65 07/08/17 07:32 98 95 65 07/08/17 05:40 100 92 65 07/08/17 04:25 36.6 91 18 115/68 (84) 95 BiPAP 07/08/17 04:00 94 BiPAP 65 07/08/17 02:04 96 20 96 BiPAP/CPAP 65 07/08/17 02:04 96 96 65 07/07/17 23:40 36.7 89 18 111/68 (82) 93 BiPAP 2.0 07/07/17 23:20 94 BiPAP 65 07/07/17 22:30 99 91 65 07/07/17 20:00 95 BiPAP 65 07/07/17 19:31 95 65 07/07/17 19:31 96 20 95 BiPAP/CPAP 65 07/07/17 19:00 36.7 98 22 104/66 (79) 94 BiPAP 07/07/17 16:00 92 BiPAP 65 07/07/17 15:14 37.0 87 16 118/72 (87) 96 BiPAP 07/07/17 14:21 97 90 65 07/07/17 14:19 97 19 90 BiPAP/CPAP 65 07/07/17 12:00 91 BiPAP 07/07/17 11:33 36.5 96 20 104/62 (76) 94 BiPAP Physical Exam General Appearance: no apparent distress Eyes: PERRL ENT: hearing grossly normal Neck: supple Respiratory/Chest: lungs clear Cardiovascular: regular rate, rhythm Abdomen: normal bowel sounds, no organomegaly, no pulsatile mass, + distended, + pertinent finding (draininge from paracetnesis site) Neurologic/Psych: alert, normal mood/affect, oriented x 3 Skin: + jaundice Laboratory Results Last 24 Hours Test 07/07/17 11:22 07/07/17 16:11 07/07/17 20:39 07/08/17 06:10 Bedside Glucose 181 mg/dl 194 mg/dl 145 mg/dl Sodium Level 141 mmol/L Potassium Level 3.9 mmol/L Chloride Level 100 mmol/L Carbon Dioxide Level 36 mmol/L Anion Gap 5.0 mmol/L Blood Urea Nitrogen 12 mg/dl Creatinine 0.69 mg/dl Est Creatinine Clear Calc Drug Dose 94.0 ml/min Estimated GFR () 106.6 Estimated GFR (Non- 92.0 BUN/Creatinine Ratio 17.0 Random Glucose 110 mg/dl Calcium Level 8.7 mg/dl Magnesium Level 1.8 mg/dl Total Bilirubin 0.7 mg/dl Aspartate Amino Transf (AST/SGOT) 49 U/L Alanine Aminotransferase (ALT/SGPT) 29 U/L Alkaline Phosphatase 477 U/L Ammonia 25.0 umol/L Total Protein 5.6 gm/dl Albumin 1.8 gm/dl Globulin 3.8 gm/dl Albumin/Globulin Ratio 0.5 Test 07/08/17 06:39 Bedside Glucose 125 mg/dl Assessment and Plan Patient is a 62 year old female w hx of ETOH cirrhosis w s/s of weakness and fall, appears to be SOB and having tense ascites on abd, edema on legs. Continues to drink ETOH, and also non compliant with meds. She hasn't been seen in GI clinic since 2014 though we've seen her during her previous admissions. AMS over weekend with elevated ammonia and lactulose was started. She did not tolerate this medication well. On exam this AM she is alert to person and place , not time. - ABD US today - DT protocol - Elevated ammonia - decreased lactulose to once daily, D/C lactulose if not tolerated - Xifaxan 550 BID - Lasix 40mg daily, Spironolactone 100mg daily - Low salt diet - Advised ETOH abstinence; would benefit from ETOH cessation program. - Daily CMP Other outpt workup: - Need EGD for varices eval, repeat colonoscopy for hx of polyps - HCC screening [id number] - Hep A and B immunity checks
[2017-07-08] MEDS ORDERED: MICONAZOLE NITRATE POWDER 43 GM EXT PRN (12:00)
--- NOTE | 2017-07-08 12:06 | Progress Note ---
Internal Med Progress Note Date of Service: Jul 08, 2017. Provider Documentation: SUBJECTIVE: Seen and examined at bedside. More alert, awake today and is oriented X3 Still requiring oxymask for maintaining sats Denies chest pain, abd pain, nausea SOB, Cough slowing improving Has leak from paracentesis site Planned for abdominal USD today OBJECTIVE: Vital Signs-as noted below Physical Exam: General Appearance:Moderately built and nourished, no apparent distress Head: normocephalic, Atraumatic Eyes: normal inspection, EOMI, PERRL Neck: supple, Trachea midline Respiratory/Chest: Decreased breath sounds, coarse breath sounds Cardiovascular: S1, S2, No murmur Abdomen/GI:Soft, Non tender, +Distended, Bowel sounds present Extremities/Musculoskelatal:normal inspection, B/L 1+ LE edema Neurologic/Psych:grossly no focal neurological deficits Skin: normal color, warm Lab data as noted below. ASSESSMENT & PLAN: ACUTE ON CHRONIC HYPOXIC/HYPERCARBIC RESPIRATORY FAILURE H/O COPD: Unlikely COPD exacerbation:large AA gradient CHRONIC OXYGEN DEPENDENCY:4L of oxygen, Non compliance POSSIBLE ASPIRATION PNEUMONIA Likely contributors:Obesity Hypoventilation syndrome, DEBORAH S/P IV Zosyn Day # 3>> Continue Augmentin Day # 2 Continue Bronchodilators Steroids per Pulm Continue Oxygen support Appreciate Pulmonology input Bubble Study in no shunt. ruled out Hepatopulmonary syndrome Incentive Spirometry Needs PFTs as outpatient Repeat CXR:Cardiomegaly and slight progression in the bilateral pulmonary airspace opacities GENERALIZED WEAKNESS, FALL likely multifactorial due to comorbidities, alcohol abuse, Hypercapnia, Infection Denies head trauma, LOC PT/OT VOLUME OVERLOAD H/O CIRRHOSIS, ACUTE ON CHRONIC DIASTOLIC CHF Non compliance to medications Patient presented with generalized weakness and fall while trying to get out of bed Last ECHO:01/2017 - EF 50-55% S/P paracentesis on 07/04: no signs of SBP Continue Lasix, Aldactone, lactulose, rifaximin Appreciate GI Input Monitor LFTs Ammonia levels back to normal Has paracentesis site leakage. Repeat Abd USD planned for today Needs Outpatient work up: EGD for varices eval, repeat colonoscopy for hx of polyps HCC screening every months Monitoring for Hep A and B immunity UTI UA suggestive of UTI and patient reports urinary frequency S/P IV Zosyn for 3 days Urine culture:E.coli Blood culture: No growth to date METABOLIC/TOXIC ENCEPHALOPATHY: Likely multifactorial alcohol abuse, hypercardia, infection, elevated ammonia Continue Lactulose, rifaximin Improving LACTIC ACIDOSIS Multifactorial: hypoxia, liver disease, ? infectious lactic acid 3.4 >>> 2.4>>>2.2>>1.1 monitor ALCOHOL ABUSE 3-4 drinks of Francoise / day withdrawal protocol with Gabapentin completed Continue multivitamin, folic acid, thiamine supplements Would benefit from rehab placement HYPOKALEMIA/HYPOMAGNESEMIA Secondary to diuretics Monitor DEPRESSION, ANXIETY, SCHIZOPHRENIA continue fluoxetine and Risperdal HLD continue statin DVT Px: SQ Lovenox CODE STATUS full code DISPOSITION: Monitor in Tele surgical services manager consulted PROCEDURES: ECHO: * The left ventricle is normal in size. * Ejection Fraction = 55-60%. * The right ventricular systolic function is normal. * The left atrial size is normal. * Right atrial size is normal. * Grossly normal valvular structure and function. * The study was technically limited. Vital Signs: Date Time Temp Pulse Resp B/P (MAP) Pulse Ox O2 Delivery O2 Flow Rate FiO2 07/08/17 11:01 36.9 89 20 105/67 (80) 92 Oxymask 15.0 07/08/17 08:01 89 Nasal Cannula 9.0 07/08/17 07:37 36.9 93 22 114/71 (85) 92 BiPAP 07/08/17 07:32 97 16 96 BiPAP/CPAP 65 07/08/17 07:32 98 95 65 07/08/17 05:40 100 92 65 07/08/17 04:25 36.6 91 18 115/68 (84) 95 BiPAP 07/08/17 04:00 94 BiPAP 65 07/08/17 02:04 96 20 96 BiPAP/CPAP 65 07/08/17 02:04 96 96 65 07/07/17 23:40 36.7 89 18 111/68 (82) 93 BiPAP 2.0 07/07/17 23:20 94 BiPAP 65 07/07/17 22:30 99 91 65 07/07/17 20:00 95 BiPAP 65 07/07/17 19:31 95 65 07/07/17 19:31 96 20 95 BiPAP/CPAP 65 07/07/17 19:00 36.7 98 22 104/66 (79) 94 BiPAP 07/07/17 16:00 92 BiPAP 65 07/07/17 15:14 37.0 87 16 118/72 (87) 96 BiPAP 07/07/17 14:21 97 90 65 07/07/17 14:19 97 19 90 BiPAP/CPAP 65 Lab Results: Results Past 24 Hours Test 07/07/17 16:11 07/07/17 20:39 07/08/17 06:10 07/08/17 06:39 Range/Units Bedside Glucose 194 145 125 70-90 mg/dl Sodium Level 141 136-145 mmol/L Potassium Level 3.9 3.5-5.1 mmol/L Chloride Level 100 98-107 mmol/L Carbon Dioxide Level 36 21-32 mmol/L Anion Gap 5.0 3-11 mmol/L Blood Urea Nitrogen 12 7-18 mg/dl Creatinine 0.69 0.60-1.20 mg/dl Est Creatinine Clear Calc Drug Dose 94.0 ml/min Estimated GFR () 106.6 Estimated GFR (Non- 92.0 BUN/Creatinine Ratio 17.0 10-20 Random Glucose 110 70-99 mg/dl Calcium Level 8.7 8.5-10.1 mg/dl Magnesium Level 1.8 1.8-2.4 mg/dl Total Bilirubin 0.7 0.2-1 mg/dl Aspartate Amino Transf (AST/SGOT) 49 15-37 U/L Alanine Aminotransferase (ALT/SGPT) 29 12-78 U/L Alkaline Phosphatase 477 45-117 U/L Ammonia 25.0 11-32 umol/L Total Protein 5.6 6.4-8.2 gm/dl Albumin 1.8 3.4-5.0 gm/dl Globulin 3.8 2.5-4.0 gm/dl Albumin/Globulin Ratio 0.5 0.9-2
[2017-07-08] MEDS: ALBUMIN HUMAN 25% 12.5 GM/50 ML VIAL IV SCH ×4 (14:30→18:12)
[2017-07-08] MEDS ORDERED: METHYLPREDNISOLONE IV 40 MG in SYRINGE 0 ML IV ONE (15:15)
--- NOTE | 2017-07-08 15:35 | PULMONARY PROGRESS NOTE ---
DATE: 07/08/2017 DATE: 07/08/2017 TIME: 2:50 p.m. SUBJECTIVE: The patient is getting ready to go for a repeat thoracentesis. She has been having leakage of a fair amount of fluid through the opening of the prior paracentesis tap according to nursing. More than 400 mL of fluid has drained just this shift according to nursing staff. The patient seems confused. We had done a venous Doppler of her legs yesterday and she has no recollection of that at all. There was no evidence of DVT seen. She is coughing, but nothing much is being expectorated. She also had a chest x-ray yesterday. This showed slight progression of the bilateral pulmonary airspace opacities. The x-ray was actually somewhat light. OBJECTIVE: GENERAL: The patient did not appear to be overtly uncomfortable. VITAL SIGNS: Temperature is 36.9. She has not had any significant fevers in the past 24 hours. EARS, NOSE, THROAT: Exam is unchanged from yesterday. HEART: Heart rate is 105 per minute. Cardiac rhythm was regular. Diffuse rhonchi are heard bilaterally. She has an OxyMask in place. Her saturation is 95% on 12 liters of flow through the OxyMask. Blood pressure is 105/67. ABDOMEN: Distended. It did not feel all that tight, however. Bowel sounds were present. LABORATORY DATA: Electrolytes today show sodium 141, potassium 3.9, chloride 100, bicarbonate 36. BUN was 12 with a creatinine of 0.69. AST is elevated at 49. Prior AST was 66. Alkaline phosphatase is 477 and previously had been 528. IMPRESSIONS: 1. Acute respiratory failure with hypoxia and hypercarbia. 2. Probable chronic obstructive pulmonary disease. 3. Cirrhosis with ascites. 4. Pneumonia. RECOMMENDATIONS: The patient is soon going for a repeat paracentesis. She is receiving Augmentin 875 mg b.i.d. She is also on rifaximin. She is still getting the neb treatments with levalbuterol and ipratropium every 6 hours. I did give her 1 dose of Solu-Medrol yesterday. She is not improved. I will give her another dose today and see how this goes. The patient seems much more congested in the chest than one would typically expect. It could be related to what appears to be the pneumonia or she may have some fluid volume overload as well.
--- NOTE | 2017-07-08 16:06 | DIAGNOSTIC IMAGING REPORT ---
PARACENTESIS ABDOMEN W/IMAGING CLINICAL HISTORY: ascites COMPARISON STUDY: No previous studies for comparison. PROCEDURE: The risks, benefits, and alternatives to the procedure were discussed with the patient including the risk of bleeding, infection and injury to adjacent structures. The patient agreed to the procedure and informed written consent was obtained. The procedure was performed by Dr. Villarreal following a time out. Following real-time ultrasound localization, the skin was prepped and draped. Following local anesthesia with Xylocaine, the sheath paracentesis needle was inserted and approximately 7 liters of straw-colored fluid was removed by vacuum suction. The patient tolerated the procedure well and no immediate complications were evident. IMPRESSION: Ultrasound-guided paracentesis with removal of 7 liters of ascites. The above report was generated using voice recognition software. It may contain grammatical, syntax or spelling errors. Electronically signed by: Dm Villarreal M.D. 07/08/2017 4:04 PM Dictated Date/Time: 07/08/2017 4:04 PM
[2017-07-08] MEDS: ENOXAPARIN 40 MG/0.4 ML SYR SQ SCH (22:04)
[2017-07-08] MEDS: RISPERIDONE 2 MG TAB PO SCH (22:04)
[2017-07-09] VITALS (13 sets, daily range): BP systolic 93–128; BP diastolic 52–75; PULSE 85–100; TEMP 36.6–37.2; O2SAT 88–97
[2017-07-09] MEDS: LEVALBUTEROL 1.25MG/0.5ML NEB INH SCH ×4 (02:22→18:57)
[2017-07-09] MEDS: IPRATROPIUM BROMIDE NEB SOLN 0.02% 2.5 ML VIAL INH SCH ×4 (02:22→18:57)
[2017-07-09 06:49] LABS: BUN/CREATININE RATIO 17.2 (10-20); CALCIUM 8.4 mg/dl (8.5-10.1); CREATININE 0.6 mg/dl (0.60-1.20); MAGNESIUM 1.6 mg/dl (1.8-2.4); POTASSIUM 4.1 mmol/L (3.5-5.1)
[2017-07-09] MEDS: CALCIUM 600MG + VIT D 400 IU TAB PO SCH (08:38)
[2017-07-09] MEDS: RIFAXIMIN TAB 550 MG TAB PO SCH ×2 (08:38→20:52)
[2017-07-09] MEDS: SPIRONOLACTONE 100 MG TAB PO SCH (08:38)
[2017-07-09] MEDS: AMOXICILLIN/CLAVULANATE TAB 875 MG TAB PO SCH ×2 (08:38→17:33)
[2017-07-09] MEDS: MULTIVITAMIN TAB PO SCH (08:39)
[2017-07-09] MEDS: POTASSIUM CHLORIDE 20 MEQ TABCR PO SCH (08:39)
[2017-07-09] MEDS: THIAMINE HCL 100 MG TAB PO SCH (08:39)
[2017-07-09] MEDS: ATORVASTATIN 40 MG TAB PO SCH (08:39)
[2017-07-09] MEDS: FLUOXETINE HCL 20 MG CAP PO SCH (08:39)
[2017-07-09] MEDS: LACTULOSE SYRUP 30 GM/45 ML UDP PO SCH (08:40)
--- NOTE | 2017-07-09 10:46 | PROGRESS NOTE ---
DATE: 07/09/2017 DATE: 07/09/2017 PROBLEM LIST: 1. Acute respiratory failure with hypoxia and hypercapnia. Probable chronic obstructive pulmonary disease. 2. Pneumonia. 3. 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 4. Questionable volume overload. SUBJECTIVE: The patient underwent paracentesis yesterday for 7 liters of fluid removed. She reports that she is feeling better. She reports her breathing is feeling better. She states that her cough is improved as well. She states that when she does cough and get mucus up she has a little bit of clear mucus but otherwise no problems. There was not any discoloration mucous. There is no blood in the mucus. She states that she still does have a little bit of wheezing but that has improved as well. She denies any chest heaviness or tightness. In discussing with nursing they are going to transition her from oral Lasix to IV Lasix to see if this helps with fluid any better. Unfortunately, the patient is a little bit noncompliant in that she continuously takes her oxygen off. This was discussed with her as well. I did discuss with nursing as well and apparently overnight they had to put a colostomy bag back on the paracentesis site and they drained overnight 100 mL of fluid out overnight. GI has been made aware of this. The patient has not had any imaging done yet for the day. She states that she is still having some diarrhea. The patient has been worked up for this. She states that her backside is sore and that nursing is putting a barrier cream on. She denies any other concerns or problems at this time. OBJECTIVE: GENERAL: The patient is a 62-year-old female lying in bed. She is alert to person and place. When I entered her oxygen mask was off and her oxygen saturation was in the 88-85% range. Upon putting the oxygen mask/OxyMask back on her saturations went up to 95-96%. VITAL SIGNS: Otherwise, temperature 36.7, pulse 91, respirations 22, blood pressure 120/70, pulse ox as stated earlier was 95-96% on OxyMask. She had a flow rate of approximately 9 liters. HEAD, EYES, EARS, NOSE, AND THROAT: Normocephalic, atraumatic. Pupils equal, round and reactive to light and accommodation. Extraocular movements are intact. Fleming-Neon moist gingival and buccal mucosa. NECK: Short and thick. No mass. No adenopathy. No bruit. CHEST: The patient has some coarse wheezing throughout. There is no rale or rhonchi noted. CARDIOVASCULAR: Regular rate and rhythm. No murmurs, gallops or rubs. ABDOMEN: Distended and not firm. Bowel sounds are present but difficult to hear. EXTREMITIES: No erythema, no edema. LABORATORY DATA: Shows potassium 4.14, chloride of 99. Sodium 138, potassium 4.1, calcium is at 8.4, mag is 1.6. No new imaging data. IMPRESSION: 1. This is a 62-year-old female with cirrhosis and ascites most likely secondary to alcohol disease from the previous histories that were reviewed. She also has some difficulty with her breathing. At this point, she has acute respiratory failure with hypoxia and hypercapnia. The patient is showing slow signs of improvement. Her oxygen requirement is lessening. She is actually saturating in the 85-86% range on room air and rebounded into the mid 90s with placement of the OxyMask. 2. Pneumonia. The patient seems to be tolerating the Augmentin well at this time. I would like for her to continue on the Augmentin. I would like to get a chest x-ray. 3. Probable chronic obstructive pulmonary disease. No PFTs that I can find. The patient probably should have workup as an outpatient upon discharge. For now, we will continue with current treatment as it is. I do not think we need to do any more steroids today. I would like for her to have a chest x-ray and continue the Augmentin. May be helpful for her to have a flutter valve if she does not have one to help to mobilize secretions. We will put an order in for that. We will continue to follow through hospitalization.
--- NOTE | 2017-07-09 10:53 | DIAGNOSTIC IMAGING REPORT ---
CHEST ONE VIEW PORTABLE HISTORY: Bilateral pneumonia COMPARISON: Chest 07/07/2017. FINDINGS: No pneumothorax. Suspect trace bilateral pleural effusions. Left retrocardiac/lower lobe consolidation persists. Mild pulmonary vascular congestion without overt edema. The heart remains borderline enlarged. IMPRESSION: 1. Mild pulmonary vascular congestion without overt edema. 2. Left lower lobe/retrocardiac consolidation persists. This likely represents a pneumonia. Recommend follow-up to ensure resolution. 3. Suspect trace bilateral pleural effusions. Electronically signed by: Jamal Bond M.D. 07/09/2017 10:52 AM Dictated Date/Time: 07/09/2017 10:50 AM
--- NOTE | 2017-07-09 10:59 | Gastroenterology Progress Note ---
Progress Note Date of Service: Jul 09, 2017 Subjective Pt evaluation today including: conversation w/ patient, physical exam, chart review, lab review Pt seen and examined. Paracentesis yesterday with 7L off. Fluid does not appear to be sent to the lab - discussed with receiving order was not received and fluid was discarded. Paracentesis sites are leaking - pressure dressing not successful, now with ostomy bags in place with drainage. Fluid is yellow. May need Dermabond. Review of Systems Constitutional: No fever, No chills Respiratory: No cough, No shortness of breath Cardiac: No chest pain Abdomen: No pain, No nausea, No vomiting, No diarrhea, No constipation, No GI bleeding Medications Current Inpatient Medications Medications (Trade) Dose Ordered Sig/Antonio Route Start Time Stop Time Status Last Admin Dose Admin Acetaminophen (Tylenol Tab) 650 mg Q4H PRN PO 07/04/17 15:00 08/03/17 14:59 07/08/17 07:21 650 MG Ondansetron HCl (Zofran Inj) 4 mg Q6H PRN IV 07/04/17 15:00 08/03/17 14:59 Enoxaparin Sodium (Lovenox Inj) 40 mg Q24H SQ 07/04/17 21:00 08/03/17 14:59 07/08/17 22:04 40 MG Thiamine HCl (Vitamin B-1 Tab) 100 mg DAILY PO 07/05/17 09:00 08/04/17 08:59 07/09/17 08:39 100 MG Atorvastatin Calcium (Lipitor Tab) 80 mg DAILY PO 07/05/17 09:00 08/04/17 08:59 07/09/17 08:39 80 MG Fluoxetine HCl (Prozac Cap) 40 mg QAM PO 07/05/17 09:00 08/04/17 08:59 07/09/17 08:39 40 MG Risperidone (Risperdal Tab) 4 mg QPM PO 07/04/17 21:00 08/03/17 20:59 07/08/17 22:04 4 MG Calcium/Vitamin D (Caltrate Plus Tab) 1 tab DAILY PO 07/05/17 09:00 08/04/17 08:59 07/09/17 08:38 1 TAB Multivitamins (Multivitamin Tab) 1 tab DAILY PO 07/05/17 09:00 08/04/17 08:59 07/09/17 08:39 1 TAB Folic Acid (Folvite Tab) 1 mg QAM PO 07/04/17 16:00 08/03/17 15:59 07/09/17 08:39 1 MG Spironolactone (Aldactone Tab) 100 mg QAM PO 07/05/17 09:00 08/04/17 08:59 07/09/17 08:38 100 MG Albuterol/ Ipratropium (Duoneb) 3 ml Q2H PRN INH 07/04/17 21:00 08/03/17 20:59 Potassium Chloride (Klor-Con Tab) 20 meq QAM PO 07/05/17 09:00 08/04/17 08:59 07/09/17 08:39 20 MEQ Ipratropium Winn (Atrovent 0.02% 0.5MG/2.5ML Neb) 0.5 mg Q6R INH 07/05/17 09:00 08/04/17 08:59 07/09/17 06:58 0.5 MG Levalbuterol (Xopenex 1.25MG/ 0.5ML Neb) 1.25 mg Q6R INH 07/05/17 09:00 08/04/17 08:59 07/09/17 06:58 1.25 MG Furosemide (Lasix Tab) 40 mg QAM PO 07/08/17 09:00 08/07/17 08:59 07/08/17 07:21 40 MG Lactulose (Chronulac Syrup) 30 gm DAILY PO 07/08/17 09:00 08/05/17 11:29 07/08/17 07:23 30 GM Rifaximin (Xifaxan Tab) 550 mg BID PO 07/07/17 09:15 08/06/17 09:14 07/09/17 08:38 550 MG Amoxicillin/ Clavulanate Potassium (Augmentin Tab) 875 mg BIDM PO 07/07/17 16:45 07/11/17 23:59 07/09/17 08:38 875 MG Miconazole Nitrate (Desenex Powder) 1 appln PRN PRN EXT 07/08/17 12:00 08/07/17 11:59 Objective Vital Signs Date Time Temp Pulse Resp B/P (MAP) Pulse Ox O2 Delivery O2 Flow Rate FiO2 07/09/17 08:00 93 Oxymask 9.0 65 07/09/17 07:29 36.7 91 22 120/70 (87) 95 Oxymask 07/09/17 07:27 94 16 88 Mask 10.0 07/09/17 04:00 Oxymask 11.0 07/09/17 03:23 36.6 87 20 128/75 (92) 96 Oxymask 11.0 07/09/17 02:23 93 16 97 Mask 12.0 07/08/17 23:59 Oxymask 11.0 07/08/17 23:48 36.8 87 20 117/65 (82) 94 Oxymask 11.0 07/08/17 20:00 95 Oxymask 11.0 07/08/17 20:00 Oxymask 11.0 07/08/17 19:58 95 16 95 Mask 12.0 07/08/17 19:13 36.9 93 22 132/75 (94) 95 Oxymask 12.0 07/08/17 16:15 37.3 91 20 113/63 (80) 95 Oxymask 11.0 07/08/17 16:00 95 Oxymask 11.0 07/08/17 14:28 105 16 95 Mask 12.0 07/08/17 12:03 90 Oxymask 11.0 07/08/17 11:01 36.9 89 20 105/67 (80) 92 Oxymask 15.0 Physical Exam General Appearance: no apparent distress Eyes: PERRL ENT: hearing grossly normal Neck: supple Respiratory/Chest: lungs clear, normal breath sounds Cardiovascular: regular rate, rhythm, + pertinent finding (bilateral extremiety edema) Abdomen: normal bowel sounds, no organomegaly, + distended (gross ascites), + pertinent finding (two ostomy bags with peritoneal fluid leaking, yellow) Neurologic/Psych: alert, normal mood/affect, oriented x 3 Skin: normal color Laboratory Results Last 24 Hours Test 07/08/17 16:12 07/08/17 19:56 07/09/17 06:05 Bedside Glucose 123 mg/dl 165 mg/dl Sodium Level 138 mmol/L Potassium Level 4.1 mmol/L Chloride Level 99 mmol/L Carbon Dioxide Level 35 mmol/L Anion Gap 4.0 mmol/L Blood Urea Nitrogen 10 mg/dl Creatinine 0.60 mg/dl Est Creatinine Clear Calc Drug Dose 101.8 ml/min Estimated GFR () 111.6 Estimated GFR (Non- 96.3 BUN/Creatinine Ratio 17.2 Random Glucose 106 mg/dl Calcium Level 8.4 mg/dl Magnesium Level 1.6 mg/dl Assessment and Plan Patient is a 62 year old female w hx of ETOH cirrhosis w s/s of weakness and fall, appears to be SOB and having tense ascites on abd, edema on legs. Continues to drink ETOH, and also non compliant with meds. She hasn't been seen in GI clinic since 2014 though we've seen her during her previous admissions. AMS over weekend with elevated ammonia and lactulose was started. She did not tolerate this medication well. On exam this AM she is alert to person and place , not time. - DT protocol - Elevated ammonia - decreased lactulose to once daily, D/C lactulose if not tolerated - Xifaxan 550 BID - Increase diuretics - Lasix 40mg daily BID - Spironolactone 200mg daily - Low salt diet - Advised ETOH abstinence; would benefit from ETOH cessation program. - Daily CMP - Likely will need another therapeutic and diagnostic paracentesis to complete train - Discussed Dermabond with Dr. Mathis Other outpt workup: - Need EGD for varices eval, repeat colonoscopy for hx of polyps - HCC screening [id number] - Hep A and B immunity checks ATTESTATION: I have performed a history and physical examination of this patient and reviewed the electronic record. Specifically, on physical examination abdomen is soft, mildly distended with leaking paracentesis sites. Sites sealed with Dermabond and dressings removed. I have discussed the case with ENOCH Weaver. The above note reflects my findings, conclusions, and recommendations. Perfecto Mathis MD
--- NOTE | 2017-07-09 16:27 | Progress Note ---
Medicine Progress Note Date & Time of Visit: Jul 09, 2017 at 16:20 . Subjective No fever. Dyspnea with minimal exertion. Occasional cough. No chest pain. Significant drainage from paracentesis sites. No nausea or vomiting. Ongoing loose stools. . Objective Last 8 Hrs Date Time Temp Pulse Resp B/P (MAP) Pulse Ox O2 Delivery O2 Flow Rate FiO2 07/09/17 15:55 37.2 96 20 105/65 (78) 91 Oxymask 10.0 07/09/17 14:18 100 16 88 Mask 9.0 07/09/17 12:00 93 Oxymask 9.0 65 07/09/17 11:09 37.0 100 20 107/63 (78) 95 Oxymask 10.0 Physical Exam: General- appears to be chronically ill, no acute distress Eyes- anicteric Lungs- mild wheezing, decreased breath sounds at bases Heart- RRR Abdomen- distended, soft Extremities- 1-2+ pretibial edema Neuro- awake, mild confusion . Laboratory Results: Last 24 Hours Test 07/08/17 19:56 07/09/17 06:05 Bedside Glucose 165 mg/dl Sodium Level 138 mmol/L Potassium Level 4.1 mmol/L Chloride Level 99 mmol/L Carbon Dioxide Level 35 mmol/L Anion Gap 4.0 mmol/L Blood Urea Nitrogen 10 mg/dl Creatinine 0.60 mg/dl Est Creatinine Clear Calc Drug Dose 101.8 ml/min Estimated GFR () 111.6 Estimated GFR (Non- 96.3 BUN/Creatinine Ratio 17.2 Random Glucose 106 mg/dl Calcium Level 8.4 mg/dl Magnesium Level 1.6 mg/dl Assessment & Plan ACUTE ON CHRONIC HYPOXIC + HYPERCARBIC RESPIRATORY FAILURE Chronic hypoxic respiratory failure on home O2 4 L/m. Underlying COPD. Worsening respiratory status, probably secondary to combination of pneumonia and CHF. Continue supplemental oxygen and titrate as necessary. PNEUMONIA Chest x-ray daily admission demonstrated left lower lobe infiltrate. Blood cultures negative. Received intravenous piperacillin/tazobactam and transitioned to oral therapy with amoxicillin/clavulanic acid. CHRONIC LEFT VENTRICULAR DIASTOLIC HEART FAILURE Continue diuretics. CIRRHOSIS / ASCITES GI consulted. History of cirrhosis attributed to consumption of alcohol. Paracentesis performed x 2 with total of 8 L withdrawn. Continue diuretics, rifaximin, lactulose. ALCOHOL ABUSE / WITHDRAWAL Blood alcohol level in ED was 165. Received gabapentin per protocol for alcohol withdrawal. Continue multivitamin, thiamine, folic acid. Outpatient counseling / support. UTI UA performed on day of admission demonstrated pyuria and bacteria. Urine culture from the same date grew Escherichia coli. Treated with piperacillin/tazobactam followed by amoxicillin/clavulanic acid as noted above. HYPOKALEMIA Serum potassium daily admission was 2.7. Hypokalemia most likely secondary to combination of poor nutritional intake + diuretic therapy. Received replacement. Potassium this morning = 4.1. Follow. HYPOMAGNESEMIA Serum magnesium is low as 1.4. Hypomagnesemia most likely secondary to combination of poor nutritional intake + diuretic therapy. Received replacement. Magnesium this morning = 1.6. Follow. DEPRESSION/ANXIETY/SCHIZOPHRENIA Continue usual meds. DYSLIPIDEMIA Statin on hold due to hepatic status. VTE PROPHYLAXIS Receiving SQ enoxaparin. Ambulate as able.. DISPOSITION To be determined. Internal Medicine follow-up with Dr. Sultana Mcginnis. . Consultants: GI Pulmonary Medicine . Procedures: cardiac monitoring IV meds US abdomen paracentesis x 2 venous duplex lower extremities . . Current Inpatient Medications: Current Inpatient Medications Medications (Trade) Dose Ordered Sig/Antonio Route Start Time Stop Time Status Last Admin Dose Admin Acetaminophen (Tylenol Tab) 650 mg Q4H PRN PO 07/04/17 15:00 08/03/17 14:59 07/08/17 07:21 650 MG Ondansetron HCl (Zofran Inj) 4 mg Q6H PRN IV 07/04/17 15:00 08/03/17 14:59 Enoxaparin Sodium (Lovenox Inj) 40 mg Q24H SQ 07/04/17 21:00 08/03/17 14:59 07/08/17 22:04 40 MG Thiamine HCl (Vitamin B-1 Tab) 100 mg DAILY PO 07/05/17 09:00 08/04/17 08:59 07/09/17 08:39 100 MG Atorvastatin Calcium (Lipitor Tab) 80 mg DAILY PO 07/05/17 09:00 08/04/17 08:59 07/09/17 08:39 80 MG Fluoxetine HCl (Prozac Cap) 40 mg QAM PO 07/05/17 09:00 08/04/17 08:59 07/09/17 08:39 40 MG Risperidone (Risperdal Tab) 4 mg QPM PO 07/04/17 21:00 08/03/17 20:59 07/08/17 22:04 4 MG Calcium/Vitamin D (Caltrate Plus Tab) 1 tab DAILY PO 07/05/17 09:00 08/04/17 08:59 07/09/17 08:38 1 TAB Multivitamins (Multivitamin Tab) 1 tab DAILY PO 07/05/17 09:00 08/04/17 08:59 07/09/17 08:39 1 TAB Folic Acid (Folvite Tab) 1 mg QAM PO 07/04/17 16:00 08/03/17 15:59 07/09/17 08:39 1 MG Albuterol/ Ipratropium (Duoneb) 3 ml Q2H PRN INH 07/04/17 21:00 08/03/17 20:59 Potassium Chloride (Klor-Con Tab) 20 meq QAM PO 07/05/17 09:00 08/04/17 08:59 07/09/17 08:39 20 MEQ Ipratropium [place] (Atrovent 0.02% 0.5MG/2.5ML Neb) 0.5 mg Q6R INH 07/05/17 09:00 08/04/17 08:59 07/09/17 14:09 0.5 MG Levalbuterol (Xopenex 1.25MG/ 0.5ML Neb) 1.25 mg Q6R INH 07/05/17 09:00 08/04/17 08:59 07/09/17 14:09 1.25 MG Lactulose (Chronulac Syrup) 30 gm DAILY PO 07/08/17 09:00 08/05/17 11:29 07/08/17 07:23 30 GM Rifaximin (Xifaxan Tab) 550 mg BID PO 07/07/17 09:15 08/06/17 09:14 07/09/17 08:38 550 MG Amoxicillin/ Clavulanate Potassium (Augmentin Tab) 875 mg BIDM PO 07/07/17 16:45 07/11/17 23:59 07/09/17 08:38 875 MG Miconazole Nitrate (Desenex Powder) 1 appln PRN PRN EXT 07/08/17 12:00 08/07/17 11:59 Furosemide (Lasix Tab) 40 mg BID17 PO 07/09/17 17:00 08/08/17 16:59 Spironolactone (Aldactone Tab) 200 mg QAM PO 07/10/17 09:00 08/04/17 08:59
[2017-07-09] MEDS: FUROSEMIDE 40 MG TAB PO SCH (17:32)
[2017-07-09] MEDS: ENOXAPARIN 40 MG/0.4 ML SYR SQ SCH (20:54)
[2017-07-09] MEDS: RISPERIDONE 2 MG TAB PO SCH (20:54)
[2017-07-09] MEDS: ACETAMINOPHEN 325 MG TAB PO PRN (20:56)
[2017-07-10] VITALS (11 sets, daily range): BP systolic 113–135; BP diastolic 64–77; PULSE 86–108; TEMP 36.8–37.2; O2SAT 91–98
[2017-07-10] MEDS: IPRATROPIUM BROMIDE NEB SOLN 0.02% 2.5 ML VIAL INH SCH ×4 (02:11→19:17)
[2017-07-10] MEDS: LEVALBUTEROL 1.25MG/0.5ML NEB INH SCH ×4 (02:11→19:17)
[2017-07-10 06:58] LABS: HEMATOCRIT 31.8 % (37-47); MEAN CELL VOLUME 86.9 fL (80-100); MEAN CORPUSCULAR HEMOGLOBIN 27.3 pg (25-34); MEAN CORPUSCULAR HGB CONC 31.4 g/dl (32-36); PLATELET COUNT 158 K/uL (130-400); RED BLOOD COUNT 3.66 M/uL (4.2-5.4); WHITE BLOOD COUNT 7.28 K/uL (4.8-10.8)
[2017-07-10 07:37] LABS: BUN/CREATININE RATIO 16.4 (10-20); CALCIUM 8.3 mg/dl (8.5-10.1); CREATININE 0.49 mg/dl (0.60-1.20); POTASSIUM 4.3 mmol/L (3.5-5.1)
[2017-07-10 07:40] LABS: ALB/GLOB RATIO 0.5 (0.9-2)
[2017-07-10] MEDS: AMOXICILLIN/CLAVULANATE TAB 875 MG TAB PO SCH (08:49)
[2017-07-10] MEDS: SPIRONOLACTONE 100 MG TAB PO SCH (08:50)
[2017-07-10] MEDS: CALCIUM 600MG + VIT D 400 IU TAB PO SCH (08:51)
[2017-07-10] MEDS: ATORVASTATIN 40 MG TAB PO SCH (08:52)
[2017-07-10] MEDS: POTASSIUM CHLORIDE 20 MEQ TABCR PO SCH (08:52)
[2017-07-10] MEDS: FUROSEMIDE 40 MG TAB PO SCH ×2 (08:52→15:37)
[2017-07-10] MEDS: MULTIVITAMIN TAB PO SCH (08:52)
[2017-07-10] MEDS: FLUOXETINE HCL 20 MG CAP PO SCH (08:52)
[2017-07-10] MEDS: THIAMINE HCL 100 MG TAB PO SCH (08:53)
[2017-07-10] MEDS: LACTULOSE SYRUP 30 GM/45 ML UDP PO SCH (08:53)
[2017-07-10] MEDS: RIFAXIMIN TAB 550 MG TAB PO SCH ×2 (08:53→20:39)
--- NOTE | 2017-07-10 10:39 | Gastroenterology Progress Note ---
Progress Note Date of Service: Jul 10, 2017 Subjective Pt evaluation today including: conversation w/ patient, physical exam, chart review, lab review Pt was seen and evaluated this AM. No acute events overnight. Pt hesitant to exam this AM but was agreeable to let me look at paracentesis site, staff radiographer was present during exam. Right sided paracentesis site is intact without evidence of drainage since Dermabond was placed yesterday. Left site is dressed at pt refusing to let me assess under dressing - dressing is clean and dry without any visible evidence of drainage. Pt tells me she does not want any further intervention for her abdominal fluid. She is agreeable to continue diuretics. Pt is having loose stools, will d/c lactulose. No fever, chills, CP, SOB, abdominal pain, black/bloody stools. Review of Systems Constitutional: No fever, No chills Respiratory: No cough, No shortness of breath Cardiac: No chest pain Abdomen: + diarrhea, No pain, No nausea, No vomiting, No constipation, No GI bleeding Medications Current Inpatient Medications Medications (Trade) Dose Ordered Sig/Antonio Route Start Time Stop Time Status Last Admin Dose Admin Acetaminophen (Tylenol Tab) 650 mg Q4H PRN PO 07/04/17 15:00 08/03/17 14:59 07/09/17 20:56 650 MG Ondansetron HCl (Zofran Inj) 4 mg Q6H PRN IV 07/04/17 15:00 08/03/17 14:59 Enoxaparin Sodium (Lovenox Inj) 40 mg Q24H SQ 07/04/17 21:00 08/03/17 14:59 07/09/17 20:54 40 MG Thiamine HCl (Vitamin B-1 Tab) 100 mg DAILY PO 07/05/17 09:00 08/04/17 08:59 07/10/17 08:53 100 MG Atorvastatin Calcium (Lipitor Tab) 80 mg DAILY PO 07/05/17 09:00 08/04/17 08:59 07/10/17 08:52 80 MG Fluoxetine HCl (Prozac Cap) 40 mg QAM PO 07/05/17 09:00 08/04/17 08:59 07/10/17 08:52 40 MG Risperidone (Risperdal Tab) 4 mg QPM PO 07/04/17 21:00 08/03/17 20:59 07/09/17 20:54 4 MG Calcium/Vitamin D (Caltrate Plus Tab) 1 tab DAILY PO 07/05/17 09:00 08/04/17 08:59 07/10/17 08:51 1 TAB Multivitamins (Multivitamin Tab) 1 tab DAILY PO 07/05/17 09:00 08/04/17 08:59 07/10/17 08:52 1 TAB Folic Acid (Folvite Tab) 1 mg QAM PO 07/04/17 16:00 08/03/17 15:59 07/10/17 08:51 1 MG Albuterol/ Ipratropium (Duoneb) 3 ml Q2H PRN INH 07/04/17 21:00 08/03/17 20:59 Potassium Chloride (Klor-Con Tab) 20 meq QAM PO 07/05/17 09:00 08/04/17 08:59 07/10/17 08:52 20 MEQ Ipratropium [place] (Atrovent 0.02% 0.5MG/2.5ML Neb) 0.5 mg Q6R INH 07/05/17 09:00 08/04/17 08:59 07/10/17 06:57 0.5 MG Levalbuterol (Xopenex 1.25MG/ 0.5ML Neb) 1.25 mg Q6R INH 07/05/17 09:00 08/04/17 08:59 07/10/17 06:57 1.25 MG Lactulose (Chronulac Syrup) 30 gm DAILY PO 07/08/17 09:00 08/05/17 11:29 07/08/17 07:23 30 GM Rifaximin (Xifaxan Tab) 550 mg BID PO 07/07/17 09:15 08/06/17 09:14 07/10/17 08:53 550 MG Amoxicillin/ Clavulanate Potassium (Augmentin Tab) 875 mg BIDM PO 07/07/17 16:45 07/11/17 23:59 07/10/17 08:49 875 MG Miconazole Nitrate (Desenex Powder) 1 appln PRN PRN EXT 07/08/17 12:00 08/07/17 11:59 Furosemide (Lasix Tab) 40 mg BID17 PO 07/09/17 17:00 08/08/17 16:59 07/10/17 08:52 40 MG Spironolactone (Aldactone Tab) 200 mg QAM PO 07/10/17 09:00 08/04/17 08:59 07/10/17 08:50 200 MG Objective Vital Signs Date Time Temp Pulse Resp B/P (MAP) Pulse Ox O2 Delivery O2 Flow Rate FiO2 07/10/17 08:30 Oxymask 9.0 07/10/17 07:46 36.8 99 18 135/77 (96) 91 6.0 07/10/17 06:57 86 16 98 Mask 8.0 07/10/17 04:35 36.8 91 18 121/77 (92) 97 Room Air 07/10/17 04:00 Oxymask 9.0 07/10/17 02:11 93 16 98 Mask 10.0 07/10/17 00:05 97 Oxymask 9.0 07/09/17 23:20 36.8 85 18 104/58 (73) 97 Oxymask 07/09/17 20:00 91 Oxymask 9.0 07/09/17 19:13 37.0 95 20 93/52 (66) 95 Oxymask 10.0 07/09/17 18:58 92 18 91 Mask 10.0 07/09/17 16:00 Oxymask 9.0 07/09/17 15:55 37.2 96 20 105/65 (78) 91 Oxymask 10.0 07/09/17 14:18 100 16 88 Mask 9.0 07/09/17 12:00 93 Oxymask 9.0 65 07/09/17 11:09 37.0 100 20 107/63 (78) 95 Oxymask 10.0 Physical Exam General Appearance: no apparent distress Eyes: PERRL ENT: hearing grossly normal Neck: supple Respiratory/Chest: lungs clear, normal breath sounds Cardiovascular: regular rate, rhythm Abdomen: normal bowel sounds, soft, no organomegaly, no pulsatile mass, + distended, + pertinent finding (right sided paracentesis site intact without drainage, left sided site dressed, unable to assess as pt would not let me remove dressing, dressing in dry and without evidence of drainage. Abdomen feels warm to touch, no erythema. ) Neurologic/Psych: alert, normal mood/affect, oriented x 3 Skin: warm/dry, no rash, + pertinent finding (abdomen is warm to touch) Laboratory Results Last 24 Hours Test 07/09/17 16:26 07/09/17 21:04 07/10/17 06:03 Bedside Glucose 109 mg/dl 110 mg/dl White Blood Count 7.28 K/uL Red Blood Count 3.66 M/uL Hemoglobin 10.0 g/dL Hematocrit 31.8 % Mean Corpuscular Volume 86.9 fL Mean Corpuscular Hemoglobin 27.3 pg Mean Corpuscular Hemoglobin Concent 31.4 g/dl RDW Standard Deviation 59.3 fL RDW Coefficient of Variation 18.5 % Platelet Count 158 K/uL Mean Platelet Volume 10.0 fL Sodium Level 140 mmol/L Potassium Level 4.3 mmol/L Chloride Level 105 mmol/L Carbon Dioxide Level 31 mmol/L Anion Gap 4.0 mmol/L Blood Urea Nitrogen 8 mg/dl Creatinine 0.49 mg/dl Est Creatinine Clear Calc Drug Dose 122.8 ml/min Estimated GFR () 119.3 Estimated GFR (Non- 103.0 BUN/Creatinine Ratio 16.4 Random Glucose 77 mg/dl Calcium Level 8.3 mg/dl Total Bilirubin 0.8 mg/dl Aspartate Amino Transf (AST/SGOT) 60 U/L Alanine Aminotransferase (ALT/SGPT) 31 U/L Alkaline Phosphatase 530 U/L Total Protein 5.1 gm/dl Albumin 1.8 gm/dl Globulin 3.3 gm/dl Albumin/Globulin Ratio 0.5 Assessment and Plan Patient is a 62 year old female w hx of ETOH cirrhosis w s/s of weakness and fall, appears to be SOB and having tense ascites on abd, edema on legs. Continues to drink ETOH, and also non compliant with meds. She hasn't been seen in GI clinic since 2014 though we've seen her during her previous admissions. AMS over weekend with elevated ammonia and lactulose was started. She did not tolerate this medication well. On exam this AM she is alert to person and place , not time. Paracentesis sites were leaking, ostomy bags were placed for fluid collection - Dermabond applied to sites yesterday without any ongoing evidence of drainage. Abd appears warm to touch, however, pt was laying on her abdomen. Advise not to lay on abdomen as will apply more pressure to paracentesis sites, will need to re-assess abdomen at rounds - clinical concern for cellulitis - DT protocol - Elevated ammonia - D/C lactulose as pt is not tolerating - Xifaxan 550 BID - Increase diuretics - Lasix 40mg daily BID - Spironolactone 200mg daily - Low salt diet - Advised ETOH abstinence; would benefit from ETOH cessation program. - Daily CMP - Repeat stool for c.diff if loose stool persist, order placed - ? cellulitis of abdomen (abd was warm to touch this AM but pt was laying on area, will re-assess at rounds and add abx if needed) Other outpt workup: - Need EGD for varices eval, repeat colonoscopy for hx of polyps - HCC screening [id number] - Hep A and B immunity checks ATTESTATION: I have performed a history and physical examination of this patient and reviewed the electronic record. Specifically, on physical examination there is a small amount of drainage from one site, none from the other. I have discussed the case with ENOCH Weaver. The above note reflects my findings, conclusions, and recommendations. Perfecto aMthis MD
--- NOTE | 2017-07-10 12:00 | PROGRESS NOTE ---
DATE: 07/10/2017 DATE: 07/10/2017 PROBLEM LIST: Includes: 1. Acute respiratory failure with hypoxia and hypercapnia. 2. Probable chronic obstructive pulmonary disease. 3. Pneumonia. 4. 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 5. Questionable volume overload. SUBJECTIVE: The patient was seen today with Dr. Ribeiro. We did discuss the patient with nursing prior to going in. Apparently patient has been talking about signing out AMA. She is confused at times. She has been having a lot of diarrhea. According to nursing, the patient has significant excoriation in the perianal and perivaginal area. Consideration was given for a rectal tube, that has not been done to this point. Nursing reports that her breathing has been about the same. She still is requiring 6-9 liters oxygen via OxyMask. When I went in and saw the patient the patient stated that she was tired of seeing doctors, did not really want to see doctors today but she allow us to examine her. She felt that her breathing was doing better since she had the fluid taken off her abdomen with the paracentesis. She does not really have any cough or congestion. She is wearing the oxygen. She does not have any significant mucus production. She does get short of breath with exertion. She states that her abdomen is less painful since having the paracentesis done. She is not really having much swelling at present. The patient really denies any other concerns or problems. She gives very little history otherwise. OBJECTIVE: GENERAL: The patient is a 62-year-old female lying in bed. She does have oxygen mask on at approximately 9 liters per minute via the OxyMask. She is oriented to person and place. Mood appears to be depressed. Affect is flat. She was cooperative with exam, did not really give much verbal interaction with history. VITAL SIGNS: Temp 36.8, pulse 99, respirations 18, blood pressure is 135/77, pulse ox is 98% on 8 liters via OxyMask. NECK: Short, thick. No mass, adenopathy noted. CHEST: The patient has diminished breath sounds. She does have some coarse wheezing throughout. No rale or rhonchi noted. CARDIOVASCULAR: Regular rate and rhythm. There are no appreciated murmurs, gallops or rubs. ABDOMEN: Slightly distended but is soft, mildly tender to palpation. No guarding or rigidity noted. EXTREMITIES: 1+ pitting edema bilaterally. LABORATORY DATA: Shows a white count of 7,000, H&H 10.0 and 31.8, platelet count 158,000. His chest x-ray is showing persistent left lower lobe retrocardiac consolidation. In reviewing the images does look a little bit better. IMPRESSION: 1. This is a 62-year-old female with acute respiratory failure with hypoxia and hypercapnia in part secondary to pneumonia, also in part secondary to significant ascites secondary to her cirrhosis. At this point, I recommend to continue antibiotic as it is, continue OxyMask, and try to titrate oxygen as she tolerates. Currently she is on Augmentin, she is to continue that. 2. Probable chronic obstructive pulmonary disease with exacerbation stable. 3. Cirrhosis. Unfortunately, the patient is not doing well. She has had a significant amount of fluid. She was diuresed with Lasix and had 1,700 mL taken down overnight. In reviewing notes from GI she had refused any further intervention for abdominal fluid. At this point, will continue to follow although I am not sure how much we are going to be able to off. Will evaluate the patient tomorrow and make further determination.
[2017-07-10] MEDS ORDERED: CEFEPIME IV 2,000 MG in DEXTROSE 5% 100ML 100 ML IV SCH (14:00)
[2017-07-10] MEDS ORDERED: PIPERACILL/TAZOBAC CONSULT ACTIVE PRN (14:15)
[2017-07-10] MEDS ORDERED: PIPERACILL/TAZOBAC IV 0 GM in DEXTROSE 5% 100ML 100 ML IV SCH (14:15)
[2017-07-10] MEDS ORDERED: PIPERACILL/TAZOBAC IV 3.375 GM in DEXTROSE 5% 100ML IV ONE (14:30)
[2017-07-10] MEDS: PIPERACILL/TAZOBAC IV 3.375 GM in DEXTROSE 5% 100ML IV SCH (20:36)
[2017-07-10] MEDS: RISPERIDONE 2 MG TAB PO SCH (20:38)
[2017-07-10] MEDS: ENOXAPARIN 40 MG/0.4 ML SYR SQ SCH (20:40)
--- NOTE | 2017-07-10 21:20 | Progress Note ---
Medicine Progress Note Date & Time of Visit: Jul 10, 2017 at 13:40 . Subjective No fever. Ongoing diarrhea. No melena or hematochezia. No nausea or vomiting. Less drainage from paracentesis sites. Occasional cough. Ongoing SOB. No chest pain. Still has Baer catheter. Nurses note perineal skin irritation. . Objective Last 8 Hrs Date Time Temp Pulse Resp B/P (MAP) Pulse Ox O2 Delivery O2 Flow Rate FiO2 07/10/17 19:52 37.0 108 18 117/64 (81) 95 Oxymask 6.0 07/10/17 19:17 108 20 98 Mask 6.0 07/10/17 16:00 Oxymask 9.0 07/10/17 15:36 37.2 103 16 113/65 (81) 94 Oxymask 6.0 07/10/17 14:14 104 18 91 Mask 6.0 Physical Exam: General- appears to be chronically ill, no acute distress Eyes- anicteric Lungs- diffuse wheezing, decreased breath sounds at bases Heart- RRR Abdomen- markedly distended, + BS, soft; bandage left abdomen; diffuse mild erythema and warmth of abdominal wall Extremities- 1+ pretibial edema Neuro- awake, mild confusion . Laboratory Results: Last 24 Hours Test 07/10/17 06:03 White Blood Count 7.28 K/uL Red Blood Count 3.66 M/uL Hemoglobin 10.0 g/dL Hematocrit 31.8 % Mean Corpuscular Volume 86.9 fL Mean Corpuscular Hemoglobin 27.3 pg Mean Corpuscular Hemoglobin Concent 31.4 g/dl RDW Standard Deviation 59.3 fL RDW Coefficient of Variation 18.5 % Platelet Count 158 K/uL Mean Platelet Volume 10.0 fL Sodium Level 140 mmol/L Potassium Level 4.3 mmol/L Chloride Level 105 mmol/L Carbon Dioxide Level 31 mmol/L Anion Gap 4.0 mmol/L Blood Urea Nitrogen 8 mg/dl Creatinine 0.49 mg/dl Est Creatinine Clear Calc Drug Dose 122.8 ml/min Estimated GFR () 119.3 Estimated GFR (Non- 103.0 BUN/Creatinine Ratio 16.4 Random Glucose 77 mg/dl Calcium Level 8.3 mg/dl Total Bilirubin 0.8 mg/dl Aspartate Amino Transf (AST/SGOT) 60 U/L Alanine Aminotransferase (ALT/SGPT) 31 U/L Alkaline Phosphatase 530 U/L Total Protein 5.1 gm/dl Albumin 1.8 gm/dl Globulin 3.3 gm/dl Albumin/Globulin Ratio 0.5 Assessment & Plan ACUTE ON CHRONIC HYPOXIC + HYPERCARBIC RESPIRATORY FAILURE Chronic hypoxic respiratory failure on home O2 4 L/m. Underlying COPD. Worsening respiratory status, probably secondary to combination of pneumonia and CHF. Continue supplemental oxygen and titrate as necessary. PNEUMONIA Chest x-ray daily admission demonstrated left lower lobe infiltrate. Blood cultures negative. Received intravenous piperacillin/tazobactam and transitioned to oral therapy with amoxicillin/clavulanic acid. Transitioned back to piperacillin / tazobactam for broader coverage to cover skin and possible SBP better. CHRONIC LEFT VENTRICULAR DIASTOLIC HEART FAILURE Continue diuretics. CIRRHOSIS / ASCITES GI consulted. History of cirrhosis attributed to consumption of alcohol. Paracentesis performed x 2 with total of 8 L withdrawn. Lactulose stopped due to intolerable diarrhea. Continue diuretics, rifaximin. ALCOHOL ABUSE / WITHDRAWAL Blood alcohol level in ED was 165. Received gabapentin per protocol for alcohol withdrawal. Continue multivitamin, thiamine, folic acid. Outpatient counseling / support. UTI UA performed on day of admission demonstrated pyuria and bacteria. Urine culture from the same date grew Escherichia coli. Treated with piperacillin/tazobactam followed by amoxicillin/clavulanic acid as noted above. HYPOKALEMIA Serum potassium daily admission was 2.7. Hypokalemia most likely secondary to combination of poor nutritional intake + diuretic therapy. Received replacement. Potassium this morning = 4.3. Follow. HYPOMAGNESEMIA Serum magnesium is low as 1.4. Hypomagnesemia most likely secondary to combination of poor nutritional intake + diuretic therapy. Received replacement. Magnesium this yesterday was 1.6. Follow. DIARRHEA Lactulose stopped. Stool negative for C diff. Stool culture grew Karen albicans- Rx with oral nystatin. ? CELLULITIS ABDOMINAL WALL Erythema and warmth of abdominal wall noted. No fever. Rx with piperacillin / tazobactam. Add MRSA coverage if no improvement. DEPRESSION/ANXIETY/SCHIZOPHRENIA Continue usual meds. DYSLIPIDEMIA Statin on hold due to hepatic status. VTE PROPHYLAXIS Receiving SQ enoxaparin. Ambulate as able.. DISPOSITION To be determined. Internal Medicine follow-up with Dr. Sultana Mcginnis. . Consultants: GI Pulmonary Medicine . Procedures: cardiac monitoring IV meds US abdomen paracentesis x 2 venous duplex lower extremities . . Current Inpatient Medications: Current Inpatient Medications Medications (Trade) Dose Ordered Sig/Antonio Route Start Time Stop Time Status Last Admin Dose Admin Acetaminophen (Tylenol Tab) 650 mg Q4H PRN PO 07/04/17 15:00 08/03/17 14:59 07/09/17 20:56 650 MG Ondansetron HCl (Zofran Inj) 4 mg Q6H PRN IV 07/04/17 15:00 08/03/17 14:59 Enoxaparin Sodium (Lovenox Inj) 40 mg Q24H SQ 07/04/17 21:00 08/03/17 14:59 07/10/17 20:40 40 MG Thiamine HCl (Vitamin B-1 Tab) 100 mg DAILY PO 07/05/17 09:00 08/04/17 08:59 07/10/17 08:53 100 MG Atorvastatin Calcium (Lipitor Tab) 80 mg DAILY PO 07/05/17 09:00 08/04/17 08:59 07/10/17 08:52 80 MG Fluoxetine HCl (Prozac Cap) 40 mg QAM PO 07/05/17 09:00 08/04/17 08:59 07/10/17 08:52 40 MG Risperidone (Risperdal Tab) 4 mg QPM PO 07/04/17 21:00 08/03/17 20:59 07/10/17 20:38 4 MG Calcium/Vitamin D (Caltrate Plus Tab) 1 tab DAILY PO 07/05/17 09:00 08/04/17 08:59 07/10/17 08:51 1 TAB Multivitamins (Multivitamin Tab) 1 tab DAILY PO 07/05/17 09:00 08/04/17 08:59 07/10/17 08:52 1 TAB Folic Acid (Folvite Tab) 1 mg QAM PO 07/04/17 16:00 08/03/17 15:59 07/10/17 08:51 1 MG Albuterol/ Ipratropium (Duoneb) 3 ml Q2H PRN INH 07/04/17 21:00 08/03/17 20:59 Potassium Chloride (Klor-Con Tab) 20 meq QAM PO 07/05/17 09:00 08/04/17 08:59 07/10/17 08:52 20 MEQ Ipratropium [place] (Atrovent 0.02% 0.5MG/2.5ML Neb) 0.5 mg Q6R INH 07/05/17 09:00 08/04/17 08:59 07/10/17 19:17 0.5 MG Levalbuterol (Xopenex 1.25MG/ 0.5ML Neb) 1.25 mg Q6R INH 07/05/17 09:00 08/04/17 08:59 07/10/17 19:17 1.25 MG Rifaximin (Xifaxan Tab) 550 mg BID PO 07/07/17 09:15 08/06/17 09:14 07/10/17 20:39 550 MG Miconazole Nitrate (Desenex Powder) 1 appln PRN PRN EXT 07/08/17 12:00 08/07/17 11:59 Furosemide (Lasix Tab) 40 mg BID17 PO 07/09/17 17:00 08/08/17 16:59 07/10/17 15:37 40 MG Spironolactone (Aldactone Tab) 200 mg QAM PO 07/10/17 09:00 08/04/17 08:59 07/10/17 08:50 200 MG Piperacillin Sod/ Tazobactam Sod (Consult) 1 ea UD PRN N/A 07/10/17 14:15 08/09/17 14:14 Piperacillin Sod/ Tazobactam Sod 3.375 gm/Dextrose 115 ml @ 28.75 mls/ hr Q8H IV 07/10/17 20:00 07/20/17 19:59 07/10/17 20:36 28.75 MLS/HR
[2017-07-11] VITALS (12 sets, daily range): BP systolic 94–134; BP diastolic 56–75; PULSE 81–109; TEMP 36.8–37.2; O2SAT 91–99
[2017-07-11] MEDS: LEVALBUTEROL 1.25MG/0.5ML NEB INH SCH ×4 (01:50→19:18)
[2017-07-11] MEDS: IPRATROPIUM BROMIDE NEB SOLN 0.02% 2.5 ML VIAL INH SCH ×4 (01:50→19:18)
[2017-07-11] MEDS: PIPERACILL/TAZOBAC IV 3.375 GM in DEXTROSE 5% 100ML IV SCH ×3 (04:09→20:00)
[2017-07-11 06:57] LABS: MEAN CELL VOLUME 86.5 fL (80-100); MEAN CORPUSCULAR HEMOGLOBIN 26.2 pg (25-34); MEAN CORPUSCULAR HGB CONC 30.3 g/dl (32-36); MEAN PLATELET VOLUME 9.7 fL (7.4-10.4); PLATELET COUNT 162 K/uL (130-400); RED BLOOD COUNT 3.47 M/uL (4.2-5.4); WHITE BLOOD COUNT 8.06 K/uL (4.8-10.8)
[2017-07-11 07:25] LABS: BUN/CREATININE RATIO 12.8 (10-20); CALCIUM 8.1 mg/dl (8.5-10.1); CREATININE 0.61 mg/dl (0.60-1.20); MAGNESIUM 1.6 mg/dl (1.8-2.4); POTASSIUM 3.9 mmol/L (3.5-5.1)
--- NOTE | 2017-07-11 07:26 | DIAGNOSTIC IMAGING REPORT ---
CHEST ONE VIEW PORTABLE CLINICAL HISTORY: pneumonia, reps failure dyspnea COMPARISON STUDY: 07/09/2017 FINDINGS: Improved aeration left lung base. Findings of congestive failure versus mild pulmonary edema persists. Slight thickening of the right minor fissure. Both diaphragms are smooth. IMPRESSION: Stable components of congestive failure. Improved aeration left lung base. The above report was generated using voice recognition software. It may contain grammatical, syntax or spelling errors. Electronically signed by: Dm Villarreal M.D. 07/11/2017 7:25 AM Dictated Date/Time: 07/11/2017 7:24 AM
[2017-07-11 07:28] LABS: ALB/GLOB RATIO 0.5 (0.9-2)
[2017-07-11] MEDS: CALCIUM 600MG + VIT D 400 IU TAB PO SCH (07:53)
[2017-07-11] MEDS: RIFAXIMIN TAB 550 MG TAB PO SCH ×2 (07:53→21:13)
[2017-07-11] MEDS: MULTIVITAMIN TAB PO SCH (07:54)
[2017-07-11] MEDS: FUROSEMIDE 40 MG TAB PO SCH ×2 (07:54→18:01)
[2017-07-11] MEDS: SPIRONOLACTONE 100 MG TAB PO SCH (07:54)
[2017-07-11] MEDS: ATORVASTATIN 40 MG TAB PO SCH (07:55)
[2017-07-11] MEDS: FLUOXETINE HCL 20 MG CAP PO SCH (07:55)
[2017-07-11] MEDS: POTASSIUM CHLORIDE 20 MEQ TABCR PO SCH (07:55)
[2017-07-11] MEDS: THIAMINE HCL 100 MG TAB PO SCH (07:55)
--- NOTE | 2017-07-11 10:30 | Gastroenterology Progress Note ---
Progress Note Date of Service: Jul 11, 2017 Subjective Pt evaluation today including: conversation w/ patient, physical exam, chart review, lab review, review of studies, review of inpatient medication list Pt AAOx3, though appears fatigued. Post paracentesis site leak had Dermabond applied last night, no more leakage noted. She denies any abd pain, n/v. Review of Systems Constitutional: No fever, No chills Respiratory: + wheezing, + shortness of breath, No cough Cardiac: + edema, No chest pain Abdomen: No pain, No nausea, No vomiting Endo: + fatigue Skin: No rash, No itch, No jaundice Medications Current Inpatient Medications Medications (Trade) Dose Ordered Sig/Antonio Route Start Time Stop Time Status Last Admin Dose Admin Acetaminophen (Tylenol Tab) 650 mg Q4H PRN PO 07/04/17 15:00 08/03/17 14:59 07/09/17 20:56 650 MG Ondansetron HCl (Zofran Inj) 4 mg Q6H PRN IV 07/04/17 15:00 08/03/17 14:59 Enoxaparin Sodium (Lovenox Inj) 40 mg Q24H SQ 07/04/17 21:00 08/03/17 14:59 07/10/17 20:40 40 MG Thiamine HCl (Vitamin B-1 Tab) 100 mg DAILY PO 07/05/17 09:00 08/04/17 08:59 07/11/17 07:55 100 MG Atorvastatin Calcium (Lipitor Tab) 80 mg DAILY PO 07/05/17 09:00 08/04/17 08:59 07/11/17 07:55 80 MG Fluoxetine HCl (Prozac Cap) 40 mg QAM PO 07/05/17 09:00 08/04/17 08:59 07/11/17 07:55 40 MG Risperidone (Risperdal Tab) 4 mg QPM PO 07/04/17 21:00 08/03/17 20:59 07/10/17 20:38 4 MG Calcium/Vitamin D (Caltrate Plus Tab) 1 tab DAILY PO 07/05/17 09:00 08/04/17 08:59 07/11/17 07:53 1 TAB Multivitamins (Multivitamin Tab) 1 tab DAILY PO 07/05/17 09:00 08/04/17 08:59 07/11/17 07:54 1 TAB Folic Acid (Folvite Tab) 1 mg QAM PO 07/04/17 16:00 08/03/17 15:59 07/11/17 07:54 1 MG Albuterol/ Ipratropium (Duoneb) 3 ml Q2H PRN INH 07/04/17 21:00 08/03/17 20:59 Potassium Chloride (Klor-Con Tab) 20 meq QAM PO 07/05/17 09:00 08/04/17 08:59 07/11/17 07:55 20 MEQ Ipratropium Singer (Atrovent 0.02% 0.5MG/2.5ML Neb) 0.5 mg Q6R INH 07/05/17 09:00 08/04/17 08:59 07/11/17 07:12 0.5 MG Levalbuterol (Xopenex 1.25MG/ 0.5ML Neb) 1.25 mg Q6R INH 07/05/17 09:00 08/04/17 08:59 07/11/17 07:13 1.25 MG Rifaximin (Xifaxan Tab) 550 mg BID PO 07/07/17 09:15 08/06/17 09:14 07/11/17 07:53 550 MG Miconazole Nitrate (Desenex Powder) 1 appln PRN PRN EXT 07/08/17 12:00 08/07/17 11:59 Furosemide (Lasix Tab) 40 mg BID17 PO 07/09/17 17:00 08/08/17 16:59 07/11/17 07:54 40 MG Spironolactone (Aldactone Tab) 200 mg QAM PO 07/10/17 09:00 08/04/17 08:59 07/11/17 07:54 200 MG Piperacillin Sod/ Tazobactam Sod (Consult) 1 ea UD PRN N/A 07/10/17 14:15 08/09/17 14:14 Piperacillin Sod/ Tazobactam Sod 3.375 gm/Dextrose 115 ml @ 28.75 mls/ hr Q8H IV 07/10/17 20:00 07/20/17 19:59 07/11/17 04:09 28.75 MLS/HR Objective Vital Signs Date Time Temp Pulse Resp B/P (MAP) Pulse Ox O2 Delivery O2 Flow Rate FiO2 07/11/17 07:35 36.9 92 18 94/56 (69) 94 Nasal Cannula 6.0 07/11/17 07:13 93 20 97 Mask 6.0 07/11/17 04:00 97 Mask 6.0 07/11/17 03:47 36.9 102 18 125/72 (89) 97 Oxymask 07/11/17 01:50 102 20 98 Mask 6.0 07/11/17 00:01 37.2 109 18 106/60 (75) 97 Mask 6.0 07/11/17 00:01 97 Mask 6.0 07/10/17 20:00 95 Mask 6.0 07/10/17 19:52 37.0 108 18 117/64 (81) 95 Oxymask 6.0 07/10/17 19:17 108 20 98 Mask 6.0 07/10/17 16:00 Oxymask 9.0 07/10/17 15:36 37.2 103 16 113/65 (81) 94 Oxymask 6.0 07/10/17 14:14 104 18 91 Mask 6.0 07/10/17 11:01 37.0 102 18 119/71 (87) 93 Oxymask 6.0 07/10/17 11:00 Oxymask 9.0 Physical Exam General Appearance: + mild distress, + obese Eyes: normal inspection, PERRL, EOMI Neck: supple, no JVD, trachea midline Respiratory/Chest: no accessory muscle use, + decreased breath sounds, + crackles (bases), + wheezing (scattered) Cardiovascular: regular rate, rhythm, no gallop, no murmur Abdomen: + distended Extremities: normal inspection, no pedal edema, no calf tenderness Neurologic/Psych: alert, oriented x 3, + depressed affect Skin: normal color, no jaundice, no rash, + pertinent finding (Lower abd areas w pink tissue, slight warmth) Laboratory Results Last 24 Hours Test 07/11/17 06:29 White Blood Count 8.06 K/uL Red Blood Count 3.47 M/uL Hemoglobin 9.1 g/dL Hematocrit 30.0 % Mean Corpuscular Volume 86.5 fL Mean Corpuscular Hemoglobin 26.2 pg Mean Corpuscular Hemoglobin Concent 30.3 g/dl RDW Standard Deviation 58.2 fL RDW Coefficient of Variation 18.5 % Platelet Count 162 K/uL Mean Platelet Volume 9.7 fL Sodium Level 138 mmol/L Potassium Level 3.9 mmol/L Chloride Level 104 mmol/L Carbon Dioxide Level 29 mmol/L Anion Gap 5.0 mmol/L Blood Urea Nitrogen 8 mg/dl Creatinine 0.61 mg/dl Est Creatinine Clear Calc Drug Dose 92.2 ml/min Estimated GFR () 111.0 Estimated GFR (Non- 95.8 BUN/Creatinine Ratio 12.8 Random Glucose 85 mg/dl Calcium Level 8.1 mg/dl Magnesium Level 1.6 mg/dl Total Bilirubin 0.7 mg/dl Aspartate Amino Transf (AST/SGOT) 48 U/L Alanine Aminotransferase (ALT/SGPT) 27 U/L Alkaline Phosphatase 452 U/L Total Protein 4.8 gm/dl Albumin 1.7 gm/dl Globulin 3.1 gm/dl Albumin/Globulin Ratio 0.5 Assessment and Plan Patient is a 62 year old female w hx of ETOH cirrhosis w s/s of weakness and fall, appears to be SOB and having tense ascites on abd, edema on legs. Continues to drink ETOH, and also non compliant with meds. She hasn't been seen in GI clinic since 2014 though we've seen her during her previous admissions. s/p paracentesis on 07/04 (5L) and 07/08 (7L). Cell ct on 8.4 w/o signs of SBP, no fluid analysis sent on 07/08. She was having paracentesis site leakage which is now controlled w Dermabond. She does have slight erythema and warmth to lower abd tissue area. On Zosyn IV which should cover cellulitis. Urine cx + for Ecoli. Stool cx + for ivone MELD today: 8 - Xifaxan 550 BID for HE prevention. Lactulose DC'd as pt not tolerating. - Continue diuretics & monitor electrolytes, renal function - Lasix 40mg daily BID - Spironolactone 200mg daily - Low salt diet - Advised ETOH abstinence; would benefit from ETOH cessation program. Will help make appt upon her DC. Other outpt workup: - Need EGD for varices eval, repeat colonoscopy for hx of polyps - HCC screening [id number] - Hep A and B immunity checks Otherwise will monitor peripherally, call if new questions/concerns. ATTESTATION: I have performed a history and physical examination of this patient and reviewed the electronic record. Specifically, on physical examination paracentesis sites appear to be dry. I have discussed the case with ENOCH Goncalves. The above note reflects my findings, conclusions, and recommendations. Perfecto Mathis MD
--- NOTE | 2017-07-11 11:03 | PULMONARY PROGRESS NOTE ---
DATE: 07/11/2017 TIME: 10:20 a.m. SUBJECTIVE: The patient has been more subdued today. She has been more cooperative with nursing staff. Whereas yesterday she was threatening to sign out AMA, there has been no talk of that today. They did put a form of rectal tube in place. This is draining a lot of stool. Perhaps she is more comfortable because of this. She denies shortness of breath, although she is a little bit tachypneic. Her was with her during this evaluation. He did question whether she was still getting her psych meds and upon verifying it, we assured him that she is. She denies any cough or sputum production. OBJECTIVE: VITAL SIGNS: Temperature is 36.9. Maximum temperature overnight was 37.2. GENERAL: The patient has a flat affect. She has an oxy mask in place with 5 liters of oxygen. HEART: Rate was 92 per minute. Her rhythm was normal sinus with an occasional PAC. Blood pressure this morning is decreased to 94/56. LUNGS: Lung fitch revealed mild rhonchi. The patient is turned somewhat on her right side. Thus, it was difficult to examine the right side with completeness. Left side revealed mild rhonchi. She has a respiratory rate of 30 at the time of this exam, but she does not look at all uncomfortable. ABDOMEN: Remains distended. The bowel sounds are active. There was no tenderness to palpation. EXTREMITIES: Show resolution of the previously seen edema that was very prominent a few days ago. LABORATORY DATA: White count today is 8.06. Hemoglobin 9.1. Platelets 162,000. Electrolytes show sodium 138, potassium 3.9, chloride 104, bicarb 29. It is notable that her bicarbonate has been improving. Two days ago bicarbonate was 35. The BUN is 8 with a creatinine of 0.61. Liver functions are continuing to improve. The AST is 48, which is mildly elevated. ALT is 27, which is normal. Alkaline phosphatase is still elevated at 452. The alkaline phosphatase had peaked at 729. Chest x-ray was done today. The film was rotated towards the right. It did suggest improved aeration of the left lung base and the left hemidiaphragm could be clearly seen. It was difficult to assess the right lung base because of positioning. ASSESSMENT: 1. Acute respiratory failure with hypoxia and hypercarbia -- improved. 2. Probable chronic obstructive pulmonary disease. 3. Cirrhosis with ascites. 4. Pneumonia -- improved. COMMENTS AND RECOMMENDATIONS: Overall, the patient seems somewhat better. She obviously has numerous chronic diseases. She is still on the Zosyn. Likewise, she is on spironolactone and furosemide. She is getting the every 6 hour levalbuterol and ipratropium as prior. Would continue with the above therapies.
[2017-07-11] MEDS: NYSTATIN SUSP 500,000 U/5 ML UDC PO SCH ×2 (18:01→21:12)
[2017-07-11] MEDS ORDERED: MAGNESIUM SULFATE 1GM / D5W 1 GM in PREMIXED IN D5W 100 ML IV ONE (19:45)
--- NOTE | 2017-07-11 20:19 | Progress Note ---
Medicine Progress Note Date & Time of Visit: Jul 11, 2017 at 15:15 . Subjective No fever. Cough and dyspnea but better. No chest pain. Ongoing watery diarrhea requiring drainage with rectal tube. No nausea or vomiting. No abdominal pain. Still has Baer catheter. . Objective Last 8 Hrs Date Time Temp Pulse Resp B/P (MAP) Pulse Ox O2 Delivery O2 Flow Rate FiO2 07/11/17 19:38 36.8 96 20 132/75 (94) 93 Oxymask 3.0 07/11/17 19:18 81 20 91 Room Air 07/11/17 16:00 Oxymask 6.0 07/11/17 15:19 36.9 97 20 134/72 (92) 95 Oxymask 3.0 07/11/17 14:11 93 20 99 Mask 5.0 Physical Exam: General- appears to be chronically ill, no acute distress Eyes- anicteric Lungs- diffuse mild wheezing Heart- RRR Abdomen- markedly distended, + BS, soft; bandage left abdomen; diffuse mild erythema and warmth of abdominal wall Extremities- 1+ pretibial edema Neuro- awake, mild confusion . Laboratory Results: Last 24 Hours Test 07/11/17 06:29 White Blood Count 8.06 K/uL Red Blood Count 3.47 M/uL Hemoglobin 9.1 g/dL Hematocrit 30.0 % Mean Corpuscular Volume 86.5 fL Mean Corpuscular Hemoglobin 26.2 pg Mean Corpuscular Hemoglobin Concent 30.3 g/dl RDW Standard Deviation 58.2 fL RDW Coefficient of Variation 18.5 % Platelet Count 162 K/uL Mean Platelet Volume 9.7 fL Sodium Level 138 mmol/L Potassium Level 3.9 mmol/L Chloride Level 104 mmol/L Carbon Dioxide Level 29 mmol/L Anion Gap 5.0 mmol/L Blood Urea Nitrogen 8 mg/dl Creatinine 0.61 mg/dl Est Creatinine Clear Calc Drug Dose 92.2 ml/min Estimated GFR () 111.0 Estimated GFR (Non- 95.8 BUN/Creatinine Ratio 12.8 Random Glucose 85 mg/dl Calcium Level 8.1 mg/dl Magnesium Level 1.6 mg/dl Total Bilirubin 0.7 mg/dl Aspartate Amino Transf (AST/SGOT) 48 U/L Alanine Aminotransferase (ALT/SGPT) 27 U/L Alkaline Phosphatase 452 U/L Total Protein 4.8 gm/dl Albumin 1.7 gm/dl Globulin 3.1 gm/dl Albumin/Globulin Ratio 0.5 Diagnostic Imaging: CHEST ONE VIEW PORTABLE FINDINGS: Improved aeration left lung base. Findings of congestive failure versus mild pulmonary edema persists. Slight thickening of the right minor fissure. Both diaphragms are smooth. IMPRESSION: Stable components of congestive failure. Improved aeration left lung base. The above report was generated using voice recognition software. It may contain grammatical, syntax or spelling errors. Electronically signed by: Dm Villarreal M.D. 07/11/2017 7:25 AM Dictated Date/Time: 07/11/2017 7:24 AM . Assessment & Plan ACUTE ON CHRONIC HYPOXIC + HYPERCARBIC RESPIRATORY FAILURE Chronic hypoxic respiratory failure on home O2 4 L/m. Underlying COPD. Worsening respiratory status, probably secondary to combination of pneumonia and CHF. Continue supplemental oxygen and titrate as necessary. PNEUMONIA Chest x-ray on day of admission demonstrated left lower lobe infiltrate. Blood cultures negative. Received intravenous piperacillin/tazobactam and transitioned to oral therapy with amoxicillin/clavulanic acid. Transitioned back to piperacillin / tazobactam for broader coverage to cover skin and possible SBP better. CHRONIC LEFT VENTRICULAR DIASTOLIC HEART FAILURE Persistent pulmonary edema on chest film. Continue diuretics. CIRRHOSIS / ASCITES GI consulted. History of cirrhosis attributed to consumption of alcohol. Paracentesis performed x 2 with total of 8 L withdrawn. Lactulose stopped due to intolerable diarrhea. Continue diuretics, rifaximin. ALCOHOL ABUSE / WITHDRAWAL Blood alcohol level in ED was 165. Received gabapentin per protocol for alcohol withdrawal. Continue multivitamin, thiamine, folic acid. Outpatient counseling / support. UTI UA performed on day of admission demonstrated pyuria and bacteria. Urine culture from the same date grew Escherichia coli. Treated with piperacillin/tazobactam followed by amoxicillin/clavulanic acid as noted above. HYPOKALEMIA Serum potassium daily admission was 2.7. Hypokalemia most likely secondary to combination of poor nutritional intake + diuretic therapy. Received replacement. Potassium this morning = 3.9. Follow. HYPOMAGNESEMIA Serum magnesium is low as 1.4. Hypomagnesemia most likely secondary to combination of poor nutritional intake + diuretic therapy. Received replacement. Magnesium today = 1.6. Follow. DIARRHEA Lactulose stopped. Stool negative for C diff. Stool culture grew Karen albicans- Rx with oral nystatin. ? CELLULITIS ABDOMINAL WALL Erythema and warmth of abdominal wall noted. No fever. Rx with piperacillin / tazobactam. Add MRSA coverage if no improvement. DEPRESSION/ANXIETY/SCHIZOPHRENIA Continue usual meds. DYSLIPIDEMIA Statin on hold due to hepatic status. VTE PROPHYLAXIS Receiving SQ enoxaparin. Ambulate as able.. DISPOSITION To be determined. Internal Medicine follow-up with Dr. Sultana Mcginnis. . Consultants: GI Pulmonary Medicine . Procedures: cardiac monitoring IV meds US abdomen paracentesis x 2 venous duplex lower extremities . . Current Inpatient Medications: Current Inpatient Medications Medications (Trade) Dose Ordered Sig/Antonio Route Start Time Stop Time Status Last Admin Dose Admin Acetaminophen (Tylenol Tab) 650 mg Q4H PRN PO 07/04/17 15:00 08/03/17 14:59 07/09/17 20:56 650 MG Ondansetron HCl (Zofran Inj) 4 mg Q6H PRN IV 07/04/17 15:00 08/03/17 14:59 Enoxaparin Sodium (Lovenox Inj) 40 mg Q24H SQ 07/04/17 21:00 08/03/17 14:59 07/10/17 20:40 40 MG Thiamine HCl (Vitamin B-1 Tab) 100 mg DAILY PO 07/05/17 09:00 08/04/17 08:59 07/11/17 07:55 100 MG Atorvastatin Calcium (Lipitor Tab) 80 mg DAILY PO 07/05/17 09:00 08/04/17 08:59 07/11/17 07:55 80 MG Fluoxetine HCl (Prozac Cap) 40 mg QAM PO 07/05/17 09:00 08/04/17 08:59 07/11/17 07:55 40 MG Risperidone (Risperdal Tab) 4 mg QPM PO 07/04/17 21:00 08/03/17 20:59 07/10/17 20:38 4 MG Calcium/Vitamin D (Caltrate Plus Tab) 1 tab DAILY PO 07/05/17 09:00 08/04/17 08:59 07/11/17 07:53 1 TAB Multivitamins (Multivitamin Tab) 1 tab DAILY PO 07/05/17 09:00 08/04/17 08:59 07/11/17 07:54 1 TAB Folic Acid (Folvite Tab) 1 mg QAM PO 07/04/17 16:00 08/03/17 15:59 07/11/17 07:54 1 MG Albuterol/ Ipratropium (Duoneb) 3 ml Q2H PRN INH 07/04/17 21:00 08/03/17 20:59 Potassium Chloride (Klor-Con Tab) 20 meq QAM PO 07/05/17 09:00 08/04/17 08:59 07/11/17 07:55 20 MEQ Ipratropium Leland (Atrovent 0.02% 0.5MG/2.5ML Neb) 0.5 mg Q6R INH 07/05/17 09:00 08/04/17 08:59 07/11/17 19:18 0.5 MG Levalbuterol (Xopenex 1.25MG/ 0.5ML Neb) 1.25 mg Q6R INH 07/05/17 09:00 08/04/17 08:59 07/11/17 19:18 1.25 MG Rifaximin (Xifaxan Tab) 550 mg BID PO 07/07/17 09:15 08/06/17 09:14 07/11/17 07:53 550 MG Miconazole Nitrate (Desenex Powder) 1 appln PRN PRN EXT 07/08/17 12:00 08/07/17 11:59 Furosemide (Lasix Tab) 40 mg BID17 PO 07/09/17 17:00 08/08/17 16:59 07/11/17 18:01 40 MG Spironolactone (Aldactone Tab) 200 mg QAM PO 07/10/17 09:00 08/04/17 08:59 07/11/17 07:54 200 MG Piperacillin Sod/ Tazobactam Sod (Consult) 1 ea UD PRN N/A 07/10/17 14:15 08/09/17 14:14 Piperacillin Sod/ Tazobactam Sod 3.375 gm/Dextrose 115 ml @ 28.75 mls/ hr Q8H IV 07/10/17 20:00 07/20/17 19:59 07/11/17 20:00 28.75 MLS/HR Nystatin (Mycostatin Susp) 5 ml QID PO 07/11/17 17:00 07/21/17 16:59 8/11/17 18:01 5 ML Magnesium Sulfate 1 gm/Prmx 100 ml @ 100 mls/hr 1944 ONCE IV 07/11/17 19:45 07/11/17 20:44 07/11/17 20:15 100 MLS/HR
[2017-07-11] MEDS: RISPERIDONE 2 MG TAB PO SCH (21:13)
[2017-07-11] MEDS: ENOXAPARIN 40 MG/0.4 ML SYR SQ SCH (21:14)
[2017-07-12] VITALS (13 sets, daily range): BP systolic 114–127; BP diastolic 63–75; PULSE 85–104; TEMP 36.8–37.3; O2SAT 91–100
[2017-07-12] MEDS: IPRATROPIUM BROMIDE NEB SOLN 0.02% 2.5 ML VIAL INH SCH ×4 (01:47→19:09)
[2017-07-12] MEDS: LEVALBUTEROL 1.25MG/0.5ML NEB INH SCH ×4 (01:47→19:09)
[2017-07-12] MEDS: PIPERACILL/TAZOBAC IV 3.375 GM in DEXTROSE 5% 100ML IV SCH ×3 (03:59→20:18)
[2017-07-12 06:56] LABS: BUN/CREATININE RATIO 10.4 (10-20); CALCIUM 8.1 mg/dl (8.5-10.1); CREATININE 0.53 mg/dl (0.60-1.20); POTASSIUM 3.7 mmol/L (3.5-5.1)
[2017-07-12] MEDS: ATORVASTATIN 40 MG TAB PO SCH (07:50)
[2017-07-12] MEDS: NYSTATIN SUSP 500,000 U/5 ML UDC PO SCH ×4 (07:50→20:20)
[2017-07-12] MEDS: SPIRONOLACTONE 100 MG TAB PO SCH (07:50)
[2017-07-12] MEDS: FLUOXETINE HCL 20 MG CAP PO SCH (07:50)
[2017-07-12] MEDS: POTASSIUM CHLORIDE 20 MEQ TABCR PO SCH (07:50)
[2017-07-12] MEDS: CALCIUM 600MG + VIT D 400 IU TAB PO SCH (07:51)
[2017-07-12] MEDS: RIFAXIMIN TAB 550 MG TAB PO SCH ×2 (07:51→20:21)
[2017-07-12] MEDS: FUROSEMIDE 40 MG TAB PO SCH ×2 (07:51→17:23)
[2017-07-12] MEDS: THIAMINE HCL 100 MG TAB PO SCH (07:51)
[2017-07-12] MEDS: MULTIVITAMIN TAB PO SCH (07:51)
--- NOTE | 2017-07-12 08:57 | PULMONARY PROGRESS NOTE ---
DATE: 07/12/2017 DATE: 07/12/2017 TIME: 8:35 a.m. SUBJECTIVE: The patient overall feeling better. She did tell me that she was short of breath after swallowing some hot chocolate and she thought she had some coughing after the hot chocolate. Nursing staff is not aware of her having any such beverage and thus I am not sure if this is valid or not. She is not complaining of any stomach complaints. She admits that she is still weak. OBJECTIVE: GENERAL: The patient appears comfortable. VITAL SIGNS: Current temperature 36.8. The maximum temperature in the past 24 hours is 37.1. HEAD, EYES, EARS, NOSE, AND THROAT: She still has an OxyMask in place. HEART: Heart rate is 96 per minute. Occasional extrasystoles were heard. Blood pressure is 127/73. LUNGS: Li revealed rales bilaterally posteriorly. Her respiratory rate was 20. On the OxyMask at only 3 liters her saturation is 98%. ABDOMEN: Fairly soft. Bowel sounds were present and were normal. She still has the rectal tube in place. EXTREMITIES: She has a Baer in place. Electrolytes today show sodium 137, potassium 3.7, chloride 104, bicarb 26. BUN was 6 with a creatinine of 0.53. Blood sugar was 82. IMPRESSIONS: 1. Acute respiratory failure with hypoxia and hypercarbia -- improved. 2. Probable chronic obstructive pulmonary disease. 3. Cirrhosis with ascites. 4. Pneumonia -- improved. COMMENTS AND RECOMMENDATIONS: The patient seems stable from a pulmonary perspective. Her x-ray as of yesterday was improved, but not entirely clear. She is still on the Zosyn. She is still getting the nebulizer treatments. I will sign off for now. I would be happy to see her again if specifically requested.
[2017-07-12 12:11] LABS: ARTERIAL BLD GAS O2 SATURATION 96.2 % (90-95); ARTERIAL BLOOD GAS BASE EXCESS 3.9 mEq/L (-9-1.8); ARTERIAL BLOOD GAS HCO3 28 mmol/L (19-24); ARTERIAL BLOOD GAS PO2 94 mm/Hg (80-95); ARTERIAL BLOOD GAS pH 7.44 (7.35-7.45)
[2017-07-12 12:12] LABS: O2 ADMINISTRATION 9 L
[2017-07-12 12:13] LABS: ALLEN TEST POS (POS)
--- NOTE | 2017-07-12 12:22 | DIAGNOSTIC IMAGING REPORT ---
HEAD CT NONCONTRAST CT DOSE: 537.48 mGy.cm HISTORY: altered mental status TECHNIQUE: Multiaxial CT images of the head were performed without the use of intravenous contrast. Automated exposure control was utilized for this study. A dose lowering technique was utilized adhering to the principles of ALARA. Comparison: Head CT 12/29/2016. Findings: The paranasal sinuses and mastoid air cells are clear. The calvarium and skull base are intact. There is no mass, hematoma, midline shift, acute infarct. White matter hypodensity is nonspecific but suggestive of microvascular ischemic change. The ventricles and sulci demonstrate mild age-related involutional changes. Impression: No significant change compared to the prior study. No acute intracranial abnormality. Electronically signed by: Jamal Bond M.D. 07/12/2017 12:21 PM Dictated Date/Time: 07/12/2017 12:15 PM
--- NOTE | 2017-07-12 19:49 | Progress Note ---
Medicine Progress Note Date & Time of Visit: Jul 12, 2017 at 09:25 . Subjective Somnolent this morning, but arousable. No fever. Denies cough or shortness of breath. No chest pain. No nausea or vomiting. Persistent watery stools via rectal tube. . Objective Last 8 Hrs Date Time Temp Pulse Resp B/P (MAP) Pulse Ox O2 Delivery O2 Flow Rate FiO2 07/12/17 19:16 37.0 85 24 117/68 (84) 100 Oxymask 7.0 07/12/17 19:10 94 18 98 Mask 4.0 07/12/17 16:00 97 Mask 9.0 07/12/17 15:02 37.1 92 19 127/66 (86) 95 Nasal Cannula 4.5 07/12/17 14:06 89 18 97 Mask 6.0 07/12/17 12:00 Oxymask 9.0 Physical Exam: General- lying in bed, no acute distress Eyes- anicteric Lungs- diffuse mild wheezing Heart- RRR Abdomen- markedly distended, + BS, soft; diffuse mild erythema and warmth of abdominal wall Extremities- 1+ pretibial edema Neuro- somnolent, arousable . Laboratory Results: Last 24 Hours Test 07/12/17 06:02 07/12/17 11:49 07/12/17 11:59 Sodium Level 137 mmol/L Potassium Level 3.7 mmol/L Chloride Level 104 mmol/L Carbon Dioxide Level 26 mmol/L Anion Gap 7.0 mmol/L Blood Urea Nitrogen 6 mg/dl Creatinine 0.53 mg/dl Est Creatinine Clear Calc Drug Dose 112.0 ml/min Estimated GFR () 116.3 Estimated GFR (Non- 100.3 BUN/Creatinine Ratio 10.4 Random Glucose 82 mg/dl Calcium Level 8.1 mg/dl Bedside Glucose 94 mg/dl Arterial Blood pH 7.44 Arterial Blood Partial Pressure CO2 43 mmHg Arterial Blood Partial Pressure O2 94 mm/Hg Arterial Blood HCO3 28 mmol/L Arterial Blood Oxygen Saturation 96.2 % Arterial Blood Base Excess 3.9 mEq/L Arterial Blood Gas Delivery 9 L Ramakrishna Test POS Ammonia 29.0 umol/L Assessment & Plan ACUTE ON CHRONIC HYPOXIC + HYPERCARBIC RESPIRATORY FAILURE Chronic hypoxic respiratory failure on home O2 4 L/m. Underlying COPD. Worsening respiratory status, probably secondary to combination of pneumonia and CHF. Continue supplemental oxygen and titrate as necessary. PNEUMONIA Chest x-ray on day of admission demonstrated left lower lobe infiltrate. Blood cultures negative. Received intravenous piperacillin/tazobactam and transitioned to oral therapy with amoxicillin/clavulanic acid. Transitioned back to piperacillin / tazobactam for broader coverage to cover skin and possible SBP better. Remains afebrile. CHRONIC LEFT VENTRICULAR DIASTOLIC HEART FAILURE Persistent pulmonary edema on chest film. Continue diuretics. CIRRHOSIS / ASCITES GI consulted. History of cirrhosis attributed to consumption of alcohol. Paracentesis performed x 2 with total of 8 L withdrawn. Lactulose stopped due to intolerable diarrhea. Continue diuretics, rifaximin. ALCOHOL ABUSE / WITHDRAWAL Blood alcohol level in ED was 165. Received gabapentin per protocol for alcohol withdrawal. Continue multivitamin, thiamine, folic acid. Outpatient counseling / support. UTI UA performed on day of admission demonstrated pyuria and bacteria. Urine culture from the same date grew Escherichia coli. Treated with piperacillin/tazobactam followed by amoxicillin/clavulanic acid as noted above. HYPOKALEMIA Serum potassium daily admission was 2.7. Hypokalemia most likely secondary to combination of poor nutritional intake + diuretic therapy. Received replacement. Potassium this morning = 3.7. Follow. HYPOMAGNESEMIA Serum magnesium is low as 1.4. Hypomagnesemia most likely secondary to combination of poor nutritional intake + diuretic therapy. Received replacement. Magnesium yesterday 1.6. Follow. DIARRHEA Lactulose stopped. Stool negative for C diff. Stool culture grew Karen albicans- Rx with oral nystatin. ? CELLULITIS ABDOMINAL WALL Erythema and warmth of abdominal wall noted. No fever. Rx with piperacillin / tazobactam. Afebrile. DEPRESSION/ANXIETY/SCHIZOPHRENIA Continue usual meds. DYSLIPIDEMIA Statin on hold due to hepatic status. VTE PROPHYLAXIS Receiving SQ enoxaparin. Ambulate as able.. DISPOSITION To be determined. Internal Medicine follow-up with Dr. Sultana Mcginnis. ADDENDUM: Rapid Response Team called around 11:30 because patient was less responsive. She denied any headache. Moving all 4 extremities. ABG on supplemental oxygen showed PO2 94, PCO2 43, pH 7.44. Ammonia 29. CT negative for bleed. . Consultants: GI Pulmonary Medicine . Procedures: cardiac monitoring IV meds US abdomen paracentesis x 2 venous duplex lower extremities . . Current Inpatient Medications: Current Inpatient Medications Medications (Trade) Dose Ordered Sig/Antonio Route Start Time Stop Time Status Last Admin Dose Admin Acetaminophen (Tylenol Tab) 650 mg Q4H PRN PO 07/04/17 15:00 08/03/17 14:59 07/09/17 20:56 650 MG Ondansetron HCl (Zofran Inj) 4 mg Q6H PRN IV 07/04/17 15:00 08/03/17 14:59 Enoxaparin Sodium (Lovenox Inj) 40 mg Q24H SQ 07/04/17 21:00 08/03/17 14:59 07/11/17 21:14 40 MG Thiamine HCl (Vitamin B-1 Tab) 100 mg DAILY PO 07/05/17 09:00 08/04/17 08:59 07/12/17 07:51 100 MG Atorvastatin Calcium (Lipitor Tab) 80 mg DAILY PO 07/05/17 09:00 08/04/17 08:59 07/12/17 07:50 80 MG Fluoxetine HCl (Prozac Cap) 40 mg QAM PO 07/05/17 09:00 08/04/17 08:59 07/12/17 07:50 40 MG Risperidone (Risperdal Tab) 4 mg QPM PO 07/04/17 21:00 08/03/17 20:59 07/11/17 21:13 4 MG Calcium/Vitamin D (Caltrate Plus Tab) 1 tab DAILY PO 07/05/17 09:00 08/04/17 08:59 07/12/17 07:51 1 TAB Multivitamins (Multivitamin Tab) 1 tab DAILY PO 07/05/17 09:00 08/04/17 08:59 07/12/17 07:51 1 TAB Folic Acid (Folvite Tab) 1 mg QAM PO 07/04/17 16:00 08/03/17 15:59 07/12/17 07:51 1 MG Albuterol/ Ipratropium (Duoneb) 3 ml Q2H PRN INH 07/04/17 21:00 08/03/17 20:59 Potassium Chloride (Klor-Con Tab) 20 meq QAM PO 07/05/17 09:00 08/04/17 08:59 07/12/17 07:50 20 MEQ Ipratropium [place] (Atrovent 0.02% 0.5MG/2.5ML Neb) 0.5 mg Q6R INH 07/05/17 09:00 08/04/17 08:59 07/12/17 19:09 0.5 MG Levalbuterol (Xopenex 1.25MG/ 0.5ML Neb) 1.25 mg Q6R INH 07/05/17 09:00 08/04/17 08:59 07/12/17 19:09 1.25 MG Rifaximin (Xifaxan Tab) 550 mg BID PO 07/07/17 09:15 08/06/17 09:14 07/12/17 07:51 550 MG Miconazole Nitrate (Desenex Powder) 1 appln PRN PRN EXT 07/08/17 12:00 08/07/17 11:59 Furosemide (Lasix Tab) 40 mg BID17 PO 07/09/17 17:00 08/08/17 16:59 07/12/17 17:23 40 MG Spironolactone (Aldactone Tab) 200 mg QAM PO 07/10/17 09:00 08/04/17 08:59 07/12/17 07:50 200 MG Piperacillin Sod/ Tazobactam Sod (Consult) 1 ea UD PRN N/A 07/10/17 14:15 08/09/17 14:14 Piperacillin Sod/ Tazobactam Sod 3.375 gm/Dextrose 115 ml @ 28.75 mls/ hr Q8H IV 07/10/17 20:00 07/20/17 19:59 07/12/17 12:21 28.75 MLS/HR Nystatin (Mycostatin Susp) 5 ml QID PO 07/11/17 17:00 07/21/17 16:59 07/12/17 17:23 5 ML
[2017-07-12] MEDS: RISPERIDONE 2 MG TAB PO SCH (20:20)
[2017-07-12] MEDS: ENOXAPARIN 40 MG/0.4 ML SYR SQ SCH (20:21)
[2017-07-13] VITALS (12 sets, daily range): BP systolic 107–119; BP diastolic 57–73; PULSE 79–91; TEMP 36.6–37; O2SAT 90–100
[2017-07-13] MEDS: LEVALBUTEROL 1.25MG/0.5ML NEB INH SCH ×4 (01:46→19:25)
[2017-07-13] MEDS: IPRATROPIUM BROMIDE NEB SOLN 0.02% 2.5 ML VIAL INH SCH ×4 (01:46→19:25)
[2017-07-13] MEDS: PIPERACILL/TAZOBAC IV 3.375 GM in DEXTROSE 5% 100ML IV SCH ×3 (03:31→21:06)
[2017-07-13 06:50] LABS: HEMATOCRIT 30.9 % (37-47); MEAN CELL VOLUME 86.8 fL (80-100); MEAN CORPUSCULAR HEMOGLOBIN 26.1 pg (25-34); MEAN CORPUSCULAR HGB CONC 30.1 g/dl (32-36); MEAN PLATELET VOLUME 9.7 fL (7.4-10.4); PLATELET COUNT 195 K/uL (130-400); RED BLOOD COUNT 3.56 M/uL (4.2-5.4); WHITE BLOOD COUNT 7.54 K/uL (4.8-10.8)
[2017-07-13 07:20] LABS: BUN/CREATININE RATIO 7.9 (10-20); CREATININE 0.68 mg/dl (0.60-1.20); MAGNESIUM 1.7 mg/dl (1.8-2.4); POTASSIUM 3.7 mmol/L (3.5-5.1)
[2017-07-13 07:23] LABS: ALB/GLOB RATIO 0.5 (0.9-2)
[2017-07-13] MEDS: RIFAXIMIN TAB 550 MG TAB PO SCH ×2 (08:29→21:06)
[2017-07-13] MEDS: SPIRONOLACTONE 100 MG TAB PO SCH (08:29)
[2017-07-13] MEDS: THIAMINE HCL 100 MG TAB PO SCH (08:29)
[2017-07-13] MEDS: CALCIUM 600MG + VIT D 400 IU TAB PO SCH (08:29)
[2017-07-13] MEDS: NYSTATIN SUSP 500,000 U/5 ML UDC PO SCH ×4 (08:30→21:06)
[2017-07-13] MEDS: FLUOXETINE HCL 20 MG CAP PO SCH (08:30)
[2017-07-13] MEDS: POTASSIUM CHLORIDE 20 MEQ TABCR PO SCH (08:30)
[2017-07-13] MEDS: FUROSEMIDE 40 MG TAB PO SCH ×2 (08:31→15:04)
[2017-07-13] MEDS: MULTIVITAMIN TAB PO SCH (08:31)
[2017-07-13] MEDS: ATORVASTATIN 40 MG TAB PO SCH (08:31)
[2017-07-13] MEDS: ACETAMINOPHEN 325 MG TAB PO PRN (14:23)
--- NOTE | 2017-07-13 20:31 | Progress Note ---
Medicine Progress Note Date & Time of Visit: Jul 13, 2017 at 11:20 . Subjective Somewhat better today. More alert. Denies cough, shortness of breath. No chest pain. No nausea or vomiting. No further drainage from paracentesis sites. Diarrhea seems to be a bit better. Still very weak and requires assistance with any activities. . Objective Last 8 Hrs Date Time Temp Pulse Resp B/P (MAP) Pulse Ox O2 Delivery O2 Flow Rate FiO2 07/13/17 19:25 84 18 96 Nasal Cannula 3.0 07/13/17 19:09 37.0 81 20 107/63 (78) 90 Nasal Cannula 3.0 07/13/17 16:00 Nasal Cannula 5.0 07/13/17 15:20 36.9 83 20 112/73 (86) 99 Nasal Cannula 3.0 07/13/17 14:11 89 18 98 Nasal Cannula 4.0 Physical Exam: General- lying in bed, no distress Eyes- anicteric Lungs- mild wheezing Heart- RRR Abdomen- markedly distended, + BS, soft; erythema and warmth of abdominal wall improved Extremities- 1+ pretibial edema Neuro- more alert . Laboratory Results: Last 24 Hours Test 07/13/17 06:24 White Blood Count 7.54 K/uL Red Blood Count 3.56 M/uL Hemoglobin 9.3 g/dL Hematocrit 30.9 % Mean Corpuscular Volume 86.8 fL Mean Corpuscular Hemoglobin 26.1 pg Mean Corpuscular Hemoglobin Concent 30.1 g/dl RDW Standard Deviation 58.7 fL RDW Coefficient of Variation 18.4 % Platelet Count 195 K/uL Mean Platelet Volume 9.7 fL Sodium Level 140 mmol/L Potassium Level 3.7 mmol/L Chloride Level 104 mmol/L Carbon Dioxide Level 29 mmol/L Anion Gap 7.0 mmol/L Blood Urea Nitrogen 5 mg/dl Creatinine 0.68 mg/dl Est Creatinine Clear Calc Drug Dose 87.1 ml/min Estimated GFR () 107.1 Estimated GFR (Non- 92.4 BUN/Creatinine Ratio 7.9 Random Glucose 117 mg/dl Calcium Level 8.0 mg/dl Magnesium Level 1.7 mg/dl Total Bilirubin 0.5 mg/dl Aspartate Amino Transf (AST/SGOT) 51 U/L Alanine Aminotransferase (ALT/SGPT) 27 U/L Alkaline Phosphatase 489 U/L Total Protein 5.4 gm/dl Albumin 1.9 gm/dl Globulin 3.5 gm/dl Albumin/Globulin Ratio 0.5 Assessment & Plan ACUTE ON CHRONIC HYPOXIC + HYPERCARBIC RESPIRATORY FAILURE Chronic hypoxic respiratory failure on home O2 4 L/m. Underlying COPD. Worsening respiratory status,was probably secondary to combination of pneumonia and CHF. Symptoms, exam, and oxygenation improved. Continue supplemental oxygen and titrate as necessary; try weaning from Oxymask to NC. PNEUMONIA Chest x-ray on day of admission demonstrated left lower lobe infiltrate. Blood cultures negative. Received intravenous piperacillin/tazobactam and transitioned to oral therapy with amoxicillin/clavulanic acid. Transitioned back to piperacillin / tazobactam for broader coverage to cover skin and possible SBP better. Remains afebrile. CHRONIC LEFT VENTRICULAR DIASTOLIC HEART FAILURE Persistent pulmonary edema on chest film. Urine output has been good with negative fluid balance over the past several days; serum creatinine remained stable. Continue diuretics. CIRRHOSIS / ASCITES GI consulted. History of cirrhosis attributed to consumption of alcohol. Paracentesis performed x 2 with total of 8 L withdrawn. Lactulose stopped due to intolerable diarrhea. Continue diuretics, rifaximin. ALCOHOL ABUSE / WITHDRAWAL Blood alcohol level in ED was 165. Received gabapentin per protocol for alcohol withdrawal. Continue multivitamin, thiamine, folic acid. Outpatient counseling / support. UTI UA performed on day of admission demonstrated pyuria and bacteria. Urine culture from the same date grew Escherichia coli. Treated with piperacillin/tazobactam followed by amoxicillin/clavulanic acid as noted above. HYPOKALEMIA Serum potassium daily admission was 2.7. Hypokalemia most likely secondary to combination of poor nutritional intake + diuretic therapy. Received replacement. Potassium this morning = 3.7. Follow. HYPOMAGNESEMIA Serum magnesium is low as 1.4. Hypomagnesemia most likely secondary to combination of poor nutritional intake + diuretic therapy. Received replacement. Magnesium today = 1.7. Follow. DIARRHEA Lactulose stopped. Stool negative for C diff. Stool culture grew Karen albicans- Rx with oral nystatin. ? CELLULITIS ABDOMINAL WALL Erythema and warmth of abdominal wall noted. No fever. Improved. Remains afebrile. Continue Rx with piperacillin / tazobactam. DEPRESSION/ANXIETY/SCHIZOPHRENIA Continue usual meds. DYSLIPIDEMIA Statin on hold due to hepatic status. VTE PROPHYLAXIS Receiving SQ enoxaparin. Ambulate as able.. DISPOSITION To be determined. Would benefit from skilled care or rehabilitation, but may decline that option. Internal Medicine follow-up with Dr. Sultana Mgcinnis. . Consultants: [facility] Pulmonary Medicine . Procedures: cardiac monitoring IV meds US abdomen paracentesis x 2 venous duplex lower extremities . . Current Inpatient Medications: Current Inpatient Medications Medications (Trade) Dose Ordered Sig/Antonio Route Start Time Stop Time Status Last Admin Dose Admin Acetaminophen (Tylenol Tab) 650 mg Q4H PRN PO 07/04/17 15:00 08/03/17 14:59 07/13/17 14:23 650 MG Ondansetron HCl (Zofran Inj) 4 mg Q6H PRN IV 07/04/17 15:00 08/03/17 14:59 Enoxaparin Sodium (Lovenox Inj) 40 mg Q24H SQ 07/04/17 21:00 08/03/17 14:59 07/12/17 20:21 40 MG Thiamine HCl (Vitamin B-1 Tab) 100 mg DAILY PO 07/05/17 09:00 08/04/17 08:59 07/13/17 08:29 100 MG Atorvastatin Calcium (Lipitor Tab) 80 mg DAILY PO 07/05/17 09:00 08/04/17 08:59 07/13/17 08:31 80 MG Fluoxetine HCl (Prozac Cap) 40 mg QAM PO 07/05/17 09:00 08/04/17 08:59 07/13/17 08:30 40 MG Risperidone (Risperdal Tab) 4 mg QPM PO 07/04/17 21:00 08/03/17 20:59 07/12/17 20:20 4 MG Calcium/Vitamin D (Caltrate Plus Tab) 1 tab DAILY PO 07/05/17 09:00 08/04/17 08:59 07/13/17 08:29 1 TAB Multivitamins (Multivitamin Tab) 1 tab DAILY PO 07/05/17 09:00 08/04/17 08:59 07/13/17 08:31 1 TAB Folic Acid (Folvite Tab) 1 mg QAM PO 07/04/17 16:00 08/03/17 15:59 07/13/17 08:30 1 MG Albuterol/ Ipratropium (Duoneb) 3 ml Q2H PRN INH 07/04/17 21:00 08/03/17 20:59 Potassium Chloride (Klor-Con Tab) 20 meq QAM PO 07/05/17 09:00 08/04/17 08:59 07/13/17 08:30 20 MEQ Ipratropium [place] (Atrovent 0.02% 0.5MG/2.5ML Neb) 0.5 mg Q6R INH 07/05/17 09:00 08/04/17 08:59 07/13/17 19:25 0.5 MG Levalbuterol (Xopenex 1.25MG/ 0.5ML Neb) 1.25 mg Q6R INH 07/05/17 09:00 08/04/17 08:59 07/13/17 19:25 1.25 MG Rifaximin (Xifaxan Tab) 550 mg BID PO 07/07/17 09:15 08/06/17 09:14 07/13/17 08:29 550 MG Miconazole Nitrate (Desenex Powder) 1 appln PRN PRN EXT 07/08/17 12:00 08/07/17 11:59 Furosemide (Lasix Tab) 40 mg BID17 PO 07/09/17 17:00 08/08/17 16:59 07/13/17 15:04 40 MG Spironolactone (Aldactone Tab) 200 mg QAM PO 07/10/17 09:00 08/04/17 08:59 07/13/17 08:29 200 MG Piperacillin Sod/ Tazobactam Sod (Consult) 1 ea UD PRN N/A 07/10/17 14:15 08/09/17 14:14 Piperacillin Sod/ Tazobactam Sod 3.375 gm/Dextrose 115 ml @ 28.75 mls/ hr Q8H IV 07/10/17 20:00 07/20/17 19:59 07/13/17 13:01 28.75 MLS/HR Nystatin (Mycostatin Susp) 5 ml QID PO 07/11/17 17:00 07/21/17 16:59 07/13/17 15:05 5 ML
[2017-07-13] MEDS: RISPERIDONE 2 MG TAB PO SCH (21:06)
[2017-07-13] MEDS: ENOXAPARIN 40 MG/0.4 ML SYR SQ SCH (21:07)
[2017-07-14] VITALS (14 sets, daily range): BP systolic 104–157; BP diastolic 62–79; PULSE 73–89; TEMP 36.5–37.1; O2SAT 94–99
[2017-07-14] MEDS: LEVALBUTEROL 1.25MG/0.5ML NEB INH SCH ×4 (01:15→19:05)
[2017-07-14] MEDS: IPRATROPIUM BROMIDE NEB SOLN 0.02% 2.5 ML VIAL INH SCH ×4 (01:15→19:02)
[2017-07-14] MEDS: PIPERACILL/TAZOBAC IV 3.375 GM in DEXTROSE 5% 100ML IV SCH ×3 (04:00→20:25)
[2017-07-14 06:35] LABS: BUN/CREATININE RATIO 10.6 (10-20); CALCIUM 7.8 mg/dl (8.5-10.1); CREATININE 0.66 mg/dl (0.60-1.20); MAGNESIUM 1.6 mg/dl (1.8-2.4); POTASSIUM 3.9 mmol/L (3.5-5.1)
[2017-07-14] MEDS: MULTIVITAMIN TAB PO SCH (07:55)
[2017-07-14] MEDS: CALCIUM 600MG + VIT D 400 IU TAB PO SCH (07:55)
[2017-07-14] MEDS: POTASSIUM CHLORIDE 20 MEQ TABCR PO SCH (07:55)
[2017-07-14] MEDS: FUROSEMIDE 40 MG TAB PO SCH ×2 (07:56→16:21)
[2017-07-14] MEDS: NYSTATIN SUSP 500,000 U/5 ML UDC PO SCH ×5 (07:56→20:29)
[2017-07-14] MEDS: FLUOXETINE HCL 20 MG CAP PO SCH (07:56)
[2017-07-14] MEDS: ATORVASTATIN 40 MG TAB PO SCH (07:57)
[2017-07-14] MEDS: THIAMINE HCL 100 MG TAB PO SCH (07:57)
[2017-07-14] MEDS: RIFAXIMIN TAB 550 MG TAB PO SCH ×2 (07:58→20:30)
[2017-07-14] MEDS: SPIRONOLACTONE 100 MG TAB PO SCH (07:59)
[2017-07-14] MEDS: RISPERIDONE 2 MG TAB PO SCH (20:30)
[2017-07-14] MEDS: ENOXAPARIN 40 MG/0.4 ML SYR SQ SCH (20:31)
--- NOTE | 2017-07-14 21:16 | Progress Note ---
Medicine Progress Note Date & Time of Visit: Jul 14, 2017 at 18:20 . Subjective Feels better. No fever. Denies cough or shortness of breath. No chest pain. No nausea or vomiting. Diarrhea improved. Still has Ceron catheter. Report with Physical Therapy today and ambulating with walker, albeit only 3 feet the first attempt and 5 feet on the second attempt. . Objective Last 8 Hrs Date Time Temp Pulse Resp B/P (MAP) Pulse Ox O2 Delivery O2 Flow Rate FiO2 07/14/17 20:00 36.6 89 20 119/71 (87) 95 Nasal Cannula 2.0 07/14/17 19:35 36.6 89 20 95 2.0 07/14/17 19:05 85 18 98 Nasal Cannula 2.0 07/14/17 19:00 Nasal Cannula 2.0 07/14/17 15:57 36.7 85 20 114/68 (83) 97 Nasal Cannula 2.0 07/14/17 15:30 94 Nasal Cannula 4.0 07/14/17 14:17 75 18 98 Nasal Cannula 3.0 Physical Exam: General- no distress Eyes- anicteric Lungs- wheezing improved Heart- RRR Abdomen- markedly distended, + BS, soft; erythema and warmth of abdominal wall improved Extremities- 1+ pretibial edema Neuro- alert . Laboratory Results: Last 24 Hours Test 07/14/17 05:33 Sodium Level 141 mmol/L Potassium Level 3.9 mmol/L Chloride Level 106 mmol/L Carbon Dioxide Level 29 mmol/L Anion Gap 6.0 mmol/L Blood Urea Nitrogen 7 mg/dl Creatinine 0.66 mg/dl Est Creatinine Clear Calc Drug Dose 89.9 ml/min Estimated GFR () 108.2 Estimated GFR (Non- 93.4 BUN/Creatinine Ratio 10.6 Random Glucose 92 mg/dl Calcium Level 7.8 mg/dl Magnesium Level 1.6 mg/dl Date/Time Source Procedure Growth Status 07/13/17 23:00 Stool C.difficile Toxin B Gene (PCR) - Final No C. difficile toxin B gene detected Complete Assessment & Plan ACUTE ON CHRONIC HYPOXIC + HYPERCARBIC RESPIRATORY FAILURE Chronic hypoxic respiratory failure on home O2 4 L/m. Underlying COPD. Worsening respiratory status,was probably secondary to combination of pneumonia and CHF. Symptoms, exam, and oxygenation improved. Weaned from Oxymask to NC. Will need to step pulse oximetry prior to discharge. PNEUMONIA Chest x-ray on day of admission demonstrated left lower lobe infiltrate. Blood cultures negative. Received intravenous piperacillin/tazobactam and transitioned to oral therapy with amoxicillin/clavulanic acid. Transitioned back to piperacillin / tazobactam for broader coverage to cover skin and possible SBP better. Has received about 10 days of total antibiotics- DC antibiotics and follow. Remains afebrile. CHRONIC LEFT VENTRICULAR DIASTOLIC HEART FAILURE Persistent pulmonary edema on chest film. Urine output has been good with negative fluid balance over the past several days; serum creatinine remained stable. Continue diuretics. CIRRHOSIS / ASCITES GI consulted. History of cirrhosis attributed to consumption of alcohol. Paracentesis performed x 2 with total of 8 L withdrawn. Lactulose stopped due to intolerable diarrhea. Continue diuretics, rifaximin. ALCOHOL ABUSE / WITHDRAWAL Blood alcohol level in ED was 165. Received gabapentin per protocol for alcohol withdrawal. Continue multivitamin, thiamine, folic acid. Outpatient counseling / support. UTI UA performed on day of admission demonstrated pyuria and bacteria. Urine culture from the same date grew Escherichia coli. Treated with piperacillin/tazobactam followed by amoxicillin/clavulanic acid as noted above. HYPOKALEMIA Serum potassium daily admission was 2.7. Hypokalemia most likely secondary to combination of poor nutritional intake + diuretic therapy. Received replacement. Potassium this morning = 3.9. Follow. HYPOMAGNESEMIA Serum magnesium is low as 1.4. Hypomagnesemia most likely secondary to combination of poor nutritional intake + diuretic therapy. Received replacement. Magnesium today = 1.6. Will not replace orally at this time due to severe diarrhea. Follow. DIARRHEA Lactulose stopped. Stool negative for C diff. Stool culture grew Karen albicans- Rx with oral nystatin. ? CELLULITIS ABDOMINAL WALL Erythema and warmth of abdominal wall noted. No fever. Improved. Remains afebrile. Treated with piperacillin / tazobactam. DEPRESSION/ANXIETY/SCHIZOPHRENIA Continue usual meds. DYSLIPIDEMIA Continue atorvastatin with caution. CERON CATHETER No longer need to monitor I/O's as closely. Discontinue Ceron catheter. VTE PROPHYLAXIS Receiving SQ enoxaparin. Ambulate as able.. DISPOSITION To be determined. Would benefit from skilled care or rehabilitation, but currently insists on returning home. Not ready for discharge yet due to poor functional status. Internal Medicine follow-up with Dr. Sultana Mcginnis. . Consultants: GI Pulmonary Medicine . Procedures: cardiac monitoring IV meds US abdomen paracentesis x 2 venous duplex lower extremities . . Current Inpatient Medications: Current Inpatient Medications Medications (Trade) Dose Ordered Sig/Antonio Route Start Time Stop Time Status Last Admin Dose Admin Acetaminophen (Tylenol Tab) 650 mg Q4H PRN PO 07/04/17 15:00 08/03/17 14:59 07/13/17 14:23 650 MG Ondansetron HCl (Zofran Inj) 4 mg Q6H PRN IV 07/04/17 15:00 08/03/17 14:59 Enoxaparin Sodium (Lovenox Inj) 40 mg Q24H SQ 07/04/17 21:00 08/03/17 14:59 07/14/17 20:31 40 MG Thiamine HCl (Vitamin B-1 Tab) 100 mg DAILY PO 07/05/17 09:00 08/04/17 08:59 07/14/17 07:57 100 MG Atorvastatin Calcium (Lipitor Tab) 80 mg DAILY PO 07/05/17 09:00 08/04/17 08:59 07/14/17 07:57 80 MG Fluoxetine HCl (Prozac Cap) 40 mg QAM PO 07/05/17 09:00 08/04/17 08:59 07/14/17 07:56 40 MG Risperidone (Risperdal Tab) 4 mg QPM PO 07/04/17 21:00 08/03/17 20:59 07/14/17 20:30 4 MG Calcium/Vitamin D (Caltrate Plus Tab) 1 tab DAILY PO 07/05/17 09:00 08/04/17 08:59 07/14/17 07:55 1 TAB Multivitamins (Multivitamin Tab) 1 tab DAILY PO 07/05/17 09:00 08/04/17 08:59 07/14/17 07:55 1 TAB Folic Acid (Folvite Tab) 1 mg QAM PO 07/04/17 16:00 08/03/17 15:59 07/14/17 07:55 1 MG Albuterol/ Ipratropium (Duoneb) 3 ml Q2H PRN INH 07/04/17 21:00 08/03/17 20:59 Potassium Chloride (Klor-Con Tab) 20 meq QAM PO 07/05/17 09:00 08/04/17 08:59 07/14/17 07:55 20 MEQ Ipratropium [place] (Atrovent 0.02% 0.5MG/2.5ML Neb) 0.5 mg Q6R INH 07/05/17 09:00 08/04/17 08:59 07/14/17 19:02 0.5 MG Levalbuterol (Xopenex 1.25MG/ 0.5ML Neb) 1.25 mg Q6R INH 07/05/17 09:00 08/04/17 08:59 07/14/17 19:05 1.25 MG Rifaximin (Xifaxan Tab) 550 mg BID PO 07/07/17 09:15 08/06/17 09:14 07/14/17 20:30 550 MG Miconazole Nitrate (Desenex Powder) 1 appln PRN PRN EXT 07/08/17 12:00 08/07/17 11:59 Furosemide (Lasix Tab) 40 mg BID17 PO 07/09/17 17:00 08/08/17 16:59 07/14/17 16:21 40 MG Spironolactone (Aldactone Tab) 200 mg QAM PO 07/10/17 09:00 08/04/17 08:59 07/14/17 07:59 200 MG Piperacillin Sod/ Tazobactam Sod (Consult) 1 ea UD PRN N/A 07/10/17 14:15 08/09/17 14:14 Piperacillin Sod/ Tazobactam Sod 3.375 gm/Dextrose 115 ml @ 28.75 mls/ hr Q8H IV 07/10/17 20:00 07/20/17 19:59 07/14/17 20:25 28.75 MLS/HR Nystatin (Mycostatin Susp) 5 ml QID PO 07/11/17 17:00 07/21/17 16:59 07/14/17 20:29 5 ML
[2017-07-15] VITALS (7 sets, daily range): BP systolic 112–127; BP diastolic 68–75; PULSE 76–83; TEMP 36.7–37; O2SAT 96–98
[2017-07-15] MEDS: LEVALBUTEROL 1.25MG/0.5ML NEB INH SCH ×3 (01:56→19:08)
[2017-07-15] MEDS: IPRATROPIUM BROMIDE NEB SOLN 0.02% 2.5 ML VIAL INH SCH ×3 (01:56→19:07)
[2017-07-15 06:17] LABS: BUN/CREATININE RATIO 11.8 (10-20); CALCIUM 8.2 mg/dl (8.5-10.1); CREATININE 0.56 mg/dl (0.60-1.20); MAGNESIUM 1.6 mg/dl (1.8-2.4); POTASSIUM 4.1 mmol/L (3.5-5.1)
[2017-07-15] MEDS: CALCIUM 600MG + VIT D 400 IU TAB PO SCH (07:41)
[2017-07-15] MEDS: SPIRONOLACTONE 100 MG TAB PO SCH (07:41)
[2017-07-15] MEDS: POTASSIUM CHLORIDE 20 MEQ TABCR PO SCH (07:42)
[2017-07-15] MEDS: FLUOXETINE HCL 20 MG CAP PO SCH (07:43)
[2017-07-15] MEDS: ATORVASTATIN 40 MG TAB PO SCH (07:43)
[2017-07-15] MEDS: FUROSEMIDE 40 MG TAB PO SCH ×2 (07:43→17:12)
[2017-07-15] MEDS: MULTIVITAMIN TAB PO SCH (07:43)
[2017-07-15] MEDS: THIAMINE HCL 100 MG TAB PO SCH (07:43)
[2017-07-15] MEDS: RIFAXIMIN TAB 550 MG TAB PO SCH ×2 (07:44→21:38)
[2017-07-15] MEDS: NYSTATIN SUSP 500,000 U/5 ML UDC PO SCH ×4 (07:44→21:38)
[2017-07-15] MEDS: MAGNESIUM SULFATE 1GM / D5W 1 GM in PREMIXED IN D5W 100 ML IV SCH ×2 (07:49→09:26)
--- NOTE | 2017-07-15 14:01 | Progress Note ---
Internal Med Progress Note Date of Service: Jul 15, 2017. Provider Documentation: SUBJECTIVE: Seen and examined at bedside. Feels better Denies chest pain, abd pain, nausea, SOB Reports diarrhea which is improving OBJECTIVE: Vital Signs-as noted below Physical Exam: General Appearance:Moderately built and nourished, no apparent distress Head: normocephalic, Atraumatic Eyes: normal inspection, EOMI, PERRL Neck: supple, Trachea midline Respiratory/Chest: Decreased breath sounds, CTA Cardiovascular: S1, S2, No murmur Abdomen/GI:Soft, Non tender, +Distended, Bowel sounds present, mild erythema Extremities/Musculoskelatal:normal inspection, B/L 1+ LE edema Neurologic/Psych:grossly no focal neurological deficits Skin: normal color, warm Lab data as noted below. ASSESSMENT & PLAN: Acute on chronic Hypoxic, Hypercarbic respiratory failure Chronic hypoxic respiratory failure on home O2 4 L Has Underlying COPD. Respiratory status worsened secondary to combination of pneumonia and CHF. currently saturating well on 2L NC Needs 2 step prior to discharge. PNEUMONIA Chest x-ray on day of admission demonstrated left lower lobe infiltrate. Blood cultures negative. Completed antibiotic therapy (IV Zosyn and PO amoxicillin/clavulanic acid) Remains afebrile. Chronic diastolic heart failure Persistent pulmonary edema on chest film. Good Urine output, Cr stable Continue diuretics CIRRHOSIS / ASCITES Appreciate GI Input H/O cirrhosis secondary to alcohol use Paracentesis performed x 2 with total of 8 L withdrawn. Lactulose stopped due to intolerable diarrhea. Continue diuretics, rifaximin Needs Outpatient work up: EGD for varices eval, repeat colonoscopy for hx of polyps HCC screening every months Monitoring for Hep A and B immunity ALCOHOL ABUSE / WITHDRAWAL Blood alcohol level in ED was 165. Completed gabapentin per protocol for alcohol withdrawal. Continue multivitamin, thiamine, folic acid. Outpatient counseling / support. UTI Urine culture:Escherichia coli, johnson sensitive Treated with piperacillin/tazobactam followed by amoxicillin/clavulanic acid as noted above. HYPOKALEMIA Resolved monitor HYPOMAGNESEMIA Serum magnesium: 1.6 today Likely secondary to poor nutritional intake and diuretic therapy. Replace and monitor DIARRHEA Lactulose stopped. Stool negative for C diff. Stool culture grew Karen albicans- Rx with oral nystatin. ? CELLULITIS ABDOMINAL WALL Erythema and warmth of abdominal wall Afebrile Improving Treated with piperacillin / tazobactam. DEPRESSION/ANXIETY/SCHIZOPHRENIA Continue home meds. DYSLIPIDEMIA Continue atorvastatin DVT Px: SQ enoxaparin. DISPOSITION To be determined. Would benefit from skilled care or rehabilitation, initially insisted on returning home but agrees to go to SNF poor functional status Internal Medicine follow-up with Dr. Sultana Mcginnis. PROCEDURES: ECHO: * The left ventricle is normal in size. * Ejection Fraction = 55-60%. * The right ventricular systolic function is normal. * The left atrial size is normal. * Right atrial size is normal. * Grossly normal valvular structure and function. * The study was technically limited. Vital Signs: Date Time Temp Pulse Resp B/P (MAP) Pulse Ox O2 Delivery O2 Flow Rate FiO2 07/15/17 08:00 Nasal Cannula 2.0 07/15/17 07:55 36.7 83 20 112/68 (83) 97 2.0 07/15/17 07:02 77 18 97 Nasal Cannula 2.0 07/15/17 02:00 76 18 97 Nasal Cannula 2.0 07/15/17 00:00 98 Nasal Cannula 2.0 07/14/17 23:07 36.5 85 18 157/79 (105) 99 Nasal Cannula 2.0 07/14/17 20:00 36.6 89 20 119/71 (87) 95 Nasal Cannula 2.0 07/14/17 20:00 Nasal Cannula 2.0 07/14/17 19:35 36.6 89 20 95 2.0 07/14/17 19:05 85 18 98 Nasal Cannula 2.0 07/14/17 19:00 Nasal Cannula 2.0 07/14/17 15:57 36.7 85 20 114/68 (83) 97 Nasal Cannula 2.0 07/14/17 15:30 94 Nasal Cannula 4.0 07/14/17 14:17 75 18 98 Nasal Cannula 3.0 Lab Results: Results Past 24 Hours Test 07/15/17 05:29 Range/Units Sodium Level 140 136-145 mmol/L Potassium Level 4.1 3.5-5.1 mmol/L Chloride Level 106 98-107 mmol/L Carbon Dioxide Level 28 21-32 mmol/L Anion Gap 6.0 3-11 mmol/L Blood Urea Nitrogen 7 7-18 mg/dl Creatinine 0.56 0.60-1.20 mg/dl Est Creatinine Clear Calc Drug Dose 106.0 ml/min Estimated GFR () 114.2 Estimated GFR (Non- 98.5 BUN/Creatinine Ratio 11.8 10-20 Random Glucose 87 70-99 mg/dl Calcium Level 8.2 8.5-10.1 mg/dl Magnesium Level 1.6 1.8-2.4 mg/dl
[2017-07-15] MEDS: RISPERIDONE 2 MG TAB PO SCH (21:38)
[2017-07-15] MEDS: ENOXAPARIN 40 MG/0.4 ML SYR SQ SCH (21:39)
[2017-07-15] MEDS ORDERED: RISPERIDONE 2 MG TAB PO ONE (23:53)
[2017-07-16] VITALS (9 sets, daily range): BP systolic 120–150; BP diastolic 74–84; PULSE 77–103; TEMP 36.6–36.8; O2SAT 92–98
[2017-07-16] MEDS: LEVALBUTEROL 1.25MG/0.5ML NEB INH SCH ×4 (02:04→19:08)
[2017-07-16] MEDS: IPRATROPIUM BROMIDE NEB SOLN 0.02% 2.5 ML VIAL INH SCH ×4 (02:04→19:08)
[2017-07-16 06:59] LABS: HEMATOCRIT 33.8 % (37-47); MEAN CELL VOLUME 84.5 fL (80-100); MEAN CORPUSCULAR HGB CONC 30.8 g/dl (32-36); MEAN PLATELET VOLUME 9.6 fL (7.4-10.4); PLATELET COUNT 253 K/uL (130-400); WHITE BLOOD COUNT 13.64 K/uL (4.8-10.8)
[2017-07-16 07:28] LABS: BUN/CREATININE RATIO 13.3 (10-20); CALCIUM 8.6 mg/dl (8.5-10.1); CREATININE 0.69 mg/dl (0.60-1.20); MAGNESIUM 1.8 mg/dl (1.8-2.4); POTASSIUM 4.3 mmol/L (3.5-5.1)
[2017-07-16] MEDS: NYSTATIN SUSP 500,000 U/5 ML UDC PO SCH ×4 (07:41→21:01)
[2017-07-16] MEDS: RIFAXIMIN TAB 550 MG TAB PO SCH ×2 (07:42→21:00)
[2017-07-16] MEDS: MULTIVITAMIN TAB PO SCH (07:42)
[2017-07-16] MEDS: THIAMINE HCL 100 MG TAB PO SCH (07:43)
[2017-07-16] MEDS: SPIRONOLACTONE 100 MG TAB PO SCH (07:43)
[2017-07-16] MEDS: ATORVASTATIN 40 MG TAB PO SCH (07:43)
[2017-07-16] MEDS: FLUOXETINE HCL 20 MG CAP PO SCH (07:44)
[2017-07-16] MEDS: POTASSIUM CHLORIDE 20 MEQ TABCR PO SCH (07:45)
[2017-07-16] MEDS: CALCIUM 600MG + VIT D 400 IU TAB PO SCH (07:45)
[2017-07-16] MEDS: FUROSEMIDE 40 MG TAB PO SCH ×2 (07:46→17:09)
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
[2017-07-16] MEDS: RISPERIDONE 1 MG TAB PO PRN ×2 (15:52→22:17)
--- NOTE | 2017-07-16 17:12 | Progress Note ---
Internal Med Progress Note Date of Service: Jul 16, 2017. Provider Documentation: SUBJECTIVE: Seen and examined at bedside. States having loose BMs today Denies chest pain, abd pain, nausea, SOB Also states hearing Voices OBJECTIVE: Vital Signs-as noted below Physical Exam: General Appearance:Moderately built and nourished, no apparent distress Head: normocephalic, Atraumatic Eyes: normal inspection, EOMI, PERRL Neck: supple, Trachea midline Respiratory/Chest: Decreased breath sounds, CTA Cardiovascular: S1, S2, No murmur Abdomen/GI:Soft, Non tender, +Distended, Bowel sounds present, mild erythema Extremities/Musculoskelatal:normal inspection, B/L 1+ LE edema Neurologic/Psych:grossly no focal neurological deficits Skin: normal color, warm Lab data as noted below. ASSESSMENT & PLAN: Acute on chronic Hypoxic, Hypercarbic respiratory failure Chronic hypoxic respiratory failure on home O2 4 L Has Underlying COPD. Respiratory status worsened secondary to combination of pneumonia and CHF. currently saturating 96% on 2L NC Needs 2 step prior to discharge. PNEUMONIA Chest x-ray on day of admission demonstrated left lower lobe infiltrate. Blood cultures negative. Completed antibiotic therapy (IV Zosyn and PO amoxicillin/clavulanic acid) Remains afebrile. Diarrhea: Recheck Stool for C.diff Monitor Stool culture grew Karen albicans- Rx with oral nystatin. Has mild leukocytosis, Afebrile Chronic diastolic heart failure Persistent pulmonary edema on chest film. Good Urine output, Cr stable Continue diuretics CIRRHOSIS / ASCITES Appreciate GI Input H/O cirrhosis secondary to alcohol use Paracentesis performed x 2 with total of 8 L withdrawn. Lactulose stopped due to intolerable diarrhea. Continue diuretics, rifaximin Needs Outpatient work up: EGD for varices eval, repeat colonoscopy for hx of polyps HCC screening every months Monitoring for Hep A and B immunity ALCOHOL ABUSE / WITHDRAWAL Blood alcohol level in ED was 165. Completed gabapentin per protocol for alcohol withdrawal. Continue multivitamin, thiamine, folic acid. Outpatient counseling / support. UTI Urine culture:Escherichia coli, johnson sensitive Treated with piperacillin/tazobactam followed by amoxicillin/clavulanic acid as noted above. HYPOKALEMIA/HYPOMAGNESEMIA Likely secondary to poor nutritional intake and diuretic therapy. Replace and monitor ? CELLULITIS ABDOMINAL WALL Erythema and warmth of abdominal wall Afebrile Improving Treated with piperacillin / tazobactam. DEPRESSION/ANXIETY/SCHIZOPHRENIA Continue home meds. Has Hallucinations Psychiatry consulted DYSLIPIDEMIA Continue atorvastatin DVT Px: SQ enoxaparin. DISPOSITION To be determined. Would benefit from skilled care or rehabilitation, initially insisted on returning home but agrees to go to SNF poor functional status Internal Medicine follow-up with Dr. Sultana Mcginnis. PROCEDURES: ECHO: * The left ventricle is normal in size. * Ejection Fraction = 55-60%. * The right ventricular systolic function is normal. * The left atrial size is normal. * Right atrial size is normal. * Grossly normal valvular structure and function. * The study was technically limited. Vital Signs: Date Time Temp Pulse Resp B/P (MAP) Pulse Ox O2 Delivery O2 Flow Rate FiO2 07/16/17 15:02 36.8 101 16 122/74 (90) 97 Room Air 07/16/17 10:53 36.6 97 18 120/75 (90) 96 Nasal Cannula 2.0 07/16/17 10:30 103 22 97 Nasal Cannula 3.0 07/16/17 08:00 Nasal Cannula 3.0 07/16/17 07:10 77 18 97 Nasal Cannula 2.0 07/16/17 07:06 36.6 95 18 150/84 (106) 96 Nasal Cannula 3.0 07/16/17 02:04 88 18 97 Nasal Cannula 2.0 07/16/17 00:05 Nasal Cannula 2.0 07/16/17 00:03 36.7 86 20 121/74 (90) 98 Nasal Cannula 2.0 07/15/17 19:09 78 18 96 Nasal Cannula 2.0 Lab Results: Results Past 24 Hours Test 07/16/17 06:27 Range/Units White Blood Count 13.64 4.8-10.8 K/uL Red Blood Count 4.00 4.2-5.4 M/uL Hemoglobin 10.4 12.0-16.0 g/dL Hematocrit 33.8 37-47 % Mean Corpuscular Volume 84.5 80-100 fL Mean Corpuscular Hemoglobin 26.0 25-34 pg Mean Corpuscular Hemoglobin Concent 30.8 32-36 g/dl RDW Standard Deviation 56.6 36.4-46.3 fL RDW Coefficient of Variation 18.4 11.5-14.5 % Platelet Count 253 130-400 K/uL Mean Platelet Volume 9.6 7.4-10.4 fL Sodium Level 131 136-145 mmol/L Potassium Level 4.3 3.5-5.1 mmol/L Chloride Level 100 98-107 mmol/L Carbon Dioxide Level 23 21-32 mmol/L Anion Gap 8.0 3-11 mmol/L Blood Urea Nitrogen 9 7-18 mg/dl Creatinine 0.69 0.60-1.20 mg/dl Est Creatinine Clear Calc Drug Dose 83.8 ml/min Estimated GFR () 106.6 Estimated GFR (Non- 92.0 BUN/Creatinine Ratio 13.3 10-20 Random Glucose 102 70-99 mg/dl Calcium Level 8.6 8.5-10.1 mg/dl Magnesium Level 1.8 1.8-2.4 mg/dl
[2017-07-16] MEDS: ENOXAPARIN 40 MG/0.4 ML SYR SQ SCH (20:59)
[2017-07-16] MEDS: ACETAMINOPHEN 325 MG TAB PO PRN (21:00)
[2017-07-16] MEDS: RISPERIDONE 2 MG TAB PO SCH (21:00)
[2017-07-17] MEDS: IPRATROPIUM BROMIDE NEB SOLN 0.02% 2.5 ML VIAL INH SCH ×4 (02:03→19:41)
[2017-07-17] MEDS: LEVALBUTEROL 1.25MG/0.5ML NEB INH SCH ×4 (02:03→19:43)
[2017-07-17 07:17] VITALS: BP 130/71; PULSE 93; TEMP 36.4; O2SAT 91
[2017-07-17 07:53] LABS: BASO % 0.3 %; BASO ABS # 0.04 K/uL (0-0.2); COMPLETE YES; EOS % 1.6 %; HEMATOCRIT 31.3 % (37-47); IG% 0.5 %; LYMPH % 11.6 %; LYMPH ABS # 1.36 K/uL (1.2-3.4); MEAN CELL VOLUME 84.1 fL (80-100); MEAN CORPUSCULAR HEMOGLOBIN 25.8 pg (25-34); MEAN CORPUSCULAR HGB CONC 30.7 g/dl (32-36); MEAN PLATELET VOLUME 9.3 fL (7.4-10.4); MONO % 6.2 %; NEUT % 79.8 %; PLATELET COUNT 257 K/uL (130-400); RED BLOOD COUNT 3.72 M/uL (4.2-5.4); WHITE BLOOD COUNT 11.71 K/uL (4.8-10.8)
[2017-07-17 08:21] LABS: BUN/CREATININE RATIO 14.3 (10-20); CALCIUM 8.5 mg/dl (8.5-10.1); CREATININE 0.61 mg/dl (0.60-1.20); MAGNESIUM 1.8 mg/dl (1.8-2.4); POTASSIUM 4.4 mmol/L (3.5-5.1)
[2017-07-17] MEDS: CALCIUM 600MG + VIT D 400 IU TAB PO SCH (08:23)
[2017-07-17] MEDS: RIFAXIMIN TAB 550 MG TAB PO SCH ×2 (08:23→20:01)
[2017-07-17] MEDS: MULTIVITAMIN TAB PO SCH (08:23)
[2017-07-17] MEDS: FUROSEMIDE 40 MG TAB PO SCH ×2 (08:23→17:29)
[2017-07-17] MEDS: FLUOXETINE HCL 20 MG CAP PO SCH (08:23)
[2017-07-17] MEDS: POTASSIUM CHLORIDE 20 MEQ TABCR PO SCH (08:23)
[2017-07-17] MEDS: ATORVASTATIN 40 MG TAB PO SCH (08:24)
[2017-07-17] MEDS: THIAMINE HCL 100 MG TAB PO SCH (08:24)
[2017-07-17] MEDS: NYSTATIN SUSP 500,000 U/5 ML UDC PO SCH ×4 (08:24→20:00)
[2017-07-17] MEDS: SPIRONOLACTONE 100 MG TAB PO SCH (08:24)
--- NOTE | 2017-07-17 13:16 | Medical Student: [facility] ---
Medical Student Progress Note Date of Service Jul 17, 2017. Progress Note CC: I'm doing much better today HPI: Ms Brittany Tomlinson is an elderly appearing 62 yo female on hospital day 12 with longstanding chronic hypoxic respiratory failure and hepatic cirrhosis. Psych was consulted for depression, anxiety, and "schizophrenia" yesterday. Today she is doing much better, and she said the additional medication ( Risperdal) is helping. She is much more calm, smiling more, and she has not heard the voices blaming her for her health conditions since she received the first dose yesterday afternoon. She said she is sleepy today, but overall is much better. She notes improvement in her physical health as well, and has been using the toilet when she feels she needs to go to the bathroom (yesterday as incontinent of stool). She was very appreciative for our help and for adding the extra medication (Risperdal). It looks like she has been taking it about q8 hours. Objective: General: Elderly appearing female appears to be much calmer today. Wearing hospital gown resting comfortably in chair. O2 in place via nasal canula She smiled several times during conversation. Psych: Flat, constricted affect, good eye contact. Appears to be less anxious and more positive than yesterday. Thoughts somewhat disorganized but goal- oriented and more focused today. Denies auditory hallucinations since first dose of Risperdal yesterday. Assessment and Plan: 1. Schizoaffective disorder: Persistent, currently exacerbated during hospital stay, improved from yesterday. Depressive type, anxiety component due to voices. Currently on fluoxetine 40mg and risperidone 4mg qhs. Will continue 1mg q4prn and recommend continuing on this dose throughout hospital stay and upon discharge. 2. Disposition: Patient seen yesterday and discussed today with Dr. Turner. Will check on her tomorrow too. If stable tomorrow and remains less anxious without voices, we will likely sign off. Thank you for involving psychiatry in her hospital care.
[2017-07-17 14:57] VITALS: BP 133/72; PULSE 89; TEMP 36.5; O2SAT 98
--- NOTE | 2017-07-17 16:26 | Progress Note ---
Internal Med Progress Note Date of Service: Jul 17, 2017. Provider Documentation: SUBJECTIVE: Seen and examined at bedside. Less diarrhea today Denies hallucination, less anxious Denies chest pain, abd pain, nausea, SOB No new complaints OBJECTIVE: Vital Signs-as noted below Physical Exam: General Appearance:Moderately built and nourished, no apparent distress Head: normocephalic, Atraumatic Eyes: normal inspection, EOMI, PERRL Neck: supple, Trachea midline Respiratory/Chest: Decreased breath sounds, CTA Cardiovascular: S1, S2, No murmur Abdomen/GI:Soft, Non tender, +Distended, Bowel sounds present, mild erythema Extremities/Musculoskelatal:normal inspection, B/L 1+ LE edema Neurologic/Psych:grossly no focal neurological deficits Skin: normal color, warm Lab data as noted below. ASSESSMENT & PLAN: Acute on chronic Hypoxic, Hypercarbic respiratory failure Chronic hypoxic respiratory failure on home O2 4 L Has Underlying COPD. Respiratory status worsened secondary to combination of pneumonia and CHF. currently saturating 98% on 2L NC Will get 2 step prior to discharge PNEUMONIA Chest x-ray on day of admission demonstrated left lower lobe infiltrate. Blood cultures negative. Completed antibiotic therapy (IV Zosyn and PO amoxicillin/clavulanic acid) Remains afebrile. Diarrhea: Recheck Stool for C.diff:pending Monitor Stool culture grew Karen albicans- Rx with oral nystatin. leukocytosis improving, Afebrile Chronic diastolic heart failure Persistent pulmonary edema on chest film. Good Urine output, Cr stable Continue diuretics CIRRHOSIS / ASCITES Appreciate GI Input H/O cirrhosis secondary to alcohol use Paracentesis performed x 2 with total of 8 L withdrawn. Lactulose stopped due to intolerable diarrhea. Continue diuretics, rifaximin Needs Outpatient work up: EGD for varices eval, repeat colonoscopy for hx of polyps HCC screening every months Monitoring for Hep A and B immunity ALCOHOL ABUSE / WITHDRAWAL Blood alcohol level in ED was 165. Completed gabapentin per protocol for alcohol withdrawal. Continue multivitamin, thiamine, folic acid. Outpatient counseling / support. UTI Urine culture:Escherichia coli, johnson sensitive Treated with piperacillin/tazobactam followed by amoxicillin/clavulanic acid as noted above. HYPOKALEMIA/HYPOMAGNESEMIA Likely secondary to poor nutritional intake and diuretic therapy. Replace and monitor ? CELLULITIS ABDOMINAL WALL Erythema and warmth of abdominal wall Afebrile Improved Treated with piperacillin / tazobactam. DEPRESSION/ANXIETY/SCHIZOPHRENIA Continue home meds. Appreciate Psychiatry Input DYSLIPIDEMIA Continue atorvastatin DVT Px: SQ enoxaparin. DISPOSITION poor functional status Planned for rehab support services coordinator consulted Internal Medicine follow-up with Dr. Sultana Mcginnis. PROCEDURES: ECHO: * The left ventricle is normal in size. * Ejection Fraction = 55-60%. * The right ventricular systolic function is normal. * The left atrial size is normal. * Right atrial size is normal. * Grossly normal valvular structure and function. * The study was technically limited. Vital Signs: Date Time Temp Pulse Resp B/P (MAP) Pulse Ox O2 Delivery O2 Flow Rate FiO2 07/17/17 14:57 36.5 89 20 133/72 (92) 98 Nasal Cannula 2.0 07/17/17 08:20 Nasal Cannula 2.0 07/17/17 07:17 36.4 93 18 130/71 (90) 91 Nasal Cannula 2.0 07/17/17 00:00 Nasal Cannula 2.0 07/16/17 23:41 36.6 95 18 135/82 (99) 92 Nasal Cannula 2.0 07/16/17 19:25 Nasal Cannula 2.0 07/16/17 19:08 82 18 93 Room Air Lab Results: Results Past 24 Hours Test 07/17/17 07:17 Range/Units White Blood Count 11.71 4.8-10.8 K/uL Red Blood Count 3.72 4.2-5.4 M/uL Hemoglobin 9.6 12.0-16.0 g/dL Hematocrit 31.3 37-47 % Mean Corpuscular Volume 84.1 80-100 fL Mean Corpuscular Hemoglobin 25.8 25-34 pg Mean Corpuscular Hemoglobin Concent 30.7 32-36 g/dl Platelet Count 257 130-400 K/uL Mean Platelet Volume 9.3 7.4-10.4 fL Neutrophils (%) (Auto) 79.8 % Lymphocytes (%) (Auto) 11.6 % Monocytes (%) (Auto) 6.2 % Eosinophils (%) (Auto) 1.6 % Basophils (%) (Auto) 0.3 % Neutrophils # (Auto) 9.33 1.4-6.5 K/uL Lymphocytes # (Auto) 1.36 1.2-3.4 K/uL Monocytes # (Auto) 0.73 0.11-0.59 K/uL Eosinophils # (Auto) 0.19 0-0.5 K/uL Basophils # (Auto) 0.04 0-0.2 K/uL RDW Standard Deviation 55.5 36.4-46.3 fL RDW Coefficient of Variation 17.9 11.5-14.5 % Immature Granulocyte % (Auto) 0.5 % Immature Granulocyte # (Auto) 0.06 0.00-0.02 K/uL Sodium Level 133 136-145 mmol/L Potassium Level 4.4 3.5-5.1 mmol/L Chloride Level 103 98-107 mmol/L Carbon Dioxide Level 23 21-32 mmol/L Anion Gap 7.0 3-11 mmol/L Blood Urea Nitrogen 9 7-18 mg/dl Creatinine 0.61 0.60-1.20 mg/dl Est Creatinine Clear Calc Drug Dose 94.8 ml/min Estimated GFR () 111.0 Estimated GFR (Non- 95.8 BUN/Creatinine Ratio 14.3 10-20 Random Glucose 87 70-99 mg/dl Calcium Level 8.5 8.5-10.1 mg/dl Magnesium Level 1.8 1.8-2.4 mg/dl Procalcitonin 0.88 0-0.5 ng/ml
[2017-07-17 19:43] VITALS: PULSE 85; O2SAT 98
[2017-07-17] MEDS: ENOXAPARIN 40 MG/0.4 ML SYR SQ SCH (20:01)
[2017-07-17] MEDS: RISPERIDONE 2 MG TAB PO SCH (20:01)
[2017-07-18 01:07] VITALS: BP 115/66; PULSE 80; TEMP 36.9; O2SAT 95
[2017-07-18] MEDS: IPRATROPIUM BROMIDE NEB SOLN 0.02% 2.5 ML VIAL INH SCH ×2 (01:15→07:47)
[2017-07-18] MEDS: LEVALBUTEROL 1.25MG/0.5ML NEB INH SCH ×2 (01:15→07:47)
[2017-07-18 07:18] VITALS: BP 128/84; PULSE 100; TEMP 36.5; O2SAT 98
[2017-07-18 07:47] VITALS: PULSE 103; O2SAT 98
[2017-07-18 08:08] LABS: BASO % 0.8 %; BASO ABS # 0.07 K/uL (0-0.2); COMPLETE YES; EOS % 1.3 %; HEMATOCRIT 32.2 % (37-47); IG% 0.5 %; LYMPH % 15.7 %; LYMPH ABS # 1.36 K/uL (1.2-3.4); MEAN CORPUSCULAR HEMOGLOBIN 26.4 pg (25-34); MEAN CORPUSCULAR HGB CONC 31.1 g/dl (32-36); MEAN PLATELET VOLUME 9.2 fL (7.4-10.4); MONO % 8.4 %; NEUT % 73.3 %; PLATELET COUNT 261 K/uL (130-400); RED BLOOD COUNT 3.79 M/uL (4.2-5.4); WHITE BLOOD COUNT 8.67 K/uL (4.8-10.8)
[2017-07-18 08:38] LABS: BUN/CREATININE RATIO 13.8 (10-20); CREATININE 0.66 mg/dl (0.60-1.20); POTASSIUM 3.9 mmol/L (3.5-5.1)
[2017-07-18] MEDS: RIFAXIMIN TAB 550 MG TAB PO SCH (08:54)
[2017-07-18] MEDS: POTASSIUM CHLORIDE 20 MEQ TABCR PO SCH (08:54)
[2017-07-18] MEDS: CALCIUM 600MG + VIT D 400 IU TAB PO SCH (08:55)
[2017-07-18] MEDS: SPIRONOLACTONE 100 MG TAB PO SCH (08:55)
[2017-07-18] MEDS: NYSTATIN SUSP 500,000 U/5 ML UDC PO SCH (08:56)
[2017-07-18] MEDS: ATORVASTATIN 40 MG TAB PO SCH (08:56)
[2017-07-18] MEDS: FUROSEMIDE 40 MG TAB PO SCH (08:56)
[2017-07-18] MEDS: THIAMINE HCL 100 MG TAB PO SCH (08:56)
[2017-07-18] MEDS: MULTIVITAMIN TAB PO SCH (08:56)
[2017-07-18] MEDS: FLUOXETINE HCL 20 MG CAP PO SCH (08:57)
--- NOTE | 2017-07-18 09:52 | Psychiatric Progress Notes ---
Psychiatric Progress Note Date of Service Jul 18, 2017. Notes ID: Patient reviewed with liaison nurse. Initial consult completed07/[address] Turner[address] Outpatient of Dr. Brady at [facility]. CC: monitor coe while on med floor HPI: responded to additional prn Risperdal, denies complaints this am, cooperating with am routine. Thinks she is leaving today for [facility]. ROS: states she has perianal itching, repeats that she has hard time getting to outpatient appts in her wheelchair MSE: alert, calm, blunted affect, no abnormal motor movements, thoughts concrete , no SI/HI/coe. Imp: as per initial consult Plan: should be discharged on home doses of psychiatric medications, liaison to confirm f/u appt with Dr. Brady and adjust date depending on discharge disposition from medical floor. Please call if additional questions or concerns re: the care of this patient.
--- NOTE | 2017-07-18 11:25 | Progress Note ---
Internal Med Progress Note Date of Service: Jul 18, 2017. Provider Documentation: SUBJECTIVE: Seen and examined at bedside. Stating feeling well Less diarrhea Denies hallucination, less anxious Denies chest pain, abd pain, nausea, SOB No new complaints Planned to be discharged to [facility] OBJECTIVE: Vital Signs-as noted below Physical Exam: General Appearance:Moderately built and nourished, no apparent distress Head: normocephalic, Atraumatic Eyes: normal inspection, EOMI, PERRL Neck: supple, Trachea midline Respiratory/Chest: Decreased breath sounds, CTA Cardiovascular: S1, S2, No murmur Abdomen/GI:Soft, Non tender, +Distended, Bowel sounds present, mild erythema Extremities/Musculoskelatal:normal inspection, B/L 1+ LE edema Neurologic/Psych:grossly no focal neurological deficits Skin: normal color, warm Lab data as noted below. ASSESSMENT & PLAN: Acute on chronic Hypoxic, Hypercarbic respiratory failure Chronic hypoxic respiratory failure on home O2 4 L Could have Underlying COPD. Respiratory status worsened secondary to combination of pneumonia and CHF. Currently saturating well on 2L and on weaning trial to room air PNEUMONIA Chest x-ray on day of admission demonstrated left lower lobe infiltrate. Blood cultures negative. Completed antibiotic therapy (IV Zosyn and PO amoxicillin/clavulanic acid) Remains afebrile. Diarrhea: C.diff:negative Monitor Stool culture grew Karen albicans- Rx with oral nystatin. leukocytosis resolved, Afebrile Chronic diastolic heart failure Persistent pulmonary edema on chest film. Good Urine output, Cr stable Continue diuretics CIRRHOSIS / ASCITES Appreciate GI Input H/O cirrhosis secondary to alcohol use Paracentesis performed x 2 with total of 8 L withdrawn. Lactulose stopped due to intolerable diarrhea. Continue diuretics, rifaximin Needs Outpatient work up: EGD for varices eval, repeat colonoscopy for hx of polyps HCC screening every months Monitoring for Hep A and B immunity ALCOHOL ABUSE / WITHDRAWAL Blood alcohol level in ED was 165. Completed gabapentin per protocol for alcohol withdrawal. Continue multivitamin, thiamine, folic acid. Outpatient counseling / support. UTI Urine culture:Escherichia coli, johnson sensitive Treated with piperacillin/tazobactam followed by amoxicillin/clavulanic acid as noted above. HYPOKALEMIA/HYPOMAGNESEMIA Likely secondary to poor nutritional intake and diuretic therapy. Replace and monitor ? CELLULITIS ABDOMINAL WALL Erythema and warmth of abdominal wall Afebrile Improved Treated with piperacillin / tazobactam. DEPRESSION/ANXIETY/SCHIZOPHRENIA Continue home meds. Appreciate Psychiatry Input DYSLIPIDEMIA Continue atorvastatin DVT Px: SQ enoxaparin. DISPOSITION poor functional status Planned to be discharged to [facility] today Follow up with Dr. Sultana Mcginnis on 07/24/17 at 2:00pm Follow up with your produce runner Grace Hughes PA: on Aug 18 at 8:30AM Follow up with your psychiatrist as advised Seek immediate medical attention if your symptoms reoccur or worsen PROCEDURES: ECHO: * The left ventricle is normal in size. * Ejection Fraction = 55-60%. * The right ventricular systolic function is normal. * The left atrial size is normal. * Right atrial size is normal. * Grossly normal valvular structure and function. * The study was technically limited. Vital Signs: Date Time Temp Pulse Resp B/P (MAP) Pulse Ox O2 Delivery O2 Flow Rate FiO2 07/18/17 08:00 Nasal Cannula 2.0 07/18/17 07:47 103 18 98 Nasal Cannula 2.0 07/18/17 07:18 36.5 100 20 128/84 (99) 98 Nasal Cannula 2.0 07/18/17 01:07 36.9 80 17 115/66 (82) 95 Nasal Cannula 1.0 07/18/17 00:00 Nasal Cannula 2.0 07/17/17 20:00 Nasal Cannula 2.0 07/17/17 19:43 85 18 98 Nasal Cannula 2.0 07/17/17 16:00 Room Air 07/17/17 14:57 36.5 89 20 133/72 (92) 98 Nasal Cannula 2.0 Lab Results: Results Past 24 Hours Test 07/18/17 07:41 Range/Units White Blood Count 8.67 4.8-10.8 K/uL Red Blood Count 3.79 4.2-5.4 M/uL Hemoglobin 10.0 12.0-16.0 g/dL Hematocrit 32.2 37-47 % Mean Corpuscular Volume 85.0 80-100 fL Mean Corpuscular Hemoglobin 26.4 25-34 pg Mean Corpuscular Hemoglobin Concent 31.1 32-36 g/dl Platelet Count 261 130-400 K/uL Mean Platelet Volume 9.2 7.4-10.4 fL Neutrophils (%) (Auto) 73.3 % Lymphocytes (%) (Auto) 15.7 % Monocytes (%) (Auto) 8.4 % Eosinophils (%) (Auto) 1.3 % Basophils (%) (Auto) 0.8 % Neutrophils # (Auto) 6.36 1.4-6.5 K/uL Lymphocytes # (Auto) 1.36 1.2-3.4 K/uL Monocytes # (Auto) 0.73 0.11-0.59 K/uL Eosinophils # (Auto) 0.11 0-0.5 K/uL Basophils # (Auto) 0.07 0-0.2 K/uL RDW Standard Deviation 56.7 36.4-46.3 fL RDW Coefficient of Variation 18.3 11.5-14.5 % Immature Granulocyte % (Auto) 0.5 % Immature Granulocyte # (Auto) 0.04 0.00-0.02 K/uL Sodium Level 137 136-145 mmol/L Potassium Level 3.9 3.5-5.1 mmol/L Chloride Level 105 98-107 mmol/L Carbon Dioxide Level 25 21-32 mmol/L Anion Gap 7.0 3-11 mmol/L Blood Urea Nitrogen 9 7-18 mg/dl Creatinine 0.66 0.60-1.20 mg/dl Est Creatinine Clear Calc Drug Dose 87.6 ml/min Estimated GFR () 108.2 Estimated GFR (Non- 93.4 BUN/Creatinine Ratio 13.8 10-20 Random Glucose 94 70-99 mg/dl Calcium Level 9.0 8.5-10.1 mg/dl
[2017-07-18] MEDS ORDERED: MCRK20 PO (11:29)
[2017-07-18] MEDS ORDERED: THM100 PO (11:29)
[2017-07-18] MEDS ORDERED: XFX550 PO (11:29)
[2017-07-18] MEDS ORDERED: SPRN100 PO (11:29)
[2017-07-18] MEDS ORDERED: FLV1 PO (11:29)
[2017-07-18] MEDS ORDERED: LSX40 PO (11:29)
--- NOTE | 2017-07-18 11:33 | Discharge Summary ---
Discharge Summary Date of Service Jul 18, 2017. Discharge Summary Admission Date: Jul 04, 2017 at 14:47 Discharge Date: Jul 18, 2017 Discharge Disposition: Rehab Principal Diagnosis: Acute on chronic Hypoxic, Hypercarbic respiratory failure, Pneumonia, UTI Procedures: cardiac monitoring IV meds US abdomen paracentesis x 2 venous duplex lower extremities . ECHO: * The left ventricle is normal in size. * Ejection Fraction = 55-60%. * The right ventricular systolic function is normal. * The left atrial size is normal. * Right atrial size is normal. * Grossly normal valvular structure and function. * The study was technically limited.. Consultations: GI, Pulmonary Medicine, Psychiatry Pending Studies/Follow-Up: Follow up with Dr. Sultana Mcginnis on 07/24/17 at 2:00pm Follow up with your php consultant Grace Hughes PA: on Aug 18 at 8:30AM Follow up with your psychiatrist as advised Seek immediate medical attention if your symptoms reoccur or worsen Medication Reconciliation New Medications: Folic Acid (Folic Acid) 1 Mg Tab 1 MG PO QAM for 30 Days, #30 TAB Furosemide (Furosemide) 40 Mg Tab 40 MG PO BID17 for 30 Days, #60 TAB Potassium Chloride (Klor-Con M20) 20 Meq Tabcr 20 MEQ PO QAM for 30 Days, #30 Rifaximin (Xifaxan) 550 Mg Tab 550 MG PO BID for 30 Days, #60 TAB Spironolactone (Spironolactone) 100 Mg Tab 200 MG PO QAM for 30 Days, #60 TAB Thiamine HCl (Vitamin B-1) 100 Mg Tab 100 MG PO DAILY for 30 Days, #30 TAB Continued Medications: Atorvastatin (Lipitor) 80 Mg Tab 80 MG PO DAILY Calcium Carbonate (Caltrate 600) Unknown Strength Tab 1 TAB PO DAILY Fluoxetine (Prozac) 40 Mg Cap 40 MG PO QAM Multivitamin (Multivitamin) Tab 1 TAB PO DAILY Risperidone (Risperdal) 4 Mg Tab 4 MG PO QPM Admission Information HPI (per Admitting provider): 62 year old female who presents to the ER for generalized weakness and a fall this morning. Patient is a poor historian. She reports she started to feel weak yesterday to the point where she could barely walk. This morning while trying to get out of bed with help from her she fell to the ground and could not get up. EMS was then called. Patient drinks alcohol daily - she reports 3-4 drinks of [place] per day. Last drink was this morning. She is non compliant with most of her medicines. She reports she has been unable to leave the house to get refills. She reports worsening lower extremity edema and increasing abdominal distention. She reports the edema is mostly chronic but she is unsure when it started to get worse. Patient also has history of COPD and is to be wearing oxygen but is non compliant with that as well. She reports chronic intermittent shortness of breath which is unchanged. She has an occasional cough productive for clear sputum. She denies fever and chills. She reports urinary frequency but denies dysuria. She denies chest pain, lightheadedness, dizziness, or syncopal events. She reports chronic diarrhea which she takes over the counter antidiarrheals for. No abdominal pain, nausea, or vomiting. Upon arrival to the ER, patient was found to be hypoxic at 88% which improved with oxygen 2L via NC. K+ was found to be 2.7 which was replaced. U/A is suggestive of UTI and patient was given IV Rocephin. Lactic acid is 3.5. Physical Exam (per Admitting): General Appearance: no apparent distress Head: normocephalic Eyes: normal inspection ENT: hearing grossly normal Neck: supple, no JVD Respiratory/Chest: no respiratory distress, + rhonchi (BL), + wheezing ( expiratory thoughout all lung fitch) Cardiovascular: + tachycardia (HR in the low 100s, regular rhythm), + pertinent finding (+3 pitting edema BLLE) Abdomen/GI: normal bowel sounds, non tender, + distended (significantly, firm) Extremities/Musculoskelatal: normal inspection, no calf tenderness Neurologic/Psych: no motor/sensory deficits, alert, + pertinent finding ( slow to respond; aware of place, month, and year, unsure of day of the week or President ) Skin: normal color, warm/dry Hospital Course Acute on chronic Hypoxic, Hypercarbic respiratory failure Chronic hypoxic respiratory failure on home O2 4 L Could have Underlying COPD. Respiratory status worsened secondary to combination of pneumonia and CHF. Currently saturating well on 2L and on weaning trial to room air PNEUMONIA Chest x-ray on day of admission demonstrated left lower lobe infiltrate. Blood cultures negative. Completed antibiotic therapy (IV Zosyn and PO amoxicillin/clavulanic acid) Remains afebrile. Diarrhea: C.diff:negative Monitor Stool culture grew Karen albicans- Rx with oral nystatin. leukocytosis resolved, Afebrile Chronic diastolic heart failure Persistent pulmonary edema on chest film. Good Urine output, Cr stable Continue diuretics CIRRHOSIS / ASCITES Appreciate GI Input H/O cirrhosis secondary to alcohol use Paracentesis performed x 2 with total of 8 L withdrawn. Lactulose stopped due to intolerable diarrhea. Continue diuretics, rifaximin Needs Outpatient work up: EGD for varices eval, repeat colonoscopy for hx of polyps HCC screening every months Monitoring for Hep A and B immunity ALCOHOL ABUSE / WITHDRAWAL Blood alcohol level in ED was 165. Completed gabapentin per protocol for alcohol withdrawal. Continue multivitamin, thiamine, folic acid. Outpatient counseling / support. UTI Urine culture:Escherichia coli, johnson sensitive Treated with piperacillin/tazobactam followed by amoxicillin/clavulanic acid as noted above. HYPOKALEMIA/HYPOMAGNESEMIA Likely secondary to poor nutritional intake and diuretic therapy. Replace and monitor ? CELLULITIS ABDOMINAL WALL Erythema and warmth of abdominal wall Afebrile Improved Treated with piperacillin / tazobactam. DEPRESSION/ANXIETY/SCHIZOPHRENIA Continue home meds. Appreciate Psychiatry Input DYSLIPIDEMIA Continue atorvastatin DVT Px: SQ enoxaparin. DISPOSITION poor functional status Planned to be discharged to [facility] Follow up with Dr. Sultana Mcginnis on 07/24/17 at 2:00pm Follow up with your php consultant Grace Hughes PA: on Aug 18 at 8:30AM Follow up with your psychiatrist as advised Seek immediate medical attention if your symptoms reoccur or worsen PROCEDURES: ECHO: * The left ventricle is normal in size. * Ejection Fraction = 55-60%. * The right ventricular systolic function is normal. * The left atrial size is normal. * Right atrial size is normal. * Grossly normal valvular structure and function. * The study was technically limited. Total time spent on discharge = 38 minutes This includes examination of the patient, discharge planning, medication reconciliation, and communication with other providers. Discharge Instructions Discharge Instructions Date of Service Jul 18, 2017. Admission Reason for Admission: Volume Overload Discharge Discharge Diagnosis / Problem: Acute on chronic Hypoxic, Hypercarbic respiratory failure, Pneumonia, UTI Discharge Goals Goal(s): Decrease discomfort, Improve function Activity Recommendations Activity Limitations: resume your previous activity Exercise/Sports Limitations: as tolerated . Instructions / Follow-Up Instructions / Follow-Up Follow up with Dr. Sultana Mcginnis on 07/24/17 at 2:00pm Follow up with your php consultant Grace Hughes PA: on Aug 18 at 8:30AM Follow up with your psychiatrist as advised Seek immediate medical attention if your symptoms reoccur or worsen Current Hospital Diet Patient's current hospital diet: Low Sodium Diet (2gm Na), AHA Diet (Heart Healthy) Discharge Diet Recommended Diet: AHA Diet (Heart Healthy), Low Sodium Diet (2gm Na) Pending Studies Studies pending at discharge: no Medical Emergencies . Who to Call and When: Medical Emergencies: If at any time you feel your situation is an emergency, please call 911 immediately. . Non-Emergent Contact Non-Emergency issues call your: Primary Care Provider, Camouflage Assembler Call Non-Emergent contact if: you have a fever, your pain is not controlled, your pain is worsening, your pain is unusual for you, you have any medication questions Seek immediate medical attention if your symptoms reoccur or worsen . . "Provider Documentation" section prepared by Cristian Francois. . VTE Core Measure Inpt VTE Proph given/why not?: Enoxaparin (Lovenox)SQ
[2017-07-18 11:58] VITALS: O2SAT 97
[2017-07-18 12:03] VITALS: BP 128/84; PULSE 103; TEMP 36.5; O2SAT 97
== END 2017-07-18 12:59 | DRG 291 ==
LOC: EDBD 09:47 → C.EDA 09:48 → C.2T 14:47 → ENRESERV 15:30 → C.MS2W 07-14 19:51
PROVIDERS: ADMIT Internal Medicine; ATTEND Internal Medicine
PROC: 0W9G3ZX Drainage of Peritoneal Cavity, Percutaneous Approach, Diagnostic (ICD-10-PCS; principal; 2017-07-04)
PROC: 0W9G3ZZ Drainage of Peritoneal Cavity, Percutaneous Approach (ICD-10-PCS; principal; 2017-07-04)
PROC: 0W9G3ZZ Drainage of Peritoneal Cavity, Percutaneous Approach (ICD-10-PCS; 2017-07-08)
PROC: 0D9P70Z Drainage of Rectum with Drainage Device, Via Natural or Artificial Opening (ICD-10-PCS; 2017-07-10)
DX: I50.33 Acute on chronic diastolic (congestive) heart failure (principal); G93.41 Metabolic encephalopathy; J96.22 Acute and chronic respiratory failure with hypercapnia; J96.21 Acute and chronic respiratory failure with hypoxia; J18.9 Pneumonia, unspecified organism; N39.0 Urinary tract infection, site not specified; J44.1 Chronic obstructive pulmonary disease with (acute) exacerbation; E87.2 Acidosis; E66.2 Morbid (severe) obesity with alveolar hypoventilation; L03.311 Cellulitis of abdominal wall; K70.31 Alcoholic cirrhosis of liver with ascites; F10.20 Alcohol dependence, uncomplicated; E78.00 Pure hypercholesterolemia, unspecified; E87.6 Hypokalemia; F25.9 Schizoaffective disorder, unspecified; F41.9 Anxiety disorder, unspecified; F32.9 Major depressive disorder, single episode, unspecified; R19.7 Diarrhea, unspecified; E83.42 Hypomagnesemia; B96.20 Unspecified Escherichia coli [E. coli] as the cause of diseases classified elsewhere; Z79.899 Other long term (current) drug therapy; Z87.891 Personal history of nicotine dependence; Z99.81 Dependence on supplemental oxygen; Z91.14 Patient's other noncompliance with medication regimen

== ENCOUNTER 2017-11-19 18:35 | Inpatient (IN) | payer OTHER ==
[~2017-11-19] VITALS: Ht 162.6 cm; Wt 91.0 kg
[~2017-11-19 18:35] MED LIST changes: -ASPI81TA28 PO; +ATOR-26 PO; -ATRIN INH; -CALC-20 PO; +CALCTAB5 PO; -CRG625 PO; -FLUO20CA36 PO; +FLUO40CA8 PO; -HPRIS5M SQ; -LCTL45 PO; -LSN5 PO; +MCRK20 PO; -OXGN; -POTA10CA28 PO; -PRT40 PO; +RISP4TAB7 PO; -RSP3 PO; -SYN25 PO
[2017-11-19] MEDS ORDERED: SODIUM CHLORIDE 0.9% 500ML 500 ML IV STA ×2 (18:42→20:29)
[2017-11-19] MEDS ORDERED: ALBUT/IPRATROP 3MG/0.5MG NEB 3 ML VIAL INH ONE (19:00)
--- NOTE | 2017-11-19 19:07 | EMERGENCY ROOM VISIT NOTE ---
History Report prepared by Maryam: Johnathon Pierce Under the Supervision of: Dr. Kirby Negron M.D. First contact with patient: 18:37 Stated Complaint: UNRESPONSIVE History of Present Illness The patient is a 62 year old female who presents to the Emergency Room with unresponsiveness that began earlier today. This HPI is limited secondary to her unresponsive state. Per the patient's and EMS, beginning this morning the patient began to act "bizarre" and minimally responsive. She has a history of schizophrenia and her mental state and responsiveness worsened throughout the day. She has not eaten in a few days. Her and her are alcoholics. Upon arrival, the patient was able to answer some questions. Per the patient she did not take too many medications. She denies any abdominal pain but believes that her abdomen is bloated. Source of History: patient, spouse/significant other, EMS History Limited By: other (Unresponsiveness) Onset: this morning Position: other (Global) Symptom Intensity: moderate Quality: other (Unresponsiveness) Timing: constant Associated Symptoms: No abdominal pain Note: She believes that her abdomen is distended. Review of Systems ROS is limited secondary to the patient's unresponsiveness. Past Medical & Surgical Medical Problems: (1) Alcohol abuse (2) Altered mental status (3) Cirrhosis (4) COPD (chronic obstructive pulmonary disease) (5) Dyslipidemia (6) High cholesterol (7) Osteoporosis (8) Schizoaffective disorder (9) Systolic CHF (10) Tobacco use disorder Surgical Problems: (1) Hx of colonoscopy with polypectomy (2) Hx of tonsillectomy Family History Heart disease FATHER (severe [place] age 40; lived to be 70; had several bypasses) Social History Smoking Status: Current Every Day Smoker Alcohol Use: heavy Marital Status: Housing Status: lives with significant other Current/Historical Medications Scheduled Atorvastatin (Lipitor), 80 MG PO DAILY Fluoxetine (Prozac), 40 MG PO QAM Risperidone (Risperdal), 4 MG PO QPM Allergies Coded Allergies: No Known Allergies (Unverified , nkda, 04/01/16) Physical Exam Vital Signs Date Time Temp Pulse Resp B/P (MAP) Pulse Ox O2 Delivery O2 Flow Rate FiO2 11/19/17 21:41 92 108/59 96 11/19/17 21:36 106/60 11/19/17 21:31 128/64 11/19/17 21:26 98 24 117/59 97 11/19/17 21:22 101/59 11/19/17 21:16 126/86 11/19/17 21:11 97 12 116/65 96 11/19/17 21:06 126/71 11/19/17 21:01 136/73 11/19/17 20:57 120/57 11/19/17 20:56 93 13 97 11/19/17 20:51 107/69 11/19/17 20:46 106/63 11/19/17 20:41 89 12 113/68 100 11/19/17 20:36 114/63 11/19/17 20:31 122/69 11/19/17 20:27 112/64 11/19/17 20:26 91 14 100 11/19/17 20:21 110/64 11/19/17 20:16 114/67 11/19/17 20:13 89 22 99 BiPAP/CPAP 100 11/19/17 20:11 95 13 113/65 100 11/19/17 20:06 116/71 98 BiPAP 100 11/19/17 19:39 92 95 11/19/17 19:36 131/73 11/19/17 19:31 125/72 11/19/17 19:30 91 15 100 11/19/17 19:26 125/68 11/19/17 19:21 126/72 11/19/17 19:16 134/74 11/19/17 19:15 97 15 98 11/19/17 19:12 99 11/19/17 18:35 97 Non-Rebreather 15.0 11/19/17 18:35 64 Room Air 11/19/17 18:35 36.8 105 15 133/75 64 Room Air Physical Exam GENERAL: Alert to loud voice, unkempt and disheveled appearing, in severe respiratory distress HENT: Normocephalic, atraumatic. Oropharynx reveals dry cracked mucous membranes. EYES: Normal conjunctiva. Sclera non-icteric. NECK: Supple. No nuchal rigidity. FROM. No JVD. RESPIRATORY: Diminished breath sounds on the right to both fitch and to the left base. Diffuse scattered wheezes and rhonchi. CARDIAC: Regular rate, normal rhythm. Extremities warm and well perfused. Pulses equal. ABDOMEN: Obese and distended. Tympanic. Mild erythema and warmth to the anterior abdominal wall. No tenderness to palpation. No rebound or guarding. No masses. RECTAL: Deferred. MUSCULOSKELETAL: Chest examination reveals no tenderness. The back is symmetrical on inspection without obvious abnormality. There is no CVA tenderness to palpation. No joint edema. LOWER EXTREMITIES: Mild erythema and warmth to the right anterior leg. 2+ bilateral edema. NEURO: GCS 11 on arrival. Normal sensorium. Mild asterixis bilaterally. SKIN: No rash or jaundice noted. Medical Decision & Procedures ER Provider Diagnostic Interpretation: Radiology results as stated below per my review and radiologist interpretation: HEAD WITHOUT CONTRAST (CT) CLINICAL HISTORY: 62 years-old Female presenting with Altered mental status. TECHNIQUE: Multidetector CT imaging of the head was performed without the use of intravenous contrast. IV contrast: None. A dose lowering technique was used consistent with the principles of ALARA (as low as reasonably achievable). COMPARISON: 07/12/2017. CT DOSE (mGy.cm): The estimated cumulative dose is 4111.[address] scans. FINDINGS: Public Relations Consultant topogram: Unremarkable. Ventricles and sulci normal in size. Brain parenchyma normal in appearance with preserved gasca-white differentiation. No mass effect or midline shift. No hemorrhage or acute territorial infarct. No extra-axial fluid collection. Paranasal sinuses and mastoid air cells clear. Calvarium intact. IMPRESSION: 1. No acute intracranial abnormality. Electronically signed by: Petey Mena M.D. 11/19/2017 8:09 PM Dictated Date/Time: 11/19/2017 8:07 PM CHEST ONE VIEW PORTABLE CLINICAL HISTORY: 62 years-old Female presenting with Evaluate Fever/Sepsis. TECHNIQUE: Portable semiupright AP view of the chest was obtained. COMPARISON: 07/11/2017. FINDINGS: The cardiac silhouette is enlarged though obscured along the right heart border secondary to development of a large right pleural effusion resulting in complete opacification of the right hemithorax. Left lung and pleural space clear. No pneumothorax. Osseous structures normal. Upper abdomen normal. IMPRESSION: 1. Interval development of complete right hemithorax opacification likely secondary to large pleural effusion and underlying lung atelectasis or consolidation. Infection cannot be excluded. Electronically signed by: Petey Mena M.D. 11/19/2017 7:59 PM Dictated Date/Time: 11/19/2017 7:58 PM (CHEST FOR PE) ANGIO WITH CLINICAL HISTORY: 62 years-old Female presenting with ^hypoxia/effusion. TECHNIQUE: Multidetector CT angiography of the chest was performed after administration of intravenous contrast. 3-D volumetric and/or maximum intensity projection (MIP) images were subsequently reconstructed for review. IV contrast: 115 mL of Optiray 320. A dose lowering technique was used consistent with the principles of ALARA (as low as reasonably achievable). COMPARISON: Chest x-ray performed earlier the same day and CTA from 01/09/2015. CT DOSE (mGy.cm): The estimated cumulative dose is 1111.[address] scans. FINDINGS: Public Relations Consultant topogram: Right hemithorax opacification. Pulmonary vasculature: The study is adequate for assessment of the pulmonary vascular tree. No filling defect within the pulmonary arteries to suggest embolus. Main pulmonary artery is not enlarged. No flattening of the interventricular septum. No intracardiac intracardiac filling defect. No reflux of contrast into the hepatic veins. Remaining chest: On soft tissue windows, normal thyroid and thoracic inlet. No axillary, supraclavicular, hilar, or mediastinal lymphadenopathy. Atherosclerosis of the aorta. Four-vessel aortic arch. Multichamber enlargement of the heart. Coronary artery calcification. Trace pericardial effusion. Large right pleural effusion resulting in complete collapse of the right lung.Hepatic steatosis. Ascites. On lung windows, complete collapse of the right lung. Minimal paramediastinal left upper lobe consolidation and volume loss consistent with atelectasis likely from left were mediastinal shift. Minimal focal subpleural groundglass opacity in the lateral basal left lower lobe (series 6 image 90). Layering debris within the airway extensively filling the trachea and completely opacifying the right mainstem bronchus and all of the lobar, segmental, subsegmental right lung bronchi. On bone windows, normal osseous structures. IMPRESSION: 1. No pulmonary embolus. 2. Complete collapse of the right lung with large right pleural effusion. 3. Extensive debris in the trachea and complete opacification of the right mainstem bronchus and right lung bronchi secondary to debris. This suggests a large aspiration event. 4. Minimal groundglass opacity in the left lung may also relate to aspiration, however, the left lung is largely clear. 5. Cardiomegaly. 6. Hepatic steatosis. The report will be called/faxed according to standard departmental protocol. 1. Ascites. Electronically signed by: Petey Mena M.D. 11/19/2017 8:14 PM Dictated Date/Time: 11/19/2017 8:09 PM ABD/PELVIS IV CONTRAST ONLY CLINICAL HISTORY: 62 years-old Female presenting with ascities/ams. TECHNIQUE: Multidetector CT of the abdomen and pelvis was performed after the administration of intravenous contrast. IV contrast: 115 mL of Optiray 320. A dose lowering technique was used consistent with the principles of ALARA (as low as reasonably achievable). COMPARISON: 01/09/2015. CT DOSE (mGy.cm): The estimated cumulative dose is 4111.87 mGy.cm. FINDINGS: Public Relations Consultant topogram: Complete opacification of the right hemithorax. Lung bases: Large right pleural effusion and collapse of the right lung. Cardiomegaly with prominent right atrial enlargement. Coronary artery calcification. Minimal groundglass opacity at the left lung base. Liver: Normal morphology though the liver is enlarged. Density consistent with hepatic steatosis. Hepatic vessels patent. Biliary: No intrahepatic or extrahepatic biliary ductal dilatation. Gallbladder contains gallstones. Pancreas: Normal. Spleen: Normal. Adrenal glands: Normal. Kidneys and ureters: Normal. No hydronephrosis. Ureters poorly assessed. Bladder: Decompressed with a Baer catheter. Pelvic organs: Uterus and ovaries normal. Bowel: The colon is decompressed. Mild wall thickening of the cecum noted. Normal appendix. No bowel obstruction. Mild small bowel wall thickening may be present. Peritoneal cavity: Moderate to large volume simple appearing ascites. Lymph nodes: No enlarged lymph nodes in the abdomen or pelvis. Vasculature: Atherosclerosis of the normal caliber abdominal aorta. Suggestion of perigastric varices. IVC patent. Abdominal wall: Body wall edema. Umbilical hernia containing ascites. Musculoskeletal: Normal. IMPRESSION: 1. Hepatic steatosis and hepatomegaly. 2. The presence of moderate to large volume ascites, suggestion of varices, nonspecific bowel wall thickening could suggest portal hypertension and portal enterography/colopathy. 3. Anasarca. 4. Large right pleural effusion with complete right lung collapse. Electronically signed by: Petey Mena M.D. 11/19/2017 8:21 PM Dictated Date/Time: 11/19/2017 8:14 PM Laboratory Results Test 11/19/17 19:09 11/19/17 19:18 11/19/17 19:27 11/19/17 19:30 Venous Blood pH 7.22 (7.36-7.41) Venous Blood Partial Pressure CO2 81 mmHg (38.0-50.0) Venous Blood Partial Pressure O2 48 mmHg Venous Blood HCO3 32 mmol/L Venous Blood Oxygen Saturation 75.4 % Venous Blood Base Excess 3.8 mEq/L Lactic Acid Level 0.9 mmol/L (0.4-2.0) Immature Granulocyte % (Auto) 0.8 % White Blood Count 9.77 K/uL (4.8-10.8) Red Blood Count 3.50 M/uL (4.2-5.4) Hemoglobin 10.1 g/dL (12.0-16.0) Hematocrit 34.8 % (37-47) Mean Corpuscular Volume 99.4 fL (80-100) Mean Corpuscular Hemoglobin 28.9 pg (25-34) Mean Corpuscular Hemoglobin Concent 29.0 g/dl (32-36) Platelet Count 138 K/uL (130-400) Neutrophils (%) (Auto) 70.8 % Lymphocytes (%) (Auto) 14.1 % Monocytes (%) (Auto) 12.8 % Eosinophils (%) (Auto) 1.2 % Basophils (%) (Auto) 0.3 % Neutrophils # (Auto) 6.91 K/uL (1.4-6.5) Lymphocytes # (Auto) 1.38 K/uL (1.2-3.4) Monocytes # (Auto) 1.25 K/uL (0.11-0.59) Eosinophils # (Auto) 0.12 K/uL (0-0.5) Basophils # (Auto) 0.03 K/uL (0-0.2) Immature Granulocyte # (Auto) 0.08 K/uL (0.00-0.02) Polychromasia 1+ Hypochromasia PRESENT Anisocytosis PRESENT Macrocytosis PRESENT Prothrombin Time 12.5 SECONDS (9.0-12.0) Prothromb Time International Ratio 1.2 (0.9-1.1) Ammonia 65.0 umol/L (11-32) Troponin I < 0.015 ng/ml (0-0.045) Pro-B-Type Natriuretic Peptide 2918 pg/ml (0-900) Amylase Level 13 U/L (25-115) Lipase 109 U/L (73-393) Salicylates Level mg/dl (2.8-20) Acetaminophen Level ug/ml (10-30) Ethyl Alcohol mg/dL < 3.0 mg/dl (0-3) Urine Color ORANGE Urine Appearance CLOUDY (CLEAR) Urine pH 5.0 (4.5-7.5) Urine Specific Burns 1.027 (1.000-1.030) Urine Protein 3+ (NEG) Urine Glucose (UA) NEG (NEG) Urine Ketones NEG (NEG) Urine Occult Blood NEG (NEG) Urine Nitrite POS (NEG) Urine Bilirubin 3+ (NEG) Urine Urobilinogen POS (NEG) Urine Leukocyte Esterase SMALL (NEG) Urine WBC (Auto) 1-5 /hpf (0-5) Urine RBC (Auto) 0-4 /hpf (0-4) Urine Hyaline Casts (Auto) /lpf (0-5) Urine Epithelial Cells (Auto) >30 /lpf (0-5) Urine Bacteria (Auto) 4+ (NEG) Urine Renal Epithelial Cells /lpf (0-5) Urine Crystals CALCIUM OXALATE (NONE Urine Pathogenic Casts /lpf (0) Bedside Hemoglobin 9.9 g/dl (12.0-16.0) Bedside Hematocrit 29 % (37-47) Bedside Sodium 139 mEq/L (135-144) Bedside Potassium 4.6 mEq/L (3.3-5.0) Bedside Chloride 100 mEq/L (101-112) Bedside Total CO2 33 mEq/l (24-31) Bedside Blood Urea Nitrogen 19 mg/dl (7-18) Bedside Creatinine 0.9 mg/dl (0.6-1.3) Bedside Glucose (other) 124 mg/dl (70-99) Bedside Lactic Acid Venous 1.20 mmol/L (0.90-1.70) Bedside Ionized Calcium (Kaela) 1.11 mmol/l (1.12-1.32) Influenza Type A Antigen Neg for Influ A (NEG) Influenza Type B Antigen Neg for Influ B (NEG) Test 11/19/17 21:25 Peritoneal Fluid Color YELLOW Peritoneal Fluid Appearance CLEAR Peritoneal Fluid WBC 186 /uL (0-300) Peritoneal Fluid RBC < 3000 /uL Peritoneal Fld Mononuclear WBCs (%) 73.1 % Peritoneal Fld Polynuclear WBCs (%) 26.9 % Peritoneal Fluid Total Protein 2.1 g/dl Peritoneal Fluid Albumin 1.0 g/dl Pleural Fluid Source RIGHT LUNG Pleural Fluid Color YELLOW Pleural Fluid Appearance CLEAR Pleural Fluid WBC 499 /uL Pleural Fluid RBC < 3000 /uL Pleural Fluid pH 7.36 (7.3-7.4) Pleural Fluid Polynuclear WBCs % 37.3 % Pleural Fluid Mononuclear WBCs % 62.7 % Pleural Fluid Total Protein 2.4 g/dl Pleural Fluid LDH 109 IU Pleural Fluid Glucose 122 mg/dl Pleural Fluid Amylase 9 U/L Laboratory results reviewed by me Medications Administered Medications (Trade) Dose Ordered Sig/Antonio Route Start Time Stop Time Status Last Admin Dose Admin Sodium Chloride 500 ml @ 125 mls/hr Q4H STAT IV 11/19/17 18:42 11/19/17 22:41 DC 11/19/17 18:42 125 MLS/HR Albuterol/ Ipratropium (Duoneb) 12 ml ONE ONCE INH 11/19/17 19:00 11/19/17 19:01 DC 11/19/17 19:00 12 ML Piperacillin Sod/ Tazobactam Sod (Zosyn Iv) 4.5 gm NOW STAT IV 11/19/17 19:55 11/19/17 19:58 DC 11/19/17 19:55 4.5 GM Vancomycin HCl 2000 mg/Sodium Chloride 540 ml @ 200 mls/hr ONE STAT IV 11/19/17 19:55 11/19/17 22:36 DC 11/19/17 21:18 200 MLS/HR Albumin Human (Albumin 25%) 12.5 gm 2030,2130 IV 11/19/17 20:30 11/19/17 21:31 DC 11/19/17 21:39 12.5 GM Sodium Chloride 500 ml @ 125 mls/hr Q4H STAT IV 11/19/17 20:29 11/19/17 23:30 DC 11/19/17 20:29 125 MLS/HR Lactulose/Sterile Water/Barcode ONE STAT DE 11/19/17 20:00 11/20/17 06:00 DC 11/19/17 20:00 200 GM Procedure Paracentesis Indication: Massive ascites/r/o SBP Dual physician emergency consent was done. At this time, the risks of the procedure are less than the risks of NOT performing the procedure. A time out was taken and the correct patient and site identified. The patient was prepped and draped in the standard surgical fashion. 3 cc's of 1% lidocaine without epinephrine was injected at the site. A 0.25 cm incision was made to the right lower quadrant. A paracentesis pig tail needle was inserted in the site, once ascites fluid expressed, needle advance an addition 0.25cm and pigtail cannula was advanced and needle withdrawn. 5.5 L of ascites was removed. Pig tail was removed and a single silk suture was place for hemostasis. No complications. Ascites fluid sent for testing. Albumin ordered given large volume paracentesis. ECG Indication: SOB/dyspnea Rate (beats per minute): 99 Rhythm: normal sinus Findings: no acute ischemic change, other (low voltage, normal axis) ED Course 1836: The patient was evaluated in room B1. A complete history and physical exam was performed. 2004: I discussed the test results and treatment plan with Dr. Brown of [facility]. He accepted the patient for further evaluation. The patient will be evaluated by him for further management. He would like me to speak with our ICU. 2013: I spoke with Dr. Harden of the ICU at this time. He will come evaluate the patient. When he arrives, we will discuss further treatment options. 2100: I performed a paracentesis procedure at this time while Dr. Harden performed a thoracentesis procedure. Please see the procedure notes for more information. Medical Decision I reviewed the patient's past medical history, medications, and the nursing notes as described above. Differential diagnosis includes but is not limited to: pneumonia, bronchitis, ACS, CHF, UTI, sepsis, COPD, acute on chronic renal failure, hyperammonemia, encephalopathy, dehydration, and electrolyte abnormalities. The patient is a 62-year-old woman with a past medical history of alcoholic cirrhosis with persistent etoh abuse, CHF, COPD presents emergency Department with altered mental status minimally responsive and hypoxic when found by EMS to the 70s per hpi. I'll the patient is in severe respiratory distress requiring nonrebreather, with GCS of 11 alert to loud voice. Lung sounds significantly diminished on the right as well as diminished in the left base with rhonchi and wheezing throughout. Given the patient's poor air entry and altered mental status suspicious for hypercapnia placed on BiPAP. VBG later supporting hypoxic hypercapnic respiratory failure. Bedside ultrasound also demonstrated large right-sided pleural effusion which was appreciated on chest x -ray and subsequent CT of the chest. Case was discussed with [facility] Medellin hospitalist, who will admit the patient to the ICU for further management. Additionally discussed with Dr. Harden who evaluated the patient and the recommended therapeutic and diagnostic thoracentesis and paracentesis. M.D. emergent consent was done and both procedures performed with 1.5 L drained from the right pleural space by Dr. Harden and I drained 5.5 L with paracentesis. Ammonia elevated to 60s so lactulose enema ordered. UA with positive nitrites and CT also demonstrating likely aspiration pneumonia therefore patient was treated with broad-spectrum antibiotics with vancomycin and Zosyn. Patient clinically improving while on BiPAP as well as after thoracentesis and paracenteses. Patient admitted to ICU for further management. Medication Reconcilliation Current Medication List: was personally reviewed by me Blood Pressure Screening Patient's blood pressure: Low blood pressure Consults Time Called: 1999 Consulting Physician: Dr. Brown - [facility] Hospitalist Returned Call: 2004 I discussed the patient with him - he will evaluate the patient for further treatment. he would like me to call the ICU. Additional Consults: Time Called: 2009 Consulted Physician: Dr. Harden - ICU Returned Call: 2013 Additional Comments: I discussed the patient with him - he will evaluate the patient for further treatment. Impression Primary Impression: Acute on chronic respiratory failure with hypoxia and hypercapnia Additional Impressions: Pleural effusion, right Ascites UTI (urinary tract infection) PNA (pneumonia) Hyperammonemia Hepatic encephalopathy Critical Care I have personally spent greater than 120 minutes of critical care time in the direct management of this patient. This includes bedside care, interpretation of diagnostic studies, and testing, discussion with consultants, patient, and family members, and other required patient management activities. This 120 minutes is in excess of all separately billable procedures. Scribe Attestation The scribe's documentation has been prepared under my direction and personally reviewed by me in its entirety. I confirm that the note above accurately reflects all work, treatment, procedures, and medical decision making performed by me. Departure Information Dispostion Being Evaluated By Hospitalist Referrals Sultana Mcginnis M.D. (PCP) Problem Qualifiers
[2017-11-19 19:18] LABS: VEN BLD GAS O2 SATURATION 75.4 %; VEN BLOOD GAS BASE EXCESS 3.8 mEq/L
[2017-11-19] MEDS ORDERED: OPTIRAY 320 IV PRN (19:30)
[2017-11-19 19:39] VITALS: PULSE 92; O2SAT 95
[2017-11-19 19:42] LABS: INR 1.2 (0.9-1.1); PROTHROMBIN TIME (PATIENT) 12.5 SECONDS (9.0-12.0)
[2017-11-19 19:42] LABS: URINE APPEARANCE CLOUDY (CLEAR); URINE COLOR ORANGE; URINE EPITHELIAL CELL AUTO >30 /lpf (0-5); URINE NITRITE POS (NEG); URINE SPECIFIC GRAVITY 1.027 (1.000-1.030); UROBILINOGEN POS (NEG)
[2017-11-19 19:44] LABS: MANUAL MICROSCOPIC REQUIRED? NO; REVIEW REQ? YES; URINE BILIRUBIN 3+ (NEG)
[2017-11-19 19:45] LABS: ISTAT CREATININE 0.9 mg/dl (0.6-1.3); ISTAT HEMOGLOBIN 9.9 g/dl (12.0-16.0); ISTAT IONIZED CALCIUM 1.11 mmol/l (1.12-1.32)
[2017-11-19] MEDS ORDERED: PIPERACILLIN/TAZOBACTAM 4.5 GM/100ML D5W IV STA (19:55)
[2017-11-19] MEDS ORDERED: VANCOMYCIN INJ 2,000 MG in SODIUM CHLORIDE 0.9% 500ML 500 ML IV STA (19:55)
[2017-11-19] MEDS ORDERED: LACTULOSE 200GM/700ML WTR ENEMA PR SCH ×2 (20:00→21:45)
[2017-11-19] MEDS ORDERED: LACTULOSE SYRUP 200 GM, WATER, STERILE IRRIG 700 ML, BARCODE IDENTIFIER 1 EA PR STA ×2 (20:00)
--- NOTE | 2017-11-19 20:01 | DIAGNOSTIC IMAGING REPORT ---
CHEST ONE VIEW PORTABLE CLINICAL HISTORY: 62 years-old Female presenting with Evaluate Fever/Sepsis. TECHNIQUE: Portable semiupright AP view of the chest was obtained. COMPARISON: 07/11/2017. FINDINGS: The cardiac silhouette is enlarged though obscured along the right heart border secondary to development of a large right pleural effusion resulting in complete opacification of the right hemithorax. Left lung and pleural space clear. No pneumothorax. Osseous structures normal. Upper abdomen normal. IMPRESSION: 1. Interval development of complete right hemithorax opacification likely secondary to large pleural effusion and underlying lung atelectasis or consolidation. Infection cannot be excluded. Electronically signed by: Petey Mena M.D. 11/19/2017 7:59 PM Dictated Date/Time: 11/19/2017 7:58 PM
[2017-11-19 20:08] LABS: ALT/SGPT 47 U/L (12-78); AST/SGOT 108 U/L (15-37); BLOOD UREA NITROGEN 16 mg/dl (7-18); BUN/CREATININE RATIO 20.2 (10-20); CARBON DIOXIDE 32 mmol/L (21-32); CHLORIDE 103 mmol/L (98-107); CREATININE 0.78 mg/dl (0.60-1.20); GLUCOSE 119 mg/dl (70-99); POTASSIUM 4.5 mmol/L (3.5-5.1); SODIUM 136 mmol/L (136-145)
--- NOTE | 2017-11-19 20:10 | DIAGNOSTIC IMAGING REPORT ---
HEAD WITHOUT CONTRAST (CT) CLINICAL HISTORY: 62 years-old Female presenting with Altered mental status. TECHNIQUE: Multidetector CT imaging of the head was performed without the use of intravenous contrast. IV contrast: None. A dose lowering technique was used consistent with the principles of ALARA (as low as reasonably achievable). COMPARISON: 07/12/2017. CT DOSE (mGy.cm): The estimated cumulative dose is 4111.[address] scans. FINDINGS: Duty Officer topogram: Unremarkable. Ventricles and sulci normal in size. Brain parenchyma normal in appearance with preserved gasca-white differentiation. No mass effect or midline shift. No hemorrhage or acute territorial infarct. No extra-axial fluid collection. Paranasal sinuses and mastoid air cells clear. Calvarium intact. IMPRESSION: 1. No acute intracranial abnormality. Electronically signed by: Petey Mena M.D. 11/19/2017 8:09 PM Dictated Date/Time: 11/19/2017 8:07 PM
[2017-11-19 20:13] VITALS: PULSE 89; O2SAT 99
[2017-11-19 20:14] LABS: ALKALINE PHOSPHATASE 660 U/L (45-117)
[2017-11-19] MEDS ORDERED: LIDO/EPINEPHRINE/SOD BICARB 20 ML VIAL INFIL ONE (20:14)
--- NOTE | 2017-11-19 20:15 | DIAGNOSTIC IMAGING REPORT ---
(CHEST FOR PE) ANGIO WITH CLINICAL HISTORY: 62 years-old Female presenting with ^hypoxia/effusion. TECHNIQUE: Multidetector CT angiography of the chest was performed after administration of intravenous contrast. 3-D volumetric and/or maximum intensity projection (MIP) images were subsequently reconstructed for review. IV contrast: 115 mL of Optiray 320. A dose lowering technique was used consistent with the principles of ALARA (as low as reasonably achievable). COMPARISON: Chest x-ray performed earlier the same day and CTA from 01/09/2015. CT DOSE (mGy.cm): The estimated cumulative dose is 1111.[address] scans. FINDINGS: Fashion Coordinator topogram: Right hemithorax opacification. Pulmonary vasculature: The study is adequate for assessment of the pulmonary vascular tree. No filling defect within the pulmonary arteries to suggest embolus. Main pulmonary artery is not enlarged. No flattening of the interventricular septum. No intracardiac intracardiac filling defect. No reflux of contrast into the hepatic veins. Remaining chest: On soft tissue windows, normal thyroid and thoracic inlet. No axillary, supraclavicular, hilar, or mediastinal lymphadenopathy. Atherosclerosis of the aorta. Four-vessel aortic arch. Multichamber enlargement of the heart. Coronary artery calcification. Trace pericardial effusion. Large right pleural effusion resulting in complete collapse of the right lung.Hepatic steatosis. Ascites. On lung windows, complete collapse of the right lung. Minimal paramediastinal left upper lobe consolidation and volume loss consistent with atelectasis likely from left were mediastinal shift. Minimal focal subpleural groundglass opacity in the lateral basal left lower lobe (series 6 image 90). Layering debris within the airway extensively filling the trachea and completely opacifying the right mainstem bronchus and all of the lobar, segmental, subsegmental right lung bronchi. On bone windows, normal osseous structures. IMPRESSION: 1. No pulmonary embolus. 2. Complete collapse of the right lung with large right pleural effusion. 3. Extensive debris in the trachea and complete opacification of the right mainstem bronchus and right lung bronchi secondary to debris. This suggests a large aspiration event. 4. Minimal groundglass opacity in the left lung may also relate to aspiration, however, the left lung is largely clear. 5. Cardiomegaly. 6. Hepatic steatosis. The report will be called/faxed according to standard departmental protocol. 1. Ascites. Electronically signed by: Petey Mena M.D. 11/19/2017 8:14 PM Dictated Date/Time: 11/19/2017 8:09 PM
--- NOTE | 2017-11-19 20:23 | DIAGNOSTIC IMAGING REPORT ---
ABD/PELVIS IV CONTRAST ONLY CLINICAL HISTORY: 62 years-old Female presenting with ascities/ams. TECHNIQUE: Multidetector CT of the abdomen and pelvis was performed after the administration of intravenous contrast. IV contrast: 115 mL of Optiray 320. A dose lowering technique was used consistent with the principles of ALARA (as low as reasonably achievable). COMPARISON: 01/09/2015. CT DOSE (mGy.cm): The estimated cumulative dose is 4111.87 mGy.cm. FINDINGS: Teaching Fellow topogram: Complete opacification of the right hemithorax. Lung bases: Large right pleural effusion and collapse of the right lung. Cardiomegaly with prominent right atrial enlargement. Coronary artery calcification. Minimal groundglass opacity at the left lung base. Liver: Normal morphology though the liver is enlarged. Density consistent with hepatic steatosis. Hepatic vessels patent. Biliary: No intrahepatic or extrahepatic biliary ductal dilatation. Gallbladder contains gallstones. Pancreas: Normal. Spleen: Normal. Adrenal glands: Normal. Kidneys and ureters: Normal. No hydronephrosis. Ureters poorly assessed. Bladder: Decompressed with a Baer catheter. Pelvic organs: Uterus and ovaries normal. Bowel: The colon is decompressed. Mild wall thickening of the cecum noted. Normal appendix. No bowel obstruction. Mild small bowel wall thickening may be present. Peritoneal cavity: Moderate to large volume simple appearing ascites. Lymph nodes: No enlarged lymph nodes in the abdomen or pelvis. Vasculature: Atherosclerosis of the normal caliber abdominal aorta. Suggestion of perigastric varices. IVC patent. Abdominal wall: Body wall edema. Umbilical hernia containing ascites. Musculoskeletal: Normal. IMPRESSION: 1. Hepatic steatosis and hepatomegaly. 2. The presence of moderate to large volume ascites, suggestion of varices, nonspecific bowel wall thickening could suggest portal hypertension and portal enterography/colopathy. 3. Anasarca. 4. Large right pleural effusion with complete right lung collapse. Electronically signed by: Petey Mena M.D. 11/19/2017 8:21 PM Dictated Date/Time: 11/19/2017 8:14 PM
[2017-11-19 20:34] LABS: HEMATOCRIT 34.8 % (37-47); MEAN CELL VOLUME 99.4 fL (80-100); MEAN CORPUSCULAR HEMOGLOBIN 28.9 pg (25-34); PLATELET COUNT 138 K/uL (130-400); WHITE BLOOD COUNT 9.77 K/uL (4.8-10.8)
[2017-11-19 20:37] LABS: ANISOCYTOSIS PRESENT; BASO % 0.3 %; BASO ABS # 0.03 K/uL (0-0.2); COMPLETE YES; EOS % 1.2 %; HYPOCHROMIA PRESENT; IG% 0.8 %; LYMPH % 14.1 %; LYMPH ABS # 1.38 K/uL (1.2-3.4); MONO % 12.8 %; NEUT % 70.8 %; POLYCHROMASIA 1+
[2017-11-19 20:52] LABS: AMYLASE 13 U/L (25-115)
[2017-11-19] MEDS: ALBUMIN HUMAN 25% 12.5 GM/50 ML VIAL IV SCH ×2 (21:17→21:39)
--- NOTE | 2017-11-19 22:06 | Critical Care Consultation ---
Critical Care Consultation Date of Consultation: Nov 19, 2017. Attending Physician: Stephanie Reason for Consultation: Hypoxic respiratory failure, coma History of Present Illness History is limited to prior records and emergency Department records. Per the emergency department patient was brought in by EMS after being contacted by her for reportedly acting bizarre. Patient has a history of neuropsychiatric disorder as well as schizophrenia. There is report of continued alcohol use and alcoholic cirrhosis. She has a history of hepatic encephalopathy. Attempted to contact the left the message with his phone number my call has not been returned at the time of this dictation. Per prior records, patient has a history of systolic congestive heart failure, cirrhosis (steatohepatitis possible alcohol abuse), schizophrenia, possible COPD , dyslipidemia. As a long-standing history of medication noncompliance as well as continued alcohol abuse in reviewing the gastroenterology notes. In July of this year she grew pansensitive Escherichia coli from her urine Family History Heart disease FATHER (severe [place] age 40; lived to be 70; had several bypasses) Social History Smoking Status: Current Every Day Smoker Marital Status: Housing Status: lives with significant other Allergies Coded Allergies: No Known Allergies (Unverified , nkda, 04/01/16) Home Medications Scheduled Atorvastatin (Lipitor), 80 MG PO DAILY Fluoxetine (Prozac), 40 MG PO QAM Risperidone (Risperdal), 4 MG PO QPM Current Inpatient Medications Current Inpatient Medications Medications (Trade) Dose Ordered Sig/Antonio Route Start Time Stop Time Status Last Admin Dose Admin Sodium Chloride 500 ml @ 125 mls/hr Q4H STAT IV 11/19/17 18:42 11/19/17 22:41 11/19/17 18:42 125 MLS/HR Ioversol (Optiray 320) 100 ml UD PRN IV 11/19/17 19:30 11/23/17 19:29 Vancomycin HCl 2000 mg/Sodium Chloride 540 ml @ 200 mls/hr ONE STAT IV 11/19/17 19:55 11/19/17 22:36 11/19/17 21:18 200 MLS/HR Sodium Chloride 500 ml @ 125 mls/hr Q4H STAT IV 11/19/17 20:29 11/20/17 00:28 11/19/17 20:29 125 MLS/HR Review of Systems Unable to obtain secondary to patient condition Physical Exam Date Time Temp Pulse Resp B/P (MAP) Pulse Ox O2 Delivery O2 Flow Rate FiO2 11/19/17 20:13 89 22 99 BiPAP/CPAP 100 11/19/17 20:06 116/71 98 BiPAP 100 11/19/17 19:39 92 95 11/19/17 19:36 131/73 11/19/17 19:31 125/72 11/19/17 19:30 91 15 100 11/19/17 19:26 125/68 11/19/17 19:21 126/72 11/19/17 19:16 134/74 11/19/17 19:15 97 15 98 11/19/17 19:12 99 11/19/17 18:35 97 Non-Rebreather 15.0 11/19/17 18:35 64 Room Air 11/19/17 18:35 36.8 105 15 133/75 64 Room Air General Appearance: obese Head: normocephalic, atraumatic Neck: no tenderness, trachea midline, no stridor, no nuchal rigidity Respiratory: other (absent breath sounds over right chest) Cardiovasular: regular rate/rhythm, normal S1S2 Abdomen: hypoactive bowel sounds, other (positive fluid wave consistent with ascites) Genitourinary - Female: other (Baer present) Back: other (grade 1 pressure ulcers over sacrum and right elbow) Lower Extremities: edema (+3) Pulses: radial (R) (2+), radial (L) (2+) Neuro: decreased LOC (GCS 8) Laboratory Results Last 24 Hours Test 11/19/17 19:09 11/19/17 19:18 11/19/17 19:27 11/19/17 19:30 Venous Blood pH 7.22 Venous Blood Partial Pressure CO2 81 mmHg Venous Blood Partial Pressure O2 48 mmHg Venous Blood HCO3 32 mmol/L Venous Blood Oxygen Saturation 75.4 % Venous Blood Base Excess 3.8 mEq/L Lactic Acid Level 0.9 mmol/L White Blood Count 9.77 K/uL Red Blood Count 3.50 M/uL Hemoglobin 10.1 g/dL Hematocrit 34.8 % Mean Corpuscular Volume 99.4 fL Mean Corpuscular Hemoglobin 28.9 pg Mean Corpuscular Hemoglobin Concent 29.0 g/dl Platelet Count 138 K/uL Neutrophils (%) (Auto) 70.8 % Lymphocytes (%) (Auto) 14.1 % Monocytes (%) (Auto) 12.8 % Eosinophils (%) (Auto) 1.2 % Basophils (%) (Auto) 0.3 % Neutrophils # (Auto) 6.91 K/uL Lymphocytes # (Auto) 1.38 K/uL Monocytes # (Auto) 1.25 K/uL Eosinophils # (Auto) 0.12 K/uL Basophils # (Auto) 0.03 K/uL Immature Granulocyte % (Auto) 0.8 % Immature Granulocyte # (Auto) 0.08 K/uL Nucleated RBC Absolute Count (auto) 0.13 K/uL Nucleated Red Blood Cells % 1.3 % Polychromasia 1+ Hypochromasia PRESENT Anisocytosis PRESENT Macrocytosis PRESENT Prothrombin Time 12.5 SECONDS Prothromb Time International Ratio 1.2 Sodium Level 136 mmol/L Potassium Level 4.5 mmol/L Chloride Level 103 mmol/L Carbon Dioxide Level 32 mmol/L Anion Gap 1.0 mmol/L 12.0 mmol/L Blood Urea Nitrogen 16 mg/dl Creatinine 0.78 mg/dl Est Creatinine Clear Calc Drug Dose 82.3 ml/min Estimated GFR () 93.1 Estimated GFR (Non- 80.3 BUN/Creatinine Ratio 20.2 Random Glucose 119 mg/dl Calcium Level 8.0 mg/dl Total Bilirubin 2.5 mg/dl Direct Bilirubin 2.0 mg/dl Aspartate Amino Transf (AST/SGOT) 108 U/L Alanine Aminotransferase (ALT/SGPT) 47 U/L Alkaline Phosphatase 660 U/L Ammonia 65.0 umol/L Troponin I < 0.015 ng/ml Pro-B-Type Natriuretic Peptide 2918 pg/ml Total Protein 6.4 gm/dl Albumin 2.3 gm/dl Amylase Level 13 U/L Lipase 109 U/L Ethyl Alcohol mg/dL < 3.0 mg/dl Urine Color ORANGE Urine Appearance CLOUDY Urine pH 5.0 Urine Specific [place] 1.027 Urine Protein 3+ Urine Glucose (UA) NEG Urine Ketones NEG Urine Occult Blood NEG Urine Nitrite POS Urine Bilirubin 3+ Urine Urobilinogen POS Urine Leukocyte Esterase SMALL Urine WBC (Auto) 1-5 /hpf Urine RBC (Auto) 0-4 /hpf Urine Hyaline Casts (Auto) /lpf Urine Epithelial Cells (Auto) >30 /lpf Urine Bacteria (Auto) 4+ Urine Renal Epithelial Cells /lpf Urine Crystals CALCIUM OXALATE Urine Pathogenic Casts /lpf Bedside Hemoglobin 9.9 g/dl Bedside Hematocrit 29 % Bedside Sodium 139 mEq/L Bedside Potassium 4.6 mEq/L Bedside Chloride 100 mEq/L Bedside Total CO2 33 mEq/l Bedside Blood Urea Nitrogen 19 mg/dl Bedside Creatinine 0.9 mg/dl Bedside Glucose (other) 124 mg/dl Bedside Lactic Acid Venous 1.20 mmol/L Bedside Ionized Calcium (Kaela) 1.11 mmol/l Influenza Type A Antigen Neg for Influ A Influenza Type B Antigen Neg for Influ B Test 11/19/17 20:21 Diagnostic Results I reviewed the images as well as the radiology report for a CT of the abdomen and pelvis, CTA of the chest, chest x-ray and CT head on 2016 Assessment & Plan Reason Critically Ill: Patient is a 62 y/o female with ESLD who presents with hypoxic respiratory failure, coma large volume ascites and complete opacification of right hemithorax with pleural effusion. PLAN: Neuro: Acute encephalopathy * Likely multifactorial * Acute hypoxia * acute hypercarbia * Elevated ammonia level hepatic encephalopathy * Lactulose retention enema * Patient has history of use of Prozac and risperidone for neuropsychiatric disorders * Alcohol withdrawal scoring, if not more responsive will entertain EEG. Resp: Acute hypoxic hypercarbic respiratory failure * BiPAP noninvasive ventilation * If no significant improvement in hypercarbia will proceed with endotracheal intubation Right-sided pleural effusion * No evidence of empyema, culture and Gram stain and amylase pending * Drained 1 L of fluid and clamped pleural drain over concern for reexpansion pulmonary edema Possible aspiration event secondary to findings of debris in the airways on CT scan CV: No evidence of hypotension or dysrhythmia at this time Fluids/Renal: No evidence of lactic acidosis * Fluid restriction ID: Concern for sepsis: Possible sources include spontaneous bacterial peritonitis, empyema, pneumonia (unlikely), urinary tract infection, complicated skin and soft tissue infection given possible cellulitis of lower extremities as well as abdomen * Blood cultures sent * Urine culture sent * Urine likely source * Culture of pleural fluid and ascites * Started on Zosyn and vancomycin * Will continue rifaximin when able to take by mouth GI/Nutrition: 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 This is a life/limb threatening event. This includes time spent evaluating patient, direct bedside care, chart review, placing orders, interpretation of diagnostic studies, discussion with consultants, patient, and family members, as well as other required patient management activities. This time is exclusive of all separately billable procedures, and teaching time and separate from and in addition to any other critical care service time.
--- NOTE | 2017-11-19 22:11 | Procedure Note ---
Procedure Note Date of Service Nov 19, 2017. Procedure Note Critical Care Medicine Procedure Date: 11/19/2017 Procedure: Thoracentesis Pre-procedure Diagnosis: Acute hypoxic respiratory failure, complete opacification of right hemithorax Post-procedure Diagnosis: same as above Prior to Procedure: Informed Consent: Patient is attended, I attempted to contact the at the phone number listed in the patient's record. Left a message for the patient 's to call the emergency department. Patient had impending respiratory failure we proceeded with 2 physician consent with thoracentesis and paracentesis to further her evaluation and hopefully stave off a endotracheal intubation. Attending Staff: Dereck Resident/Physician Marriage And Family Counselor: April Cee Indications: Patient is a 62-year-old female with known hepatic encephalopathy secondary to chronic alcohol use and abuse who presents with acute hypoxic respiratory failure near opacification of her right hemidiaphragm The identity of the patient was confirmed and a bedside time out was performed. Description of Procedure: Patient positioned, prepped and draped in usual sterile fashion. Fluid collection identified at bedside by ultrasound on the right side. 1% Lidocaine without epinephrine was used to anesthetize the area. Utilizing dynamic ultrasound guidance, an 18-gauge needle was used to enter the plural space, pleural fluid was aspirated and the catheter introduced into the pleural space via Seldinger technique. A [place] pleural catheter was introduced over the guidewire after one dilatation. 1 L of serous pleural fluid was drained. As soon as the patient started to cough the procedure was aborted and the pleural drain was clamped. This occurred at 2130. Post procedure chest x-ray pending. Complications: None Findings: 1 L serous pleural fluid drained Total Fluid Removed: 1000 mL Color of Fluid: Serous Sent for: Sent for Gram stain culture, cell count, glucose, protein, pleural PIH , amylase and cytology Estimated blood loss: None Critical Care Medicine Point of Care Bedside Ultrasound Procedure: Procedural Ultrasound Procedure Date: 11/19/2017 Indication: Right-sided pleural centesis Attending: Rachel Harden DO Resident/Physician Marriage And Family Counselor: Sylvester Cee Organs Examined: Right lung, pleural effusion, hemidiaphragm, liver Objects visualized: Guidewire Impression: Successful placement of right sided pleural drain Plan: Reviewed chest x-ray, pleural drain in adequate position Images obtained are saved for permanent record
--- NOTE | 2017-11-19 22:24 | History and Physical ---
History & Physical Date & Time of Service: Nov 19, 2017 at 22:23 . Chief Complaint: Unresponsive . Primary Care Physician: Sultana Mcginnis M.D. . History of Present Illness Source: clinic records, hospital records 62 YO female followed by Dr. Sultana Mcginnis. History of cirrhosis, alcohol abuse, COPD, and other problems noted below. noted decreased responsiveness. Patient apparently had minimal oral intake past few days. Time of last alcohol consumption unknown. Compliance with medications unknown. EMS summoned. They found her to be unresponsive, incontinent of stool Brought to ED for further evaluation and management. O2 sat 64% on RA upon arrival to ED. BiPAP applied. Patient minimally responsive and unable to answer any questions. . Past Medical/Surgical History Chronic and Resolved Medical Problems: (1) Alcohol abuse Status: Chronic (2) Cirrhosis Permanent Comment: CT 11/28/15- suspected cirrhosis, underlying fatty liver Status: Chronic (3) COPD (chronic obstructive pulmonary disease) Status: Chronic (4) Dyslipidemia Status: Chronic (5) High cholesterol Status: Chronic (6) Osteoporosis Status: Chronic (7) Schizoaffective disorder Status: Chronic (8) Systolic CHF Permanent Comment: EF 30-35% on echo 01/12/2015 EF 50-55% on echo 01/2017 ischemic vs alcoholic Status: Chronic (9) Tobacco use disorder Status: Chronic Surgical Problems: (1) Hx of colonoscopy with polypectomy Permanent Comment: 07/15/11 2 polyps--adenomatous tissue Status: Chronic (2) Hx of tonsillectomy Status: Chronic . Family History Heart disease FATHER (severe [place] age 40; lived to be 70; had several bypasses) Social History Smoking Status: Current Every Day Smoker Alcohol Use: heavy Marital Status: Immunizations History of Influenza Vaccine: Yes History of Pneumococcal: Yes Pneumococcal Date: Oct 11, 2015 Multi-Drug Resistant Organisms History of MDRO: No Allergies Coded Allergies: No Known Allergies (Unverified , nkda, 04/01/16) Home Medications Scheduled Atorvastatin (Lipitor), 80 MG PO DAILY Fluoxetine (Prozac), 40 MG PO QAM Risperidone (Risperdal), 4 MG PO QPM Review of Systems Unable to obtain due to patient's neurologic status. . Physical Exam Vital Signs Date Time Temp Pulse Resp B/P (MAP) Pulse Ox O2 Delivery O2 Flow Rate FiO2 11/19/17 21:41 92 108/59 96 11/19/17 21:36 106/60 11/19/17 21:31 128/64 11/19/17 21:26 98 24 117/59 97 11/19/17 21:22 101/59 11/19/17 21:16 126/86 11/19/17 21:11 97 12 116/65 96 11/19/17 21:06 126/71 11/19/17 21:01 136/73 11/19/17 20:57 120/57 11/19/17 20:56 93 13 97 11/19/17 20:51 107/69 11/19/17 20:46 106/63 11/19/17 20:41 89 12 113/68 100 11/19/17 20:36 114/63 11/19/17 20:31 122/69 11/19/17 20:27 112/64 11/19/17 20:26 91 14 100 11/19/17 20:21 110/64 11/19/17 20:16 114/67 11/19/17 20:13 89 22 99 BiPAP/CPAP 100 11/19/17 20:11 95 13 113/65 100 11/19/17 20:06 116/71 98 BiPAP 100 11/19/17 19:39 92 95 11/19/17 19:36 131/73 11/19/17 19:31 125/72 11/19/17 19:30 91 15 100 11/19/17 19:26 125/68 11/19/17 19:21 126/72 11/19/17 19:16 134/74 11/19/17 19:15 97 15 98 11/19/17 19:12 99 11/19/17 18:35 97 Non-Rebreather 15.0 11/19/17 18:35 64 Room Air 11/19/17 18:35 36.8 105 15 133/75 64 Room Air General Appearance: + moderate distress, + obese Head: normocephalic, atraumatic Eyes: normal inspection, PERRL, EOMI, sclerae normal, + pertinent finding ( conjunctivae clear) ENT: + pertinent finding (wearing BiPAP; unable to assess) Neck: supple, no adenopathy, thyroid normal, trachea midline Respiratory/Chest: + pertinent finding (coarse breath sounds on right (after thoracentesis)) Cardiovascular: regular rate, rhythm, no edema, no gallop, no JVD, + abnormal peripheral pulses (pedal pulses diminished) Abdomen/GI: + pertinent finding (distended; liver enlarged, nodular; nontender) Extremities/Musculoskelatal: + pedal edema, + pertinent finding (1+ pretibial edema) Neurologic/Psych: + pertinent finding (lethargic, minimally responsive, PERRL, moves all 4 extr) Skin: warm/dry, + pertinent finding (mild erythema and warmth RLE; intergluteal erythema and superfical ulceration; stage 2 ulcer right elbow) Lymphatic: no adenopathy (cervical) Diagnostics Laboratory Results Results Past 24 Hours Test 11/19/17 19:09 11/19/17 19:18 11/19/17 19:27 11/19/17 19:30 Range/Units Venous Blood pH 7.22 7.36-7.41 Venous Blood Partial Pressure CO2 81 38.0-50.0 mmHg Venous Blood Partial Pressure O2 48 mmHg Venous Blood HCO3 32 mmol/L Venous Blood Oxygen Saturation 75.4 % Venous Blood Base Excess 3.8 mEq/L Lactic Acid Level 0.9 0.4-2.0 mmol/L White Blood Count 9.77 4.8-10.8 K/uL Red Blood Count 3.50 4.2-5.4 M/uL Hemoglobin 10.1 12.0-16.0 g/dL Hematocrit 34.8 37-47 % Mean Corpuscular Volume 99.4 80-100 fL Mean Corpuscular Hemoglobin 28.9 25-34 pg Mean Corpuscular Hemoglobin Concent 29.0 32-36 g/dl Platelet Count 138 130-400 K/uL Neutrophils (%) (Auto) 70.8 % Lymphocytes (%) (Auto) 14.1 % Monocytes (%) (Auto) 12.8 % Eosinophils (%) (Auto) 1.2 % Basophils (%) (Auto) 0.3 % Neutrophils # (Auto) 6.91 1.4-6.5 K/uL Lymphocytes # (Auto) 1.38 1.2-3.4 K/uL Monocytes # (Auto) 1.25 0.11-0.59 K/uL Eosinophils # (Auto) 0.12 0-0.5 K/uL Basophils # (Auto) 0.03 0-0.2 K/uL Immature Granulocyte % (Auto) 0.8 % Immature Granulocyte # (Auto) 0.08 0.00-0.02 K/uL Nucleated RBC Absolute Count (auto) 0.13 0-0 K/uL Nucleated Red Blood Cells % 1.3 % Polychromasia 1+ Hypochromasia PRESENT Anisocytosis PRESENT Macrocytosis PRESENT Prothrombin Time 12.5 9.0-12.0 SECONDS Prothromb Time International Ratio 1.2 0.9-1.1 Sodium Level 136 136-145 mmol/L Potassium Level 4.5 3.5-5.1 mmol/L Chloride Level 103 98-107 mmol/L Carbon Dioxide Level 32 21-32 mmol/L Anion Gap 1.0 12.0 16-25 mmol/L Blood Urea Nitrogen 16 7-18 mg/dl Creatinine 0.78 0.60-1.20 mg/dl Est Creatinine Clear Calc Drug Dose 82.3 ml/min Estimated GFR () 93.1 Estimated GFR (Non- 80.3 BUN/Creatinine Ratio 20.2 10-20 Random Glucose 119 70-99 mg/dl Calcium Level 8.0 8.5-10.1 mg/dl Total Bilirubin 2.5 0.2-1 mg/dl Direct Bilirubin 2.0 0-0.2 mg/dl Aspartate Amino Transf (AST/SGOT) 108 15-37 U/L Alanine Aminotransferase (ALT/SGPT) 47 12-78 U/L Alkaline Phosphatase 660 45-117 U/L Ammonia 65.0 11-32 umol/L Troponin I < 0.015 0-0.045 ng/ml Pro-B-Type Natriuretic Peptide 2918 0-900 pg/ml Total Protein 6.4 6.4-8.2 gm/dl Albumin 2.3 3.4-5.0 gm/dl Amylase Level 13 25-115 U/L Lipase 109 73-393 U/L Ethyl Alcohol mg/dL < 3.0 0-3 mg/dl Urine Color ORANGE Urine Appearance CLOUDY CLEAR Urine pH 5.0 4.5-7.5 Urine Specific [place] 1.027 1.000-1.030 Urine Protein 3+ NEG Urine Glucose (UA) NEG NEG Urine Ketones NEG NEG Urine Occult Blood NEG NEG Urine Nitrite POS NEG Urine Bilirubin 3+ NEG Urine Urobilinogen POS NEG Urine Leukocyte Esterase SMALL NEG Urine WBC (Auto) 1-5 0-5 /hpf Urine RBC (Auto) 0-4 0-4 /hpf Urine Hyaline Casts (Auto) 0-5 /lpf Urine Epithelial Cells (Auto) >30 0-5 /lpf Urine Bacteria (Auto) 4+ NEG Urine Renal Epithelial Cells 0-5 /lpf Urine Crystals CALCIUM OXALATE NONE PRSENT Urine Pathogenic Casts 0 /lpf Bedside Hemoglobin 9.9 12.0-16.0 g/dl Bedside Hematocrit 29 37-47 % Bedside Sodium 139 135-144 mEq/L Bedside Potassium 4.6 3.3-5.0 mEq/L Bedside Chloride 100 101-112 mEq/L Bedside Total CO2 33 24-31 mEq/l Bedside Blood Urea Nitrogen 19 7-18 mg/dl Bedside Creatinine 0.9 0.6-1.3 mg/dl Bedside Glucose (other) 124 70-99 mg/dl Bedside Lactic Acid Venous 1.20 0.90-1.70 mmol/L Bedside Ionized Calcium (Kaela) 1.11 1.12-1.32 mmol/l Influenza Type A Antigen Neg for Influ A NEG Influenza Type B Antigen Neg for Influ B NEG Test 11/19/17 21:25 Range/Units Pleural Fluid pH 7.36 7.3-7.4 Microbiology Results 11/19/17 Blood Culture, Received Pending 11/19/17 Blood Culture, Received Pending 11/19/17 Urine Culture, Received Pending 11/19/17 Gram Stain, Received Pending 11/19/17 Bacterial Culture, Received Pending 11/19/17 Gram Stain, Received Pending 11/19/17 Bacterial Culture, Received Pending Diagnostic Radiology CHEST ONE VIEW PORTABLE FINDINGS: The cardiac silhouette is enlarged though obscured along the right heart border secondary to development of a large right pleural effusion resulting in complete opacification of the right hemithorax. Left lung and pleural space clear. No pneumothorax. Osseous structures normal. Upper abdomen normal. IMPRESSION: 1. Interval development of complete right hemithorax opacification likely secondary to large pleural effusion and underlying lung atelectasis or consolidation. Infection cannot be excluded. Electronically signed by: Petey Mena M.D. 11/19/2017 7:59 PM Dictated Date/Time: 11/19/2017 7:58 PM HEAD WITHOUT CONTRAST (CT) FINDINGS: [employer] topogram: Unremarkable. Ventricles and sulci normal in size. Brain parenchyma normal in appearance with preserved gasca-white differentiation. No mass effect or midline shift. No hemorrhage or acute territorial infarct. No extra-axial fluid collection. Paranasal sinuses and mastoid air cells clear. Calvarium intact. IMPRESSION: 1. No acute intracranial abnormality. Electronically signed by: Petey Mena M.D. 11/19/2017 8:09 PM Dictated Date/Time: 11/19/2017 8:07 PM (CHEST FOR PE) ANGIO WITH FINDINGS: [employer] topogram: Right hemithorax opacification. Pulmonary vasculature: The study is adequate for assessment of the pulmonary vascular tree. No filling defect within the pulmonary arteries to suggest embolus. Main pulmonary artery is not enlarged. No flattening of the interventricular septum. No intracardiac intracardiac filling defect. No reflux of contrast into the hepatic veins. Remaining chest: On soft tissue windows, normal thyroid and thoracic inlet. No axillary, supraclavicular, hilar, or mediastinal lymphadenopathy. Atherosclerosis of the aorta. Four-vessel aortic arch. Multichamber enlargement of the heart. Coronary artery calcification. Trace pericardial effusion. Large right pleural effusion resulting in complete collapse of the right lung.Hepatic steatosis. Ascites. On lung windows, complete collapse of the right lung. Minimal paramediastinal left upper lobe consolidation and volume loss consistent with atelectasis likely from left were mediastinal shift. Minimal focal subpleural groundglass opacity in the lateral basal left lower lobe (series 6 image 90). Layering debris within the airway extensively filling the trachea and completely opacifying the right mainstem bronchus and all of the lobar, segmental, subsegmental right lung bronchi. On bone windows, normal osseous structures. IMPRESSION: 1. No pulmonary embolus. 2. Complete collapse of the right lung with large right pleural effusion. 3. Extensive debris in the trachea and complete opacification of the right mainstem bronchus and right lung bronchi secondary to debris. This suggests a large aspiration event. 4. Minimal groundglass opacity in the left lung may also relate to aspiration, however, the left lung is largely clear. 5. Cardiomegaly. 6. Hepatic steatosis. The report will be called/faxed according to standard departmental protocol. 1. Ascites. Electronically signed by: Petey Mena M.D. 11/19/2017 8:14 PM Dictated Date/Time: 11/19/2017 8:09 PM ABD/PELVIS IV CONTRAST ONLY FINDINGS: [employer] topogram: Complete opacification of the right hemithorax. Lung bases: Large right pleural effusion and collapse of the right lung. Cardiomegaly with prominent right atrial enlargement. Coronary artery calcification. Minimal groundglass opacity at the left lung base. Liver: Normal morphology though the liver is enlarged. Density consistent with hepatic steatosis. Hepatic vessels patent. Biliary: No intrahepatic or extrahepatic biliary ductal dilatation. Gallbladder contains gallstones. Pancreas: Normal. Spleen: Normal. Adrenal glands: Normal. Kidneys and ureters: Normal. No hydronephrosis. Ureters poorly assessed. Bladder: Decompressed with a Baer catheter. Pelvic organs: Uterus and ovaries normal. Bowel: The colon is decompressed. Mild wall thickening of the cecum noted. Normal appendix. No bowel obstruction. Mild small bowel wall thickening may be present. Peritoneal cavity: Moderate to large volume simple appearing ascites. Lymph nodes: No enlarged lymph nodes in the abdomen or pelvis. Vasculature: Atherosclerosis of the normal caliber abdominal aorta. Suggestion of perigastric varices. IVC patent. Abdominal wall: Body wall edema. Umbilical hernia containing ascites. Musculoskeletal: Normal. IMPRESSION: 1. Hepatic steatosis and hepatomegaly. 2. The presence of moderate to large volume ascites, suggestion of varices, nonspecific bowel wall thickening could suggest portal hypertension and portal enterography/colopathy. 3. Anasarca. 4. Large right pleural effusion with complete right lung collapse. Electronically signed by: Petey Mena M.D. 11/19/2017 8:21 PM Dictated Date/Time: 11/19/2017 8:14 PM . EKG EKG performed at 18:49 reviewed and demonstrated low voltage QRS, NSR at 99 / minute, no acute ST or T-wave changes. . Impression Assessment and Plan ACUTE HYPOXIC RESPIRATORY FAILURE O2 sat 64% on RA upon arrival to ED; found to be in respiratory distress. Large right pleural effusion. Underlying COPD. Respiratory status improved with BiPAP and thoracentesis. Continue BiPAP. Titrate supplemental O2. ALTERED MENTAL STATUS Head CT negative. Encephalopathy probably multifactorial- hypoxia, hepatic encephalopathy, possible other etiologies. Follow neuro status. POSSIBLE SEPSIS Afebrile in ED. WBC 9770 with immature WBC's. Consider UTI, cellulitis, SBP, pulmonary infection. Blood and urine cultures obtained in ED. Received IV vancomycin and piperacillin / tazobactam. Further antibiotics per CCM. CIRRHOSIS / ASCITES Paracentesis performed to rule out SBP. Lactulose rectally for hepatic encephalopathy. LARGE RIGHT PLEURAL EFFUSION Thoracentesis performed in ED. Results pending at time of admission. PULMONARY ATELECTASIS Secondary to large pleural effusion. S/P thoracentesis. BiPAP. Follow. ALCOHOL ABUSE Unknown when last drink was. Monitor for signs / symptoms of alcohol withdrawal. Thiamine daily. SCHIZOPHRENIA Continue risperidone. VTE PROPHYLAXIS High risk for VTE. SCD's. RESUSCITATION STATUS Full code. DISPOSITION Critically ill. Admitted to ICU; CCM consulted. Discharge disposition be determined. Internal Medicine follow-up with Dr. Sultana Mcginnis. . VTE Prophylaxis VTE Risk Assessment Done? Y/N: Yes Risk Level: High Given or contraindicated: SCD's
[2017-11-19] MEDS ORDERED: ICU PROTOCOL FOR HYPERGLYCEMIA PRN ×2 (22:30→23:00)
[2017-11-19 22:32] LABS: PLEURAL FLUID TOTAL PROTEIN 2.4 g/dl
--- NOTE | 2017-11-19 22:40 | DIAGNOSTIC IMAGING REPORT ---
CHEST ONE VIEW PORTABLE CLINICAL HISTORY: 62 years-old Female presenting with pleural drain. TECHNIQUE: Portable upright AP view of the chest was obtained. COMPARISON: 11/19/2017. FINDINGS: There has been interval placement of a right pigtail pleural catheter, which terminates in the lateral right hemithorax. Atherosclerosis of aortic arch. Cardiac silhouette enlarged. Significant interval decrease in size of the right pleural effusion. Small layering right pleural effusion persists. No pneumothorax. Right paramediastinal/paratracheal opacity may represent atelectatic right upper lobe. Left lung and pleural space essentially clear. Osseous structures normal. Upper abdomen normal. IMPRESSION: 1. Significant interval decrease in size of the right pleural effusion status post drain placement. Persistent small layering right pleural effusion. No pneumothorax. 2. Right paramediastinal/paratracheal opacity may represent atelectatic right upper lobe. Electronically signed by: Petey Mena M.D. 11/19/2017 10:39 PM Dictated Date/Time: 11/19/2017 10:37 PM
[2017-11-19 22:51] LABS: ISTAT ARTERIAL BLOOD GAS HCO3 32 meq/L (19-24); ISTAT ARTERIAL BLOOD GAS PCO2 85 mmHg (35-46); ISTAT ARTERIAL BLOOD GAS PO2 151 mmHg (80-95); ISTAT ARTERIAL BLOOD GAS pH 7.18 (7.35-7.45); ISTAT CARBON DIOXIDE 34 mEq/l (24-31)
[2017-11-19] MEDS ORDERED: RAPID SEQUENCE INDUCTION BAG ONE (22:52)
[2017-11-19] MEDS ORDERED: GLUCAGON FOR INJ 1 MG VIAL SQ PRN (23:00)
[2017-11-19] MEDS ORDERED: FENTANYL CITRATE INJ 50 MCG/1 ML 2 ML VIAL IV PRN (23:00)
[2017-11-19] MEDS ORDERED: LORAZEPAM 2 MG/ML 1 ML VIAL IV PRN (23:00)
[2017-11-19] MEDS ORDERED: GLUCOSE 40% GEL 15 GM TUBE PO PRN (23:00)
[2017-11-19] MEDS ORDERED: DEXTROSE 50% 50 ML SYR IV PRN (23:00)
[2017-11-19] MEDS ORDERED: GLUCOSE 10 TABS/TUBE PO PRN (23:00)
[2017-11-19 23:12] VITALS: BP 118/67; PULSE 96; TEMP 37.1; O2SAT 99; Ht 162.6 cm; Wt 91.0 kg
[2017-11-19 23:18] LABS: PERIT FL WBC 186 /uL (0-300); PERITONEAL FLUID RBC < 3000 /uL
[2017-11-19 23:27] LABS: PLEURAL FLUID APPEARANCE CLEAR; PLEURAL FLUID COLOR YELLOW; PLEURAL FLUID MONONUC RELAT 62.7 %; PLEURAL FLUID POLYNUC 37.3 %; PLEURAL FLUID SOURCE RIGHT LUNG; PLEURAL FLUID WBC (A) 499 /uL
[2017-11-19 23:30] VITALS: PULSE 93; O2SAT 94
[2017-11-19] MEDS ORDERED: PIPERACILL/TAZOBAC CONSULT ACTIVE PRN (23:45)
[2017-11-19] MEDS ORDERED: VANCOMYCIN CONSULT ACTIVE PRN (23:45)
[2017-11-19] MEDS ORDERED: PIPERACILL/TAZOBAC IV 4.5 GM in DEXTROSE 5% 100ML IV ONE (23:45)
[2017-11-19 23:49] VITALS: BP 118/67; PULSE 98; O2SAT 100
[2017-11-20] VITALS (33 sets, daily range): BP systolic 85–128; BP diastolic 51–69; PULSE 81–215; TEMP 36.4–36.8; O2SAT 84–100
[2017-11-20] MEDS: FAMOTIDINE IV INJ 20 MG in SYRINGE 3 ML IV SCH ×3 (00:10→21:41)
[2017-11-20] MEDS: PIPERACILL/TAZOBAC IV 4.5 GM in DEXTROSE 5% 100ML 100 ML IV SCH ×3 (05:42→21:40)
[2017-11-20] MEDS ORDERED: UNIT DOSE COMPOUND PO SCH (06:00)
[2017-11-20] MEDS ORDERED: LACTULOSE SYRUP 200 GM, WATER, STERILE IRRIG 700 ML, BARCODE IDENTIFIER 1 EA PR SCH ×2 (06:00)
[2017-11-20 06:09] LABS: HEMATOCRIT 29.9 % (37-47); MEAN CORPUSCULAR HGB CONC 27.8 g/dl (32-36); MEAN PLATELET VOLUME 9.6 fL (7.4-10.4); PLATELET COUNT 154 K/uL (130-400); RED BLOOD COUNT 2.96 M/uL (4.2-5.4); WHITE BLOOD COUNT 9.68 K/uL (4.8-10.8)
[2017-11-20] MEDS ORDERED: LACTULOSE SYRUP 30 GM/45 ML UDP NG SCH ×2 (06:15→21:00)
[2017-11-20 06:24] LABS: BUN/CREATININE RATIO 21.4 (10-20); CALCIUM 7.7 mg/dl (8.5-10.1); CREATININE 0.68 mg/dl (0.60-1.20); MAGNESIUM 1.9 mg/dl (1.8-2.4); PHOSPHORUS 3.4 mg/dl (2.5-4.9); POTASSIUM 3.8 mmol/L (3.5-5.1)
--- NOTE | 2017-11-20 06:28 | DIAGNOSTIC IMAGING REPORT ---
KUB HISTORY: Status post placement of a feeding tube Placement of Coresafe COMPARISON: CT abdomen and pelvis 11/19/2017 FINDINGS: The bowel gas pattern is non-obstructive. Status post placement of a feeding tube with distal tip in the left lower abdomen, likely within the region of the distal gastric lumen. Mild bulging of the flanks compatible with ascites. Right pleural effusion with right basilar consolidation. There is no organomegaly. No renal calculi. No ureteral calculi. No pneumoperitoneum or pneumatosis. No fracture. IMPRESSION: 1. Feeding tube terminates in the left lower abdomen, likely within the region of the distal gastric lumen. 2. Right pleural effusion with right basilar consolidation. Electronically signed by: Andrea Leal M.D. 11/20/2017 6:27 AM Dictated Date/Time: 11/20/2017 6:23 AM
--- NOTE | 2017-11-20 06:31 | Pharmacy Progress Note ---
Pharmacy Abx Initial Consult Date of Service Nov 20, 2017. Pharmacy Dosing Scope Date of Consult: 11/19/17 Consultation requested by: Dr. Harden Pharmacy is consulted to initiate Zosyn & Vancomycin dosing therapy, order appropriate labs and adjust drug dose/frequency. Subjective The patient is a 62 year old female admitted on Nov 19, 2017 at 22:23 with possible cirrhosis and history of alcohol abuse who presented to ER acting bizarre and at times unresponsive. She was admitted to the ICU by Dr. Harden for possible Sepsis and/or aspiration pneumonia. Bedside paracentesis was performed upon presentation to the ICU by Dr. Harden. He consulted pharmacy to continue both Zosyn and Vancomycin empirically. Objective Height (Feet): 5 Height (Inches): 4.00 Weight (Kilograms): 90.600 Vital Signs (Past 12Hrs) Vital Signs Past 12 Hours Date Time Temp Pulse Resp B/P (MAP) Pulse Ox O2 Delivery O2 Flow Rate FiO2 11/20/17 01:46 87 96 80 11/20/17 00:31 91 18 105/54 (71) 90 11/20/17 00:01 90 18 107/55 (72) 100 BiPAP 60 11/19/17 23:49 98 15 118/67 (84) 100 11/19/17 23:30 93 94 11/19/17 23:26 92 20 92 11/19/17 23:12 37.1 96 24 118/67 99 BiPAP 60 11/19/17 21:41 92 108/59 96 11/19/17 21:36 106/60 11/19/17 21:31 128/64 11/19/17 21:26 98 24 117/59 97 11/19/17 21:22 101/59 11/19/17 21:16 126/86 11/19/17 21:11 97 12 116/65 96 11/19/17 21:06 126/71 11/19/17 21:01 136/73 11/19/17 20:57 120/57 11/19/17 20:56 93 13 97 11/19/17 20:51 107/69 11/19/17 20:46 106/63 11/19/17 20:41 89 12 113/68 100 11/19/17 20:36 114/63 11/19/17 20:31 122/69 11/19/17 20:27 112/64 12/20/17 20:26 91 14 100 11/19/17 20:21 110/64 11/19/17 20:16 114/67 11/19/17 20:13 89 22 99 BiPAP/CPAP 100 11/19/17 20:11 95 13 113/65 100 11/19/17 20:06 116/71 98 BiPAP 100 11/19/17 19:39 92 95 11/19/17 19:36 131/73 11/19/17 19:31 125/72 11/19/17 19:30 91 15 100 11/19/17 19:26 125/68 11/19/17 19:21 126/72 11/19/17 19:16 134/74 11/19/17 19:15 97 15 98 11/19/17 19:12 99 11/19/17 18:35 97 Non-Rebreather 15.0 11/19/17 18:35 64 Room Air 11/19/17 18:35 36.8 105 15 133/75 64 Room Air Lab Results (24Hrs) Laboratory Tests (24 Hours) Test 11/19/17 19:09 11/19/17 19:18 11/20/17 05:25 Lactic Acid Level 0.9 mmol/L (0.4-2.0) White Blood Count 9.77 K/uL (4.8-10.8) 9.68 K/uL (4.8-10.8) Red Blood Count 3.50 M/uL (4.2-5.4) L Hemoglobin 10.1 g/dL (12.0-16.0) L Hematocrit 34.8 % (37-47) L Mean Corpuscular Volume 99.4 fL (80-100) Mean Corpuscular Hemoglobin 28.9 pg (25-34) Mean Corpuscular Hemoglobin Concent 29.0 g/dl (32-36) L Platelet Count 138 K/uL (130-400) Neutrophils (%) (Auto) 70.8 % Lymphocytes (%) (Auto) 14.1 % Monocytes (%) (Auto) 12.8 % Eosinophils (%) (Auto) 1.2 % Basophils (%) (Auto) 0.3 % Neutrophils # (Auto) 6.91 K/uL (1.4-6.5) H Lymphocytes # (Auto) 1.38 K/uL (1.2-3.4) Monocytes # (Auto) 1.25 K/uL (0.11-0.59) H Eosinophils # (Auto) 0.12 K/uL (0-0.5) Basophils # (Auto) 0.03 K/uL (0-0.2) Micro Results Date/Time Source Procedure Growth Status 11/19/17 19:18 Blood Blood Culture Pending Received 11/19/17 19:09 Blood Blood Culture Pending Received 11/19/17 19:27 Urine,Catheterized Urine Culture Pending Received 11/19/17 21:25 Pleural Fluid (Thoracentesis) Right Gram Stain - Final Resulted 11/19/17 21:25 Pleural Fluid (Thoracentesis) Right Bacterial Culture Pending Resulted 11/19/17 21:25 Peritoneal Fluid Gram Stain Pending Received 11/19/17 21:25 Peritoneal Fluid Bacterial Culture Pending Received Risk Factors for Resistance Assessment & Plan Assessment 62 year old female with history of alcohol abuse, mental health disorders and cirrhosis that Dr. Harden is treating empirically in the ICU with Vancomycin and Zosyn IV at this time Plan Vancomycin IV * Loading dose: 2000 mg (22 mg/kg) * Maintenance dose: 1500 mg IV (16 mg/kg) every 12 hours * Goal trough level: 15-20 mcg/mL * Troug level ordered prior to 0800 dose on 11/21/17 Piperacillin/tazobactam * 4.5 g bolus administered over 30 minutes, then 4.5g IV extended infusion every 8 hours for CrCl greater than 20 mL/min * Aggressive dosing selected due to critically ill status/BMI 35 or more/ history of cystic fibrosis. Pharmacy will continue to follow and will adjust dose/frequency as necessary. Thank you.
[2017-11-20] MEDS: INSULIN HUMAN REGULAR SC SCH ×4 (06:45→21:00)
--- NOTE | 2017-11-20 07:55 | DIAGNOSTIC IMAGING REPORT ---
CHEST ONE VIEW PORTABLE CLINICAL HISTORY: Pleural Effusion COMPARISON STUDY: 11/19/2017 FINDINGS: The heart remains enlarged. A nasogastric tube is visualized which courses into the stomach. There is a right basilar pigtail pleural catheter. There is mild elevation of the interstitium. There is progressive consolidation of the right lung base. [ IMPRESSION: Progressive consolidative changes involving the right lung base. Associated pleural fluid is not excluded. A right-sided pleural drainage catheter is visualized. No pneumothorax is evident Electronically signed by: Cm Hall M.D. 11/20/2017 7:53 AM Dictated Date/Time: 11/20/2017 7:48 AM
[2017-11-20] MEDS: ALBUMIN HUMAN 25% 12.5 GM/50 ML VIAL IV SCH ×4 (08:00→11:00)
[2017-11-20] MEDS ORDERED: VANCOMYCIN INJ 1,500 MG in SODIUM CHLORIDE 0.9% 500ML 500 ML IV SCH (08:00)
[2017-11-20] MEDS ORDERED: ENOXAPARIN 40 MG/0.4 ML SYR SQ SCH (09:00)
[2017-11-20] MEDS: SPIRONOLACTONE 100 MG TAB PO SCH ×2 (09:29→21:45)
[2017-11-20] MEDS ORDERED: POTASSIUM CHLORIDE 20 MEQ/15 ML UDC NG ONE (09:30)
[2017-11-20] MEDS: DOXYCYCLINE HYCLATE 100 MG in DEXTROSE 5% 100ML IV SCH ×2 (10:08→21:41)
[2017-11-20] MEDS: FUROSEMIDE ORAL SOLN 40 MG/5 ML UDP NG SCH ×2 (10:24→21:42)
[2017-11-20] MEDS ORDERED: ALBUMIN HUMAN 25% 12.5 GM/50 ML VIAL IV ONE (10:45)
--- NOTE | 2017-11-20 11:15 | Gastrointestinal Consultation ---
Gastrointestinal Consultation Date of Consultation: Nov 20, 2017 Attending Physician: Fransisco Slaughter Consulting Physician: Alon Okeefe Reason for Consultation: ESLD History of Present Illness Patient is a 62 year old female w hx of ETOH cirrhosis, COPD, dyslipidemia, OP, Schizoaffective disorder, CHF who was brought to ED yesterday by EMS when found her to be unresponsive and incontinent of stool. She was found to be hypoxic w O2 sat 64% in RA upon arrival. Chest imaging showed large R pleural effusion w collapsed lung, possible aspiration. Negative flu A and B. CT abd/pelvis showed large abd ascites. She had 5.5L ascites removed in ED yesterday. She was given BiPAP, also had R thoracentesis done by ICU team, 1L fluid removal. Chest tube placed, with another 1.9L drained. This AM pt is alert , but only oriented to place. She is on O2 15L mask, and ICU team plan on possible removal of chest tube today. She is well known to our service. Last seen in GI clinic by myself in 2014, though seen more recently during her admissions at [facility]. Her last admission was in July for ETOH intoxication, ascites build up, UTI. She had 2 paracentesis a that time w total of 12L removal. She no showed her f/u GI appt in August. She has poor med management and also as of July was still consuming ETOH. Past Medical/Surgical History Medical Problems: (1) Acute on chronic respiratory failure with hypoxia and hypercapnia Status: Acute (2) Alcohol intoxication Status: Acute (3) Ascites Status: Acute (4) Cellulitis of leg, right Status: Acute (5) Cellulitis, abdominal wall Status: Acute (6) Encephalopathy Status: Acute (7) Hepatic encephalopathy Status: Acute (8) Hyperammonemia Status: Acute (9) Hypokalemia Status: Acute (10) Lower extremity cellulitis Status: Acute (11) Pleural effusion, right Status: Acute (12) PNA (pneumonia) Status: Acute (13) UTI (urinary tract infection) Status: Acute (14) UTI (urinary tract infection) Status: Acute (15) Weakness Status: Acute Past Medical History: See HPI Past Surgical History: Tonsillectomy Family History Heart disease FATHER (severe [place] age 40; lived to be 70; had several bypasses) Social History Smoking Status: Current Every Day Smoker Alcohol Use: heavy Marital Status: Housing Status: lives with significant other Allergies Coded Allergies: No Known Allergies (Unverified , nkda, 04/01/16) Current Medications Home Meds and Scripts Medications Dose Route/Sig Max Daily Dose Days Date Category Risperdal (Risperidone) 4 Mg Tab 4 Mg PO QPM 07/04/17 Reported Prozac (Fluoxetine HCl) 40 Mg Cap 40 Mg PO QAM 07/04/17 Reported Lipitor (Atorvastatin Calcium) 80 Mg Tab 80 Mg PO DAILY 07/04/17 Reported Review of Systems Constitutional: + weakness, No fever Respiratory: + cough, + shortness of breath Cardiac: No chest pain Abdomen: + diarrhea (has rectal tube ), No pain, No nausea Physical Exam Date Time Temp Pulse Resp B/P (MAP) Pulse Ox O2 Delivery O2 Flow Rate FiO2 11/20/17 07:27 85 100 80 11/20/17 04:00 BiPAP 80 11/20/17 01:46 87 96 80 11/20/17 00:31 91 18 105/54 (71) 90 11/20/17 00:01 90 18 107/55 (72) 100 BiPAP 60 11/19/17 23:49 98 15 118/67 (84) 100 11/19/17 23:30 93 94 11/19/17 23:26 92 20 92 11/19/17 23:12 37.1 96 24 118/67 99 BiPAP 60 11/19/17 21:41 92 108/59 96 11/19/17 21:36 106/60 11/19/17 21:31 128/64 11/19/17 21:26 98 24 117/59 97 11/19/17 21:22 101/59 11/19/17 21:16 126/86 11/19/17 21:11 97 12 116/65 96 11/19/17 21:06 126/71 11/19/17 21:01 136/73 11/19/17 20:57 120/57 11/19/17 20:56 93 13 97 11/19/17 20:51 107/69 11/19/17 20:46 106/63 11/19/17 20:41 89 12 113/68 100 11/19/17 20:36 114/63 11/19/17 20:31 122/69 11/19/17 20:27 112/64 12/20/17 20:26 91 14 100 11/19/17 20:21 110/64 11/19/17 20:16 114/67 11/19/17 20:13 89 22 99 BiPAP/CPAP 100 11/19/17 20:11 95 13 113/65 100 11/19/17 20:06 116/71 98 BiPAP 100 11/19/17 19:39 92 95 11/19/17 19:36 131/73 11/19/17 19:31 125/72 11/19/17 19:30 91 15 100 11/19/17 19:26 125/68 11/19/17 19:21 126/72 11/19/17 19:16 134/74 11/19/17 19:15 97 15 98 11/19/17 19:12 99 11/19/17 18:35 97 Non-Rebreather 15.0 11/19/17 18:35 64 Room Air 11/19/17 18:35 36.8 105 15 133/75 64 Room Air General Appearance: + mild distress (appears SOB), + obese Eyes: normal inspection, PERRL, EOMI Neck: supple, no JVD, trachea midline Respiratory/Chest: + decreased breath sounds, + rhonchi Cardiovascular: regular rate, rhythm, no gallop, no murmur Abdomen: normal bowel sounds, non tender, + distended, + hepatomegaly Extremities: + swelling (+2 bilateral LE) Neurologic/Psych: + depressed affect, + disoriented (oriented to self and place only ) Skin: no jaundice, warm/dry Laboratory Results Last 24 Hours Test 11/19/17 19:09 11/19/17 19:18 11/19/17 19:27 11/19/17 19:30 Venous Blood pH 7.22 Venous Blood Partial Pressure CO2 81 mmHg Venous Blood Partial Pressure O2 48 mmHg Venous Blood HCO3 32 mmol/L Venous Blood Oxygen Saturation 75.4 % Venous Blood Base Excess 3.8 mEq/L Lactic Acid Level 0.9 mmol/L White Blood Count 9.77 K/uL Red Blood Count 3.50 M/uL Hemoglobin 10.1 g/dL Hematocrit 34.8 % Mean Corpuscular Volume 99.4 fL Mean Corpuscular Hemoglobin 28.9 pg Mean Corpuscular Hemoglobin Concent 29.0 g/dl Platelet Count 138 K/uL Neutrophils (%) (Auto) 70.8 % Lymphocytes (%) (Auto) 14.1 % Monocytes (%) (Auto) 12.8 % Eosinophils (%) (Auto) 1.2 % Basophils (%) (Auto) 0.3 % Neutrophils # (Auto) 6.91 K/uL Lymphocytes # (Auto) 1.38 K/uL Monocytes # (Auto) 1.25 K/uL Eosinophils # (Auto) 0.12 K/uL Basophils # (Auto) 0.03 K/uL Immature Granulocyte % (Auto) 0.8 % Immature Granulocyte # (Auto) 0.08 K/uL Nucleated RBC Absolute Count (auto) 0.13 K/uL Nucleated Red Blood Cells % 1.3 % Polychromasia 1+ Hypochromasia PRESENT Anisocytosis PRESENT Macrocytosis PRESENT Prothrombin Time 12.5 SECONDS Prothromb Time International Ratio 1.2 Sodium Level 136 mmol/L Potassium Level 4.5 mmol/L Chloride Level 103 mmol/L Carbon Dioxide Level 32 mmol/L Anion Gap 1.0 mmol/L 12.0 mmol/L Blood Urea Nitrogen 16 mg/dl Creatinine 0.78 mg/dl Est Creatinine Clear Calc Drug Dose 82.3 ml/min Estimated GFR () 93.1 Estimated GFR (Non- 80.3 BUN/Creatinine Ratio 20.2 Random Glucose 119 mg/dl Calcium Level 8.0 mg/dl Total Bilirubin 2.5 mg/dl Direct Bilirubin 2.0 mg/dl Aspartate Amino Transf (AST/SGOT) 108 U/L Alanine Aminotransferase (ALT/SGPT) 47 U/L Alkaline Phosphatase 660 U/L Ammonia 65.0 umol/L Troponin I < 0.015 ng/ml Pro-B-Type Natriuretic Peptide 2918 pg/ml Total Protein 6.4 gm/dl Albumin 2.3 gm/dl Amylase Level 13 U/L Lipase 109 U/L Salicylates Level mg/dl Acetaminophen Level ug/ml Ethyl Alcohol mg/dL < 3.0 mg/dl Urine Color ORANGE Urine Appearance CLOUDY Urine pH 5.0 Urine Specific Oscar 1.027 Urine Protein 3+ Urine Glucose (UA) NEG Urine Ketones NEG Urine Occult Blood NEG Urine Nitrite POS Urine Bilirubin 3+ Urine Urobilinogen POS Urine Leukocyte Esterase SMALL Urine WBC (Auto) 1-5 /hpf Urine RBC (Auto) 0-4 /hpf Urine Hyaline Casts (Auto) /lpf Urine Epithelial Cells (Auto) >30 /lpf Urine Bacteria (Auto) 4+ Urine Renal Epithelial Cells /lpf Urine Crystals CALCIUM OXALATE Urine Pathogenic Casts /lpf Bedside Hemoglobin 9.9 g/dl Bedside Hematocrit 29 % Bedside Sodium 139 mEq/L Bedside Potassium 4.6 mEq/L Bedside Chloride 100 mEq/L Bedside Total CO2 33 mEq/l Bedside Blood Urea Nitrogen 19 mg/dl Bedside Creatinine 0.9 mg/dl Bedside Glucose (other) 124 mg/dl Bedside Lactic Acid Venous 1.20 mmol/L Bedside Ionized Calcium (Kaela) 1.11 mmol/l Influenza Type A Antigen Neg for Influ A Influenza Type B Antigen Neg for Influ B Test 11/19/17 21:25 11/19/17 22:38 11/20/17 00:30 11/20/17 05:25 Peritoneal Fluid Color YELLOW Peritoneal Fluid Appearance CLEAR Peritoneal Fluid WBC 186 /uL Peritoneal Fluid RBC < 3000 /uL Peritoneal Fld Mononuclear WBCs (%) 73.1 % Peritoneal Fld Polynuclear WBCs (%) 26.9 % Peritoneal Fluid Total Protein 2.1 g/dl Peritoneal Fluid Albumin 1.0 g/dl Pleural Fluid Source RIGHT LUNG Pleural Fluid Color YELLOW Pleural Fluid Appearance CLEAR Pleural Fluid WBC 499 /uL Pleural Fluid RBC < 3000 /uL Pleural Fluid pH 7.36 Pleural Fluid Polynuclear WBCs % 37.3 % Pleural Fluid Mononuclear WBCs % 62.7 % Pleural Fluid Total Protein 2.4 g/dl Pleural Fluid LDH 109 IU Pleural Fluid Glucose 122 mg/dl Pleural Fluid Amylase 9 U/L Bedside Blood Gas pH (LAB) 7.18 Bedside Blood Gas pCO2 (LAB) 85 mmHg Bedside Blood Gas pO2 (LAB) 151 mmHg Bedside Blood Gas HCO3 (LAB) 32 meq/L Bedside Blood Gas Total CO2 34 mEq/l Bedside Blood Gas Base Excess (LAB) 3.0 meq/L Bedside Blood Gas O2 Saturation 99.0 % Bedside Glucose 136 mg/dl White Blood Count 9.68 K/uL Red Blood Count 2.96 M/uL Hemoglobin 8.3 g/dL Hematocrit 29.9 % Mean Corpuscular Volume 101.0 fL Mean Corpuscular Hemoglobin 28.0 pg Mean Corpuscular Hemoglobin Concent 27.8 g/dl RDW Standard Deviation 81.8 fL RDW Coefficient of Variation 22.2 % Platelet Count 154 K/uL Mean Platelet Volume 9.6 fL Nucleated RBC Absolute Count (auto) 0.12 K/uL Nucleated Red Blood Cells % 1.2 % Sodium Level 141 mmol/L Potassium Level 3.8 mmol/L Chloride Level 106 mmol/L Carbon Dioxide Level 32 mmol/L Anion Gap 3.0 mmol/L Blood Urea Nitrogen 14 mg/dl Creatinine 0.68 mg/dl Est Creatinine Clear Calc Drug Dose 91.1 ml/min Estimated GFR () 107.1 Estimated GFR (Non- 92.4 BUN/Creatinine Ratio 21.4 Random Glucose 97 mg/dl Calcium Level 7.7 mg/dl Phosphorus Level 3.4 mg/dl Magnesium Level 1.9 mg/dl Total Bilirubin 2.0 mg/dl Direct Bilirubin 1.5 mg/dl Aspartate Amino Transf (AST/SGOT) 74 U/L Alanine Aminotransferase (ALT/SGPT) 35 U/L Alkaline Phosphatase 482 U/L Total Protein 5.2 gm/dl Albumin 2.1 gm/dl Impression Patient is a 62 year old female w ETOH cirrhosis complicated by volume overload , AMS, found unresponsive and incontinent of stool yesterday -> brought to hospital via EMS and found to be hypoxic w R large pleural effusion and ascites. Suspect due to hepatic hydrothorax. She is s/p thoracentesis and R chest tub placement. Total 2.9L pleural fluid drained. MELD 11. Plan - F/U infectious w/u (blood, urine, ascites fluid, pleural cx). Will add Cdiff and stool cx (hx of ivone at last admission). - Start Xifaxan 550mg BID; Lactulose 30g BID - Chest tube removal today per ICU team. Would consult Pulmonary to follow along. - Need 2g low salt diet, and restart diuretics: previously on Lasix 40mg BID, Spironolactone 200mg daily. - Likely needs repeat paracentesis tomorrow: goal 5L removal w Albumin 25% 50g IV - Will consult Cardiology for possible repeat echo & eval of heart failure - considering pt for TIPS referral. - Replete Albumin 25% 100g today for albumin lost in chest drainage. - ETOH abstinence; would benefit from ETOH cessation program. Will help make appt upon her DC. Other outpt workup: - Need EGD for varices eval, repeat colonoscopy for hx of polyps - HCC screening [id number] - Hep A and B immunity checks I performed a history and physical examination of the patient, including specifically on physical exam - abdomen is soft.I have discussed the patient's management with Grace. Please refer to the [facility]IN[facility]'s note for the documented findings and plan of care. Patient with decompensated liver cirrhosis, ascites and likely hepatic hydrothorax, noncompliant and still drinks alcohol. s/p Paracentesis and thoracentesis, oxygenation had improved. No SBP. Restart her diuretics. Perform LVP and remove thoracic drain. Alcohol cessation counseling. Consider TIPS only if ascites is refractory to medical therapy but can start evaluation process.
[2017-11-20 11:35] LABS: HEMATOCRIT 30.7 % (37-47)
[2017-11-20] MEDS ORDERED: THIAMINE HCL INJ 100 MG in SYRINGE 9 ML IV ONE (11:45)
[2017-11-20] MEDS ORDERED: FLUOXETINE HCL 20 MG/5 ML UDP PO SCH (12:00)
--- NOTE | 2017-11-20 15:35 | Critical Care Progress Note ---
Critical Care Progress Note Date of Service Nov 20, 2017. ICU Day ICU Day Number: [address] Harden Subjective More alert, tolerating Bipap. Objective General Appearance: obese Head: normocephalic, atraumatic Neck: no tenderness, trachea midline, no stridor, no nuchal rigidity Respiratory: Improved aeration over right chest Cardiovasular: regular rate/rhythm, normal S1S2 Abdomen: hypoactive bowel sounds, other (positive fluid wave consistent with ascites) Genitourinary - Female: other (Baer present) Back: other (grade 1 pressure ulcers over sacrum and right elbow) Lower Extremities: edema (+3) Pulses: radial (R) (2+), radial (L) (2+) Neuro: Improved LOC GCS 14 Current SOFA Score SOFA Score Response (Comments) Value Platelets (x10) > 150 0 Bilirubin (mg/dL) 2.0 - 5.9 2 Micheal Coma Score 13 - 14 1 Level of Hypotension No Hypotension 0 Creatinine (mg/dL) < 1.2 0 Total 3 Assessment & Plan Reason Critically Ill: Patient is a 62 y/o female with ESLD who presents with hypoxic respiratory failure, coma large volume ascites and complete opacification of right hemithorax with pleural effusion. PLAN: Neuro: Acute encephalopathy: * Improved after the addition of lactulose as well as improvement in ventilatory /pulmonary mechanics Resp: Acute hypoxic hypercarbic respiratory failure * BiPAP noninvasive ventilation * Improved after pleural drainage * There may be an aspect of hepato-pulmonary shunting Right-sided pleural effusion * Hepatothorax * Drained 1 L of fluid and clamped pleural drain over concern for reexpansion pulmonary edema * Opened drain at about 10:30 had additional 1950 ML's drains until 6 AM * From 6 AM 600 mL drained, I aspirated an additional 50 mL via push pull technique prior to discontinuation of the pleural drain CV: No evidence of hypotension or dysrhythmia at this time * I discussed the case with Dr. Skinner, during his evaluation she would be a candidate for a TIPS procedure Fluids/Renal: No evidence of lactic acidosis * Fluid restriction * Reinstituted home diuretic medications ID: Concern for sepsis * Blood cultures sent no growth to date * Urine culture sent: E coli sensitivities pending * Culture of pleural fluid and ascites: No growth to date * Vancomycin was discontinued * Will continue rifaximin * C. 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 This is a life/limb threatening event. This includes time spent evaluating patient, direct bedside care, chart review, placing orders, interpretation of diagnostic studies, discussion with consultants, patient, and family members, as well as other required patient management activities. This time is exclusive of all separately billable procedures, and teaching time and separate from and in addition to any other critical care service time. Consults & Procedures Consultants: Gastroenterology Procedures: Thoracentesis 11/20/2017 Paracentesis 11/20/2017 Data Medications: Current Inpatient Medications Medications (Trade) Dose Ordered Sig/Antonio Route Start Time Stop Time Status Last Admin Dose Admin Ioversol (Optiray 320) 100 ml UD PRN IV 11/19/17 19:30 11/23/17 19:29 Enoxaparin Sodium (Lovenox Inj) 40 mg QAM SQ 11/20/17 09:00 12/20/17 08:59 11/20/17 07:52 40 MG Famotidine 20 mg/ Syringe 5 ml @ 2.5 mls/min Q12 IV 11/19/17 23:45 12/19/17 23:44 11/20/17 07:53 2.5 MLS/MIN Miscellaneous Information (Icu Protocol For Hyperglycemia) 1 ea PRN PRN N/A 11/19/17 23:00 11/21/17 22:59 Insulin Human Regular (novoLIN-R) SLIDING SCALE IF C... ACHS SC 11/20/17 06:45 12/20/17 06:59 Glucose (Glucose 40% Gel) 15-30 GRAMS 15 GRAMS... UD PRN PO 11/19/17 23:00 12/19/17 22:59 Glucose (Glucose Chew Tab) 4-8 Tablets 4 Tabl... UD PRN PO 11/19/17 23:00 12/19/17 22:59 Dextrose (Dextrose 50% 50ML Syringe) 25-50ML OF 50% DW IV FOR... UD PRN IV 11/19/17 23:00 12/19/17 22:59 Glucagon (Glucagon Inj) 1 mg UD PRN SQ 11/19/17 23:00 12/19/17 22:59 Piperacillin Sod/ Tazobactam Sod 4.5 gm/Dextrose 120 ml @ 30 mls/hr Q8H IV 11/20/17 06:00 11/22/17 05:59 11/20/17 14:54 30 MLS/HR Vancomycin HCl 1500 mg/Sodium Chloride 530 ml @ 200 mls/hr Q12H IV 11/20/17 08:00 11/22/17 07:59 11/20/17 07:52 200 MLS/HR Fentanyl Citrate (Fentanyl Inj) 100 mcg Q2H PRN IV 11/19/17 23:00 12/03/17 22:59 Lorazepam (Ativan Inj) 0.5 mg Q2H PRN IV 11/19/17 23:00 12/19/17 22:59 Vancomycin HCl (Consult) 1 ea UD PRN N/A 11/19/17 23:45 12/19/17 23:44 Piperacillin Sod/ Tazobactam Sod (Consult) 1 ea UD PRN N/A 11/19/17 23:45 12/19/17 23:44 Doxycycline Hyclate 100 mg/ Dextrose 110 ml @ 55 mls/hr BID IV 11/20/17 09:00 11/27/17 08:59 11/20/17 10:08 55 MLS/HR Spironolactone (Aldactone Tab) 100 mg BID PO 11/20/17 09:30 12/20/17 09:29 11/20/17 09:29 100 MG Furosemide (Lasix Oral Soln) 40 mg BID NG 11/20/17 09:30 12/20/17 09:29 11/20/17 10:24 40 MG Rifaximin (Xifaxan Tab) 550 mg BID PO 11/20/17 21:00 12/20/17 20:59 Lactulose (Chronulac Syrup) 30 gm BID NG 11/20/17 21:00 12/20/17 06:14 Risperidone (Risperdal Oral Soln) 4 mg QPM PO 11/20/17 21:00 12/20/17 20:59 Thiamine HCl 100 mg/Syringe 10 ml @ 2 mls/min QAM IV 11/21/17 09:00 12/21/17 08:59 Fluoxetine HCl (Prozac Soln) 40 mg QAM PO 11/21/17 09:00 12/21/17 08:59 Vital Signs: Date Time Temp Pulse Resp B/P (MAP) Pulse Ox O2 Delivery O2 Flow Rate FiO2 11/20/17 12:00 100 BiPAP 70 11/20/17 08:00 100 BiPAP 70 11/20/17 07:27 85 100 80 11/20/17 04:00 BiPAP 80 11/20/17 01:46 87 96 80 11/20/17 00:31 91 18 105/54 (71) 90 11/20/17 00:01 90 18 107/55 (72) 100 BiPAP 60 11/19/17 23:49 98 15 118/67 (84) 100 11/19/17 23:30 93 94 11/19/17 23:26 92 20 92 11/19/17 23:12 37.1 96 24 118/67 99 BiPAP 60 11/19/17 21:41 92 108/59 96 11/19/17 21:36 106/60 11/19/17 21:31 128/64 11/19/17 21:26 98 24 117/59 97 11/19/17 21:22 101/59 11/19/17 21:16 126/86 11/19/17 21:11 97 12 116/65 96 11/19/17 21:06 126/71 11/19/17 21:01 136/73 11/19/17 20:57 120/57 11/19/17 20:56 93 13 97 11/19/17 20:51 107/69 11/19/17 20:46 106/63 11/19/17 20:41 89 12 113/68 100 11/19/17 20:36 114/63 11/19/17 20:31 122/69 11/19/17 20:27 112/64 11/19/17 20:26 91 14 100 11/19/17 20:21 110/64 11/19/17 20:16 114/67 11/19/17 20:13 89 22 99 BiPAP/CPAP 100 11/19/17 20:11 95 13 113/65 100 11/19/17 20:06 116/71 98 BiPAP 100 11/19/17 19:39 92 95 11/19/17 19:36 131/73 11/19/17 19:31 125/72 11/19/17 19:30 91 15 100 11/19/17 19:26 125/68 11/19/17 19:21 126/72 11/19/17 19:16 134/74 11/19/17 19:15 97 15 98 11/19/17 19:12 99 11/19/17 18:35 97 Non-Rebreather 15.0 11/19/17 18:35 64 Room Air 11/19/17 18:35 36.8 105 15 133/75 64 Room Air Laboratory Results: Last 24 Hours Test 11/19/17 19:09 11/19/17 19:18 11/19/17 19:27 11/19/17 19:30 Venous Blood pH 7.22 Venous Blood Partial Pressure CO2 81 mmHg Venous Blood Partial Pressure O2 48 mmHg Venous Blood HCO3 32 mmol/L Venous Blood Oxygen Saturation 75.4 % Venous Blood Base Excess 3.8 mEq/L Lactic Acid Level 0.9 mmol/L White Blood Count 9.77 K/uL Red Blood Count 3.50 M/uL Hemoglobin 10.1 g/dL Hematocrit 34.8 % Mean Corpuscular Volume 99.4 fL Mean Corpuscular Hemoglobin 28.9 pg Mean Corpuscular Hemoglobin Concent 29.0 g/dl Platelet Count 138 K/uL Neutrophils (%) (Auto) 70.8 % Lymphocytes (%) (Auto) 14.1 % Monocytes (%) (Auto) 12.8 % Eosinophils (%) (Auto) 1.2 % Basophils (%) (Auto) 0.3 % Neutrophils # (Auto) 6.91 K/uL Lymphocytes # (Auto) 1.38 K/uL Monocytes # (Auto) 1.25 K/uL Eosinophils # (Auto) 0.12 K/uL Basophils # (Auto) 0.03 K/uL Immature Granulocyte % (Auto) 0.8 % Immature Granulocyte # (Auto) 0.08 K/uL Nucleated RBC Absolute Count (auto) 0.13 K/uL Nucleated Red Blood Cells % 1.3 % Polychromasia 1+ Hypochromasia PRESENT Anisocytosis PRESENT Macrocytosis PRESENT Prothrombin Time 12.5 SECONDS Prothromb Time International Ratio 1.2 Sodium Level 136 mmol/L Potassium Level 4.5 mmol/L Chloride Level 103 mmol/L Carbon Dioxide Level 32 mmol/L Anion Gap 1.0 mmol/L 12.0 mmol/L Blood Urea Nitrogen 16 mg/dl Creatinine 0.78 mg/dl Est Creatinine Clear Calc Drug Dose 82.3 ml/min Estimated GFR () 93.1 Estimated GFR (Non- 80.3 BUN/Creatinine Ratio 20.2 Random Glucose 119 mg/dl Calcium Level 8.0 mg/dl Total Bilirubin 2.5 mg/dl Direct Bilirubin 2.0 mg/dl Aspartate Amino Transf (AST/SGOT) 108 U/L Alanine Aminotransferase (ALT/SGPT) 47 U/L Alkaline Phosphatase 660 U/L Ammonia 65.0 umol/L Troponin I < 0.015 ng/ml Pro-B-Type Natriuretic Peptide 2918 pg/ml Total Protein 6.4 gm/dl Albumin 2.3 gm/dl Amylase Level 13 U/L Lipase 109 U/L Salicylates Level mg/dl Acetaminophen Level ug/ml Ethyl Alcohol mg/dL < 3.0 mg/dl Urine Color ORANGE Urine Appearance CLOUDY Urine pH 5.0 Urine Specific Melrose 1.027 Urine Protein 3+ Urine Glucose (UA) NEG Urine Ketones NEG Urine Occult Blood NEG Urine Nitrite POS Urine Bilirubin 3+ Urine Urobilinogen POS Urine Leukocyte Esterase SMALL Urine WBC (Auto) 1-5 /hpf Urine RBC (Auto) 0-4 /hpf Urine Hyaline Casts (Auto) /lpf Urine Epithelial Cells (Auto) >30 /lpf Urine Bacteria (Auto) 4+ Urine Renal Epithelial Cells /lpf Urine Crystals CALCIUM OXALATE Urine Pathogenic Casts /lpf Bedside Hemoglobin 9.9 g/dl Bedside Hematocrit 29 % Bedside Sodium 139 mEq/L Bedside Potassium 4.6 mEq/L Bedside Chloride 100 mEq/L Bedside Total CO2 33 mEq/l Bedside Blood Urea Nitrogen 19 mg/dl Bedside Creatinine 0.9 mg/dl Bedside Glucose (other) 124 mg/dl Bedside Lactic Acid Venous 1.20 mmol/L Bedside Ionized Calcium (Kaela) 1.11 mmol/l Influenza Type A Antigen Neg for Influ A Influenza Type B Antigen Neg for Influ B Test 11/19/17 21:25 11/19/17 22:38 11/20/17 00:30 11/20/17 05:25 Peritoneal Fluid Color YELLOW Peritoneal Fluid Appearance CLEAR Peritoneal Fluid WBC 186 /uL Peritoneal Fluid RBC < 3000 /uL Peritoneal Fld Mononuclear WBCs (%) 73.1 % Peritoneal Fld Polynuclear WBCs (%) 26.9 % Peritoneal Fluid Total Protein 2.1 g/dl Peritoneal Fluid Albumin 1.0 g/dl Pleural Fluid Source RIGHT LUNG Pleural Fluid Color YELLOW Pleural Fluid Appearance CLEAR Pleural Fluid WBC 499 /uL Pleural Fluid RBC < 3000 /uL Pleural Fluid pH 7.36 Pleural Fluid Polynuclear WBCs % 37.3 % Pleural Fluid Mononuclear WBCs % 62.7 % Pleural Fluid Total Protein 2.4 g/dl Pleural Fluid LDH 109 IU Pleural Fluid Glucose 122 mg/dl Pleural Fluid Amylase 9 U/L Bedside Blood Gas pH (LAB) 7.18 Bedside Blood Gas pCO2 (LAB) 85 mmHg Bedside Blood Gas pO2 (LAB) 151 mmHg Bedside Blood Gas HCO3 (LAB) 32 meq/L Bedside Blood Gas Total CO2 34 mEq/l Bedside Blood Gas Base Excess (LAB) 3.0 meq/L Bedside Blood Gas O2 Saturation 99.0 % Bedside Glucose 136 mg/dl White Blood Count 9.68 K/uL Red Blood Count 2.96 M/uL Hemoglobin 8.3 g/dL Hematocrit 29.9 % Mean Corpuscular Volume 101.0 fL Mean Corpuscular Hemoglobin 28.0 pg Mean Corpuscular Hemoglobin Concent 27.8 g/dl RDW Standard Deviation 81.8 fL RDW Coefficient of Variation 22.2 % Platelet Count 154 K/uL Mean Platelet Volume 9.6 fL Nucleated RBC Absolute Count (auto) 0.12 K/uL Nucleated Red Blood Cells % 1.2 % Sodium Level 141 mmol/L Potassium Level 3.8 mmol/L Chloride Level 106 mmol/L Carbon Dioxide Level 32 mmol/L Anion Gap 3.0 mmol/L Blood Urea Nitrogen 14 mg/dl Creatinine 0.68 mg/dl Est Creatinine Clear Calc Drug Dose 91.1 ml/min Estimated GFR () 107.1 Estimated GFR (Non- 92.4 BUN/Creatinine Ratio 21.4 Random Glucose 97 mg/dl Calcium Level 7.7 mg/dl Phosphorus Level 3.4 mg/dl Magnesium Level 1.9 mg/dl Total Bilirubin 2.0 mg/dl Direct Bilirubin 1.5 mg/dl Aspartate Amino Transf (AST/SGOT) 74 U/L Alanine Aminotransferase (ALT/SGPT) 35 U/L Alkaline Phosphatase 482 U/L Total Protein 5.2 gm/dl Albumin 2.1 gm/dl Test 11/20/17 10:52 Hemoglobin 8.5 g/dL Hematocrit 30.7 %
--- NOTE | 2017-11-20 15:40 | ECHOCARDIOGRAM REPORT ---
*NOTICE TO RECEIVING DEMOCRAT AGENCY This information is strictly Confidential and protected under [place] law. [place] law prohibits you from making any further disclosure of this information unless further disclosure is expressly permitted by the written consent of the person to whom it pertains or is authorized by law. A general authorization for the release of medical or other information is not sufficient for this purpose. Hospital accepts no responsibility if the information is made available to any other person, INCLUDING THE PATIENT. Interpretation Summary * Name: VENESSA SEAMAN Study Date: 11/20/2017 01:35 PM BP: 105/54 mmHg * [id number]\1 HR: 84 * : 1955 (M/d/yyyy) Gender: Female Height: 64 in * Age: 62 yrs Ethnicity: [place] Weight: 200 lb * Ordering Physician: Kenn Skinner * Referring Physician: Self, Referred * Performed By: Catie Be RCS * * Reason For Study: ISCHEMIC CARDIOMYOPATHY * BSA: 2.0 m2 * -- Conclusions -- * Normal LV chamber size with mild concentric LVH. * Normal LV systolic function, EF 60-65%. * No segmental left ventricular wall motion abnormalities are noted. * Grade II diastolic dysfunction. * The right ventricular cavity size is enlarged (proximal parasternal long axis right ventricular outflow tract dimension >3.3 cm). The right ventricular systolic function is normal as assessed by tricuspid annular plane systolic excursion (TAPSE) (normal >1.5 cm). * Moderate tricuspid regurgitation. * Pulmonary hypertension is present with a PASP of 47 mmHg assuming a RA pressure of 15 mmHg. * Ascites is visualized. Procedure Details * A complete two-dimensional transthoracic echocardiogram was performed (2D, M-mode, Doppler and color flow Doppler). Left Ventricle * The left ventricle is normal in size. * There is mild concentric left ventricular hypertrophy. * Left ventricular systolic function is normal. * No segmental left ventricular wall motion abnormalities are noted. * Ejection Fraction = 60-65%. * Flattened septum is consistent with RV pressure/volume overload. Right Ventricle * The right ventricular cavity size is enlarged (proximal parasternal long axis right ventricular outflow tract dimension >3.3 cm). * The right ventricular systolic function is normal as assessed by tricuspid annular plane systolic excursion (TAPSE) (normal >1.5 cm). Atria * The left atrial size is normal. * The right atrium is severely dilated. * No ASD detected; PFO is not assessed. Mitral Valve * The mitral valve is normal in structure and function. Tricuspid Valve * The tricuspid valve anatomy is normal. * There is no tricuspid stenosis. * There is moderate tricuspid regurgitation. Aortic Valve * The aortic valve is not well visualized. * No hemodynamically significant valvular aortic stenosis. * No aortic regurgitation is present. Pulmonic Valve * The pulmonary valve is not well seen, but the Doppler examination is normal without significant regurgitation or stenosis. Great Vessels * The aortic root is normal size. Pericardium/Pleural * There is no pericardial effusion. Left Ventricular Diastolic Function * Diastolic dysfunction, Grade II (pseudonormalization pattern). MMode 2D Measurements and Calculations IVSd 1.3 cm IVSs 1.6 cm LVIDd 4.9 cm LVIDs 3.8 cm LVPWd 1.1 cm LVPWs 1.4 cm IVS/LVPW 1.1 FS 22.2 % EDV(Teich) 114.2 ml ESV(Teich) 63.2 ml EF(Teich) 44.7 % EDV(cubed) 119.6 ml ESV(cubed) 56.2 ml EF(cubed) 53.0 % % IVS thick 19.8 % % LVPW thick 23.6 % LV mass(C)d 235.0 grams LV mass(C)dI 120.2 grams/m\S\2 LV mass(C)s 216.6 grams LV mass(C)sI 110.7 grams/m\S\2 SV(Teich) 51.0 ml SI(Teich) 26.1 ml/m\S\2 SV(cubed) 63.3 ml SI(cubed) 32.4 ml/m\S\2 Ao root diam 2.7 cm Ao root area 5.7 cm\S\2 ACS 2.0 cm LVOT diam 2.0 cm LVOT area 3.0 cm\S\2 LVAd ap4 39.9 cm\S\2 LVLd ap4 8.3 cm EDV(MOD-sp4) 157.7 ml EDV(sp4-el) 163.1 ml LVAs ap4 21.5 cm\S\2 LVLs ap4 6.7 cm ESV(MOD-sp4) 56.5 ml ESV(sp4-el) 58.6 ml EF(MOD-sp4) 64.2 % EF(sp4-el) 64.0 % SV(MOD-sp4) 101.2 ml SI(MOD-sp4) 51.7 ml/m\S\2 SV(sp4-el) 104.4 ml SI(sp4-el) 53.4 ml/m\S\2 Doppler Measurements and Calculations MV E max mague 131.6 cm/sec MV A max mague 82.5 cm/sec MV E/A 1.6 MV P1/2t max mague 130.1 cm/sec MV P1/2t 87.4 msec MVA(P1/2t) 2.5 cm\S\2 MV dec slope 435.7 cm/sec\S\2 MV dec time 0.23 sec Ao V2 max 166.3 cm/sec Ao max PG 11.1 mmHg Ao max PG (full) 7.1 mmHg SHAHLA(V,A) 1.8 cm\S\2 SHAHLA(V,D) 1.8 cm\S\2 LV V1 max PG 3.9 mmHg LV V1 max 99.1 cm/sec TR max mague 284.4 cm/sec
[2017-11-20] MEDS: RASPBERRY SYRUP 5 ML UDP PO SCH ×2 (16:00→21:40)
[2017-11-20] MEDS: VANCOMYCIN HCL 125 MG/2.5ML SOLN PO SCH ×2 (16:31→21:39)
--- NOTE | 2017-11-20 17:06 | CARDIOLOGY CONSULTATION ---
DATE OF CONSULTATION: 11/20/2017 INPATIENT CONSULTATION CONSULTATION REQUESTED BY: ENOCH Goncalves. REASON FOR CONSULTATION: Preop risk assessment. HISTORY OF PRESENT ILLNESS: Mrs. Tomlinson is a pleasant yet [place] medically complex 62-year-old woman who came into the Emergency Department on 11/19/2017 via EMS with reports of her of change of mental status. The patient was reportedly acting very bizarre, and she came into the Emergency Department. EMS reported that she was unresponsive upon arrival and incontinent of stool. In the Emergency Department, she was found to be rather significantly hypoxic with 64% oxygen saturation on room air, and she was placed on BiPAP. She was then admitted to the intensive care unit. She also had 5.5 liters of ascites removed in the ER and subsequently had a right thoracentesis by the ICU team with 1 liter of fluid removed. A chest tube was placed with another 2 liters of drainage and cardiology is currently consulted for preop risk assessment prior to undergoing possible TIPS procedure. PAST SURGICAL HISTORY: 1. Multiple paracentesis. 2. Tonsillectomy as a child. 3. Colonoscopy. MEDICAL ILLNESSES: 1. Chronic alcohol abuse. 2. Alcoholic cirrhosis. 3. History of hepatic encephalopathy. 4. Hyperammonemia. 5. Acute on chronic respiratory failure. 6. Recurrent cellulitis. 7. Schizoaffective disorder. 8. Tobacco abuse. 9. COPD. 10. Chronic tobacco abuse. FAMILY HISTORY: Remarkable for a father who had a myocardial infarction at age 40. SOCIAL HISTORY: The patient is a lifelong smoker and continues to smoke reported 3 packs per day. The patient is a heavy alcohol user, last drink unknown. No report of any recreational drug use. She is . She lives at home with her . She has 2 children. REVIEW OF SYSTEMS: As per HPI, all other review of systems reviewed and negative at this time. ALLERGIES: No known drug allergies. MEDICATIONS: Currently: 1. Spironolactone 100 mg b.i.d. 2. Lasix 40 mg b.i.d. 3. Zosyn. 4. Insulin sliding scale. 5. Lactulose b.i.d. 6. Xifaxan b.i.d. 7. Prozac daily. 8. Thiamin infusion. PHYSICAL EXAMINATION: VITALS: Temperature 36.7, pulse 81, respiratory rate 14, blood pressure 91/51. GENERAL: Awake, alert, oriented, responding appropriately to questioning, currently on BiPAP. HEENT: Normocephalic, atraumatic. Pupils equal, round react to light and accommodation. Extraocular muscles intact. Anicteric sclerae. Moist mucous membranes. NECK: No JVD, no bruit. CARDIOVASCULAR: Regular but distant. Unable to appreciate murmurs, rubs or gallops due to current BiPAP placement. PULMONARY: Scattered rhonchi diffusely. No rales or wheezing. ABDOMEN: Distended, some slight diffuse tenderness. No rebound or guarding. Unable to appreciate any organomegaly. EXTREMITIES: +2 pedal pulses bilaterally. SKIN: Warm and dry. TEST RESULTS: A 2D echocardiogram performed today independently reviewed was reported as normal LV chamber size with mild concentric LVH, normal LV systolic function, EF 60-65%, no segmental left ventricle wall motion abnormalities were noted, grade 2 diastolic dysfunction, the right ventricular cavity size is enlarged with normal RV systolic function, moderate tricuspid regurgitation, pulmonary hypertension is present with a PA systolic pressure of 47 mmHg assuming a right atrial pressure of 15 mmHg, ascites is visualized. A 12-lead EKG performed in the Emergency Department independently reviewed at this time shows normal sinus rhythm at 99 beats per minute, low voltage study; otherwise normal. IMPRESSION: 1. Preoperative risk assessment prior to undergoing possible transjugular intrahepatic portosystemic shunt procedure. 2. Recurrent ascites. 3. Alcoholic cirrhosis. 4. Pulmonary hypertension. 5. Chronic obstructive pulmonary disease with ongoing tobacco abuse. 6. Schizoaffective disorder. RECOMMENDATIONS: It was my pleasure to see Mrs. Tomlinson in consultation today. In terms of preop risk assessment, the patient was counseled that I would place her at a moderate risk for the adverse perioperative cardiovascular event with the risk being approximately less than 5% and the main cause of her risk being her pulmonary hypertension. She is answering appropriately and does appear to be her baseline mental state and she states that she understands, she is accepting of this risk and wish to proceed with the procedure if should it be deemed necessary. I have asked her if she would like me to talk to her family members and she declines. So, no further cardiac testing or intervention is necessary at this time and no medication changes will be made either.
[2017-11-20 17:27] LABS: HEMATOCRIT 29.3 % (37-47)
[2017-11-20] MEDS ORDERED: LORAZEPAM 2 MG/ML 1 ML VIAL IV PRN (18:00)
--- NOTE | 2017-11-20 18:06 | Progress Note ---
Internal Med Progress Note Date of Service: Nov 20, 2017. Provider Documentation: SUBJECTIVE: on bipap afebrile says doing ok' s/p paracentesis and thoracocentesis in ER also had chest tube annd fluid drained. Resp status improved may be going into withdrawal? OBJECTIVE: Vital Signs-as noted below Exam: General-alert and awake. currently not in distress ENT-Normal hearing Neck-no neck masses Lungs-Cta b/l no wheezing bibasilar crackles present Heart-S1 and S2 heard regular No murmurs Abdomen-Soft Bowel sounds present Non tender distended Extremities-No edema No erythema Neuro-alert and awake moves extremities Lab data as noted below. ASSESSMENT & PLAN: ACUTE HYPOXIC RESPIRATORY FAILURE O2 sat 64%on presentation to ER secondary to large pleural effusion. s/p thoracocentesis and also had chest tube which is removed now. Had total of 3lts taken out. on bipap and saturating fine appreciate critical are inputs ALTERED MENTAL STATUS metabolic encephalopathy from hypoxia Hepatic encephalopathy ammonia level [address] negative. on lactulose bipap and thoracentesis as above improving POSSIBLE SEPSIS Afebrile in ED. no SBP urine growing e.coli on iv Zosyn and doxy currently await final cx C diff started on po vanco CIRRHOSIS / ASCITES Paracentesis and s/p 5lt taken out jason for repeat thoracocentesis in am plan for TIPS as per GI cardiology assesses pre op risk for tips procedure and deemed moderate risk on Lasix, Aldactone lactulose and rifaximin appreciate GI inputs will monitor. LARGE RIGHT PLEURAL EFFUSION Thoracentesis performed in ED. s/p chest tube PULMONARY ATELECTASIS Secondary to large pleural effusion. S/P thoracentesis. On BiPAP. Will monitor. ALCOHOL ABUSE Unknown when last drink was. on thiamine stared on Ativan atc and prn for possible starting on withdrawal SCHIZOPHRENIA On risperidone. VTE PROPHYLAXIS SCD's. RESUSCITATION STATUS Full code. DISPOSITION Critically ill. monitor in ICU Vital Signs: Date Time Temp Pulse Resp B/P (MAP) Pulse Ox O2 Delivery O2 Flow Rate FiO2 11/20/17 17:50 96 95 80 11/20/17 16:01 36.4 85 20 104/54 (71) 90 11/20/17 16:00 100 BiPAP 80 11/20/17 14:01 92 27 94/58 (70) 85 11/20/17 13:46 81 23 91/51 (64) 84 11/20/17 13:31 84 17 103/60 (74) 11/20/17 13:16 215 22 101/57 (72) 95 11/20/17 13:01 84 17 101/56 (71) 90 11/20/17 12:46 83 21 103/58 (73) 84 11/20/17 12:32 85 18 95/61 (72) 95 11/20/17 12:17 85 24 100/56 (71) 97 11/20/17 12:01 36.7 84 24 85/52 (63) 96 11/20/17 12:00 100 BiPAP 70 11/20/17 10:01 91 23 111/57 (75) 93 11/20/17 08:01 36.7 88 16 99/53 (68) 98 11/20/17 08:00 100 BiPAP 70 11/20/17 07:27 85 100 80 11/20/17 04:00 BiPAP 80 11/20/17 01:46 87 96 80 11/20/17 00:31 91 18 105/54 (71) 90 11/20/17 00:01 90 18 107/55 (72) 100 BiPAP 60 11/19/17 23:49 98 15 118/67 (84) 100 11/19/17 23:30 93 94 11/19/17 23:26 92 20 92 11/19/17 23:12 37.1 96 24 118/67 99 BiPAP 60 11/19/17 21:41 92 108/59 96 11/19/17 21:36 106/60 11/19/17 21:31 128/64 11/19/17 21:26 98 24 117/59 97 2017 21:22 101/59 17 21:16 126/86 11/19/17 21:11 97 12 116/65 96 11/19/17 21:06 126/71 11/19/17 21:01 136/73 17 20:57 120/57 17 20:56 93 13 97 11/19/17 20:51 107/69 17 20:46 106/63 17 20:41 89 12 113/68 100 11/19/17 20:36 114/63 11/19/17 20:31 122/69 12/20/17 20:27 112/64 11/19/17 20:26 91 14 100 11/19/17 20:21 110/64 11/19/17 20:16 114/67 11/19/17 20:13 89 22 99 BiPAP/CPAP 100 11/19/17 20:11 95 13 113/65 100 11/19/17 20:06 116/71 98 BiPAP 100 11/19/17 19:39 92 95 11/19/17 19:36 131/73 11/19/17 19:31 125/72 11/19/17 19:30 91 15 100 11/19/17 19:26 125/68 11/19/17 19:21 126/72 11/19/17 19:16 134/74 11/19/17 19:15 97 15 98 11/19/17 19:12 99 11/19/17 18:35 97 Non-Rebreather 15.0 11/19/17 18:35 64 Room Air 11/19/17 18:35 36.8 105 15 133/75 64 Room Air Lab Results: Results Past 24 Hours Test 11/19/17 19:09 11/19/17 19:18 11/19/17 19:27 11/19/17 19:30 Range/Units Venous Blood pH 7.22 7.36-7.41 Venous Blood Partial Pressure CO2 81 38.0-50.0 mmHg Venous Blood Partial Pressure O2 48 mmHg Venous Blood HCO3 32 mmol/L Venous Blood Oxygen Saturation 75.4 % Venous Blood Base Excess 3.8 mEq/L Lactic Acid Level 0.9 0.4-2.0 mmol/L White Blood Count 9.77 4.8-10.8 K/uL Red Blood Count 3.50 4.2-5.4 M/uL Hemoglobin 10.1 12.0-16.0 g/dL Hematocrit 34.8 37-47 % Mean Corpuscular Volume 99.4 80-100 fL Mean Corpuscular Hemoglobin 28.9 25-34 pg Mean Corpuscular Hemoglobin Concent 29.0 32-36 g/dl Platelet Count 138 130-400 K/uL Neutrophils (%) (Auto) 70.8 % Lymphocytes (%) (Auto) 14.1 % Monocytes (%) (Auto) 12.8 % Eosinophils (%) (Auto) 1.2 % Basophils (%) (Auto) 0.3 % Neutrophils # (Auto) 6.91 1.4-6.5 K/uL Lymphocytes # (Auto) 1.38 1.2-3.4 K/uL Monocytes # (Auto) 1.25 0.11-0.59 K/uL Eosinophils # (Auto) 0.12 0-0.5 K/uL Basophils # (Auto) 0.03 0-0.2 K/uL Immature Granulocyte % (Auto) 0.8 % Immature Granulocyte # (Auto) 0.08 0.00-0.02 K/uL Nucleated RBC Absolute Count (auto) 0.13 0-0 K/uL Nucleated Red Blood Cells % 1.3 % Polychromasia 1+ Hypochromasia PRESENT Anisocytosis PRESENT Macrocytosis PRESENT Prothrombin Time 12.5 9.0-12.0 SECONDS Prothromb Time International Ratio 1.2 0.9-1.1 Sodium Level 136 136-145 mmol/L Potassium Level 4.5 3.5-5.1 mmol/L Chloride Level 103 98-107 mmol/L Carbon Dioxide Level 32 21-32 mmol/L Anion Gap 1.0 12.0 16-25 mmol/L Blood Urea Nitrogen 16 7-18 mg/dl Creatinine 0.78 0.60-1.20 mg/dl Est Creatinine Clear Calc Drug Dose 82.3 ml/min Estimated GFR () 93.1 Estimated GFR (Non- 80.3 BUN/Creatinine Ratio 20.2 10-20 Random Glucose 119 70-99 mg/dl Calcium Level 8.0 8.5-10.1 mg/dl Total Bilirubin 2.5 0.2-1 mg/dl Direct Bilirubin 2.0 0-0.2 mg/dl Aspartate Amino Transf (AST/SGOT) 108 15-37 U/L Alanine Aminotransferase (ALT/SGPT) 47 12-78 U/L Alkaline Phosphatase 660 45-117 U/L Ammonia 65.0 11-32 umol/L Troponin I < 0.015 0-0.045 ng/ml Pro-B-Type Natriuretic Peptide 2918 0-900 pg/ml Total Protein 6.4 6.4-8.2 gm/dl Albumin 2.3 3.4-5.0 gm/dl Amylase Level 13 25-115 U/L Lipase 109 73-393 U/L Salicylates Level 2.8-20 mg/dl Acetaminophen Level 10-30 ug/ml Ethyl Alcohol mg/dL < 3.0 0-3 mg/dl Urine Color ORANGE Urine Appearance CLOUDY CLEAR Urine pH 5.0 4.5-7.5 Urine Specific [place] 1.027 1.000-1.030 Urine Protein 3+ NEG Urine Glucose (UA) NEG NEG Urine Ketones NEG NEG Urine Occult Blood NEG NEG Urine Nitrite POS NEG Urine Bilirubin 3+ NEG Urine Urobilinogen POS NEG Urine Leukocyte Esterase SMALL NEG Urine WBC (Auto) 1-5 0-5 /hpf Urine RBC (Auto) 0-4 0-4 /hpf Urine Hyaline Casts (Auto) 0-5 /lpf Urine Epithelial Cells (Auto) >30 0-5 /lpf Urine Bacteria (Auto) 4+ NEG Urine Renal Epithelial Cells 0-5 /lpf Urine Crystals CALCIUM OXALATE NONE PRSENT Urine Pathogenic Casts 0 /lpf Bedside Hemoglobin 9.9 12.0-16.0 g/dl Bedside Hematocrit 29 37-47 % Bedside Sodium 139 135-144 mEq/L Bedside Potassium 4.6 3.3-5.0 mEq/L Bedside Chloride 100 101-112 mEq/L Bedside Total CO2 33 24-31 mEq/l Bedside Blood Urea Nitrogen 19 7-18 mg/dl Bedside Creatinine 0.9 0.6-1.3 mg/dl Bedside Glucose (other) 124 70-99 mg/dl Bedside Lactic Acid Venous 1.20 0.90-1.70 mmol/L Bedside Ionized Calcium (Kaela) 1.11 1.12-1.32 mmol/l Influenza Type A Antigen Neg for Influ A NEG Influenza Type B Antigen Neg for Influ B NEG Test 11/19/17 21:25 11/19/17 22:38 11/20/17 00:30 11/20/17 05:25 Range/Units Peritoneal Fluid Color YELLOW Peritoneal Fluid Appearance CLEAR Peritoneal Fluid WBC 186 0-300 /uL Peritoneal Fluid RBC < 3000 /uL Peritoneal Fld Mononuclear WBCs (%) 73.1 % Peritoneal Fld Polynuclear WBCs (%) 26.9 % Peritoneal Fluid Total Protein 2.1 g/dl Peritoneal Fluid Albumin 1.0 g/dl Pleural Fluid Source RIGHT LUNG Pleural Fluid Color YELLOW Pleural Fluid Appearance CLEAR Pleural Fluid WBC 499 /uL Pleural Fluid RBC < 3000 /uL Pleural Fluid pH 7.36 7.3-7.4 Pleural Fluid Polynuclear WBCs % 37.3 % Pleural Fluid Mononuclear WBCs % 62.7 % Pleural Fluid Total Protein 2.4 g/dl Pleural Fluid LDH 109 IU Pleural Fluid Glucose 122 mg/dl Pleural Fluid Amylase 9 U/L Bedside Blood Gas pH (LAB) 7.18 7.35-7.45 Bedside Blood Gas pCO2 (LAB) 85 35-46 mmHg Bedside Blood Gas pO2 (LAB) 151 80-95 mmHg Bedside Blood Gas HCO3 (LAB) 32 19-24 meq/L Bedside Blood Gas Total CO2 34 24-31 mEq/l Bedside Blood Gas Base Excess (LAB) 3.0 -9-1.8 meq/L Bedside Blood Gas O2 Saturation 99.0 90-95 % Bedside Glucose 136 70-90 mg/dl White Blood Count 9.68 4.8-10.8 K/uL Red Blood Count 2.96 4.2-5.4 M/uL Hemoglobin 8.3 12.0-16.0 g/dL Hematocrit 29.9 37-47 % Mean Corpuscular Volume 101.0 80-100 fL Mean Corpuscular Hemoglobin 28.0 25-34 pg Mean Corpuscular Hemoglobin Concent 27.8 32-36 g/dl RDW Standard Deviation 81.8 36.4-46.3 fL RDW Coefficient of Variation 22.2 11.5-14.5 % Platelet Count 154 130-400 K/uL Mean Platelet Volume 9.6 7.4-10.4 fL Nucleated RBC Absolute Count (auto) 0.12 0-0 K/uL Nucleated Red Blood Cells % 1.2 % Sodium Level 141 136-145 mmol/L Potassium Level 3.8 3.5-5.1 mmol/L Chloride Level 106 98-107 mmol/L Carbon Dioxide Level 32 21-32 mmol/L Anion Gap 3.0 3-11 mmol/L Blood Urea Nitrogen 14 7-18 mg/dl Creatinine 0.68 0.60-1.20 mg/dl Est Creatinine Clear Calc Drug Dose 91.1 ml/min Estimated GFR () 107.1 Estimated GFR (Non- 92.4 BUN/Creatinine Ratio 21.4 10-20 Random Glucose 97 70-99 mg/dl Calcium Level 7.7 8.5-10.1 mg/dl Phosphorus Level 3.4 2.5-4.9 mg/dl Magnesium Level 1.9 1.8-2.4 mg/dl Total Bilirubin 2.0 0.2-1 mg/dl Direct Bilirubin 1.5 0-0.2 mg/dl Aspartate Amino Transf (AST/SGOT) 74 15-37 U/L Alanine Aminotransferase (ALT/SGPT) 35 12-78 U/L Alkaline Phosphatase 482 45-117 U/L Total Protein 5.2 6.4-8.2 gm/dl Albumin 2.1 3.4-5.0 gm/dl Test 11/20/17 10:52 11/20/17 11:46 11/20/17 17:10 Range/Units Hemoglobin 8.5 8.2 12.0-16.0 g/dL Hematocrit 30.7 29.3 37-47 % Bedside Glucose 114 70-90 mg/dl Microbiology Results 11/19/17 Blood Culture, Received Pending 11/19/17 Blood Culture, Received Pending 11/20/17 MRSA DNA Surveillance Screen - Final, Complete Specimen Negative for MRSA by DNA Probe 11/20/17 Shiga Toxin Test, Received Pending 11/20/17 Stool Culture, Received Pending 11/20/17 C.difficile Toxin B Gene (PCR) - Final, Complete Positive for C. difficile toxin B gene 11/19/17 Urine Culture - Preliminary, Resulted Escherichia Coli 11/19/17 Gram Stain - Final, Resulted 11/19/17 Bacterial Culture - Preliminary, Resulted NO GROWTH TO DATE. 11/19/17 Gram Stain - Final, Resulted 11/19/17 Bacterial Culture - Preliminary, Resulted NO GROWTH TO DATE.
[2017-11-20] MEDS ORDERED: LORAZEPAM 1 MG TAB PO SCH (21:00)
[2017-11-20] MEDS ORDERED: RISPERIDONE 1 MG/ML SOLN PO SCH (21:00)
[2017-11-20] MEDS ORDERED: RIFAXIMIN TAB 550 MG TAB PO SCH (21:00)
[2017-11-20 21:34] LABS: IPAP 12; ISTAT ALLEN TEST Pass; ISTAT ARTERIAL BLOOD GAS HCO3 32 meq/L (19-24); ISTAT ARTERIAL BLOOD GAS PCO2 93 mmHg (35-46); ISTAT ARTERIAL BLOOD GAS PO2 80 mmHg (80-95); ISTAT ARTERIAL BLOOD GAS pH 7.14 (7.35-7.45); ISTAT CARBON DIOXIDE 35 mEq/l (24-31); ISTAT DELIVERY SYSTEM BIPAP; ISTAT FIO2 100 %; ISTAT RATE 28; ISTAT SITE R Radial
[2017-11-20 21:55] LABS: BUN/CREATININE RATIO 17.3 (10-20); CREATININE 0.74 mg/dl (0.60-1.20); MAGNESIUM 1.9 mg/dl (1.8-2.4); PHOSPHORUS 4.1 mg/dl (2.5-4.9)
--- NOTE | 2017-11-20 21:56 | DIAGNOSTIC IMAGING REPORT ---
CHEST ONE VIEW PORTABLE HISTORY: Decreased Mentation and Hypoxia COMPARISON: Chest 11/20/2017. FINDINGS: Nasogastric tube terminates below the diaphragm. The tip is not included on this study. Small right apical pneumothorax with a pleural gap of 11 mm. The right-sided chest tube is been moved. The heart remains mildly enlarged. Trace bilateral pleural effusions. Right perihilar airspace opacity has developed. Small patchy airspace opacity left lung base is also new from the prior study.. IMPRESSION: 1. Bilateral airspace opacities, right greater than left. This favors asymmetric pulmonary edema. 2. Trace bilateral pleural effusions. 3. Small right apical pneumothorax status post removal of the right chest tube. Electronically signed by: Jamal Bond M.D. 11/20/2017 9:55 PM Dictated Date/Time: 11/20/2017 9:53 PM
[2017-11-20 22:37] LABS: IPAP 16; ISTAT ALLEN TEST Pass; ISTAT ARTERIAL BLOOD GAS HCO3 32 meq/L (19-24); ISTAT ARTERIAL BLOOD GAS PCO2 101 mmHg (35-46); ISTAT ARTERIAL BLOOD GAS PO2 119 mmHg (80-95); ISTAT CARBON DIOXIDE 35 mEq/l (24-31); ISTAT DELIVERY SYSTEM BIPAP; ISTAT FIO2 100 %; ISTAT RATE 20; ISTAT SITE L Radial
[2017-11-20 23:47] LABS: HEMATOCRIT 32.9 % (37-47)
[2017-11-21] VITALS (17 sets, daily range): BP systolic 77–119; BP diastolic 40–66; PULSE 28–101; TEMP 35.5–36; O2SAT 86–97
[2017-11-21] MEDS: RASPBERRY SYRUP 5 ML UDP PO SCH (04:37)
[2017-11-21] MEDS: VANCOMYCIN HCL 125 MG/2.5ML SOLN PO SCH (04:38)
[2017-11-21 05:36] LABS: VEN BLOOD GAS BASE EXCESS -1.4 mEq/L
[2017-11-21 05:41] LABS: HEMATOCRIT 34.4 % (37-47); MEAN CELL VOLUME 107.8 fL (80-100); MEAN CORPUSCULAR HEMOGLOBIN 28.5 pg (25-34); MEAN CORPUSCULAR HGB CONC 26.5 g/dl (32-36); MEAN PLATELET VOLUME 9.8 fL (7.4-10.4); PLATELET COUNT 162 K/uL (130-400); RED BLOOD COUNT 3.19 M/uL (4.2-5.4); WHITE BLOOD COUNT 12.51 K/uL (4.8-10.8)
[2017-11-21 05:52] LABS: BUN/CREATININE RATIO 14.4 (10-20); CREATININE 0.99 mg/dl (0.60-1.20); MAGNESIUM 1.9 mg/dl (1.8-2.4); POTASSIUM 4.1 mmol/L (3.5-5.1)
[2017-11-21 05:56] LABS: PHOSPHORUS 6.3 mg/dl (2.5-4.9)
[2017-11-21 06:03] LABS: ARTERIAL BLD GAS O2 SATURATION 93.7 % (90-95); ARTERIAL BLOOD GAS BASE EXCESS -1.8 mEq/L (-9-1.8); ARTERIAL BLOOD GAS HCO3 32 mmol/L (19-24); ARTERIAL BLOOD GAS PO2 113 mm/Hg (80-95)
[2017-11-21] MEDS: PIPERACILL/TAZOBAC IV 4.5 GM in DEXTROSE 5% 100ML 100 ML IV SCH (06:07)
[2017-11-21 06:11] LABS: ALLEN TEST POS (POS); ARTERIAL BLOOD GAS pH 6.97 (7.35-7.45); O2 ADMINISTRATION 100%
[2017-11-21] MEDS ORDERED: MoRPHine SULF/NSS 250MG/250ML 250 ML IV PRN (06:22)
[2017-11-21] MEDS ORDERED: ATROPINE SULFATE 1% OP SOLN 5 ML BTL SL SCH (06:45)
[2017-11-21 07:14] LABS: REFERENCE QUEST TEST REPORT
[2017-11-21] MEDS ORDERED: VANCOMYCIN TROUGH ONE (07:30)
--- NOTE | 2017-11-21 07:43 | Discharge Summary ---
Discharge Summary Date of Service Nov 21, 2017. 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 Sultana Mcginnis. History of cirrhosis, alcohol abuse, COPD, and other problems noted below. noted decreased responsiveness. Patient apparently had minimal oral intake past few days. Time of last alcohol consumption unknown. Compliance with medications unknown. EMS summoned. They found her to be unresponsive, incontinent of stool Brought to ED for further evaluation and management. O2 sat 64% on RA upon arrival to ED. BiPAP applied. Patient minimally responsive and unable to answer any questions. . Physical Exam (per Admitting): General Appearance: + moderate distress, + obese Head: normocephalic, atraumatic Eyes: normal inspection, PERRL, EOMI, sclerae normal, + pertinent finding ( conjunctivae clear) ENT: + pertinent finding (wearing BiPAP; unable to assess) Neck: supple, no adenopathy, thyroid normal, trachea midline Respiratory/Chest: + pertinent finding (coarse breath sounds on right ( after thoracentesis)) Cardiovascular: regular rate, rhythm, no edema, no gallop, no JVD, + abnormal peripheral pulses (pedal pulses diminished) Abdomen/GI: + pertinent finding (distended; liver enlarged, nodular; nontender) Extremities/Musculoskelatal: + pedal edema, + pertinent finding (1+ pretibial edema) Neurologic/Psych: + pertinent finding (lethargic, minimally responsive, PERRL, moves all 4 extr) Skin: warm/dry, + pertinent finding (mild erythema and warmth RLE; intergluteal erythema and superfical ulceration; stage 2 ulcer right elbow) Lymphatic: no adenopathy (cervical) Hospital Course ACUTE HYPOXIC RESPIRATORY FAILURE O2 sat 64%on presentation to ER secondary to large pleural effusion. s/p thoracocentesis and also had chest tube which is removed now. Had total of 3lts taken out. Echocardiogram was obtained with findings consistent with a paddle pulmonary syndrome Patient had increasing V/Q mismatch, discussion with patient made comfort measures ALTERED MENTAL STATUS metabolic encephalopathy from hypoxia Hepatic encephalopathy ammonia level [address] negative. on lactulose POSSIBLE SEPSIS Afebrile in ED. no SBP urine growing e.coli on iv Zosyn and doxy currently C diff started on po vanco CIRRHOSIS / ASCITES Paracentesis and s/p 5lt taken out jason for repeat thoracocentesis in am plan for TIPS as per GI cardiology assesses pre op risk for tips procedure and deemed moderate risk on Lasix, Aldactone lactulose and rifaximin LARGE RIGHT PLEURAL EFFUSION Thoracentesis performed in ED. s/p chest tube PULMONARY ATELECTASIS Secondary to large pleural effusion. Resolved S/P thoracentesis. ALCOHOL ABUSE Unknown when last drink was. on thiamine stared on Ativan atc and prn for possible starting on withdrawal SCHIZOPHRENIA On risperidone. VTE PROPHYLAXIS SCD's. Patient presented on 11/19/2017 with acute hypoxic respiratory failure. She was found to have complete hydrothorax of her left long, significant large volume ascites and hepatic encephalopathy. She was started on broad-spectrum antibiotics, found to have an Escherichia coli urinary tract infection as well as clostridium C. difficile colitis. She underwent a thoracentesis and paracentesis on 11/20/2017. Patient had initial improvement of hypoxic hypercarbic respiratory failure after improvement of compressive atelectasis of the right lung. However patient had signs and symptoms consistent with hepato- pulmonary syndrome which was further defined with the findings on echocardiography. Patient became progressively more hypoxic despite 100% FiO2 secondary to her V/Q mismatch associated with hepato-pulmonary syndrome. In discussion with the and given that the patient is not a liver transplant candidate due to ongoing alcohol use it was felt the patient would not want to undergo her heroic measures and was converted to comfort measures. The patient at 7:01 AM on 11/21/2017 with her at the bedside. Total time spent on discharge = 15 minutes This includes examination of the patient, discharge planning, medication reconciliation, and communication with other providers. Discharge Instructions Not applicable
--- NOTE | 2017-11-21 07:45 | Death Summary ---
Summary of Admission Date Nov 19, 2017 at 22:23 Date & Time of Nov 21, 2017. 7:01 AM Cause of Hepato-pulmonary syndrome secondary to child's class C alcoholic cirrhosis secondary to alcohol dependence Secondary Diagnoses Systolic congestive heart failure Hepatic encephalopathy Escherichia coli urinary tract infection Clostridium difficile colitis Hospital Course Patient presented on 11/19/2017 with acute hypoxic respiratory failure. She was found to have complete hydrothorax of her left long, significant large volume ascites and hepatic encephalopathy. She was started on broad-spectrum antibiotics, found to have an Escherichia coli urinary tract infection as well as clostridium C. difficile colitis. She underwent a thoracentesis and paracentesis on 11/20/2017. Patient had initial improvement of hypoxic hypercarbic respiratory failure after improvement of compressive atelectasis of the right lung. However patient had signs and symptoms consistent with hepato- pulmonary syndrome which was further defined with the findings on echocardiography. Patient became progressively more hypoxic despite 100% FiO2 secondary to her V/Q mismatch associated with hepato-pulmonary syndrome. In discussion with the and given that the patient is not a liver transplant candidate due to ongoing alcohol use it was felt the patient would not want to undergo her heroic measures and was converted to comfort measures. The patient at 7:01 AM on 11/21/2017 with her at the bedside.
[2017-11-21] MEDS ORDERED: FLUOXETINE HCL 20 MG/5 ML PO SCH (09:00)
[2017-11-21] MEDS ORDERED: THIAMINE HCL INJ 100 MG in SYRINGE 9 ML IV SCH (09:00)
[2017-11-21 10:38] LABS: IPAP 16; ISTAT ALLEN TEST Pass; ISTAT ARTERIAL BLOOD GAS PCO2 < 10 mmHg (35-46); ISTAT ARTERIAL BLOOD GAS PO2 89 mmHg (80-95); ISTAT ARTERIAL BLOOD GAS pH 6.94 (7.35-7.45); ISTAT CARBON DIOXIDE < 5 mEq/l (24-31); ISTAT DELIVERY SYSTEM BIPAP; ISTAT FIO2 100 %; ISTAT RATE 20; ISTAT SITE L Radial
== END 2017-11-21 08:16 | disposition expired | DRG 432 ==
LOC: EDBD 18:35 → C.EDB 18:37 → C.MSICU 22:23 → ENRESERV 22:44
PROVIDERS: ADMIT Hospitalist; ATTEND Internal Medicine
PROC: 0W9G3ZX Drainage of Peritoneal Cavity, Percutaneous Approach, Diagnostic (ICD-10-PCS; principal; 2017-11-19)
PROC: 0W9930Z Drainage of Right Pleural Cavity with Drainage Device, Percutaneous Approach (ICD-10-PCS; 2017-11-19)
DX: K70.31 Alcoholic cirrhosis of liver with ascites (principal); J96.21 Acute and chronic respiratory failure with hypoxia; I50.20 Unspecified systolic (congestive) heart failure; J96.22 Acute and chronic respiratory failure with hypercapnia; J91.8 Pleural effusion in other conditions classified elsewhere; N39.0 Urinary tract infection, site not specified; J98.19 Other pulmonary collapse; J94.8 Other specified pleural conditions; A04.72 Enterocolitis due to Clostridium difficile, not specified as recurrent; Z51.5 Encounter for palliative care; K76.81 Hepatopulmonary syndrome; F10.20 Alcohol dependence, uncomplicated; J44.9 Chronic obstructive pulmonary disease, unspecified; E78.5 Hyperlipidemia, unspecified; M81.0 Age-related osteoporosis without current pathological fracture; F25.9 Schizoaffective disorder, unspecified; F17.200 Nicotine dependence, unspecified, uncomplicated; K72.90 Hepatic failure, unspecified without coma; B96.20 Unspecified Escherichia coli [E. coli] as the cause of diseases classified elsewhere; Z79.4 Long term (current) use of insulin; I27.20 Pulmonary hypertension, unspecified; D69.6 Thrombocytopenia, unspecified